=== PATIENT | female | born 1945 | race Caucasian/White ===

== ENCOUNTER 2017-11-25 12:50 | Observation (INO) | payer MEDICARE ==
--- NOTE | 2017-11-25 13:28 | ED ---
General Adult HPI - General Chief complaint: Shortness of Breath Stated complaint: copd Time Seen by Provider: 11/25/17 13:08 Source: patient, RN notes reviewed, old records reviewed Mode of arrival: wheelchair Limitations: no limitations - History of Present Illness Initial comments: 72-year-old female history of COPD, heart failure, and atrial fibrillation presenting with worsening dyspnea. Patient states she has had worsening exertional dyspnea over the past 3-4 weeks. Over the past several days this has significantly worsened. Patient is short of breath at rest. Denies cough. Denies fever. She has had some intermittent chest pain. She is currently on Lasix 40 mg has had no recent increases in this medication. She states she has had about a 10 pound weight gain. She is also on Rythmol and diltiazem for A. fib. She has no chest pain at the time my evaluation. Patient states she does have some issue with one of her valves and she recently had an echo with her cane cutter. She is uncertain of the results. - Related Data Home Medications Medication Instructions Recorded Confirmed Albuterol Inhaler [Ventolin Hfa 1 - 2 puff INHALATION RT-Q6H PRN 11/25/17 Inhaler] Atorvastatin [Lipitor] 10 mg PO HS 11/25/17 11/25/17 Calcium Carbonate/Vitamin D3 1 tab PO DAILY 11/25/17 11/25/17 [Calcium 600-Vit D3 400 Tablet] Diltiazem HCl [Cardizem Cd] 360 mg PO DAILY 11/25/17 11/25/17 Furosemide [Lasix] 40 mg PO DAILY 11/25/17 11/25/17 Ipratropium-Albuterol Nebulize 3 ml INHALATION RT-QID PRN 11/25/17 11/25/17 [Duoneb 0.5 mg-3 mg/3 ml Soln] Magnesium Chloride [Slow Mag] 64 mg PO DAILY 11/25/17 11/25/17 Montelukast [Singulair] 10 mg PO HS 11/25/17 11/25/17 Propafenone [Rythmol] 225 mg PO TID 11/25/17 11/25/17 Spironolactone [Aldactone] 25 mg PO DAILY 11/25/17 11/25/17 Warfarin [Coumadin] 5 mg PO DAILY 11/25/17 11/25/17 Allergies Allergy/AdvReac Type Severity Reaction Status Date / Time bee venom protein (honey bee) Allergy Anaphylaxis Verified 11/25/17 13:45 Review of Systems ROS Statement: Those systems with pertinent positive or pertinent negative responses have been documented in the HPI. ROS Other: All systems not noted in ROS Statement are negative. 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 Absent: meningismus Respiratory exam: Present: respiratory distress, wheezes, accessory muscle use, decreased breath sounds Cardiovascular Exam: Present: bradycardia, irregular rhythm, systolic murmur ( Pansystolic murmur) GI/Abdominal exam: Present: soft. Absent: distended, tenderness Extremities exam: Present: pedal edema (1), other (1+) Back exam: Present: normal inspection, full ROM. Absent: tenderness Neurological exam: Present: alert, oriented X3. Absent: motor sensory deficit Psychiatric exam: Present: normal affect, normal mood Skin exam: Present: warm, dry, intact. Absent: cyanosis, diaphoretic Course Vital Signs 11/25/17 11/25/17 11/25/17 12:55 13:46 13:57 Temperature 97.6 F Pulse Rate 73 40 L Respiratory 28 H 28 H Rate Blood Pressure 125/74 O2 Sat by Pulse 99 Oximetry 11/25/17 11/25/17 14:04 14:54 Temperature Pulse Rate 39 L 63 Respiratory 18 18 Rate Blood Pressure 133/65 131/90 O2 Sat by Pulse 96 96 Oximetry - Reevaluation(s) Reevaluation #1: 11/25/17 [address] Banegas, given the abnormal EKG, it is recommended that the patient receive IV calcium. Her Rythmol and diltiazem will be held. Patient will be admitted for telemetry and further monitoring. EKG Findings - EKG Comments: EKG Findings:: EKG: Obtained 1312 bradycardia, atrial fib with slow ventricular response, there is some atrial activity specifically seen in V3, this may be second-degree type I heart block, artifact and V5. Rate of 57, castration 116, QTC 465. Repeat EKG obtained at 1333 shows sinus bradycardia with AV dissociation and junctional bradycardia, there is a segment that appears to be second-degree type I heart block best visualized in lead 2 rhythm strip, it is left axis deviation, no ST segment elevation or depression, rate of 40, QRS duration 94, QTC 440. Repeat EKG at 1451 shows sinus rhythm with sinus arrhythmia and first-degree AV block, left axis deviation, rate of 62, WV interval 270, QRS duration 116, QTC 493 Medical Decision Making - Medical Decision Making 72-year-old female with progressive dyspnea over the past several weeks, worse over the past 3 days. Patient does have history of valvular disease, she received an outpatient echocardiogram [facility] within the last week. EKG is obtained, which shows bradycardia intermittent between A. fib with slow ventricular response and second-degree type I heart block. Case is discussed with cardiology, recommend holding Rythmol and diltiazem and supplementing with IV calcium. IV calcium and does improve patient's rhythm. She appears to be in a sinus rhythm with first-degree AV block after calcium supplementation and a rate in the 60s. Blood pressure remained stable. On exam patient has pansystolic murmur. Echo was obtained, these results will need to be reviewed. Pacer pads are placed on the patient although she does not require transcutaneous pacing. Electrolytes are within normal limits, creatinine 1.55, troponin and BNP are negative. TSH is pending. INR is therapeutic at 2.7. Hemoglobin stable. Diagnosis: Dyspnea secondary to bradycardia and valvular disease. - Lab Data Result diagrams: 11/25/17 13:30 11/25/17 13:30 Lab Results 11/25/17 11/25/17 11/25/17 Range/Units 13:30 13:30 13:30 WBC 8.7 (3.8-10.6) k/uL RBC 4.51 (3.80-5.40) m/uL Hgb 12.4 (11.4-16.0) gm/dL Hct 36.6 (34.0-46.0) % MCV 81.2 (80.0-100.0) fL MCH 27.4 (25.0-35.0) pg MCHC 33.7 (31.0-37.0) g/dL RDW 14.9 (11.5-15.5) % Plt Count 303 (150-450) k/uL Neutrophils % 75 % Lymphocytes % 16 % Monocytes % 6 % Eosinophils % 2 % Basophils % 1 % Neutrophils # 6.5 (1.3-7.7) k/uL Lymphocytes # 1.4 (1.0-4.8) k/uL Monocytes # 0.6 (0-1.0) k/uL Eosinophils # 0.1 (0-0.7) k/uL Basophils # 0.1 (0-0.2) k/uL PT (9.0-12.0) sec INR (<1.2) APTT (22.0-30.0) sec Sodium 141 (137-145) mmol/L Potassium 3.5 (3.5-5.1) mmol/L Chloride 99 (98-107) mmol/L Carbon Dioxide 28 (22-30) mmol/L Anion Gap 14 mmol/L BUN 22 H (7-17) mg/dL Creatinine 1.55 H (0.52-1.04) mg/dL Est GFR (CKD-EPI)AfAm 38 (>60 ml/min/1.73 sqM) Est GFR (CKD-EPI)NonAf 33 (>60 ml/min/1.73 sqM) Glucose 103 H (74-99) mg/dL Calcium 9.2 (8.4-10.2) mg/dL Magnesium 2.2 (1.6-2.3) mg/dL Total Bilirubin 0.3 (0.2-1.3) mg/dL AST 12 L (14-36) U/L ALT 28 (9-52) U/L Alkaline Phosphatase 97 (38-126) U/L Total Creatine Kinase 43 (30-135) U/L CK-MB (CK-2) 0.4 (0.0-2.4) ng/mL CK-MB (CK-2) Rel Index 0.9 Troponin I <0.012 (0.000-0.034) ng/mL NT-Pro-B Natriuret Pep pg/mL Total Protein 5.9 L (6.3-8.2) g/dL Albumin 3.9 (3.5-5.0) g/dL 11/25/17 11/25/17 Range/Units 13:30 13:30 WBC (3.8-10.6) k/uL RBC (3.80-5.40) m/uL Hgb (11.4-16.0) gm/dL Hct (34.0-46.0) % MCV (80.0-100.0) fL MCH (25.0-35.0) pg MCHC (31.0-37.0) g/dL RDW (11.5-15.5) % Plt Count (150-450) k/uL Neutrophils % % Lymphocytes % % Monocytes % % Eosinophils % % Basophils % % Neutrophils # (1.3-7.7) k/uL Lymphocytes # (1.0-4.8) k/uL Monocytes # (0-1.0) k/uL Eosinophils # (0-0.7) k/uL Basophils # (0-0.2) k/uL PT 24.6 H (9.0-12.0) sec INR 2.7 H (<1.2) APTT 30.3 H (22.0-30.0) sec Sodium (137-145) mmol/L Potassium (3.5-5.1) mmol/L Chloride (98-107) mmol/L Carbon Dioxide (22-30) mmol/L Anion Gap mmol/L BUN (7-17) mg/dL Creatinine (0.52-1.04) mg/dL Est GFR (CKD-EPI)AfAm (>60 ml/min/1.73 sqM) Est GFR (CKD-EPI)NonAf (>60 ml/min/1.73 sqM) Glucose (74-99) mg/dL Calcium (8.4-10.2) mg/dL Magnesium (1.6-2.3) mg/dL Total Bilirubin (0.2-1.3) mg/dL AST (14-36) U/L ALT (9-52) U/L Alkaline Phosphatase (38-126) U/L Total Creatine Kinase (30-135) U/L CK-MB (CK-2) (0.0-2.4) ng/mL CK-MB (CK-2) Rel Index Troponin I (0.000-0.034) ng/mL NT-Pro-B Natriuret Pep 357 pg/mL Total Protein (6.3-8.2) g/dL Albumin (3.5-5.0) g/dL Critical Care Time Critical Care Time: Yes Total Critical Care Time: 35 Disposition Clinical Impression: Symptomatic bradycardia, Valvular heart disease Disposition: ADMITTED IP TO THIS [facility] Condition: Stable Is patient prescribed a controlled substance at d/c from ED?: No Referrals: Cookie Guevara MD [Primary Care Provider] - 1-2 days Decision to Admit Reason: Admit from EC Decision Date: 11/25/17 Decision Time: 15:04
[2017-11-25 13:44] LABS: Basophils # (A) 0.1 k/uL (0-0.2); Basophils % (A) 1 %; Eosinophils # (A) 0.1 k/uL (0-0.7); Eosinophils % (A) 2 %; HCT 36.6 % (34.0-46.0); HGB 12.4 gm/dL (11.4-16.0); Lymphocytes # (A) 1.4 k/uL (1.0-4.8); Lymphocytes % (A) 16 %; MCH 27.4 pg (25.0-35.0); MCHC 33.7 g/dL (31.0-37.0); MCV 81.2 fL (80.0-100.0); Mean Platelet Volume 7.4; Monocytes # (A) 0.6 k/uL (0-1.0); Monocytes % (A) 6 %; Neutrophils # (A) 6.5 k/uL (1.3-7.7); Neutrophils % (A) 75 %; Platelet Count 303 k/uL (150-450); RBC 4.51 m/uL (3.80-5.40); RDW 14.9 % (11.5-15.5); WBC 8.7 k/uL (3.8-10.6)
[2017-11-25 13:53] LABS: Albumin 3.9 g/dL (3.5-5.0); Calcium 9.2 mg/dL (8.4-10.2); Magnesium 2.2 mg/dL (1.6-2.3); Potassium 3.5 mmol/L (3.5-5.1); Total Bilirubin 0.3 mg/dL (0.2-1.3); Total Protein 5.9 g/dL (6.3-8.2)
[2017-11-25 13:57] LABS: INR 2.7 (<1.2); Partial Thromboplastin Time 30.3 sec (22.0-30.0); Prothrombin Time 24.6 sec (9.0-12.0)
--- NOTE | 2017-11-25 13:57 | XR ---
EXAMINATION: XR chest 2V DATE AND TIME: 11/25/2017 1:51 PM ORDERING PROVIDER: Wesley Eastman MD CLINICAL INDICATION: difficulty breathing TECHNIQUE: PA and lateral COMPARISON: None. DESCRIPTION: The overlying soft tissues are prominent. The lungs are clear. The pleural spaces are negative. The cardiac silhouette is moderately enlarged. The mediastinal and pleural silhouettes are unremarkable. The skeletal structures are intact without focal findings. IMPRESSION: NO ACUTE PROCESS.
[2017-11-25 14:07] LABS: Creatine Kinase 43 U/L (30-135)
[2017-11-25 14:20] LABS: Creatine Kinase MB 0.4 ng/mL (0.0-2.4); Troponin I <0.012 ng/mL (0.000-0.034)
[2017-11-25] MEDS ORDERED: NALOXONE 0.4 MG/ML 1 ML VIAL IV PRN (14:53)
[2017-11-25] MEDS ORDERED: ALBUTEROL NEBULIZED 2.5 MG/3 ML INHALATION PRN (14:56)
[2017-11-25] MEDS ORDERED: CALCIUM CHLORIDE 500 MG in SODIUM CHLORIDE 0.9% 50 ML IVPB ONE (15:00)
[2017-11-25 16:54] VITALS: BMI 39.5
--- NOTE | 2017-11-25 17:17 | P.HPIM ---
History of Present Illness 68-year-old pleasant female came in with the comments of excessive tiredness weakness and worsening dyspnea denied any orthopnea PND. Patient had some aloe problem what appears to be aortic stenosis and which is being monitored by her hydraulic press tender Dr. Torres as an outpatient. Patient chest x-ray did not show any congestive heart failure patient is severely bradycardic, with heart rate going into 30s and first-degree AV block. Because of the severe symptomatically bradycardia patient was admitted to the hospital area patient is on Rythmol and Cardizem as an outpatient dose of which was not changed recently. TSH will be obtained as well patient's INR is therapeutic Coumadin will be continued at the same dose troponin is negative. Brain natriuretic peptide is only 300. Patient clinically does not appear to be in heart failure patient's creatinine is 1.55 baseline is not available patient appears to have chronic kidney disease with BUN and creatinine ratio. Because of poor renal function all hold off on all that on and the Lasix at this time and patient is not in heart failure and status started on gentle hydration at 75 mL of IV fluids patient does have systolic murmur and diuretic area but the the murmur is not that severe may not have severe aortic stenosis patient recently had an echocardiogram and carotid Doppler as an outpatient results of which will be obtained by on-call hydraulic press tender. Review of Systems REVIEW OF SYSTEMS: CONSTITUTIONAL: As mentioned in HPI HEENT: No recent visual problems or hearing problems. Denied any sore throat. CARDIOVASCULAR: No chest pain, orthopnea, PND, no palpitations, no syncope. B PULMONARY: No shortness of breath, no cough, no hemoptysis. GASTROINTESTINAL: No diarrhea, no nausea, no vomiting, no abdominal pain. Normoactive bowel sounds. NEUROLOGICAL: No headaches, no weakness, no numbness. HEMATOLOGICAL: Denies any bleeding or petechiae. GENITOURINARY: Denies any burning micturition, frequency, or urgency. MUSCULOSKELETAL/RHEUMATOLOGICAL: Denies any joint pain, swelling, or any muscle pain. ENDOCRINE: Denies any polyuria or polydipsia. The rest of the 14-point review of systems is negative. 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 History of Any Multi-Drug Resistant Organisms: None Reported Past Surgical History: Appendectomy, Heart Catheterization, Tonsillectomy, Tubal Ligation Past Anesthesia/Blood Transfusion Reactions: No Reported Reaction Past Psychological History: No Psychological Hx Reported Smoking Status: Former smoker Past Alcohol Use History: None Reported Past Drug Use History: None Reported - Past Family History Father History Unknown: Yes Family Medical History: Cancer Medications and Allergies Home Medications Medication Instructions Recorded Confirmed Type Albuterol Inhaler [Ventolin Hfa 1 - 2 puff INHALATION RT-Q6H PRN 11/25/17 History Inhaler] Atorvastatin [Lipitor] 10 mg PO HS 11/25/17 11/25/17 History Calcium Carbonate/Vitamin D3 1 tab PO DAILY 11/25/17 11/25/17 History [Calcium 600-Vit D3 400 Tablet] Diltiazem HCl [Cardizem Cd] 360 mg PO DAILY 11/25/17 11/25/17 History Furosemide [Lasix] 40 mg PO DAILY 11/25/17 11/25/17 History Ipratropium-Albuterol Nebulize 3 ml INHALATION RT-QID PRN 11/25/17 11/25/17 History [Duoneb 0.5 mg-3 mg/3 ml Soln] Magnesium Chloride [Slow Mag] 64 mg PO DAILY 11/25/17 11/25/17 History Montelukast [Singulair] 10 mg PO HS 11/25/17 11/25/17 History Propafenone [Rythmol] 225 mg PO TID 11/25/17 11/25/17 History Spironolactone [Aldactone] 25 mg PO DAILY 11/25/17 11/25/17 History Warfarin [Coumadin] 5 mg PO DAILY 11/25/17 11/25/17 History Allergies Allergy/AdvReac Type Severity Reaction Status Date / Time bee venom protein (honey bee) Allergy Anaphylaxis Verified 11/25/17 13:45 Physical Exam Vitals: Vital Signs Temp Pulse Resp BP Pulse Ox 11/25/17 15:42 97 F L 62 18 141/64 96 11/25/17 14:54 63 18 131/90 96 11/25/17 14:04 39 L 18 133/65 96 11/25/17 13:57 28 H 11/25/17 13:46 40 L 11/25/17 12:55 97.6 F 73 28 H 125/74 99 Intake and Output 11/25/17 11/25/17 11/25/17 06:59 14:59 22:59 Other: Weight 117.934 kg 117.93 kg PHYSICAL EXAMINATION: GENERAL: The patient is alert and oriented x3, not in any acute distress. Well developed, well nourished. HEENT: Pupils are round and equally reacting to light. EOMI. No scleral icterus. No conjunctival pallor. Normocephalic, atraumatic. No pharyngeal erythema. No thyromegaly. CARDIOVASCULAR: S1 and S2 present. No murmurs, rubs, or gallops. Bradycardic PULMONARY: Chest is clear to auscultation, no wheezing or crackles. ABDOMEN: Soft, nontender, nondistended, normoactive bowel sounds. No palpable organomegaly. MUSCULOSKELETAL: No joint swelling or deformity. EXTREMITIES: No cyanosis, clubbing, or pedal edema. NEUROLOGICAL: Gross neurological examination did not reveal any focal deficits. SKIN: No rashes. Results CBC & Chem 7: 11/25/17 13:30 11/25/17 13:30 Labs: Abnormal Lab Results - Last 24 Hours (Table) 11/25/17 11/25/17 Range/Units 13:30 13:30 PT 24.6 H (9.0-12.0) sec INR 2.7 H (<1.2) APTT 30.3 H (22.0-30.0) sec BUN 22 H (7-17) mg/dL Creatinine 1.55 H (0.52-1.04) mg/dL Glucose 103 H (74-99) mg/dL AST 12 L (14-36) U/L Total Protein 5.9 L (6.3-8.2) g/dL Assessment and Plan Plan: -Severe generalized fatigue: TSH is within normal limits probably secondary to severe bradycardia and first-degree AV block, rate control medications Cardizem and Rythmol are being held. Patient does not appear to be in heart failure -Atrial fibrillation presently bradycardic therapeutic on Coumadin patient will receive can you done same dose of Coumadin -Renal failure: Unsure whether patient has acute renal failure R chronic kidney disease, we'll start her on gentle hydration repeat basic metabolic profile tomorrow we'll hold off on diuretic therapy -COPD without any acute exacerbation -Possible aortic stenosis, awaiting results from cardiology clinic
[2017-11-25 18:15] LABS: Amorphous Sediment,Urine Rare /hpf; Appearance,Urine Cloudy (Clear); Bilirubin,Urine Negative (Negative); Blood,Urine Negative (Negative); Color,Urine Light Yellow; Glucose,Urine (UA) Negative (Negative); Ketones,Urine Negative (Negative); Leukocyte Esterase,Urine Negative (Negative); Mucus,Urine Rare /hpf; Nitrite,Urine Negative (Negative); PH, Urine 7.5 (5.0-8.0); Protein,Urine Negative (Negative); Specific Gravity,Urine 1.009 (1.001-1.035); Squamous Epithelial Cell,Urine <1 /hpf (0-4); Urobilinogen,Urine <2.0 mg/dL (<2.0)
[2017-11-25] MEDS: ATORVASTATIN 10 MG TAB PO SCH (20:02)
[2017-11-25] MEDS: SODIUM CHLORIDE 0.9% 1,000 ML IV SCH (20:02)
[2017-11-25 20:03] LABS: Creatine Kinase 45 U/L (30-135)
[2017-11-25 20:16] LABS: Creatine Kinase MB 0.4 ng/mL (0.0-2.4); Troponin I <0.012 ng/mL (0.000-0.034)
[2017-11-26 01:44] LABS: Creatine Kinase 37 U/L (30-135)
[2017-11-26 01:58] LABS: Creatine Kinase MB 0.4 ng/mL (0.0-2.4); Troponin I <0.012 ng/mL (0.000-0.034)
[2017-11-26 06:22] LABS: Calcium 9.1 mg/dL (8.4-10.2); Potassium 3.9 mmol/L (3.5-5.1)
[2017-11-26] MEDS: SODIUM CHLORIDE 0.9% 1,000 ML IV SCH ×2 (06:28→19:23)
[2017-11-26 06:30] LABS: INR 2.3 (<1.2); Prothrombin Time 20.5 sec (9.0-12.0)
[2017-11-26] MEDS: IPRATROPIUM-ALBUTEROL 3 ML NEB INHALATION PRN ×3 (08:43→21:12)
[2017-11-26] MEDS ORDERED: SPIRONOLACTONE 25 MG TAB PO SCH (09:00)
[2017-11-26] MEDS ORDERED: FUROSEMIDE 40 MG TAB PO SCH (09:00)
--- NOTE | 2017-11-26 12:24 | CONS ---
CONSULTATION 72-year-old female presenting with several days of tiredness, fatigue and weakness, but no loss of consciousness. She was short of breath and fatigued, but she denied any orthopnea, PND or chest pain. When she arrived her 12-lead ECG showed sinus bradycardia and junctional rhythm. Currently she is in sinus rhythm with a prolonged CA interval. She was on diltiazem 360 mg p.o. daily and propafenone 225 mg 3 times a day. LABS: Reviewed upon admission and her hemoglobin is normal. Electrolytes are normal. The potassium was 3.5 and NT proBNP was 357. Cardiac enzymes are normal. PAST HISTORY: Includes atrial fibrillation. She has undergone 2 electrical cardioversion. She has persistent atrial fibrillation. MEDICATION LIST: Was reviewed and is documented in the chart and includes warfarin, spironolactone in addition to Rythmol and Cardizem. ALLERGIES: To BEE VENOM. REVIEW OF SYSTEMS: No no fever or rigors. No strokes or seizures. Past history also includes coronary angiogram with normal coronary arteries in 2012. She underwent an echo in the office in February 2017, which showed normal LV function with aortic sclerosis and mild to moderate aortic insufficiency. The BMI is 39. Also in addition, she has a history of hypertension and dyslipidemia. EXAMINATION: Her vitals are stable. She is afebrile. Her pulse rate in the 60s and 70s. Blood pressure is 132/67 mmHg. Head and neck examination is normal. Heart sounds S1, S2 soft. There is a systolic murmur over the aortic area. I do not hear any diastolic murmur. Breath sounds are clear. No rhonchi, no crackles. Abdomen was soft. Extremities: Atrophic changes are noted. IMPRESSION: 72-year-old obese female with a history of mild aortic valve disease and persistent atrial fibrillation who has undergone electrical cardioversion several years back and is currently on Rythmol 225 mg 3 times a day and diltiazem 360 mg once daily, who presented with severe bradycardia and junctional rhythm. Rhythm has now improved. She is now in a sinus rhythm with a prolonged CA interval. I would suggest discontinuing Rythmol and diltiazem for now and reassess tomorrow. Reassess her blood pressure and her atrial fibrillation medications. She should obviously continue anticoagulation. Her options in terms of antiarrhythmic drug therapy are limited and include class 1 or class 3 drug like amiodarone would precipitate bradycardia. I will then reconsider on starting Rythmol at a much smaller dose and AV charly blocking drugs at a much smaller dose. If this problem recurs and she becomes bradycardic or if her atrial fibrillation reoccurs, alternative strategies including physiologic septal pacing should be considered in the future. TSH will be ordered. MMODL / IJN: [id number] /
--- NOTE | 2017-11-26 12:42 | P.PN ---
Subjective 68-year-old admitted secondary to sinus bradycardia with first-degree AV block. Cardiology valid the patient is recommending one more day of monitoring her creatinine did improve. Patient is feeling much better fatigue improved. Part of the fatigue is probably related to her renal dysfunction which may have led to accumulation of her rate control medications which were discontinued now. Echocardiogram results are still not available at this time. Constitutional: denied any fever. Cardio vascular: denied any chest pain, palpitations Gastrointestinal denied any nausea vomiting Pulmonary: Denied any shortness of breath cough Neurologic denied any new focal deficits Objective - Vital Signs Vital signs: Vital Signs Temp 97.0 F L 11/26/17 08:50 Pulse 62 11/26/17 08:54 Resp 18 11/26/17 08:50 BP 132/67 11/26/17 08:50 Pulse Ox 99 11/26/17 08:50 Intake & Output 11/25/17 11/26/17 11/26/17 18:59 06:59 18:59 Intake Total 350 660 240 Output Total 325 300 Balance 25 360 240 Weight 117.93 kg 115.8 kg Intake: Intake, IV Titration 300 Amount Sodium Chloride 0.9% 1, 300 000 ml @ 75 mls/hr IV . [id number] ADRIANNA Rx#:[id number] Oral 350 360 240 Output: Urine 325 300 Other: Voiding Method Toilet # Bowel Movements 1 - Exam PHYSICAL EXAMINATION: GENERAL: The patient is alert and oriented x3, not in any acute distress. Well developed, well nourished. HEENT: Pupils are round and equally reacting to light. EOMI. No scleral icterus. No conjunctival pallor. Normocephalic, atraumatic. No pharyngeal erythema. No thyromegaly. CARDIOVASCULAR: S1 and S2 present. No murmurs, rubs, or gallops. PULMONARY: Chest is clear to auscultation, no wheezing or crackles. ABDOMEN: Soft, nontender, nondistended, normoactive bowel sounds. No palpable organomegaly. MUSCULOSKELETAL: No joint swelling or deformity. EXTREMITIES: No cyanosis, clubbing, or pedal edema. NEUROLOGICAL: Gross neurological examination did not reveal any focal deficits. SKIN: No rashes. - Labs CBC & Chem 7: 11/25/17 13:30 11/26/17 05:25 Labs: Abnormal Lab Results - Last 24 Hours (Table) 11/25/17 11/25/17 11/25/17 Range/Units 13:30 13:30 18:00 PT 24.6 H (9.0-12.0) sec INR 2.7 H (<1.2) APTT 30.3 H (22.0-30.0) sec BUN 22 H (7-17) mg/dL Creatinine 1.55 H (0.52-1.04) mg/dL Glucose 103 H (74-99) mg/dL AST 12 L (14-36) U/L Total Protein 5.9 L (6.3-8.2) g/dL Urine Appearance Cloudy H (Clear) Amorphous Sediment Rare H (None) /hpf Urine Mucus Rare H (None) /hpf 11/26/17 11/26/17 Range/Units 05:25 05:25 PT 20.5 H (9.0-12.0) sec INR 2.3 H (<1.2) APTT (22.0-30.0) sec BUN 20 H (7-17) mg/dL Creatinine 1.20 H (0.52-1.04) mg/dL Glucose 104 H (74-99) mg/dL AST (14-36) U/L Total Protein (6.3-8.2) g/dL Urine Appearance (Clear) Amorphous Sediment (None) /hpf Urine Mucus (None) /hpf Assessment and Plan Plan: -Severe generalized fatigue: TSH is within normal limits probably secondary to severe bradycardia with contribution from acute renal failure and first-degree AV block, rate control medications Cardizem and Rythmol are being held. Patient does not appear to be in heart failure. Renal failure improved compared to yesterday continue with the gentle hydration today repeat basic metabolic profile tomorrow -Atrial fibrillation presently bradycardic therapeutic on Coumadin patient will receive can you done same dose of Coumadin. Repeat INR tomorrow -Renal failure: Patient mostly appears to have acute renal failure secondary to diuretic therapy which is being held and patient is being hydrated at this time. -COPD without any acute exacerbation -Possible aortic stenosis, awaiting results from cardiology clinic
[2017-11-26] MEDS: WARFARIN 5 MG TAB PO SCH (16:15)
[2017-11-26] MEDS: ACETAMINOPHEN TAB 325 MG TAB PO PRN (19:25)
[2017-11-26] MEDS: ATORVASTATIN 10 MG TAB PO SCH (19:26)
[2017-11-27 06:52] LABS: Prothrombin Time 17.8 sec (9.0-12.0)
[2017-11-27 07:02] LABS: Calcium 8.8 mg/dL (8.4-10.2); Potassium 4.8 mmol/L (3.5-5.1)
[2017-11-27] MEDS: IPRATROPIUM-ALBUTEROL 3 ML NEB INHALATION PRN (08:56)
[2017-11-27] MEDS ORDERED: PROPAFENONE 150 MG TAB PO SCH (09:00)
[2017-11-27] MEDS: DILTIAZEM CD 120 MG CAP.ER.24H PO SCH (09:35)
[2017-11-27] MEDS: PROPAFENONE 150 MG TAB PO SCH ×3 (09:35→22:35)
--- NOTE | 2017-11-27 10:22 | PN ---
PROGRESS NOTE This is a 72-year-old female who presented with weakness and tiredness with bradycardia on diltiazem 360 mg p.o. daily as well as Rythmol 225 mg 3 times a day in sinus rhythm and junctional rhythm. She has improved after discontinuing all these medications. She has a history of persistent atrial fibrillation and has had electrical cardioversion several years back on 2 occasions. However, she has maintained sinus rhythm thereafter. Today, she is doing well. She denies any chest discomfort, dizziness or lightheadedness. She is resting comfortably in bed. Her heart rates are normal, WI interval is mildly prolonged. On examination, she is afebrile, 97.6 degrees Fahrenheit, blood pressure is 127/59 mmHg, pulse rate is in the 60s and 70s. Head and neck examination is normal. Heart sounds reveal an ejection systolic murmur and no S3 gallop. IMPRESSION: 1. Persistent atrial fibrillation, currently remaining in sinus rhythm. 2. Sick sinus syndrome. 3. Abnormal AV node function with prolonged WI interval. 4. Improved after medications including Rythmol and Cardizem were discontinued. PLAN: I would restart Rythmol at a much lower dose of 75 mg 3 times a day as well as restart Cardizem at 120 mg p.o. daily. Observe on telemetry for the next 24 to 48 hours to see if she has any bradycardia issues. If she does not, then she may go home and follow up with Dr. Torres. She will continue anticoagulation. If she does have persistent atrial fibrillation, it is very likely that she will recur without any antiarrhythmic drug therapy. Rythmol has worked well for her and hopefully the low dose is also successful in maintaining sinus rhythm. Her TSH is normal. MMODL / IJN: [id number] /
--- NOTE | 2017-11-27 10:57 | P.PN ---
Subjective 68-year-old admitted secondary to sinus bradycardia with first-degree AV block. Cardiology valid the patient is recommending one more day of monitoring her creatinine did improve. Patient is feeling much better fatigue improved. Part of the fatigue is probably related to her renal dysfunction which may have led to accumulation of her rate control medications which were discontinued now. Echocardiogram results are still not available at this time. 11/27/2017 Patient is bit crackles on lung exam because of which I discontinued IV fluids and obtain a chest x-ray. Patient renal function improved and is normal now patient is being started back on Rythmol and Cardizem, cardiology is recommending monitoring one more night. Constitutional: denied any fever. Cardio vascular: denied any chest pain, palpitations Gastrointestinal denied any nausea vomiting Pulmonary: Denied any shortness of breath cough Neurologic denied any new focal deficits Objective - Vital Signs Vital signs: Vital Signs Temp 97.6 F 11/27/17 08:30 Pulse 80 11/27/17 09:06 Resp 20 11/27/17 08:30 BP 129/55 11/27/17 08:30 Pulse Ox 97 11/27/17 08:57 Intake & Output 11/26/17 11/27/17 11/27/17 18:59 06:59 18:59 Intake Total 480 240 360 Output Total 601 925 700 Balance -121 -685 -340 Weight 117.3 kg Intake: Oral 480 240 360 Output: Urine 600 925 100 Stool 1 Urine/Stool Mix 600 Other: Voiding Method Toilet # Voids 1 # Bowel Movements 1 - Exam PHYSICAL EXAMINATION: GENERAL: The patient is alert and oriented x3, not in any acute distress. Well developed, well nourished. HEENT: Pupils are round and equally reacting to light. EOMI. No scleral icterus. No conjunctival pallor. Normocephalic, atraumatic. No pharyngeal erythema. No thyromegaly. CARDIOVASCULAR: S1 and S2 present. No murmurs, rubs, or gallops. PULMONARY: Bibasilar crackles on exam no wheezing was appreciated ABDOMEN: Soft, nontender, nondistended, normoactive bowel sounds. No palpable organomegaly. MUSCULOSKELETAL: No joint swelling or deformity. EXTREMITIES: No cyanosis, clubbing, or pedal edema. NEUROLOGICAL: Gross neurological examination did not reveal any focal deficits. SKIN: No rashes. - Labs CBC & Chem 7: 11/25/17 13:30 11/27/17 06:16 Labs: Abnormal Lab Results - Last 24 Hours (Table) 11/27/17 Range/Units 06:16 PT 17.8 H (9.0-12.0) sec INR 2.0 H (<1.2) Assessment and Plan Plan: -Severe generalized fatigue: TSH is within normal limits probably secondary to severe bradycardia with contribution from acute renal failure and first-degree AV block, rate control medications Cardizem and Rythmol are being held. Patient does not appear to be in heart failure. Renal failure improved compared to yesterday continue with the gentle hydration today repeat basic metabolic profile tomorrow -Atrial fibrillation presently bradycardic therapeutic on Coumadin patient will receive can you done same dose of Coumadin. Repeat INR tomorrow -Renal failure: Acute renal failure secondary to diuretic therapy which improved now. Because of crackles in the lung exam I'll get a chest x-ray today. -COPD without any acute exacerbation -Possible aortic stenosis, awaiting results from cardiology clinic
--- NOTE | 2017-11-27 13:06 | XR ---
EXAMINATION TYPE: XR chest 1V DATE OF EXAM: 11/27/2017 COMPARISON: 11/25/2017 HISTORY: Shortness of breath TECHNIQUE: Single frontal view of the chest is obtained. FINDINGS: There is no focal air space opacity, pleural effusion, or pneumothorax seen. The cardiac silhouette size is within normal limits. The osseous structures are intact. Heart is enlarged. Unde rlying COPD suspected there is diffuse osteopenia. Atherosclerotic change of the aorta. Linear atelec tasis left upper lobe. IMPRESSION: Stable cardiomegaly and findings suggestive of COPD
[2017-11-27 15:42] VITALS: RESP 20
[2017-11-27] MEDS: WARFARIN 5 MG TAB PO SCH (17:19)
[2017-11-27] MEDS: SODIUM CHLORIDE 0.9% 1,000 ML IV SCH (19:32)
[2017-11-27] MEDS: ATORVASTATIN 10 MG TAB PO SCH (22:35)
[2017-11-28] MEDS: ACETAMINOPHEN TAB 325 MG TAB PO PRN (00:18)
[2017-11-28 05:26] VITALS: TEMP 97.9
[2017-11-28 06:23] LABS: HCT 34.2 % (34.0-46.0); HGB 10.8 gm/dL (11.4-16.0); Hypochromasia Slight; MCH 26.4 pg (25.0-35.0); MCHC 31.5 g/dL (31.0-37.0); MCV 83.7 fL (80.0-100.0); Platelet Count 289 k/uL (150-450); RBC 4.09 m/uL (3.80-5.40); RDW 14.9 % (11.5-15.5)
[2017-11-28 06:31] LABS: Calcium 8.9 mg/dL (8.4-10.2); Potassium 4.9 mmol/L (3.5-5.1)
[2017-11-28 06:33] LABS: INR 1.8 (<1.2); Prothrombin Time 16.5 sec (9.0-12.0)
[2017-11-28 08:02] VITALS: BP 134/89
[2017-11-28] MEDS: PROPAFENONE 150 MG TAB PO SCH (08:04)
[2017-11-28] MEDS: DILTIAZEM CD 120 MG CAP.ER.24H PO SCH (08:04)
[2017-11-28] MEDS: IPRATROPIUM-ALBUTEROL 3 ML NEB INHALATION PRN (08:07)
[2017-11-28 09:07] VITALS: PULSE 87
--- NOTE | 2017-11-28 11:52 | P.PN ---
Subjective Progress Note Date: 11/28/17 Principal diagnosis: Tiredness and fatigue This is a 72-year-old female who presented to the hospital with symptoms of tiredness, fatigue and weakness. Her initial EKG on presentation here showed sinus bradycardia and junctional rhythm. Medication adjustments have been made. She was seen and examined this morning, heart rate in the 70s to 80s, feeling overall significantly better. Let pressure this morning 134/80 with a heart rate in the 70s to 80s. White blood cell count 8.0, hemoglobin 10.8, platelet count 289. INR today 1.8. Sodium 137, potassium 4.9, BUN 14, creatinine 0.9. Objective - Vital Signs Vital signs: Vital Signs Temp 97.9 F 11/28/17 07:45 Pulse 87 11/28/17 09:00 Resp 20 11/28/17 08:00 BP 134/89 11/28/17 07:45 Pulse Ox 90 L 11/28/17 09:00 Intake & Output 11/27/17 11/28/17 11/28/17 18:59 06:59 18:59 Intake Total 1080 Output Total 1000 200 1 Balance 80 -200 -1 Weight 117.4 kg Intake: Oral 1080 Output: Urine 400 200 Stool 1 Urine/Stool Mix 600 Other: Voiding Method Toilet Toilet # Voids 1 - Exam PHYSICAL EXAMINATION: GENERAL: 72-year-old female in no apparent distress at the time of my examination. HEENT: Head is atraumatic, normocephalic. Pupils equal, round. Sclera anicteric. Conjunctiva are clear. Mucous membranes of the mouth are moist. Neck is supple. There is no elevated jugular venous pressure.] bruit is heard. HEART EXAMINATION: Heart S1 and S2 irregularly irregular CHEST EXAMINATION: Lungs are clear to auscultation and precussion. No chest wall tenderness is noted on palpation or with deep breathing. ABDOMEN: Soft, nontender. Bowel sounds are heard. No organomegaly noted. EXTREMITIES: 2+ peripheral pulses with no evidence of peripheral edema and no calf tenderness noted. NEUROLOGIC patient is awake, alert and oriented -3. . - Labs CBC & Chem 7: 11/28/17 05:26 11/28/17 05:26 Labs: Abnormal Lab Results - Last 24 Hours (Table) 06/19/18 06/19/18 Range/Units 05:26 05:26 Hgb 10.8 L (11.4-16.0) gm/dL PT 16.5 H (9.0-12.0) sec INR 1.8 H (<1.2) Assessment and Plan Plan: Assessment and plan #1 paroxysmal atrial fibrillation, remaining in normal sinus rhythm. #2 bradycardia on admission, improved #3 COPD without exacerbation Plan Cardiology's perspective, patient may be able to be discharged home on her current medication she is on here. She has a follow-up appointment with Dr. Oviedo next Monday and has been advised at that time to grain picker a Holter monitor as well. Note
--- NOTE | 2017-11-28 14:20 | P.DS ---
Providers Date of admission: 11/27/17 14:16 Attending physician: Laurel Sharma Consults: 11/25/17 14:54 Consult Physician Urgent Consulting Provider: Chris Banegas Consult Reason/Comments: Bradycardia, valvular disease Do you want consulting provider notified?: Already Contacted Primary care physician: Cookie [facility] Course: 68-year-old admitted secondary to sinus bradycardia with first-degree AV block. Cardiology valid the patient is recommending one more day of monitoring her creatinine did improve. Patient is feeling much better fatigue improved. Part of the fatigue is probably related to her renal dysfunction which may have led to accumulation of her rate control medications which were discontinued now. Echocardiogram results are still not available at this time. 11/27/2017 Patient is bit crackles on lung exam because of which I discontinued IV fluids and obtain a chest x-ray. Patient renal function improved and is normal now patient is being started back on Rythmol and Cardizem, cardiology is recommending monitoring one more night. 11/28/2017 Patient heart rate is well controlled patient is cleared by cardiology will be discharged on dictated dose of Cardizem and Rythmol. Patient is not in heart failure patient has diuretic-related renal dysfunction because of which diuretics were discontinued. Patient will closely follow with Dr. Torres as an outpatient. PHYSICAL EXAMINATION: GENERAL: The patient is alert and oriented x3, not in any acute distress. Well developed, well nourished. HEENT: Pupils are round and equally reacting to light. EOMI. No scleral icterus. No conjunctival pallor. Normocephalic, atraumatic. No pharyngeal erythema. No thyromegaly. CARDIOVASCULAR: S1 and S2 present. No murmurs, rubs, or gallops. PULMONARY: Bibasilar crackles on exam no wheezing was appreciated ABDOMEN: Soft, nontender, nondistended, normoactive bowel sounds. No palpable organomegaly. MUSCULOSKELETAL: No joint swelling or deformity. EXTREMITIES: No cyanosis, clubbing, or pedal edema. NEUROLOGICAL: Gross neurological examination did not reveal any focal deficits. SKIN: No rashes. Assessment and Plan Plan: -Severe generalized fatigue: Secondary to bradycardia which resolved at this point of time with contribution from acute renal failure which also improved. Creatinine is within normal limits. -Atrial fibrillation presently rate controlled -Renal failure: Acute renal failure secondary to diuretic therapy which improved now. -COPD without any acute exacerbation -Possible aortic stenosis. Patient Condition at Discharge: Stable Plan - Discharge Summary New Discharge Prescriptions: New Diltiazem Cd [Cardizem CD] 120 mg PO DAILY #30 cap.er.24h Propafenone [Rythmol] 75 mg PO TID #90 tab Continue Albuterol Inhaler [Ventolin Hfa Inhaler] 1 - 2 puff INHALATION RT-Q6H PRN PRN Reason: Shortness Of Breath Atorvastatin [Lipitor] 10 mg PO HS Calcium Carbonate/Vitamin D3 [Calcium 600-Vit D3 400 Tablet] 1 tab PO DAILY Ipratropium-Albuterol Nebulize [Duoneb 0.5 mg-3 mg/3 ml Soln] 3 ml INHALATION RT-QID PRN PRN Reason: Shortness Of Breath Magnesium Chloride [Slow-Mag] 64 mg PO DAILY Montelukast [Singulair] 10 mg PO HS Warfarin [Coumadin] 5 mg PO DAILY Discontinued Diltiazem HCl [Cardizem Cd] 360 mg PO DAILY Furosemide [Lasix] 40 mg PO DAILY Propafenone [Rythmol] 225 mg PO TID Spironolactone [Aldactone] 25 mg PO DAILY Discharge Medication List Albuterol Inhaler [Ventolin Hfa Inhaler] 1 - 2 puff INHALATION RT-Q6H PRN [History] Atorvastatin [Lipitor] 10 mg PO HS 11/25/17 [History] Calcium Carbonate/Vitamin D3 [Calcium 600-Vit D3 400 Tablet] 1 tab PO DAILY [History] Ipratropium-Albuterol Nebulize [Duoneb 0.5 mg-3 mg/3 ml Soln] 3 ml INHALATION RT -QID PRN 11/25/17 [History] Magnesium Chloride [Slow-Mag] 64 mg PO DAILY 11/25/17 [History] Montelukast [Singulair] 10 mg PO HS 11/25/17 [History] Warfarin [Coumadin] 5 mg PO DAILY 11/25/17 [History] Diltiazem Cd [Cardizem CD] 120 mg PO DAILY #30 cap.er.24h 11/28/17 [Rx] Propafenone [Rythmol] 75 mg PO TID #90 tab 11/28/17 [Rx] Follow up Appointment(s)/Referral(s): Cookie Guevara MD [Primary Care Provider] - 12/06/17 3:15 pm (Physician) Yasmani Torres MD [STAFF PHYSICIAN] - 12/05/17 4:30 pm (Appointment changed.) Patient Instructions/Handouts: Bradycardia (DC) Activity/Diet/Wound Care/Special Instructions: 24 hour holter monitor at office visit Discharge Disposition: HOME SELF-CARE
--- NOTE | 2017-12-07 10:10 | CDI ---
Last Revision, May 2017 Documentation Clarification Form Date: 12/07/17 From: Kylie Sandoval Phone: If you have a question regarding this query, please contact Gertrude Reynolds at [phone] between 8am and 5pm Admit Date: 11/27/2017 2:16:00 PM Patient Name: Stephanie Colindres Visit Number: [id number] Discharge Date: 11/28/17 ATTENTION: The Clinical Documentation Specialists (CDI) and [facility] Coding Staff appreciate your assistance in clarifying documentation. Please respond to the clarification below the line at the bottom and electronically sign. The CDI & [facility] Coding staff will review the response and follow-up if needed. Please note: Queries are made part of the Legal Health Record. If you have any questions, please contact the author of this message via ITS. Dr. Blayne Banegas Heart failure is documented in the past medical history of the H&P and ED note. History/Risk Factors: Patient has a history of atrial fibrillation. VS/Pulse OX: BNP: 357 Chest X Ray: 11/25 - No acute process; 11/27 - Stabel cardiomegaly and findings suggestive of COPD. Treatment: PO Lasix In your professional opinion, can you please clarify the acuity and type of CHF if known? Systolic Heart Failure: Diastolic Heart Failure: Systolic & Diastolic Heart Failure: Unable to Determine Other, please specify MTDD
== END 2017-11-28 10:46 | disposition home or self-care (01) ==
LOC: EC 12:50 → 6SEL 15:13 → INTOOBSV 11-27 14:16 → OBSVTOIN 11-27 14:16 → UNDODISIN 11-28 10:46
PROVIDERS: ADMIT Internal Medicine; ATTEND Internal Medicine
DX: R00.1 Bradycardia, unspecified (principal); N17.9 Acute kidney failure, unspecified; T50.2X5A Adverse effect of carbonic-anhydrase inhibitors, benzothiadiazides and other diuretics, initial encounter; I44.0 Atrioventricular block, first degree; E78.5 Hyperlipidemia, unspecified; I35.9 Nonrheumatic aortic valve disorder, unspecified; I48.0 Paroxysmal atrial fibrillation; J44.9 Chronic obstructive pulmonary disease, unspecified; M10.9 Gout, unspecified; I50.9 Heart failure, unspecified; Z68.39 Body mass index [BMI] 39.0-39.9, adult; E66.9 Obesity, unspecified; Z79.01 Long term (current) use of anticoagulants; Z79.899 Other long term (current) drug therapy; Z87.891 Personal history of nicotine dependence; Z91.030 Bee allergy status; Z90.49 Acquired absence of other specified parts of digestive tract; Z98.51 Tubal ligation status; Z80.9 Family history of malignant neoplasm, unspecified
CPT/HCPCS: 96365; 99291; 36415; 94640 ×4; 94760 ×3; 93005; 83880; 80053; 80048 ×3; 84443 ×2; 82550 ×2; 82553 ×2; 83735; 84484 ×2; 85025; 85027; 85610 ×4; 85730; 81001; 71045; 71046; G0378 ×5

== ENCOUNTER 2017-12-04 00:39 | Inpatient (IN) | payer MEDICARE ==
[2017-12-04] MEDS ORDERED: DILTIAZEM DRIP BOLUS FROM BAG 1 MG SOLN IV ONE (01:00)
[2017-12-04] MEDS ORDERED: SODIUM CHLORIDE 0.9% 1,000 ML IV STA (01:00)
--- NOTE | 2017-12-04 01:01 | ED ---
General Adult HPI - General Chief complaint: Arrhythmia/Palpitations Stated complaint: Rapid heart rate, KATHIE Time Seen by Provider: 12/04/17 00:47 Source: patient, family, RN notes reviewed, old records reviewed Mode of arrival: wheelchair Limitations: no limitations - History of Present Illness Initial comments: This is a 72-year-old female the ER for evaluation. Patient presents for evaluation regards to abnormal heart rate, palpitations. No history of A. fib. All medications as prescribed. Patient was recently decreased or cardiac medications secondary to bradycardia. N and A. fib with RVR tonight weakness lightheadedness and dizziness. No pain - Related Data Home Medications Medication Instructions Recorded Confirmed Albuterol Inhaler [Ventolin Hfa 1 - 2 puff INHALATION RT-Q6H PRN 11/25/17 Inhaler] Atorvastatin [Lipitor] 10 mg PO HS 11/25/17 12/04/17 Calcium Carbonate/Vitamin D3 1 tab PO DAILY 11/25/17 12/04/17 [Calcium 600-Vit D3 400 Tablet] Ipratropium-Albuterol Nebulize 3 ml INHALATION RT-QID PRN 11/25/17 12/04/17 [Duoneb 0.5 mg-3 mg/3 ml Soln] Magnesium Chloride [Slow-Mag] 64 mg PO DAILY 11/25/17 12/04/17 Montelukast [Singulair] 10 mg PO HS 11/25/17 12/04/17 Warfarin [Coumadin] 5 mg PO DAILY 11/25/17 12/04/17 Previous Rx's Medication Instructions Recorded Diltiazem Cd [Cardizem CD] 120 mg PO DAILY #30 cap.er.24h 11/28/17 Propafenone [Rythmol] 75 mg PO TID #90 tab 11/28/17 Allergies Allergy/AdvReac Type Severity Reaction Status Date / Time bee venom protein (honey bee) Allergy Anaphylaxis Verified 12/04/17 00:45 Review of Systems ROS Statement: Those systems with pertinent positive or pertinent negative responses have been documented in the HPI. ROS Other: All systems not noted in ROS Statement are negative. 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 History of Any Multi-Drug Resistant Organisms: None Reported Past Surgical History: Appendectomy, Heart Catheterization, Tonsillectomy, Tubal Ligation Past Anesthesia/Blood Transfusion Reactions: No Reported Reaction Past Psychological History: No Psychological Hx Reported Smoking Status: Former smoker Past Alcohol Use History: None Reported Past Drug Use History: None Reported - Past Family History Father History Unknown: Yes Family Medical History: Cancer General Exam Limitations: no limitations General appearance: alert, in no apparent distress, anxious Head exam: Present: atraumatic, normocephalic, normal inspection Eye exam: Present: normal appearance, PERRL, EOMI. Absent: scleral icterus, conjunctival injection, periorbital swelling ENT exam: Present: normal exam, mucous membranes moist Neck exam: Present: normal inspection. Absent: tenderness, meningismus, lymphadenopathy Respiratory exam: Present: normal lung sounds bilaterally. Absent: respiratory distress, wheezes, rales, rhonchi, stridor Cardiovascular Exam: Present: tachycardia, irregular rhythm, normal heart sounds. Absent: systolic murmur, diastolic murmur, rubs, gallop, clicks GI/Abdominal exam: Present: soft, normal bowel sounds. Absent: distended, tenderness, guarding, rebound, rigid Extremities exam: Present: normal inspection, full ROM, normal capillary refill. Absent: tenderness, pedal edema, joint swelling, calf tenderness Back exam: Present: normal inspection Neurological exam: Present: alert, oriented X3, CN II-XII intact Psychiatric exam: Present: normal affect, normal mood Skin exam: Present: warm, dry, intact, normal color. Absent: rash Course Vital Signs 12/04/17 12/04/17 12/04/17 00:41 01:54 02:31 Temperature 97.7 F Pulse Rate 132 H 103 H 97 Respiratory 26 H 18 18 Rate Blood Pressure 122/68 159/75 146/79 O2 Sat by Pulse 97 97 99 Oximetry 12/04/17 03:32 Temperature Pulse Rate 97 Respiratory 16 Rate Blood Pressure 145/83 O2 Sat by Pulse 97 Oximetry - Reevaluation(s) Reevaluation #1: 12/04/17 03:34 Patient is having good heart rate improvement with rate control here in the ER EKG Findings - EKG Comments: EKG Findings:: EKG shows A. fib with RVR rate 124, QRS 74, QTC 4 Medical Decision Making - Medical Decision Making 72 female the ER today admitted for A. fib with RVR reevaluation by cardiology regarding management at home - Lab Data Result diagrams: 12/04/17 00:55 12/04/17 00:55 Lab Results 12/04/17 12/04/17 12/04/17 Range/Units 00:55 00:55 00:55 WBC 12.0 H (3.8-10.6) k/uL RBC 4.67 (3.80-5.40) m/uL Hgb 12.3 (11.4-16.0) gm/dL Hct 38.6 (34.0-46.0) % MCV 82.6 (80.0-100.0) fL MCH 26.4 (25.0-35.0) pg MCHC 32.0 (31.0-37.0) g/dL RDW 15.0 (11.5-15.5) % Plt Count 253 (150-450) k/uL Neutrophils % 72 % Lymphocytes % 18 % Monocytes % 5 % Eosinophils % 3 % Basophils % 1 % Neutrophils # 8.6 H (1.3-7.7) k/uL Lymphocytes # 2.2 (1.0-4.8) k/uL Monocytes # 0.6 (0-1.0) k/uL Eosinophils # 0.4 (0-0.7) k/uL Basophils # 0.1 (0-0.2) k/uL PT (9.0-12.0) sec INR (<1.2) APTT (22.0-30.0) sec Sodium 138 (137-145) mmol/L Potassium 5.2 H (3.5-5.1) mmol/L Chloride 107 (98-107) mmol/L Carbon Dioxide 20 L (22-30) mmol/L Anion Gap 11 mmol/L BUN 16 (7-17) mg/dL Creatinine 0.90 (0.52-1.04) mg/dL Est GFR (CKD-EPI)AfAm 73 (>60 ml/min/1.73 sqM) Est GFR (CKD-EPI)NonAf 64 (>60 ml/min/1.73 sqM) Glucose 99 (74-99) mg/dL Calcium 9.7 (8.4-10.2) mg/dL Phosphorus 4.1 (2.5-4.5) mg/dL Magnesium 1.9 (1.6-2.3) mg/dL Total Bilirubin 0.7 (0.2-1.3) mg/dL AST 28 (14-36) U/L ALT 27 (9-52) U/L Alkaline Phosphatase 86 (38-126) U/L Total Creatine Kinase 64 (30-135) U/L CK-MB (CK-2) 0.6 (0.0-2.4) ng/mL CK-MB (CK-2) Rel Index 0.9 Troponin I <0.012 (0.000-0.034) ng/mL Total Protein 6.4 (6.3-8.2) g/dL Albumin 4.0 (3.5-5.0) g/dL TSH 3.000 (0.465-4.680) mIU/L Urine Color Urine Appearance (Clear) Urine pH (5.0-8.0) Ur Specific [place] (1.001-1.035) Urine Protein (Negative) Urine Glucose (UA) (Negative) Urine Ketones (Negative) Urine Blood (Negative) Urine Nitrite (Negative) Urine Bilirubin (Negative) Urine Urobilinogen (<2.0) mg/dL Ur Leukocyte Esterase (Negative) 12/04/17 12/04/17 Range/Units 00:55 01:23 WBC (3.8-10.6) k/uL RBC (3.80-5.40) m/uL Hgb (11.4-16.0) gm/dL Hct (34.0-46.0) % MCV (80.0-100.0) fL MCH (25.0-35.0) pg MCHC (31.0-37.0) g/dL RDW (11.5-15.5) % Plt Count (150-450) k/uL Neutrophils % % Lymphocytes % % Monocytes % % Eosinophils % % Basophils % % Neutrophils # (1.3-7.7) k/uL Lymphocytes # (1.0-4.8) k/uL Monocytes # (0-1.0) k/uL Eosinophils # (0-0.7) k/uL Basophils # (0-0.2) k/uL PT 13.2 H (9.0-12.0) sec INR 1.4 H (<1.2) APTT 26.0 (22.0-30.0) sec Sodium (137-145) mmol/L Potassium (3.5-5.1) mmol/L Chloride (98-107) mmol/L Carbon Dioxide (22-30) mmol/L Anion Gap mmol/L BUN (7-17) mg/dL Creatinine (0.52-1.04) mg/dL Est GFR (CKD-EPI)AfAm (>60 ml/min/1.73 sqM) Est GFR (CKD-EPI)NonAf (>60 ml/min/1.73 sqM) Glucose (74-99) mg/dL Calcium (8.4-10.2) mg/dL Phosphorus (2.5-4.5) mg/dL Magnesium (1.6-2.3) mg/dL Total Bilirubin (0.2-1.3) mg/dL AST (14-36) U/L ALT (9-52) U/L Alkaline Phosphatase (38-126) U/L Total Creatine Kinase (30-135) U/L CK-MB (CK-2) (0.0-2.4) ng/mL CK-MB (CK-2) Rel Index Troponin I (0.000-0.034) ng/mL Total Protein (6.3-8.2) g/dL Albumin (3.5-5.0) g/dL TSH (0.465-4.680) mIU/L Urine Color Colorless Urine Appearance Clear (Clear) Urine pH 7.0 (5.0-8.0) Ur Specific [place] 1.002 (1.001-1.035) Urine Protein Negative (Negative) Urine Glucose (UA) Negative (Negative) Urine Ketones Negative (Negative) Urine Blood Negative (Negative) Urine Nitrite Negative (Negative) Urine Bilirubin Negative (Negative) Urine Urobilinogen <2.0 (<2.0) mg/dL Ur Leukocyte Esterase Negative (Negative) Disposition Clinical Impression: Atrial fibrillation, Tachycardia Disposition: ADMITTED IP TO THIS HOSP Condition: Good Is patient prescribed a controlled substance at d/c from ED?: No
[2017-12-04 01:10] LABS: Basophils # (A) 0.1 k/uL (0-0.2); Basophils % (A) 1 %; Eosinophils # (A) 0.4 k/uL (0-0.7); Eosinophils % (A) 3 %; HCT 38.6 % (34.0-46.0); HGB 12.3 gm/dL (11.4-16.0); Lymphocytes # (A) 2.2 k/uL (1.0-4.8); Lymphocytes % (A) 18 %; MCH 26.4 pg (25.0-35.0); MCV 82.6 fL (80.0-100.0); Mean Platelet Volume 7.1; Monocytes # (A) 0.6 k/uL (0-1.0); Monocytes % (A) 5 %; Neutrophils # (A) 8.6 k/uL (1.3-7.7); Neutrophils % (A) 72 %; Platelet Count 253 k/uL (150-450); RBC 4.67 m/uL (3.80-5.40)
[2017-12-04] MEDS: DILTIAZEM 50 MG in SODIUM CHLORIDE 0.9% 40 ML IV SCH ×2 (01:25→09:46)
[2017-12-04 01:32] LABS: Calcium 9.7 mg/dL (8.4-10.2); Magnesium 1.9 mg/dL (1.6-2.3); Phosphorus 4.1 mg/dL (2.5-4.5); Total Bilirubin 0.7 mg/dL (0.2-1.3); Total Protein 6.4 g/dL (6.3-8.2)
[2017-12-04 01:34] LABS: Creatine Kinase 64 U/L (30-135)
[2017-12-04 01:36] LABS: Appearance,Urine Clear (Clear); Bilirubin,Urine Negative (Negative); Blood,Urine Negative (Negative); Color,Urine Colorless; Glucose,Urine (UA) Negative (Negative); Ketones,Urine Negative (Negative); Leukocyte Esterase,Urine Negative (Negative); Nitrite,Urine Negative (Negative); Protein,Urine Negative (Negative); Specific Gravity,Urine 1.002 (1.001-1.035); Urobilinogen,Urine <2.0 mg/dL (<2.0)
[2017-12-04 01:40] LABS: INR 1.4 (<1.2); Prothrombin Time 13.2 sec (9.0-12.0)
[2017-12-04 01:41] LABS: Potassium 5.2 mmol/L (3.5-5.1)
[2017-12-04 01:47] LABS: Creatine Kinase MB 0.6 ng/mL (0.0-2.4); Troponin I <0.012 ng/mL (0.000-0.034)
--- NOTE | 2017-12-04 02:10 | XR ---
EXAMINATION TYPE: XR chest 2V DATE OF EXAM: 12/04/2017 COMPARISON: 11/27/2017 HISTORY: Short of breath TECHNIQUE: Frontal and lateral views of the chest are obtained. FINDINGS: Heart appears enlarged. There is no heart failure. There is small linear density in the le ft lower lobe. There are chest leads. There is no pleural effusion. Bony thorax is intact. IMPRESSION: Mild subsegmental atelectasis in the left lower lobe. No heart failure. No change.
[2017-12-04] MEDS ORDERED: NITROGLYCERIN SL TABS 0.4 MG TAB SUBLINGUAL PRN (02:30)
[2017-12-04] MEDS ORDERED: ASPIRIN 81 MG PO STA (02:30)
[2017-12-04 08:00] LABS: Creatine Kinase 54 U/L (30-135)
[2017-12-04 08:11] LABS: Creatine Kinase MB 0.6 ng/mL (0.0-2.4); Troponin I <0.012 ng/mL (0.000-0.034)
[2017-12-04] MEDS ORDERED: HEPARIN SODIUM,PORCINE 5,000 UNIT/ML 1 ML VIAL IV ONE (08:57)
[2017-12-04] MEDS ORDERED: METOPROLOL TARTRATE 50 MG TAB PO SCH (09:00)
[2017-12-04] MEDS ORDERED: ASPIRIN 81 MG PO SCH (09:00)
[2017-12-04] MEDS ORDERED: IPRATROPIUM-ALBUTEROL 3 ML NEB INHALATION STA (09:39)
[2017-12-04] MEDS: HEPARIN SOD,PORK IN 0.45% NACL 25,000 UNIT in 0.45% NACL 1 500ML.BAG IV SCH (09:43)
--- NOTE | 2017-12-04 10:08 | CONS ---
CONSULTATION This is a 72-year-old lady who presented to hospital complaining of shortness of breath and palpitation. She was found to be in atrial fibrillation with rapid ventricular rate for which Cardiology has been consulted. Symptoms were sudden onset, mild to moderate and progressively got worse. When she came to the ER, she was in AFib with RVR with heart rates in the 130s. She was started on intravenous Cardizem following which heart rate has slowed down and she is feeling better. She was in the hospital just a week ago. At that time, she presented with sinus bradycardia and junctional rhythm. She was on propafenone and Cardizem 360 daily. Her Cardizem dose was decreased. She had an echocardiogram that showed normal LV function with mild-to- moderate aortic insufficiency, also had normal coronaries and a cardiac catheterization in 2012. At the time of my evaluation this morning, she appears comfortable at rest and is free of significant cardiac symptoms. Patient's clinical presentation is consistent with tachy-david syndrome and she may benefit from a permanent pacemaker to deal with her slow heart rate so that we can effectively deal with the fast heart rate. PAST MEDICAL HISTORY: Significant for chronic atrial fibrillation, hypertension, and dyslipidemia. MEDICATIONS: At home include Coumadin, Rythmol, Singulair, Flomax, DuoNeb, Cardizem CD, Lipitor. ALLERGIES: Allergic to HONEY BEE. FAMILY HISTORY: Negative for premature coronary artery disease. SOCIAL HISTORY: Negative for smoking, EtOH abuse, or drug abuse. REVIEW OF SYSTEMS: HEENT is unremarkable. CARDIAC: As described above. RESPIRATORY: As described above. GI: Negative. GENITOURINARY: Negative. ALLERGY/IMMUNOLOGY: Negative. SKIN: Negative. MUSCULOSKELETAL: Significant for arthritis. PSYCHOSOCIAL: Negative. ENDOCRINE: Negative. DERMATOLOGY: Negative. CONSTITUTIONAL: Negative. ONCOLOGICAL: Negative. Rest of the system review is not relevant. PHYSICAL EXAM: On exam, comfortable at rest. Afebrile. Heart rate is 86 to 104 beats per minute. Blood pressure is 135/66, respiratory rate is 18, O2 SAT is 96% on 2 L. There is no jugular venous distention. Chest exam reveals good air entry bilaterally. Heart exam reveals first and second heart sounds, irregular rhythm. Has an early diastolic murmur in the aortic area and a systolic murmur at the left lower sternal border. Abdomen is soft. Exam of the extremities reveal chronic stasis changes, pigmentation and mild edema. LABS: Show a hemoglobin of 12.3. INR is subtherapeutic at 1.4. Potassium is 5.2. Two sets of troponins are negative. EKG shows atrial fibrillation with rapid ventricular rate and nonspecific ST-T wave changes. ASSESSMENT: 1. Chronic atrial fibrillation with tachybrady syndrome. 2. Chronic obstructive pulmonary disease. 3. Dyslipidemia. 4. Hypertension. PLAN: Patient is on IV Cardizem along with metoprolol 50 b.i.d., is inadequately anticoagulated with Coumadin. Please start the patient on heparin and then optimize Coumadin to maintain an INR of 2 to 2.5. If she is covered for novel anticoagulant, please switch her to one. I believe patient will benefit from a permanent pacemaker. I will talk to Dr. Banegas had seen her at last visit. GERMANIA / WAYNE: [phone] /
[2017-12-04] MEDS: IPRATROPIUM-ALBUTEROL 3 ML NEB INHALATION SCH ×3 (12:25→20:11)
[2017-12-04 13:18] LABS: Creatine Kinase 49 U/L (30-135)
[2017-12-04 13:32] LABS: Creatine Kinase MB 0.6 ng/mL (0.0-2.4); Troponin I <0.012 ng/mL (0.000-0.034)
[2017-12-04] MEDS ORDERED: WARFARIN 5 MG TAB PO ONE (18:00)
--- NOTE | 2017-12-04 18:22 | P.PN ---
Progress Note - Text Patient evaluated this evening. She converted sinus rhythm and her heart rate is between 50-60 beats a minute normal CO. She feels better. She converted spontaneously to sinus rhythm and therefore we should try Rythmol at a higher dose without high-dose Cardizem to see if he can maintain sinus rhythm without precipitating bradycardia Plan Stop IV Cardizem Aspirin not indicated Stop metoprolol Continue anticoagulation for stroke prevention Start Rythmol 150 mgs 3 times a day, one dose now and then every 8 hours Reduce by mouth Cardizem to 30 mg twice daily Watch for the next 24 hours Likely discharge on Monday if there is no significant bradycardia Heart rates in the 50s and 60s are quite acceptable. Bone pacemaker not indicated at this point She did not have any postconversion pause She was admitted last week with severe bradycardia and junctional rhythm on Rythmol 225 mg 3 times a day and long-acting diltiazem 360 mg by mouth daily She should be able to tolerate low doses of the medications Follow Dr. Torres thereafter Rhythm control of atrial fibrillation for now
[2017-12-04] MEDS: HEPARIN SODIUM,PORCINE 5,000 UNIT/ML 1 ML VIAL IV PRN (18:58)
[2017-12-04] MEDS: PROPAFENONE 150 MG TAB PO SCH (19:14)
[2017-12-04] MEDS: ATORVASTATIN 10 MG TAB PO SCH (20:35)
--- NOTE | 2017-12-04 22:36 | P.HPIM ---
History of Present Illness H&P Date: 12/04/17 Chief Complaint: Palpitations Patient is a 72-year-old female with a known history of paroxysmal atrial fibrillation on anticoagulation with Coumadin, COPD, hyperlipidemia came to ER with complaints of palpitations and heart racing of fast. Patient does have history of paroxysmal atrial fibrillation. Patient was recently admitted to the hospital with bradycardia. Patient was initially taken Cardizem 360 mg daily and rhythamol 225 mg 3 times a day. Dose was decreased to 120 mg daily and 75 milligrams 3 times a day respectively during last admission. Currently patient was started on Cardizem drip and his rate is controlled. Patient is being continued on Coumadin for anticoagulation for stroke prophylaxis. Otherwise patient denied any complaints of chest pain or shortness of breath. Patient felt weakness lightheadedness dizziness. No fever no chills. No nausea vomiting or diarrhea. No dysuria or hematuria. EKG showed atrial fibrillation with a rapid ventricular rate Chest x-ray showed no acute cardiopulmonary process. Review of Systems Constitutional: Patient denies any fever or chills . No generalized weakness or weight loss. Abdomen: Patient denied nausea vomiting and diarrhea and abdominal pain. Cardiovascular: Denied any chest pain or shortness of breath. Patient does have palpitations. No worsening leg swelling Respiratory: patient denied any cough is from production. No shortness of breath Neurologic: Patient denied any numbness or tingling headache. Musculoskeletal: Patient denies any complaints of joint swelling or deformity. Skin: Negative Psychiatric: Negative Endocrine: No heat or cold intolerance. No recent weight gain. Genitourinary: No dysuria or hematuria. All other 14 point ROS negative except the above Past Medical History Past Medical History: Atrial Fibrillation, Heart Failure, COPD, Hyperlipidemia, Pneumonia Additional Past Medical History / Comment(s): Recently admitted to [facility] on with bradycardia, generalized fatigue, possible aortic stenosis. Other HX: Afib RVR, 2008 Valley fever, rheumatic fever as a child, gout L wrist once, bilateral tinnitis, anemia. History of Any Multi-Drug Resistant Organisms: None Reported Past Surgical History: Appendectomy, Heart Catheterization, Orthopedic Surgery, Tonsillectomy, Tubal Ligation Additional Past Surgical History / Comment(s): HILDA, cardioversion, 2012 cardiac cath-normal, bilateral knee arthroscopies, colonoscopy. Past Anesthesia/Blood Transfusion Reactions: No Reported Reaction Smoking Status: Former smoker - Past Family History Father History Unknown: Yes Family Medical History: Cancer Additional Family Medical History / Comment(s): Father had colon cancer. Mother Family Medical History: No Reported History Additional Family Medical History / Comment(s): Mother was healthy and lived to be 93-94 yrs old. Medications and Allergies Home Medications Medication Instructions Recorded Confirmed Type Albuterol Inhaler [Ventolin Hfa 1 - 2 puff INHALATION RT-Q6H PRN 11/25/17 History Inhaler] Atorvastatin [Lipitor] 10 mg PO HS 11/25/17 12/04/17 History Calcium Carbonate/Vitamin D3 1 tab PO DAILY 11/25/17 12/04/17 History [Calcium 600-Vit D3 400 Tablet] Ipratropium-Albuterol Nebulize 3 ml INHALATION RT-QID PRN 11/25/17 12/04/17 History [Duoneb 0.5 mg-3 mg/3 ml Soln] Magnesium Chloride [Slow-Mag] 64 mg PO DAILY 11/25/17 12/04/17 History Montelukast [Singulair] 10 mg PO HS 11/25/17 12/04/17 History Warfarin [Coumadin] 5 mg PO DAILY 11/25/17 12/04/17 History Diltiazem Cd [Cardizem CD] 120 mg PO DAILY #30 cap.er.24h 11/28/17 12/04/17 Rx Propafenone [Rythmol] 75 mg PO TID #90 tab 11/28/17 12/04/17 Rx Allergies Allergy/AdvReac Type Severity Reaction Status Date / Time bee venom protein (honey bee) Allergy Anaphylaxis Verified 12/04/17 08:16 Physical Exam Vitals: Vital Signs Temp Pulse Pulse Resp BP BP Pulse Ox 12/04/17 12:36 78 12/04/17 12:25 87 12/04/17 12:00 110 H 18 12/04/17 10:03 103 H 12/04/17 09:51 100 12/04/17 08:50 103 H 18 118/62 96 12/04/17 07:18 97.8 F 106 H 20 135/66 96 12/04/17 05:04 88 18 116/89 97 12/04/17 03:32 97 16 145/83 97 12/04/17 02:31 97 18 146/79 99 12/04/17 01:54 103 H 18 159/75 97 12/04/17 00:41 97.7 F 132 H 26 H 122/68 97 Intake and Output 12/04/17 12/04/17 12/04/17 06:59 14:59 22:59 Intake Total 281.75 Balance 281.75 Intake: Intake, IV Titration 41.75 Amount Diltiazem 50 mg In Sodium 41.75 Chloride 0.9% 40 ml @ 5 MG/HR 5 mls/hr IV .Q10H [facility] Rx#:[id number] Oral 240 Other: Weight 117.934 kg 117.934 kg PHYSICAL EXAMINATION: Patient is lying in the bed comfortably, no acute distress, awake alert and oriented.. HEENT: Normocephalic. Neck is supple. Pupils reactive. Nostrils clear. Oral cavity is moist. Ears reveal no drainage. Neck reveals no JVD, carotid bruits, or thyromegaly. CHEST EXAMINATION: Trachea is central. Symmetrical expansion. Lung flood clear to auscultation and percussion. CARDIAC: Normal S1, S2 with no gallops. No murmurs ABDOMEN: Soft. Bowel sounds normal. No organomegaly. No abdominal bruits. Extremities: reveal no edema. No clubbing or cyanosis Neurologically awake, alert, oriented x3 with well-coordinated movements. No focal deficits noted Skin: No rash or skin lesions. Psychiatric: Coperative. Nonsuicidal Musculoskeletal: No joint swelling or deformity. Normal range of motion. Results CBC & Chem 7: 12/04/17 00:55 12/04/17 00:55 Labs: Abnormal Lab Results - Last 24 Hours (Table) 12/04/17 12/04/17 12/04/17 Range/Units 00:55 00:55 00:55 WBC 12.0 H (3.8-10.6) k/uL Neutrophils # 8.6 H (1.3-7.7) k/uL PT 13.2 H (9.0-12.0) sec INR 1.4 H (<1.2) Potassium 5.2 H (3.5-5.1) mmol/L Carbon Dioxide 20 L (22-30) mmol/L Microbiology - Last 24 Hours (Table) 12/04/17 01:23 Urine Culture - Preliminary Urine,Voided Thrombosis Risk Factor Assmnt - Choose All That Apply Any of the Below Risk Factors Present?: Yes Each Factor Represents 1 point: Abnormal pulmonary function (COPD), Obesity ( BMI >25) Other Risk Factors: Yes Each Risk Factor Represents 2 Points: Age 61-74 years Other congenital or acquired thrombophilia - If yes, enter type in comment: No Thrombosis Risk Factor Assessment Total Risk Factor Score: 4 Thrombosis Risk Factor Assessment Level: Moderate Risk Assessment and Plan Assessment: Atrial fibrillation with a rapid ventricular rate Paroxysmal atrial fibrillation. On anticoagulation with Coumadin Recent admission with bradycardia and generalized weakness Hyperlipidemia COPD stable History of rheumatic fever as a child. Coumadin monitoring Previous history of smoking Plan: Patient will be continued on telemetry monitoring. Heart rate is controlled now. Cardizem drip has been discontinued. Otherwise patient was started back on Rythmol at 150 mg 3 times a day and Cardizem 30 mg twice a day. Cardiology is following. Further recommendations based on the clinical course. Discussed with her at bedside in detail. Time with Patient: Greater than 30
[2017-12-05] MEDS: PROPAFENONE 150 MG TAB PO SCH ×3 (02:46→15:34)
[2017-12-05] MEDS: IPRATROPIUM-ALBUTEROL 3 ML NEB INHALATION SCH ×4 (08:22→19:44)
[2017-12-05] MEDS: DILTIAZEM ORAL 30 MG TAB PO SCH ×2 (08:59→20:14)
[2017-12-05] MEDS: ACETAMINOPHEN TAB 325 MG TAB PO PRN (08:59)
[2017-12-05] MEDS: MAGNESIUM OXIDE 400 MG TAB PO SCH (08:59)
[2017-12-05] MEDS ORDERED: ASPIRIN 325 MG TAB PO SCH (09:00)
[2017-12-05 09:08] LABS: Basophils # (A) 0.1 k/uL (0-0.2); Basophils % (A) 1 %; Eosinophils # (A) 0.3 k/uL (0-0.7); Eosinophils % (A) 4 %; HCT 34.5 % (34.0-46.0); HGB 10.8 gm/dL (11.4-16.0); Hypochromasia Slight; Lymphocytes # (A) 1.8 k/uL (1.0-4.8); Lymphocytes % (A) 19 %; MCHC 31.4 g/dL (31.0-37.0); MCV 85.8 fL (80.0-100.0); Mean Platelet Volume 7.5; Monocytes # (A) 0.5 k/uL (0-1.0); Monocytes % (A) 6 %; Neutrophils # (A) 6.3 k/uL (1.3-7.7); Neutrophils % (A) 70 %; Platelet Count 240 k/uL (150-450); RBC 4.02 m/uL (3.80-5.40); RDW 14.9 % (11.5-15.5)
[2017-12-05 09:15] LABS: INR 1.5 (<1.2); Partial Thromboplastin Time 39.8 sec (22.0-30.0); Prothrombin Time 13.6 sec (9.0-12.0)
[2017-12-05 09:50] LABS: Cholesterol 152 mg/dL (<200); HDL Cholesterol 52 mg/dL (40-60); LDL Cholesterol,Calculated 63 mg/dL (0-99); Triglycerides 183 mg/dL (<150)
[2017-12-05] MEDS: CALCIUM CARB-VIT D 500MG-200UN 1 EACH TAB PO SCH (11:07)
[2017-12-05] MEDS: HEPARIN SODIUM,PORCINE 5,000 UNIT/ML 1 ML VIAL IV PRN (11:14)
--- NOTE | 2017-12-05 15:17 | P.PN ---
Subjective Progress Note Date: 12/05/17 This is a 72-year-old female who presented to the hospital with complaints of shortness of breath and palpitations, she was found to be in atrial fibrillation with rapid ventricular response for which a cardiology consultation was requested. On arrival here the heart rate was noted to be in the 130s, she was initiated on IV Cardizem. Patient was recently in the hospital approximately a week ago, she was seen in consultation at that time by Dr. Mims. She had been on Rythmol and Cardizem 360 mg daily. Her dose was decreased. She also had an echo performed at that time which revealed a normal left ventricular systolic function, heart cath performed in 2012 revealed normal coronary arteries. This morning patient is actually in a normal sinus rhythm with a heart rate in the 70s to 80s. Patient was seen in consultation last evening by Dr. Banegas as well, his recommendation is to continue rhythm control for atrial fibrillation at this time. Continue current dose of Rythmol and Cardizem. Blood pressure 134/60 with a heart rate in the 60s to 80s, 94% on room air. INR 1.5 today. Patient feels well, no complaints. We will continue to monitor for 24 hours, if heart rate remaining stable plan for possible discharge home in the morning. Objective - Vital Signs Vital signs: Vital Signs Temp 97.9 F 12/05/17 04:00 Pulse 80 12/05/17 12:12 Resp 16 12/05/17 11:34 BP 134/62 12/05/17 11:04 Pulse Ox 94 L 12/05/17 11:04 Intake & Output 12/04/17 12/05/17 12/05/17 18:59 06:59 18:59 Intake Total 521.75 325.333 404.667 Output Total 0 600 Balance 521.75 325.333 -195.333 Weight 117.934 kg 119.7 kg Intake: Intake, IV Titration 41.75 325.333 174.667 Amount Diltiazem 50 mg In Sodium 41.75 Chloride 0.9% 40 ml @ 5 MG/HR 5 mls/hr IV .Q10H [facility] Rx#:[id number] Heparin Sod,Pork in 0.45% 325.333 174.667 NaCl 25,000 unit In 0.45 % NaCl 1 500ml.bag @ 8.48 UNITS/KG/HR 20 mls/hr IV .Q24H [facility] Rx#:[id number] Oral 480 230 Output: Urine 0 600 Other: Voiding Method Toilet Toilet # Voids 2 2 - Exam PHYSICAL EXAMINATION: GENERAL: 72-year-old female in no apparent distress at the time of my examination. HEENT: Head is atraumatic, normocephalic. Pupils equal, round. Sclera anicteric. Conjunctiva are clear. Mucous membranes of the mouth are moist. Neck is supple. There is no elevated jugular venous pressure.] bruit is heard. HEART EXAMINATION: Heart S1, S2 normal. No murmur or gallop heard. CHEST EXAMINATION: Lungs are clear to auscultation and precussion. No chest wall tenderness is noted on palpation or with deep breathing. ABDOMEN: Soft, nontender. Bowel sounds are heard. No organomegaly noted. EXTREMITIES: 2+ peripheral pulses with no evidence of peripheral edema and no calf tenderness noted. NEUROLOGIC patient is awake, alert and oriented -3. . - Labs CBC & Chem 7: 12/05/17 08:52 12/04/17 00:55 Labs: Abnormal Lab Results - Last 24 Hours (Table) 12/04/17 12/05/17 12/05/17 Range/Units 16:18 01:02 08:52 Hgb (11.4-16.0) gm/dL PT (9.0-12.0) sec INR (<1.2) APTT 30.6 H 40.9 H (22.0-30.0) sec Triglycerides 183 H (<150) mg/dL 12/05/17 12/05/17 Range/Units 08:52 08:52 Hgb 10.8 L (11.4-16.0) gm/dL PT 13.6 H (9.0-12.0) sec INR 1.5 H (<1.2) APTT 39.8 H (22.0-30.0) sec Triglycerides (<150) mg/dL Microbiology - Last 24 Hours (Table) 12/04/17 01:23 Urine Culture - Preliminary Urine,Voided Assessment and Plan Plan: Assessment and plan #1 paroxysmal atrial fibrillation, patient currently in normal sinus rhythm #2 COPD #3 hypertension #4 hyperlipidemia Plan From cardiology's perspective, we'll continue the patient on Cardizem 30 mg one tablet by mouth twice a day, heparin and Coumadin will be discontinued and patient will be initiated on Eliquis, we did check on coverage, it will be approximately $30 a month for the patient. We will also continue Rythmol 150 by mouth every 8 hourly. Continue to monitor for 24 hours, if rhythm remains stable discharge home in the morning. Follow-up with Dr. Oviedo on discharge. DNP note has been reviewed, I agree with a documented findings and plan of care. Patient was seen and examined.
--- NOTE | 2017-12-05 17:13 | PN ---
PROGRESS NOTE DATE OF SERVICE: 12/05/2017 This 72-year-old woman was admitted with atrial fibrillation with fast ventricular rate. She is being closely monitored. No chest pain. No palpitations. No fever. Cardiology is following the patient closely. On exam, alert and oriented x3. Pulse is 80, irregular, blood pressure 145/63, respiratory rate 14, temperature 97 degrees, pulse ox 95% on 2 L. HEENT: Conjunctivae normal. NECK: No jugular venous distention. CARDIOVASCULAR SYSTEM: S1, S2 muffled. RESPIRATORY SYSTEM: Breath sounds diminished at the bases. No rhonchi. No crackles. ABDOMEN: Soft, non-tender. LEGS: No edema. No swelling. NERVOUS SYSTEM: No focal deficit. LABS: Hemoglobin 10.8, INR 1.5. TSH is normal. Lipid panel was also noted. ASSESSMENT: 1. Atrial fibrillation with fast ventricular rate. 2. Paroxysmal atrial fibrillation. 3. On anticoagulation with Coumadin. 4. Recent admission with bradycardia and generalized weakness. 5. Hyperlipidemia. 6. Stable chronic obstructive pulmonary disease. 7. History of rheumatic fever as a child. 8. Previous history of nicotine dependence. RECOMMENDATIONS AND DISCUSSION: In this 72-year-old woman who presented with multiple complex medical issues, we will monitor the patient closely, continue the current medication, continue with symptomatic treatment. We will increase ambulation. Closely follow with Cardiology. Currently the patient is on diltiazem 30 b.i.d. only. We will continue to monitor. The patient is on Rythmol as well. Previously patient was on diltiazem 120 mg p.o. daily. Prognosis is guarded because of multiple complex medical issues. Further recommendations to follow. MMODL / IJN: [id number] /
[2017-12-05] MEDS: HEPARIN SOD,PORK IN 0.45% NACL 25,000 UNIT in 0.45% NACL 1 500ML.BAG IV SCH (17:18)
[2017-12-05] MEDS ORDERED: WARFARIN 7.5 MG TAB PO ONE (18:00)
[2017-12-05] MEDS: ATORVASTATIN 10 MG TAB PO SCH (20:14)
[2017-12-05] MEDS: APIXABAN 5 MG TAB PO SCH (20:17)
[2017-12-06] MEDS: PROPAFENONE 150 MG TAB PO SCH ×4 (01:36→23:13)
[2017-12-06] MEDS: ACETAMINOPHEN TAB 325 MG TAB PO PRN (01:36)
[2017-12-06] MEDS: IPRATROPIUM-ALBUTEROL 3 ML NEB INHALATION SCH ×4 (07:55→19:47)
[2017-12-06 07:57] LABS: Basophils % (A) 0 %; Eosinophils # (A) 0.3 k/uL (0-0.7); Eosinophils % (A) 3 %; HCT 32.5 % (34.0-46.0); HGB 10.6 gm/dL (11.4-16.0); Lymphocytes # (A) 1.3 k/uL (1.0-4.8); Lymphocytes % (A) 18 %; MCH 27.4 pg (25.0-35.0); MCHC 32.5 g/dL (31.0-37.0); MCV 84.4 fL (80.0-100.0); Mean Platelet Volume 7.4; Monocytes # (A) 0.5 k/uL (0-1.0); Monocytes % (A) 6 %; Neutrophils # (A) 5.2 k/uL (1.3-7.7); Neutrophils % (A) 71 %; Platelet Count 211 k/uL (150-450); RBC 3.85 m/uL (3.80-5.40); RDW 15.1 % (11.5-15.5); WBC 7.4 k/uL (3.8-10.6)
[2017-12-06] MEDS: APIXABAN 5 MG TAB PO SCH ×2 (10:51→20:06)
[2017-12-06] MEDS: FUROSEMIDE 40 MG TAB PO SCH ×2 (10:52→17:14)
[2017-12-06] MEDS: MAGNESIUM OXIDE 400 MG TAB PO SCH (10:52)
[2017-12-06] MEDS: DILTIAZEM ORAL 30 MG TAB PO SCH ×2 (10:52→20:07)
[2017-12-06] MEDS: CALCIUM CARB-VIT D 500MG-200UN 1 EACH TAB PO SCH (11:33)
--- NOTE | 2017-12-06 12:14 | PN ---
PROGRESS NOTE A 72-year-old lady with history of paroxysmal atrial fibrillation and episodes of bradycardia in the past, presented to hospital with atrial fibrillation with rapid ventricular rate. The patient is currently on Rythmol, Cardizem and is in sinus rhythm. This morning patient denies chest pain, has exertion shortness of breath and has mild leg edema bilaterally. She is in sinus rhythm, stable and has not had any issues since admission. PHYSICAL EXAM: Comfortable at rest. Heart rate is 80 beats per minute. Blood pressure is 113/52, respiratory rate is 18, O2 sat is 98% on 2 L. There is no jugular venous distention. Chest exam reveals good air entry bilaterally. Heart exam reveals first and second heart sounds. No gallop. Abdomen is soft. Exam of the extremities did not reveal any edema. Peripheral pulses are palpable. LABS: From this morning, show a hemoglobin of 10.6. INR is not available at this time. ASSESSMENT: Paroxysmal atrial fibrillation, currently in sinus rhythm. The patient has not had any symptomatic bradycardia. Evaluated by EP, who felt that she does not need a pacemaker. Patient complains of leg edema and shortness of breath. Will resume the Lasix that she used to be on. Will dose the Coumadin based on her INR. MMODL / IJN: [id number] /
[2017-12-06 13:43] LABS: INR 1.6 (<1.2); Prothrombin Time 14.9 sec (9.0-12.0)
--- NOTE | 2017-12-06 15:06 | P.CNPUL ---
History of Present Illness Consult date: 12/06/17 Requesting physician: Dior Foley Reason for consult: dyspnea Chief complaint: Shortness of breath and palpitations History of present illness: This is a 72-year-old female with chronic atrial fibrillation, maintained normally on Coumadin. Patient presented on 12/04/2017 with mostly symptoms of shortness of breath and palpitations, felt her heart was racing. Patient was evaluated in the ER, and she was noted to be in atrial fibrillation with RVR. Recently, the patient was in the hospital with bradycardia and her rate was in the 30s. Her Cardizem dose was recently decreased, but this time she is coming back in with mostly A. fib and RVR, hence the patient was treated with IV Cardizem, and the dose has been readjusted again. Seen by cardiology, and they are considering pacemaker implantation possibly on this admission or maybe on outpatient basis. Patient has been a heavy smoker over the years, but she quit smoking back in 2010. Presently denies any cough no wheezing, but she does have chronic dyspnea on exertion. Never documented to have COPD, and was never seen by a physician credentialing specialist in the past. Patient states that her shortness of breath has been gradually getting worse over the last few years, felt to be either cardiac related, or related to deconditioning and obesity, and there is also a concern about underlying COPD. Never had a PFT on outpatient basis. However patient tells me that her shortness of breath became significantly improved when her rate was controlled. But nonetheless continues to have shortness of breath on exertion. Presently no headache no blurred vision no dizziness, no chest pain, denies any palpitations, no shortness of breath at rest, no cough no wheezing, no chest pain, no nausea no vomiting no abdominal pain, no melena, no hematemesis, no dysuria, no frequency no urgency. Patient was all along on Coumadin, but when she was seen by cardiology, she was switched to eliquis Review of Systems 14 point review of systems were obtained, please refer to pertinent positives and negatives as noted in HPI, otherwise remaining systems are negative. Past Medical History Past Medical History: Atrial Fibrillation, Heart Failure, COPD, Hyperlipidemia, Pneumonia Additional Past Medical History / Comment(s): Recently admitted to [facility] on with bradycardia, generalized fatigue, possible aortic stenosis. Other HX: Afib RVR, 2008 Valley fever, rheumatic fever as a child, gout L wrist once, bilateral tinnitis, anemia. History of Any Multi-Drug Resistant Organisms: None Reported Past Surgical History: Appendectomy, Heart Catheterization, Orthopedic Surgery, Tonsillectomy, Tubal Ligation Additional Past Surgical History / Comment(s): HILDA, cardioversion, 2013 cardiac cath-normal, bilateral knee arthroscopies, colonoscopy. Past Anesthesia/Blood Transfusion Reactions: No Reported Reaction Smoking Status: Former smoker - Past Family History Father History Unknown: Yes Family Medical History: Cancer Additional Family Medical History / Comment(s): Father had colon cancer. Mother Family Medical History: No Reported History Additional Family Medical History / Comment(s): Mother was healthy and lived to be 93-94 yrs old. Medications and Allergies Home Medications Medication Instructions Recorded Confirmed Type Albuterol Inhaler [Ventolin Hfa 1 - 2 puff INHALATION RT-Q6H PRN 11/25/17 History Inhaler] Atorvastatin [Lipitor] 10 mg PO HS 11/25/17 12/04/17 History Calcium Carbonate/Vitamin D3 1 tab PO DAILY 11/25/17 12/04/17 History [Calcium 600-Vit D3 400 Tablet] Ipratropium-Albuterol Nebulize 3 ml INHALATION RT-QID PRN 11/25/17 12/04/17 History [Duoneb 0.5 mg-3 mg/3 ml Soln] Magnesium Chloride [Slow-Mag] 64 mg PO DAILY 11/25/17 12/04/17 History Montelukast [Singulair] 10 mg PO HS 11/25/17 12/04/17 History Warfarin [Coumadin] 5 mg PO DAILY 11/25/17 12/04/17 History Diltiazem Cd [Cardizem CD] 120 mg PO DAILY #30 cap.er.24h 11/28/17 12/04/17 Rx Propafenone [Rythmol] 75 mg PO TID #90 tab 11/28/17 12/04/17 Rx Allergies Allergy/AdvReac Type Severity Reaction Status Date / Time bee venom protein (honey bee) Allergy Anaphylaxis Verified 12/04/17 08:16 Physical Exam Vitals: Vital Signs Temp Pulse Pulse Pulse Resp BP Pulse Ox 12/06/17 11:44 80 12/06/17 11:43 69 16 12/06/17 11:35 69 16 146/84 100 12/06/17 11:32 80 12/06/17 08:05 68 12/06/17 08:00 97.6 F 82 16 113/53 98 12/06/17 07:55 64 12/06/17 00:00 75 12 109/57 99 12/05/17 23:46 64 85 16 12/05/17 20:00 97.9 F 85 16 142/66 94 L 12/05/17 19:52 80 12/05/17 19:45 80 12/05/17 16:14 80 12/05/17 16:06 80 12/05/17 15:40 64 14 12/05/17 15:38 97.0 F L 69 14 145/63 95 Intake and Output 12/05/17 12/06/17 12/06/17 22:59 06:59 14:59 Intake Total 100 Output Total 600 Balance -600 100 Intake: Oral 100 Output: Urine 600 Other: Voiding Method Toilet Toilet # Voids 1 1 Physical Exam: Revealed a 72-year-old, obese, in no distress. Head: Atraumatic, normocephalic. HEENT:[Neck is supple.] [No neck masses.] [No thyromegaly.] [No JVD.]. PERRLA, EOMI, no icterus, moist mucous membranes. Chest: [Diminished breath sounds at the bases, no crackles or rhonchi or wheezes. No chest wall tenderness.] Cardiac Exam: [Irregular irregular rhythm Normal S1 and S2, no S3 gallop, no murmur.] Abdomen: [Obese, Soft, nontender, no megaly, no rebound, no guarding, normal bowel sounds.] Extremities: [No clubbing, no edema, no cyanosis.] Neurological Exam: [No focal neurologic deficit.] Lymphatics: No lymphadenopathy. Psychiatric: Normal mood affect and mental status examination. Results - Laboratory Findings CBC and BMP: 12/06/17 06:15 12/04/17 00:55 PT/INR, D-dimer PT 14.9 sec (9.0-12.0) H 12/06/17 13:17 INR 1.6 (<1.2) H 12/06/17 13:17 Abnormal lab findings: Abnormal Labs 06/12/04/17 12/04/17 00:55 00:55 00:55 WBC 12.0 H Hgb Hct Neutrophils # 8.6 H PT 13.2 H INR 1.4 H APTT Potassium 5.2 H Carbon Dioxide 20 L Triglycerides 12/04/17 12/05/17 12/05/17 16:18 01:02 08:52 WBC Hgb Hct Neutrophils # PT INR APTT 30.6 H 40.9 H Potassium Carbon Dioxide Triglycerides 183 H 12/05/17 12/05/17 12/05/17 08:52 08:52 16:16 WBC Hgb 10.8 L Hct Neutrophils # PT 13.6 H INR 1.5 H APTT 39.8 H 88.8 H Potassium Carbon Dioxide Triglycerides 12/06/17 12/06/17 06:15 13:17 WBC Hgb 10.6 L Hct 32.5 L Neutrophils # PT 14.9 H INR 1.6 H APTT Potassium Carbon Dioxide Triglycerides - Diagnostic Findings Chest x-ray: image reviewed (Chest x-ray showed minimal subsegmental atelectasis in the left lower lobe, otherwise unremarkable.) Assessment and Plan Assessment: Impression: 1 chronic dyspnea on exertion most likely multifactorial, but mostly related to atrial fibrillation with RVR. 2 suspect some component of COPD, severity of which is not clear at this point, patient is maintained on DuoNeb. Would not add any more bronchodilators at this point, however based on the PFT which will be done on outpatient basis, further recommendations regarding her COPD status will be addressed. 3 paroxysmal atrial fibrillation maintained on anticoagulations therapy 4 deconditioning and obesity is another contributing factor to her shortness of breath. 5 history of smoking, presently does not smoke. Recommendation: Fully agree with the present treatment plan, continue treatment plan as per cardiology, patient is advised to call and set up appointment with me in the office, I will reevaluate, and based on her PFT findings further recommendations will follow. Otherwise continue present meds as listed. Time with Patient: Greater than 30
--- NOTE | 2017-12-06 15:41 | PN ---
PROGRESS NOTE DATE OF SERVICE: 12/06/2017 This 72-year-old woman was admitted with atrial fibrillation, also complaining of shortness of breath. The patient also had a history of smoking. Also otherwise no chest pain. No palpitations. No fever. PHYSICAL EXAM: Alert, oriented x3. Pulse 69, blood pressure 140/62, respirations 16, temperature normal, pulse ox 100% on 2 L. HEENT: Conjunctivae normal. Oral mucosa moist. Neck is no jugular venous distention. CARDIOVASCULAR: S1, S2 RESPIRATORY: Breath sounds diminished in the bases. A few rhonchi. No crackles. ABDOMEN: Soft, nontender. No mass. LEGS: No edema. NERVOUS SYSTEM: No focal deficits. LABS: Hemoglobin 10.6, otherwise INR is 1.6. ASSESSMENT: 1. Atrial fibrillation with fast ventricular rate present on admission. 2. Shortness with possible chronic obstructive pulmonary disease acute exacerbation. 3. Paroxysmal atrial fibrillation. 4. On anticoagulation with Coumadin. 5. History of recent admission with bradycardia and generalized weakness. 6. Hyperlipidemia. 7. History of rheumatic fever as a child. 8. Previous nicotine dependence. RECOMMENDATIONS AND DISCUSSION: I recommend to continue current management and symptomatic treatment. Otherwise at this time I recommend closely monitor. Nephrology evaluation. Cardiology input appreciated. I would also recommend a NT proBNP also and repeat labs have been recommended. MMODL / IJN: [id number] /
[2017-12-06] MEDS ORDERED: WARFARIN 7.5 MG TAB PO ONE (18:00)
[2017-12-06] MEDS: SYMBICORT 160-4.5 MCG INHALER INHALATION SCH (19:47)
[2017-12-06] MEDS: ATORVASTATIN 10 MG TAB PO SCH (20:07)
[2017-12-07 06:22] LABS: Basophils % (A) 0 %; Eosinophils # (A) 0.2 k/uL (0-0.7); Eosinophils % (A) 3 %; HCT 32.9 % (34.0-46.0); HGB 10.5 gm/dL (11.4-16.0); Lymphocytes # (A) 1.5 k/uL (1.0-4.8); Lymphocytes % (A) 19 %; MCH 26.6 pg (25.0-35.0); MCV 83.1 fL (80.0-100.0); Monocytes # (A) 0.5 k/uL (0-1.0); Monocytes % (A) 7 %; Neutrophils # (A) 5.5 k/uL (1.3-7.7); Neutrophils % (A) 70 %; Platelet Count 204 k/uL (150-450); RBC 3.96 m/uL (3.80-5.40); RDW 14.9 % (11.5-15.5); WBC 7.9 k/uL (3.8-10.6)
[2017-12-07 06:30] LABS: INR 1.4 (<1.2); Prothrombin Time 12.9 sec (9.0-12.0)
[2017-12-07 06:45] LABS: Potassium 4.2 mmol/L (3.5-5.1)
--- NOTE | 2017-12-07 06:47 | ECHOF ---
Referral Reason:chf MEASUREMENTS -------- HEIGHT: 175.3 cm WEIGHT: 119.3 kg BP: 146/94 RVIDd: 2.8 cm (< 3.3) IVSd: 1.3 cm (0.6 - 1.1) LVIDd: 4.9 cm (3.9 - 5.3) LVPWd: 1.6 cm (0.6 - 1.1) IVSs: 1.6 cm LVIDs: 3.8 cm LVPWs: 1.9 cm LA Diam: 3.8 cm (2.7 - 3.8) LAESV Index (A-L): 36.26 ml/m Ao Diam: 3.3 cm (2.0 - 3.7) AV Cusp: 2.0 cm (1.5 - 2.6) LA Diam: 4.4 cm (2.7 - 3.8) MV EXCURSION: 14.230 mm (> 18.000) MV EF SLOPE: 72 mm/s (70 - 150) EPSS: 0.2 cm MV E Gaurang: 0.73 m/s MV DecT: 266 ms MV A Gaurang: 0.84 m/s MV E/A Ratio: 0.86 AR PHT: 434 ms RAP: 5.00 mmHg RVSP: 21.39 mmHg FINDINGS -------- Sinus rhythm. Morbid Obesity The left ventricular size is normal. There is mild concentric left ventricular hypertrophy. Overa ll left ventricular systolic function is normal with, an EF between 55 - 60 %. The right ventricle is normal in size. The left atrium is markedly dilated. LA is moderately dilated 34-39 ml/m2 The right atrial size is normal. There is [id number] aortic regurgitation. Mild mitral annular calcification present. Mild mitral regurgitation is present. Mild tricuspid regurgitation present. There is no evidence of pulmonary hypertension. The right v entricular systolic pressure, as measured by Doppler, is 21.39mmHg. Trace/mild (physiologic) pulmonic regurgitation. The aortic root size is normal. There is no pericardial effusion. CONCLUSIONS -------- 1. Morbid Obesity 2. The left ventricular size is normal. 3. There is mild concentric left ventricular hypertrophy. 4. The right ventricle is normal in size. 5. The left atrium is markedly dilated. 6. LA is moderately dilated 34-39 ml/m2 7. The right atrial size is normal. 8. There is [id number] aortic regurgitation. 9. Mild mitral annular calcification present. 10. Mild mitral regurgitation is present. 11. Mild tricuspid regurgitation present. 12. There is no evidence of pulmonary hypertension. 13. The right ventricular systolic pressure, as measured by Doppler, is 21.39mmHg. 14. Trace/mild (physiologic) pulmonic regurgitation. 15. The aortic root size is normal. 16. There is no pericardial effusion. FILTER PRESS SUPERVISOR: Gerda Fontenot RDCS
[2017-12-07] MEDS: IPRATROPIUM-ALBUTEROL 3 ML NEB INHALATION SCH ×2 (07:52→11:00)
[2017-12-07] MEDS: SYMBICORT 160-4.5 MCG INHALER INHALATION SCH (07:52)
[2017-12-07] MEDS: MAGNESIUM OXIDE 400 MG TAB PO SCH (09:56)
[2017-12-07] MEDS: FUROSEMIDE 40 MG TAB PO SCH (09:56)
[2017-12-07] MEDS: PROPAFENONE 150 MG TAB PO SCH (09:56)
[2017-12-07] MEDS: APIXABAN 5 MG TAB PO SCH (09:56)
[2017-12-07] MEDS: DILTIAZEM ORAL 30 MG TAB PO SCH (09:56)
[2017-12-07] MEDS: CALCIUM CARB-VIT D 500MG-200UN 1 EACH TAB PO SCH (09:57)
--- NOTE | 2017-12-07 11:28 | P.PN ---
Subjective Progress Note Date: 12/07/17 This is a 72-year-old female who presented to the hospital with complaints of shortness of breath and palpitations, she was found to be in atrial fibrillation with rapid ventricular response for which a cardiology consultation was requested. On arrival here the heart rate was noted to be in the 130s, she was initiated on IV Cardizem. Patient was recently in the hospital approximately a week ago, she was seen in consultation at that time by Dr. Mims. She had been on Rythmol and Cardizem 360 mg daily. Her dose was decreased. She also had an echo performed at that time which revealed a normal left ventricular systolic function, heart cath performed in 2012 revealed normal coronary arteries. This morning patient is actually in a normal sinus rhythm with a heart rate in the 70s to 80s. Patient was seen in consultation last evening by Dr. Banegas as well, his recommendation is to continue rhythm control for atrial fibrillation at this time. Continue current dose of Rythmol and Cardizem. Blood pressure 134/60 with a heart rate in the 60s to 80s, 94% on room air. INR 1.5 today. Patient feels well, no complaints. We will continue to monitor for 24 hours, if heart rate remaining stable plan for possible discharge home in the morning. 12/07/2017 Patient seen and examined this morning, feels well, in normal sinus rhythm with a heart rate in the 70s. Objective - Vital Signs Vital signs: Vital Signs Temp 96.4 F L 12/07/17 09:50 Pulse 72 12/07/17 11:09 Resp 18 12/07/17 09:50 BP 135/65 12/07/17 09:50 Pulse Ox 93 L 12/07/17 09:50 Intake & Output 12/06/17 12/07/17 12/07/17 18:59 06:59 18:59 Intake Total 520 120 Balance 520 120 Weight 115.9 kg Intake: Oral 520 120 Other: Voiding Method Toilet Toilet # Voids 1 2 - Exam PHYSICAL EXAMINATION: GENERAL: 72-year-old female in no apparent distress at the time of my examination. HEENT: Head is atraumatic, normocephalic. Pupils equal, round. Sclera anicteric. Conjunctiva are clear. Mucous membranes of the mouth are moist. Neck is supple. There is no elevated jugular venous pressure.] bruit is heard. HEART EXAMINATION: Heart S1, S2 normal. No murmur or gallop heard. CHEST EXAMINATION: Lungs are clear to auscultation and precussion. No chest wall tenderness is noted on palpation or with deep breathing. ABDOMEN: Soft, nontender. Bowel sounds are heard. No organomegaly noted. EXTREMITIES: 2+ peripheral pulses with no evidence of peripheral edema and no calf tenderness noted. NEUROLOGIC patient is awake, alert and oriented -3. . - Labs CBC & Chem 7: 12/07/17 05:43 12/07/17 05:43 Labs: Abnormal Lab Results - Last 24 Hours (Table) 12/06/17 12/07/17 12/07/17 Range/Units 13:17 05:43 05:43 Hgb 10.5 L (11.4-16.0) gm/dL Hct 32.9 L (34.0-46.0) % PT 14.9 H 12.9 H (9.0-12.0) sec INR 1.6 H 1.4 H (<1.2) Microbiology - Last 24 Hours (Table) 12/04/17 01:23 Urine Culture - Final Urine,Voided Escherichia coli Assessment and Plan Plan: Assessment and plan #1 paroxysmal atrial fibrillation, patient currently in normal sinus rhythm #2 COPD #3 hypertension #4 hyperlipidemia Plan From cardiology's perspective, we'll continue the patient on Cardizem 30 mg one tablet by mouth twice a day, Eliquis 5 mg one tablet by mouth twice a day, Rythmol 150 mg 3 times a day We will also continue Rythmol 150 by mouth every 8 hourly. She may be able to be discharged home from our perspective. Follow- up with Dr. Oviedo on discharge. DNP note has been reviewed, I agree with a documented findings and plan of care. Patient was seen and examined.
--- NOTE | 2017-12-07 12:21 | P.DS ---
Providers Date of admission: 12/04/17 02:32 Attending physician: Dior Foley Consults: 12/04/17 02:30 Consult Physician Urgent Consulting Provider: Madiha Rosario Consult Reason/Comments: known Do you want consulting provider notified?: Yes 12/06/17 13:18 Consult Physician Urgent Consulting Provider: Erik Penaloza Consult Reason/Comments: shortness of breath Do you want consulting provider notified?: Yes Primary care physician: [facility] Course: 68-year-old female admitted with the A. fib with RVR patient was on Coumadin which is being switched to Eliquis patient is presently rate controlled patient is being discharged today in stable medical condition to home. PHYSICAL EXAMINATION: GENERAL: The patient is alert and oriented x3, not in any acute distress. Well developed, well nourished. HEENT: Pupils are round and equally reacting to light. EOMI. No scleral icterus. No conjunctival pallor. Normocephalic, atraumatic. No pharyngeal erythema. No thyromegaly. CARDIOVASCULAR: S1 and S2 present. No murmurs, rubs, or gallops. PULMONARY: Chest is clear to auscultation, no wheezing or crackles. ABDOMEN: Soft, nontender, nondistended, normoactive bowel sounds. No palpable organomegaly. MUSCULOSKELETAL: No joint swelling or deformity. EXTREMITIES: No cyanosis, clubbing, or pedal edema. NEUROLOGICAL: Gross neurological examination did not reveal any focal deficits. SKIN: No rashes. Assessment and Plan Assessment: Atrial fibrillation with a rapid ventricular rate Paroxysmal atrial fibrillation. On anticoagulation with Eliquis Recent admission with bradycardia and generalized weakness Hyperlipidemia COPD stable History of rheumatic fever as a child. Coumadin monitoring Previous history of smoking Patient Condition at Discharge: Good Plan - Discharge Summary Discharge Rx Participant: No New Discharge Prescriptions: New Apixaban [Eliquis] 5 mg PO BID #30 tab Diltiazem Oral [Cardizem*] 30 mg PO BID #60 tab Propafenone [Rythmol] 150 mg PO Q8HR #90 tab Furosemide [Lasix] 40 mg PO DAILY #30 tablet Continue Albuterol Inhaler [Ventolin Hfa Inhaler] 1 - 2 puff INHALATION RT-Q6H PRN PRN Reason: Shortness Of Breath Atorvastatin [Lipitor] 10 mg PO HS Calcium Carbonate/Vitamin D3 [Calcium 600-Vit D3 400 Tablet] 1 tab PO DAILY Ipratropium-Albuterol Nebulize [Duoneb 0.5 mg-3 mg/3 ml Soln] 3 ml INHALATION RT-QID PRN PRN Reason: Shortness Of Breath Magnesium Chloride [Slow-Mag] 64 mg PO DAILY Montelukast [Singulair] 10 mg PO HS Discontinued Warfarin [Coumadin] 5 mg PO DAILY Diltiazem Cd [Cardizem CD] 120 mg PO DAILY #30 cap.er.24h Propafenone [Rythmol] 75 mg PO TID #90 tab Discharge Medication List Albuterol Inhaler [Ventolin Hfa Inhaler] 1 - 2 puff INHALATION RT-Q6H PRN [History] Atorvastatin [Lipitor] 10 mg PO HS 11/25/17 [History] Calcium Carbonate/Vitamin D3 [Calcium 600-Vit D3 400 Tablet] 1 tab PO DAILY [History] Ipratropium-Albuterol Nebulize [Duoneb 0.5 mg-3 mg/3 ml Soln] 3 ml INHALATION RT -QID PRN 11/25/17 [History] Magnesium Chloride [Slow-Mag] 64 mg PO DAILY 11/25/17 [History] Montelukast [Singulair] 10 mg PO HS 11/25/17 [History] Apixaban [Eliquis] 5 mg PO BID #30 tab 12/07/17 [Rx] Diltiazem Oral [Cardizem*] 30 mg PO BID #60 tab 12/07/17 [Rx] Furosemide [Lasix] 40 mg PO DAILY #30 tablet 12/07/17 [Rx] Propafenone [Rythmol] 150 mg PO Q8HR #90 tab 12/07/17 [Rx] Follow up Appointment(s)/Referral(s): Cookie Guevara MD [Primary Care Provider] - 12/14/17 1:45 pm () Yasmani Torres MD [STAFF PHYSICIAN] - 12/22/17 3:30 pm (Monday) Patient Instructions/Handouts: A-fib (Atrial Fibrillation) (DC), Safe Use of Anticoagulants (DC) Activity/Diet/Wound Care/Special Instructions: Pts copay for Eliquis is $41.70/month, 1st month filled free in [facility] pharmacy Discharge Disposition: HOME SELF-CARE
--- NOTE | 2017-12-07 12:25 | P.PN ---
Subjective Progress Note Date: 12/07/17 Principal diagnosis: Atrial fibrillation with RVR This is a 72-year-old female with chronic atrial fibrillation, maintained normally on Coumadin. Patient presented on 12/04/2017 with mostly symptoms of shortness of breath and palpitations, felt her heart was racing. Patient was evaluated in the ER, and she was noted to be in atrial fibrillation with RVR. Recently, the patient was in the hospital with bradycardia and her rate was in the 30s. Her Cardizem dose was recently decreased, but this time she is coming back in with mostly A. fib and RVR, hence the patient was treated with IV Cardizem, and the dose has been readjusted again. Seen by cardiology, and they are considering pacemaker implantation possibly on this admission or maybe on outpatient basis. Patient has been a heavy smoker over the years, but she quit smoking back in 2010. Presently denies any cough no wheezing, but she does have chronic dyspnea on exertion. Never documented to have COPD, and was never seen by a ict security specialist in the past. Patient states that her shortness of breath has been gradually getting worse over the last few years, felt to be either cardiac related, or related to deconditioning and obesity, and there is also a concern about underlying COPD. Never had a PFT on outpatient basis. However patient tells me that her shortness of breath became significantly improved when her rate was controlled. But nonetheless continues to have shortness of breath on exertion. Presently no headache no blurred vision no dizziness, no chest pain, denies any palpitations, no shortness of breath at rest, no cough no wheezing, no chest pain, no nausea no vomiting no abdominal pain, no melena, no hematemesis, no dysuria, no frequency no urgency. Patient was all along on Coumadin, but when she was seen by cardiology, she was switched to eliquis The patient is seen again today 12/07/2017 in follow-up on the selective care unit. She is awake and alert in no acute distress. She is feeling quite a bit better today as compared to yesterday. He is maintaining good O2 saturations in the 90s on room air. She's been afebrile. Hemodynamically stable. It is better controlled currently in the 70s. White count 7.9. Hemoglobin 10.5. INR 1.4. Creatinine 1.00 Objective - Vital Signs Vital signs: Vital Signs Temp 96.4 F L 12/07/17 09:50 Pulse 72 12/07/17 11:09 Resp 18 12/07/17 09:50 BP 135/65 12/07/17 09:50 Pulse Ox 93 L 12/07/17 09:50 Intake & Output 12/06/17 12/07/17 12/07/17 18:59 06:59 18:59 Intake Total 520 120 Balance 520 120 Weight 115.9 kg Intake: Oral 520 120 Other: Voiding Method Toilet Toilet # Voids 1 2 - Exam GENERAL EXAM: Alert, active, comfortable in no apparent distress. HEAD: Normocephalic. EYES: Normal reaction of pupils, equal size. NOSE: Clear with pink turbinates. THROAT: No erythema or exudates. NECK: No masses, no JVD. CHEST: No chest wall deformity. LUNGS: Equal air entry with no crackles, wheeze, rhonchi or dullness. CVS: S1 and S2 normal with no audible murmur, regular rhythm. ABDOMEN: No hepatosplenomegaly, normal bowel sounds, no guarding or rigidity. SPINE: No scoliosis or deformity SKIN: No rashes CENTRAL NERVOUS SYSTEM: No focal deficits, tone is normal in all 4 extremities. EXTREMITIES: There is no peripheral edema. No clubbing, no cyanosis. Peripheral pulses are intact. - Labs CBC & Chem 7: 12/07/17 05:43 12/07/17 05:43 Labs: Abnormal Lab Results - Last 24 Hours (Table) 12/06/17 12/07/17 12/07/17 Range/Units 13:17 05:43 05:43 Hgb 10.5 L (11.4-16.0) gm/dL Hct 32.9 L (34.0-46.0) % PT 14.9 H 12.9 H (9.0-12.0) sec INR 1.6 H 1.4 H (<1.2) Microbiology - Last 24 Hours (Table) 12/04/17 01:23 Urine Culture - Final Urine,Voided Escherichia coli Assessment and Plan Assessment: Impression: 1 acute on chronic dyspnea on exertion most likely multifactorial, but mostly related to atrial fibrillation with RVR. 2 suspect some component of COPD, severity of which is not clear at this point, patient is maintained on DuoNeb. Would not add any more bronchodilators at this point, however based on the PFT which will be done on outpatient basis, further recommendations regarding her COPD status will be addressed. 3 paroxysmal atrial fibrillation maintained on anticoagulations therapy 4 deconditioning and obesity is another contributing factor to her shortness of breath. 5 history of smoking, presently does not smoke. Recommendation: The patient was seen and evaluated by Dr. Penaloza. She is stable from the pulmonary standpoint and could be discharged home once cleared by cardiology. She should follow-up in the office in 1-[address] Penaloza. We'll perform full pulmonary function testing to evaluate the severity of her suspected chronic obstructive pulmonary disease and make recommendations for her maintenance medications. The patient is agreeable to the plan. I, the cosigning physician, performed a history & physical examination of the patient. Lungs sounds are clear. Maintaining good O2 saturations in the 90s on room air. I discussed the assessment and plan of care with my nurse practitioner, Ciera Cardona. I attest to the above note as dictated by her.
[2017-12-07 12:47] VITALS: BP 121/67; PULSE 89; RESP 16; TEMP 96.7
== END 2017-12-07 13:09 | disposition home or self-care (01) | DRG 310 ==
LOC: EC 00:39 → 6SEL 02:32
PROVIDERS: ADMIT Hospitalist; ATTEND Hospitalist
DX: I48.0 Paroxysmal atrial fibrillation (principal); I49.5 Sick sinus syndrome; I11.0 Hypertensive heart disease with heart failure; I50.9 Heart failure, unspecified; J44.9 Chronic obstructive pulmonary disease, unspecified; I35.1 Nonrheumatic aortic (valve) insufficiency; M10.9 Gout, unspecified; E78.5 Hyperlipidemia, unspecified; H93.13 Tinnitus, bilateral; E66.9 Obesity, unspecified; Z68.37 Body mass index [BMI] 37.0-37.9, adult; Z79.01 Long term (current) use of anticoagulants; Z79.899 Other long term (current) drug therapy; Z87.891 Personal history of nicotine dependence; Z86.19 Personal history of other infectious and parasitic diseases; Z98.51 Tubal ligation status; Z90.49 Acquired absence of other specified parts of digestive tract; Z91.030 Bee allergy status; Z80.0 Family history of malignant neoplasm of digestive organs
CPT/HCPCS: 36415; 71046; 80048; 80053; 80061; 81003; 82550; 82553; 83735; 83880; 84100; 84443; 84484; 85025; 85610; 85730; 87077; 87086; 87186; 93005; 93306; 94640; 94760; 96365; 96366; 96368; 96376; 99285

== ENCOUNTER → 2018-01-25 | Outpatient (CLI) | payer MEDICARE ==
[2018-01-25 13:31] LABS: HCT 37.3 % (34.0-46.0); HGB 12.1 gm/dL (11.4-16.0); MCH 26.8 pg (25.0-35.0); MCHC 32.3 g/dL (31.0-37.0); Mean Platelet Volume 7.1; Platelet Count 274 k/uL (150-450); RBC 4.49 m/uL (3.80-5.40); WBC 8.7 k/uL (3.8-10.6)
[2018-01-25 13:53] LABS: Potassium 4.1 mmol/L (3.5-5.1)
== END | disposition home or self-care (01) ==
LOC: LABPAT 12:47
PROVIDERS: ATTEND Internal Medicine Interventional Cardiology
DX: Z01.812 Encounter for preprocedural laboratory examination (principal); I48.0 Paroxysmal atrial fibrillation
CPT/HCPCS: 36415; 80051; 82565; 84520; 85027

== ENCOUNTER 2018-02-09 06:20 | Day surgery (SDC) | payer MEDICARE ==
[2018-02-06 12:09] VITALS: BMI 36.9
[~2018-02-09 06:20] MED LIST: ALPRAZolam 0.25 MG TAB PO PRN; ALPRAZolam 0.5 MG TAB PO PRN; ASPIRIN 325 MG TAB PO STA; ATORVASTATIN 80 MG TAB PO STA; NITROGLYCERIN SL TABS 0.4 MG TAB SUBLINGUAL PRN; SODIUM CHLORIDE 0.9% 1,000 ML in EMPTY BAG 1 BAG IV ONE
[2018-02-09 06:52] VITALS: TEMP 98.1
[2018-02-09] MEDS ORDERED: BENZOCAINE SPRAY 1 CAN MUCOUS MEM ONE ×2 (07:38)
[2018-02-09] MEDS ORDERED: fentaNYL (PF) 50 MCG/ML 2 ML AMP IV ONE ×2 (07:44)
[2018-02-09] MEDS ORDERED: MIDAZOLAM 2 MG/2 ML VIAL IV ONE ×2 (07:44→08:54)
[2018-02-09] MEDS ORDERED: IV FLUID CONTINUATION 1,000 ML IV ONE (08:10)
[2018-02-09] MEDS: fentaNYL (PF) 50 MCG/ML 2 ML AMP IV ONE ×2 (08:35→08:54)
[2018-02-09] MEDS ORDERED: LIDOCAINE 1% INJ 10MG/ML (20 ML MDV) SQ ONE (08:46)
[2018-02-09] MEDS ORDERED: IOPAMIDOL-370 125ML BTL INJ ONE (09:09)
[2018-02-09] MEDS ORDERED: RX INFO: IV CONTRAST WAS GIVEN 1 EACH MISC MISCELLANE PRN (09:47)
[2018-02-09] MEDS ORDERED: SODIUM CHLORIDE 0.9% 1,000 ML IV SCH (10:00)
--- NOTE | 2018-02-09 10:26 | ECHOT ---
TRANSESOPHAGEAL ECHOCARDIOGRAM DATE OF SERVICE: 02/09/2018 PERFORMING PHYSICIAN: Yasmani Torres MD. PROCEDURE PERFORMED: Transesophageal echocardiogram. INDICATION: This is a pleasant 72-year-old female patient with known aortic insufficiency, who was experiencing a worsening shortness of breath. The transesophageal echocardiogram for further clarification of the severity of the aortic valve insufficiency. COMPLICATION: None. LEVEL OF SEDATION: Moderate with a sedation length of 12 minutes. PROCEDURE DESCRIPTION: After obtaining an informed consent, explaining the procedure, benefits, risks, complications and alternatives, the patient was brought to the transesophageal echocardiogram suite. A pulse oximetry and heart rate monitors were attached to the patient prior to the procedure. The patient's throat was sprayed using lidocaine locally. Following that, the patient was turned into left lateral position. A bite guard was placed and the patient was then sedated with the above doses of Versed and fentanyl in divided doses. Following that, the transesophageal echocardiogram probe was advanced through the bite guard into the mid esophagus where 2-D echocardiogram images as well as color Doppler images of various cardiac structures were obtained. We evaluated the interatrial septum using 2-D echocardiogram, color Doppler, and contrast study. The procedure was completed. There were no complications. FINDINGS: The left ventricular dimension and systolic function appeared to be normal. The ejection fraction appeared to be in the range of 50%-55%. The right ventricle appeared to be of normal size and function. The left atrium appeared to be mildly dilated. The aortic valve often appeared to be trileaflet valve without stenosis with moderate insufficiency by color-flow Doppler as well as by vena contracta. The mitral valve seems to be mildly thickened with mild MR only. There was mild to moderate tricuspid regurgitation seen. The left atrial appendage appeared to be free from any thrombus. The interatrial septum appeared to be intact without any evidence of shunt. There was trace pericardial effusion identified by the right ventricle. CONCLUSION: 1. Normal left ventricular dimension and systolic function with an ejection fraction of 50%-55%. 2. Normal right ventricular dimension and systolic function. 3. Mild biatrial enlargement. 4. Normal left atrial appendage without any evidence of thrombus. 5. Intact interatrial septum without any evidence of shunt. 6. Trileaflet aortic valve without stenosis with moderate insufficiency by vena contracta as well as by color-flow Doppler. 7. Thickened mitral valve leaflets with mild mitral regurgitation. 8. Mild to moderate tricuspid regurgitation. 9. Trace pericardial effusion was identified as well. POSTPROCEDURE MANAGEMENT: 1. Medical treatment. 2. Follow up with the patient. GERMANIA / WAYNE: [id number] /
--- NOTE | 2018-02-09 10:41 | CC ---
CARDIAC CATHETERIZATION REPORT DATE OF SERVICE: 02/09/2018 PERFORMING PHYSICIAN: Yasmani Torres MD, Wireless Sales Associate. PROCEDURE PERFORMED: 1. Right heart catheterization. 2. Selective right and left coronary angiogram. 3. Left heart catheterization. 4. Selective right common femoral artery angiogram. INDICATION: This is a pleasant 72-year-old female patient with known history of paroxysmal atrial fibrillation as well as moderate aortic insufficiency, was experiencing worsening shortness of breath lately. The shortness of breath was to the level where the patient cannot carry a normal conversation. She was seen and evaluated by Dr. Penaloza, her spring assembler and the pulmonary function test as well as a CT scan of the of the chest did not explain the shortness of breath. Because of that, right and left heart catheterization was advised. Before that, the patient underwent a HILDA. Please refer to separate report for the evaluation of the aortic insufficiency. APPROACH: Right common femoral vein and right common femoral artery. COMPLICATION: None. LEVEL OF SEDATION: Moderate with sedation length of 25 minutes. PROCEDURE DESCRIPTION: After obtaining an informed consent, the patient was brought to the cardiac pipelines laborer. The right common femoral vein was cannulated using micropuncture technique. Then I placed an 8-Haitian sheath in the right common femoral vein. After that, I cannulated the right common femoral artery using also micropuncture technique, the micropuncture wire passed easily, then I placed a 6-Haitian sheath in the right common femoral artery. Subsequently, I did perform right heart catheterization using 6-Haitian swan catheter which was initially placed at the level of the wedge. Then I did pullback to the pulmonary artery, RV, and RA. After that, I did selective right and left coronary angiogram using JR4 and JL4.5 catheters. Left heart catheterization was performed using pigtail catheter. I did not perform an LV-gram on the patient because the patient did have limited contrast use and she has a low GFR in the 40s. After that, the procedure was completed without any complication. SELECTIVE CORONARY ANGIOGRAM: 1. The RCA is a moderate caliber vessel and it is a nondominant vessel. The RCA is angiographically normal. 2. The left main is angiographically normal. It bifurcates into left circumflex, which is a dominant circumflex, as well as left anterior descending artery. 3. The left circumflex is a large caliber vessel. It is a dominant vessel. The proximal circumflex is angiographically normal and gives rise into the first OM branch which is a small to medium caliber vessel with mild disease in its ostium. The mid left circumflex is normal and gives rise into a second and third obtuse marginal branches, both are angiographically normal. The circumflex distally appeared to be angiographically normal. 4. The LAD: The proximal LAD is angiographically normal. It gives rise into the first diagonal branch which appeared to be angiographically normal but is a small caliber diagonal. The mid LAD is normal and gives rise into the second and third diagonal branches, both are angiographically normal and the LAD distally is angiographically normal and gives rise into two diagonal branches. HEMODYNAMICS: The left ventricular end-diastolic pressure was 20 mmHg. No significant gradient was seen across the aortic valve. Pulmonary capillary wedge pressure was 25 mmHg. PA pressure were as follows: Systolic 34, diastolic of 20, and mean of 25 mmHg. Right ventricular end-diastolic pressure was 16 mmHg. RA pressure was 14 mmHg. The left ventricular end-diastolic pressure was 20 mmHg. CONCLUSION: 1. Normal coronary angiogram. 2. Mild pulmonary hypertension. The mean pulmonary artery pressure was 25 mmHg and the systolic was about 30 mmHg. 3. Elevated left ventricular end-diastolic pressure and elevated left pulmonary capillary wedge pressure. POSTPROCEDURE MANAGEMENT: 1. Maximize medical treatment at this point of time. 2. Adjust the diuretics and increase the dose of diuretics to the patient. 3. Probably sleep study as an outpatient as well. 4. Weight reduction. 5. Follow up with the patient. MMODL / IJN: [id number] /
[2018-02-09 11:08] VITALS: RESP 18
[2018-02-09 11:28] VITALS: BP 128/58; PULSE 62
== END 2018-02-09 14:40 | disposition home or self-care (01) ==
LOC: CATHCVL 06:20
PROVIDERS: ATTEND Internal Medicine Interventional Cardiology
DX: I08.3 Combined rheumatic disorders of mitral, aortic and tricuspid valves (principal); I11.9 Hypertensive heart disease without heart failure; I31.3 Pericardial effusion (noninflammatory); I27.20 Pulmonary hypertension, unspecified; I48.0 Paroxysmal atrial fibrillation; E78.00 Pure hypercholesterolemia, unspecified; Z79.01 Long term (current) use of anticoagulants; Z79.51 Long term (current) use of inhaled steroids; Z79.899 Other long term (current) drug therapy; F17.210 Nicotine dependence, cigarettes, uncomplicated; Z88.8 Allergy status to other drugs, medicaments and biological substances
CPT/HCPCS: 93312; 93320; 93325; 93460; C1760; C1894 ×2; C1769 ×2; J2250; J2001; J3010; Q9967

== ENCOUNTER 2018-04-09 09:52 | Emergency (ER) | payer MEDICARE ==
--- NOTE | 2018-04-09 11:31 | ED ---
General Adult HPI - General Chief complaint: Abdominal Pain Stated complaint: Back pain Time Seen by Provider: 04/09/18 11:12 Source: patient Mode of arrival: ambulatory Limitations: no limitations - History of Present Illness Initial comments: 72-year-old female with a past medical history of A. fib, heart failure, COPD, hyperlipidemia, possible aortic stenosis presents to the emergency department for a chief complaint of left low back pain. Patient states the pain worsens with movement and laying down. She denies any midline back pain. She states she has had back pain before but states this is different in consistency. Patient denies any injury or falls to the low back. Patient denies any abdominal pain. She denies any nausea or vomiting. Patient has no other complaints at this time including shortness of breath, chest pain, abdominal pain, nausea or vomiting, headache, or visual changes. - Related Data Home Medications Medication Instructions Recorded Confirmed Albuterol Inhaler [Ventolin Hfa 1 - 2 puff INHALATION RT-Q6H PRN 11/25/17 Inhaler] Atorvastatin [Lipitor] 10 mg PO HS 11/25/17 04/09/18 Calcium Carbonate/Vitamin D3 1 tab PO DAILY 11/25/17 04/09/18 [Calcium 600-Vit D3 400 Tablet] Ipratropium-Albuterol Nebulize 3 ml INHALATION RT-QID PRN 11/25/17 04/09/18 [Duoneb 0.5 mg-3 mg/3 ml Soln] Magnesium Chloride [Slow-Mag] 64 mg PO DAILY 11/25/17 04/09/18 Montelukast [Singulair] 10 mg PO HS 11/25/17 04/09/18 Furosemide [Lasix] 40 mg PO QAM 02/06/18 04/09/18 Apixaban [Eliquis] 5 mg PO BID 04/09/18 04/09/18 Propafenone [Rythmol] 150 mg PO TID 04/09/18 04/09/18 Previous Rx's Medication Instructions Recorded Diltiazem Oral [Cardizem*] 30 mg PO BID #60 tab 12/07/17 HYDROcodone/APAP 5-325MG [[place] 1 tab PO Q6HR PRN #10 tab 04/09/18 5-325] Allergies Allergy/AdvReac Type Severity Reaction Status Date / Time bee venom protein (honey bee) Allergy Anaphylaxis Verified 04/09/18 11:42 Review of Systems ROS Statement: Those systems with pertinent positive or pertinent negative responses have been documented in the HPI. ROS Other: All systems not noted in ROS Statement are negative. Past Medical History Past Medical History: Atrial Fibrillation, Heart Failure, COPD, Hyperlipidemia, Pneumonia Additional Past Medical History / Comment(s): Recently admitted to [facility] on with bradycardia, generalized fatigue, possible aortic stenosis. Other HX: Afib RVR, 2008 [place] fever, rheumatic fever as a child, gout L wrist once, bilateral tinnitis, anemia. History of Any Multi-Drug Resistant Organisms: None Reported Past Surgical History: Appendectomy, Heart Catheterization, Orthopedic Surgery, Tonsillectomy, Tubal Ligation Additional Past Surgical History / Comment(s): HILDA, cardioversion, 2012 cardiac cath-normal, bilateral knee arthroscopies, colonoscopy. Past Anesthesia/Blood Transfusion Reactions: No Reported Reaction Past Psychological History: No Psychological Hx Reported Smoking Status: Former smoker Past Alcohol Use History: None Reported Past Drug Use History: None Reported - Past Family History Father History Unknown: Yes Family Medical History: Cancer Additional Family Medical History / Comment(s): Father had colon cancer. Mother Family Medical History: No Reported History Additional Family Medical History / Comment(s): Mother was healthy and lived to be 93-94 yrs old. General Exam Limitations: no limitations General appearance: alert, in no apparent distress Head exam: Present: atraumatic, normocephalic, normal inspection Eye exam: Present: normal appearance, PERRL, EOMI. Absent: scleral icterus, conjunctival injection, periorbital swelling ENT exam: Present: normal exam, mucous membranes moist Neck exam: Present: normal inspection, full ROM. Absent: tenderness, meningismus, lymphadenopathy Respiratory exam: Present: normal lung sounds bilaterally. Absent: respiratory distress, wheezes, rales, rhonchi, stridor Cardiovascular Exam: Present: regular rate, normal rhythm, normal heart sounds. Absent: systolic murmur, diastolic murmur, rubs, gallop, clicks GI/Abdominal exam: Present: soft, normal bowel sounds. Absent: distended, tenderness, guarding, rebound, rigid Extremities exam: Present: tenderness (Mild tenderness noted to the left low back.), normal capillary refill (Capillary refill less than 2 seconds and dorsal pedis pulse 2+ in the left lower extremity), other (Sensation intact in the left lower extremity. Small area of ecchymosis noted to the left low back over SI joint area.). Absent: full ROM (Patient has limited flexion of left hip. Patient has pain with passive external rotation of the left hip.) Neurological exam: Present: alert, oriented X3, CN II-XII intact Psychiatric exam: Present: normal affect, normal mood Course Vital Signs 04/09/18 04/09/18 11:08 14:58 Temperature 97.7 F Pulse Rate 75 70 Respiratory 18 16 Rate Blood Pressure 131/82 146/84 O2 Sat by Pulse 95 95 Oximetry Medical Decision Making - Medical Decision Making 72-year-old female presents to the emergency department for a chief complaint of left low back pain times one week. Patient states pain has been worsening somewhat. On exam there is a mild area of ecchymosis noted over the left SI joint area. She does have pain with movement of the hip including external rotation and flexion. Patient is able to ambulate on the left lower extremity and did ambulate into the room. X-rays were initially ordered which demonstrated osteoarthritis of the left hip. The left hip has joint space loss , marginal spurring, subchondral sclerosis and lucency compatible with geodes formation. As patient does have mild ecchymosis noted to the left SI joint blood work and CT were ordered. CBC and CMP are unremarkable. Patient is afebrile and CBC is within normal limits. Abdomen and pelvis CT showed only incidental findings including a focus on the right kidney pseudocysts within the uncinate process and peripheral calcifications. patient does show possible disc herniation on the right at the lumbosacral junction. His findings were discussed with her and patient will follow up with primary care for this. At this time patient's left hip pain is likely due to osteoarthritis as pain is worse with movement and she denies injury. She will be treated with [place] at home. Patient states morphine did help somewhat. She will follow up with orthopedics and primary for this. She will return if she has any worsening symptoms which were discussed with her. - Lab Data Result diagrams: 04/09/18 12:00 04/09/18 12:00 Lab Results 04/09/18 04/09/18 Range/Units 12:00 12:00 WBC 8.7 (3.8-10.6) k/uL RBC 4.78 (3.80-5.40) m/uL Hgb 12.7 (11.4-16.0) gm/dL Hct 39.1 (34.0-46.0) % MCV 81.7 (80.0-100.0) fL MCH 26.5 (25.0-35.0) pg MCHC 32.4 (31.0-37.0) g/dL RDW 14.0 (11.5-15.5) % Plt Count 280 (150-450) k/uL Neutrophils % 68 % Lymphocytes % 21 % Monocytes % 5 % Eosinophils % 3 % Basophils % 1 % Neutrophils # 6.0 (1.3-7.7) k/uL Lymphocytes # 1.9 (1.0-4.8) k/uL Monocytes # 0.5 (0-1.0) k/uL Eosinophils # 0.2 (0-0.7) k/uL Basophils # 0.1 (0-0.2) k/uL Sodium 141 (137-145) mmol/L Potassium 4.2 (3.5-5.1) mmol/L Chloride 103 (98-107) mmol/L Carbon Dioxide 28 (22-30) mmol/L Anion Gap 10 mmol/L BUN 26 H (7-17) mg/dL Creatinine 0.97 (0.52-1.04) mg/dL Est GFR (CKD-EPI)AfAm 67 (>60 ml/min/1.73 sqM) Est GFR (CKD-EPI)NonAf 58 (>60 ml/min/1.73 sqM) Glucose 99 (74-99) mg/dL Calcium 9.7 (8.4-10.2) mg/dL Total Bilirubin 0.8 (0.2-1.3) mg/dL AST 22 (14-36) U/L ALT 22 (9-52) U/L Alkaline Phosphatase 88 (38-126) U/L Total Protein 6.9 (6.3-8.2) g/dL Albumin 4.1 (3.5-5.0) g/dL Disposition Clinical Impression: Hip pain, left Disposition: HOME SELF-CARE Condition: Good Instructions: Acute Low Back Pain (ED), Hip Pain (ED) Additional Instructions: Please take [place] as directed. Please follow-up with primary care in 1-2 days for findings discussed on CAT scan. Please return to the emergency department if you have any worsening symptoms. Prescriptions: HYDROcodone/APAP 5-325MG [[place] 5-325] 1 tab PO Q6HR PRN #10 tab PRN Reason: Pain Is patient prescribed a controlled substance at d/c from ED?: No Referrals: Cookie Guevara MD [Primary Care Provider] - 1-2 days Brett Rebolledo MD [STAFF PHYSICIAN] - 1-2 days Time of Disposition: 15:17
[2018-04-09] MEDS ORDERED: MORPHINE SULFATE 4 MG/ML SYRINGE IVP STA ×2 (11:47→14:11)
[2018-04-09 12:23] LABS: Basophils # (A) 0.1 k/uL (0-0.2); Basophils % (A) 1 %; Eosinophils # (A) 0.2 k/uL (0-0.7); Eosinophils % (A) 3 %; HCT 39.1 % (34.0-46.0); HGB 12.7 gm/dL (11.4-16.0); Lymphocytes # (A) 1.9 k/uL (1.0-4.8); Lymphocytes % (A) 21 %; MCH 26.5 pg (25.0-35.0); MCHC 32.4 g/dL (31.0-37.0); MCV 81.7 fL (80.0-100.0); Mean Platelet Volume 7.2; Monocytes # (A) 0.5 k/uL (0-1.0); Monocytes % (A) 5 %; Neutrophils % (A) 68 %; Platelet Count 280 k/uL (150-450); RBC 4.78 m/uL (3.80-5.40); WBC 8.7 k/uL (3.8-10.6)
--- NOTE | 2018-04-09 12:32 | XR ---
EXAMINATION TYPE: XR Hip LT and AP Pelvis DATE OF EXAM: 04/09/2018 COMPARISON: NONE HISTORY: Pain, no injury TECHNIQUE: A single AP view of the pelvis is obtained. Two views of the left hip are obtained. FINDINGS: There is no acute fracture/dislocation evident in the pelvis. The left hip shows joint spa ce loss, marginal spurring, subchondral sclerosis and lucency compatible with geode formation. Alignm ent is maintained. Degenerative disc changes are present in the visualized lumbar spine. IMPRESSION: Osteoarthritis left hip. Degenerative disc disease lumbar spine. There is no acute fract ure or dislocation in the pelvis or left hip.
[2018-04-09 12:34] LABS: Albumin 4.1 g/dL (3.5-5.0); Calcium 9.7 mg/dL (8.4-10.2); Total Bilirubin 0.8 mg/dL (0.2-1.3); Total Protein 6.9 g/dL (6.3-8.2)
[2018-04-09 12:36] LABS: Potassium 4.2 mmol/L (3.5-5.1)
[2018-04-09] MEDS ORDERED: SODIUM CHLORIDE 0.9% 500 ML 500 ML IV STA (14:12)
--- NOTE | 2018-04-09 14:46 | CT ---
EXAMINATION TYPE: CT abdomen pelvis w con DATE OF EXAM: 04/09/2018 COMPARISON: CT chest 12/13/2012 HISTORY: Hx appendectomy, tubal. Pt presenting with LT back/hip pain, denies injury. CT DLP: 1346.90 mGycm Automated exposure control for dose reduction was used. TECHNIQUE: Helical acquisition of images from the lung bases through the pelvis have been completed. CONTRAST: Performed without Oral Contrast and with IV Contrast, patient injected with 100 mL of Isovue 300. FINDINGS: LUNG BASES: Some basilar scarring is present, no pleural or pericardial effusion. AORTA: No significant abnormality is appreciated. LIVER/GB: Low-attenuation foci are present within the liver similar to prior exam, gallbladder is nor mal. PANCREAS: There is a low-attenuation focus within the uncinate process region of the pancreas with pe ripheral calcification measuring approximately 3.3 cm. SPLEEN: No significant abnormality is seen. ADRENALS: No significant abnormality is seen. KIDNEYS: Low-attenuation foci associated with the left kidney are likely cysts, there is a focus in t he lower pole right kidney measuring 18 mm in exophytic location which is higher attenuation and is i ndeterminate REPRODUCTIVE ORGANS: No significant abnormality is seen BOWEL: No significant abnormality is seen. FREE AIR: No Free Air visible. ASCITES: None visible. PELVIC ADENOPATHY: None visualized. RETROPERITONEAL ADENOPATHY: No Retroperitoneal Adenopathy visible. URINARY BLADDER: No significant abnormality is seen. OSSEOUS STRUCTURES: There is a spinal curvature. Degenerative disc changes, facet arthropathy noted especially in the lower lumbar spine, lucency in the spinal canal on the right at the lumbosacral niraj ction likely represents disc herniation. IMPRESSION: FOCUS WITHIN THE LOWER POLE THE RIGHT KIDNEY IS INDETERMINATE, FOLLOW-UP IS RECOMMENDED. POSSIBLE PSE UDOCYSTS WITHIN THE UNCINATE PROCESS REGION OF THE PANCREAS, PERIPHERAL CALCIFICATION MAY BE INDICATI VE OF A CHRONIC FINDING. STATISTICALLY LESIONS WITHIN THE LIVER ARE LIKELY BENIGN. DEGENERATIVE DISC DISEASE AND POSSIBLE DISC HERNIATION, FACET ARTHROPATHY, SPINAL CURVATURE.
[2018-04-09 15:00] VITALS: RESP 16
[2018-04-09 15:46] VITALS: BP 159/84; PULSE 74; TEMP 97.9
== END 2018-04-09 15:40 | disposition home or self-care (01) ==
LOC: EC 09:52
DX: S30.0XXA Contusion of lower back and pelvis, initial encounter (principal); M16.12 Unilateral primary osteoarthritis, left hip; R93.89 Abnormal findings on diagnostic imaging of other specified body structures; J44.9 Chronic obstructive pulmonary disease, unspecified; I48.91 Unspecified atrial fibrillation; E78.5 Hyperlipidemia, unspecified; I50.9 Heart failure, unspecified; Z87.891 Personal history of nicotine dependence; Z91.018 Allergy to other foods; Z79.01 Long term (current) use of anticoagulants; Z79.899 Other long term (current) drug therapy; Z87.01 Personal history of pneumonia (recurrent); Z95.9 Presence of cardiac and vascular implant and graft, unspecified; X58.XXXA Exposure to other specified factors, initial encounter
CPT/HCPCS: 36415; 80053; 85025; 87040; 73502; 74177; 99284; 96374; 96376; J2270; Q9967

== ENCOUNTER → 2018-04-20 | Outpatient (CLI) | payer MEDICARE ==
--- NOTE | 2018-04-20 09:27 | US ---
EXAMINATION TYPE: US abdomen complete DATE OF EXAM: 04/20/2018 COMPARISON: CT 04/09/2018 CLINICAL HISTORY: R93.[address] EXAM MEASUREMENTS: Liver Length: 17.6 cm Gallbladder Wall: 0.2 cm CBD: 0.3 cm Spleen: 11.2 cm Right Kidney: 10.3 x 6.7 x 4.5 cm Left Kidney: 10.6 x 6.7 x 5.0 cm Pancreas: enlarged pancreatic duct = 3.5mm. Discrete mass at the uncinate process is not identified. Liver: left lobe shadowing calcification noted inferior pole = 0.4 x0.8 x 0.5cm; right lobe shadowin g calcification at herminia hepatis; multiple hepatic cysts with largest noted inferior right lobe = 1.5 x 1.8 x 1.8cm Gallbladder: small wall polyp noted on multiple views Evidence for sonographic Rebolledo's sign: no CBD: wnl Spleen: wnl Right Kidney: couple of renal cysts seen inferior pole with largest = 1.4 x 1.1 x 2.0cm. These appea r simple. Left Kidney: multiple renal cysts with largest inferior pole = 3.9 x 3.6 x 2.7cm . These appear sim ple. Upper IVC: wnl Abd Aorta: calcification noted along rodriguez IMPRESSION: 1. No discrete mass identified within the pancreas. 2. Pancreatic duct is prominent. 3. Recommend MRI of the pancreas for additional evaluation 4. Possible hemangioma within the liver. 5. Bilateral renal cysts. 6. Gallbladder wall polyp.
== END | disposition home or self-care (01) ==
LOC: RADUSWWP 07:28
PROVIDERS: ATTEND Family Medicine
DX: N28.1 Cyst of kidney, acquired (principal); K82.4 Cholesterolosis of gallbladder
CPT/HCPCS: 76700

== ENCOUNTER 2018-09-04 23:12 | Inpatient (IN) | payer MEDICARE ==
[2018-09-05] MEDS ORDERED: IPRATROPIUM-ALBUTEROL 3 ML NEB INHALATION STA (00:08)
[2018-09-05 00:24] LABS: Basophils % (A) 0 %; Eosinophils # (A) 0.2 k/uL (0-0.7); Eosinophils % (A) 2 %; HCT 37.6 % (34.0-46.0); HGB 12.2 gm/dL (11.4-16.0); Lymphocytes # (A) 0.9 k/uL (1.0-4.8); Lymphocytes % (A) 9 %; MCHC 32.5 g/dL (31.0-37.0); MCV 83.1 fL (80.0-100.0); Mean Platelet Volume 7.6; Monocytes # (A) 0.5 k/uL (0-1.0); Monocytes % (A) 5 %; Neutrophils # (A) 7.9 k/uL (1.3-7.7); Neutrophils % (A) 82 %; Platelet Count 213 k/uL (150-450); RBC 4.52 m/uL (3.80-5.40); RDW 14.1 % (11.5-15.5); WBC 9.6 k/uL (3.8-10.6)
[2018-09-05] MEDS: SODIUM CHLORIDE 0.9% 500 ML 500 ML IV SCH ×3 (00:27→01:03)
[2018-09-05 00:35] LABS: Partial Thromboplastin Time 24.9 sec (22.0-30.0); Prothrombin Time 10.3 sec (9.0-12.0)
[2018-09-05 00:37] LABS: Albumin 3.7 g/dL (3.5-5.0); Calcium 9.4 mg/dL (8.4-10.2); Total Bilirubin 0.6 mg/dL (0.2-1.3); Total Protein 5.9 g/dL (6.3-8.2)
--- NOTE | 2018-09-05 00:40 | XR ---
EXAM: XR Chest, 2 Views CLINICAL HISTORY: ITS.REASON XR Reason: Fever TECHNIQUE: Frontal and lateral views of the chest. COMPARISON: No relevant prior studies available. FINDINGS: Lungs: Unremarkable. No consolidation. Pleural space: Unremarkable. No pneumothorax. Heart: Unremarkable. No cardiomegaly. Mediastinum: Unremarkable. Bones/joints: No acute fracture. IMPRESSION: No acute findings.
--- NOTE | 2018-09-05 00:57 | ED ---
SOB HPI - General Chief Complaint: Shortness of Breath Stated Complaint: KATHIE Time Seen by Provider: 09/04/18 23:26 Source: patient Mode of arrival: ambulatory Limitations: physical limitation - History of Present Illness Initial Comments: Patient is a 73-year-old female with past medical history of COPD who presents the emergency department today via EMS for evaluation of shortness of breath. Patient reports she's used her breathing treatments at home but has persistent shortness of breath. She also reports increased work of breathing. EMS reports that they gave her 125 of Solu-Medrol as well as 2 breathing treatments in route to the hospital with minimal improvement in her work of breathing. Upon arrival patient was noted to be febrile and tachypneic without any tachycardia. Patient denies any associated chest pain, palpitations recent nausea, vomiting or change in bowel or bladder habits. - Related Data Home Medications Medication Instructions Recorded Confirmed Albuterol Inhaler [Ventolin Hfa 1 - 2 puff INHALATION RT-Q6H PRN 11/25/17 04/09/18 Inhaler] Atorvastatin [Lipitor] 10 mg PO HS 11/25/17 04/09/18 Calcium Carbonate/Vitamin D3 1 tab PO DAILY 11/25/17 04/09/18 [Calcium 600-Vit D3 400 Tablet] Ipratropium-Albuterol Nebulize 3 ml INHALATION RT-QID PRN 11/25/17 04/09/18 [Duoneb 0.5 mg-3 mg/3 ml Soln] Magnesium Chloride [Slow-Mag] 64 mg PO DAILY 11/25/17 04/09/18 Montelukast [Singulair] 10 mg PO HS 11/25/17 04/09/18 Furosemide [Lasix] 40 mg PO QAM 02/06/18 04/09/18 Apixaban [Eliquis] 5 mg PO BID 04/09/18 04/09/18 Propafenone [Rythmol] 150 mg PO TID 04/09/18 04/09/18 Previous Rx's Medication Instructions Recorded Diltiazem Oral [Cardizem*] 30 mg PO BID #60 tab 12/07/17 HYDROcodone/APAP 5-325MG [[place] 1 tab PO Q6HR PRN #10 tab 04/09/18 5-325] Allergies Allergy/AdvReac Type Severity Reaction Status Date / Time bee venom protein (honey bee) Allergy Anaphylaxis Verified 09/04/18 23:22 Review of Systems ROS Statement: Those systems with pertinent positive or pertinent negative responses have been documented in the HPI. ROS Other: All systems not noted in ROS Statement are negative. Past Medical History Past Medical History: Atrial Fibrillation, Heart Failure, COPD, Hyperlipidemia, Pneumonia Additional Past Medical History / Comment(s): Recently admitted to [facility] on 11/27/17 with bradycardia, generalized fatigue, possible aortic stenosis. Other HX: Afib RVR, 2008 [place] fever, rheumatic fever as a child, gout L wrist once, bilateral tinnitis, anemia. History of Any Multi-Drug Resistant Organisms: None Reported Past Surgical History: Appendectomy, Heart Catheterization, Orthopedic Surgery, Tonsillectomy, Tubal Ligation Additional Past Surgical History / Comment(s): HILDA, cardioversion, 2012 cardiac cath-normal, bilateral knee arthroscopies, colonoscopy. Past Anesthesia/Blood Transfusion Reactions: No Reported Reaction Past Psychological History: No Psychological Hx Reported Smoking Status: Former smoker Past Alcohol Use History: None Reported Past Drug Use History: None Reported - Past Family History Father History Unknown: Yes Family Medical History: Cancer Additional Family Medical History / Comment(s): Father had colon cancer. Mother Family Medical History: No Reported History Additional Family Medical History / Comment(s): Mother was healthy and lived to be 93-94 yrs old. General Exam Limitations: physical limitation Course Vital Signs 09/04/18 09/04/18 09/04/18 23:16 23:36 23:40 Temperature 99.4 F 100.9 F H Pulse Rate 90 Respiratory 22 23 Rate Blood Pressure 133/74 O2 Sat by Pulse 94 L Oximetry 09/05/18 09/05/18 09/05/18 00:35 00:46 01:15 Temperature 100.5 F H Pulse Rate 86 80 83 Respiratory 19 Rate Blood Pressure 137/74 O2 Sat by Pulse 99 Oximetry Medical Decision Making - Medical Decision Making The patient was seen and evaluated, history was obtained from EMS and the patient Patient is a 73-year-old female history of COPD presenting with increased work of breathing, patient is noted be tachypneic and febrile upon arrival Sepsis workup was initiated as well as influenza swabs I have a very high suspicion for influenza in this patient Chest x-ray revealed no evidence of pneumonia Labs are unremarkable Influenza swab was negative however I do feel the patient is suffering from a viral illness which is causing a COPD exacerbation. Patient care was discussed with Dr. dickinson of the [facility] hospitalist group who accepts admission for COPD exacerbation. Admission orders were placed. - Lab Data Result diagrams: 09/05/18 00:00 09/05/18 00:00 Lab Results 09/05/18 09/05/18 09/05/18 Range/Units 00:00 00:00 00:00 WBC 9.6 (3.8-10.6) k/uL RBC 4.52 (3.80-5.40) m/uL Hgb 12.2 (11.4-16.0) gm/dL Hct 37.6 (34.0-46.0) % MCV 83.1 (80.0-100.0) fL MCH 27.0 (25.0-35.0) pg MCHC 32.5 (31.0-37.0) g/dL RDW 14.1 (11.5-15.5) % Plt Count 213 (150-450) k/uL Neutrophils % 82 % Lymphocytes % 9 % Monocytes % 5 % Eosinophils % 2 % Basophils % 0 % Neutrophils # 7.9 H (1.3-7.7) k/uL Lymphocytes # 0.9 L (1.0-4.8) k/uL Monocytes # 0.5 (0-1.0) k/uL Eosinophils # 0.2 (0-0.7) k/uL Basophils # 0.0 (0-0.2) k/uL PT (9.0-12.0) sec INR (<1.2) APTT (22.0-30.0) sec Sodium 137 (137-145) mmol/L Potassium 4.0 (3.5-5.1) mmol/L Chloride 102 (98-107) mmol/L Carbon Dioxide 28 (22-30) mmol/L Anion Gap 7 mmol/L BUN 21 H (7-17) mg/dL Creatinine 1.01 (0.52-1.04) mg/dL Est GFR (CKD-EPI)AfAm 63 (>60 ml/min/1.73 sqM) Est GFR (CKD-EPI)NonAf 55 (>60 ml/min/1.73 sqM) Glucose 98 (74-99) mg/dL Plasma Lactic Acid Deon (0.7-2.0) mmol/L Calcium 9.4 (8.4-10.2) mg/dL Total Bilirubin 0.6 (0.2-1.3) mg/dL AST 12 L (14-36) U/L ALT 22 (9-52) U/L Alkaline Phosphatase 94 (38-126) U/L Troponin I (0.000-0.034) ng/mL Total Protein 5.9 L (6.3-8.2) g/dL Albumin 3.7 (3.5-5.0) g/dL Influenza Type A RNA Not Detected (Not Detectd) Influenza Type B (PCR) Not Detected (Not Detectd) 09/05/18 09/05/18 09/05/18 Range/Units 00:00 00:00 00:00 WBC (3.8-10.6) k/uL RBC (3.80-5.40) m/uL Hgb (11.4-16.0) gm/dL Hct (34.0-46.0) % MCV (80.0-100.0) fL MCH (25.0-35.0) pg MCHC (31.0-37.0) g/dL RDW (11.5-15.5) % Plt Count (150-450) k/uL Neutrophils % % Lymphocytes % % Monocytes % % Eosinophils % % Basophils % % Neutrophils # (1.3-7.7) k/uL Lymphocytes # (1.0-4.8) k/uL Monocytes # (0-1.0) k/uL Eosinophils # (0-0.7) k/uL Basophils # (0-0.2) k/uL PT 10.3 (9.0-12.0) sec INR 1.0 (<1.2) APTT 24.9 (22.0-30.0) sec Sodium (137-145) mmol/L Potassium (3.5-5.1) mmol/L Chloride (98-107) mmol/L Carbon Dioxide (22-30) mmol/L Anion Gap mmol/L BUN (7-17) mg/dL Creatinine (0.52-1.04) mg/dL Est GFR (CKD-EPI)AfAm (>60 ml/min/1.73 sqM) Est GFR (CKD-EPI)NonAf (>60 ml/min/1.73 sqM) Glucose (74-99) mg/dL Plasma Lactic Acid Deon 1.1 (0.7-2.0) mmol/L Calcium (8.4-10.2) mg/dL Total Bilirubin (0.2-1.3) mg/dL AST (14-36) U/L ALT (9-52) U/L Alkaline Phosphatase (38-126) U/L Troponin I <0.012 (0.000-0.034) ng/mL Total Protein (6.3-8.2) g/dL Albumin (3.5-5.0) g/dL Influenza Type A RNA (Not Detectd) Influenza Type B (PCR) (Not Detectd) Disposition Clinical Impression: Acute exacerbation of chronic obstructive airways disease, Viral URI with cough Disposition: ADMITTED IP TO THIS HOSP Condition: Stable Referrals: Cookie Guevara MD [Primary Care Provider] - 1-2 days
[2018-09-05] MEDS ORDERED: IPRATROPIUM-ALBUTEROL 3 ML NEB INHALATION PRN (01:02)
[2018-09-05] MEDS ORDERED: IBUPROFEN 600 MG TAB PO PRN (01:53)
[2018-09-05 02:29] LABS: Appearance,Urine Clear (Clear); Bilirubin,Urine Negative (Negative); Blood,Urine Trace (Negative); Color,Urine Yellow; Glucose,Urine (UA) Negative (Negative); Ketones,Urine Negative (Negative); Leukocyte Esterase,Urine Negative (Negative); Nitrite,Urine Negative (Negative); Protein,Urine Negative (Negative); RBC,Urine 2 /hpf (0-5); Specific Gravity,Urine 1.018 (1.001-1.035); Squamous Epithelial Cell,Urine 2 /hpf (0-4); Urobilinogen,Urine <2.0 mg/dL (<2.0); WBC,Urine <1 /hpf (0-5)
[2018-09-05] MEDS: ACETAMINOPHEN TAB 325 MG TAB PO PRN ×3 (02:42→22:20)
[2018-09-05] MEDS: AZITHROMYCIN 500 MG TAB PO SCH (08:27)
[2018-09-05] MEDS ORDERED: predniSONE 20 MG TAB PO SCH (09:00)
[2018-09-05] MEDS ORDERED: PEG 3350-NA SULF,BICARB,CL/KCL 4,000 ML BOTTLE PO ONE (10:30)
[2018-09-05 11:53] LABS: Glucose,Whole Blood 117 mg/dL (75-99)
[2018-09-05] MEDS: methylPREDNISolone SOD SUCCI 40 MG/ML 1 ML VIAL IV SCH ×2 (12:09→23:34)
[2018-09-05] MEDS: FUROSEMIDE 40 MG TAB PO SCH ×2 (12:09→16:35)
[2018-09-05] MEDS: DILTIAZEM ORAL 30 MG TAB PO SCH ×2 (12:09→20:32)
[2018-09-05] MEDS: APIXABAN 5 MG TAB PO SCH ×2 (12:09→20:31)
[2018-09-05] MEDS: MAGNESIUM OXIDE 400 MG TAB PO SCH (12:09)
[2018-09-05] MEDS: PROPAFENONE 150 MG TAB PO SCH ×3 (12:09→22:20)
[2018-09-05] MEDS: INSULIN ASPART (NovoLOG) 100 UNIT/ML VIAL SQ SCH ×3 (12:10→20:31)
[2018-09-05] MEDS: BUDESONIDE 0.5 MG/2 ML NEBU INHALATION SCH ×2 (12:25→19:33)
[2018-09-05] MEDS: IPRATROPIUM-ALBUTEROL 3 ML NEB INHALATION SCH ×3 (12:29→19:33)
--- NOTE | 2018-09-05 13:10 | P.HPIM ---
History of Present Illness Chief Complaint: Shortness of breath This very pleasant 72-year-old female past medical history significant for COPD not on home oxygen comes to the ER for above-mentioned complaints. The patient says that she is having shortness of breath for the past few days but last night she was so short of breath that she was not able to breathe so she called EMS and she came to the ER for further evaluation and management. Patient says that she's having cough and is productive of yellowish phlegm. She does not complain of any fever or chills, does not complain of any sick contacts at home. She does not otherwise complain of any chest pain racing heart, no abdominal pain, nausea and vomiting, or diarrhea constipation, no tingling numbness of his extremities, no itch or rash. ER course-patient was given 125 mg of IV Solu-Medrol and 2 breathing treatments by the EMS on brought to the hospital. Labwork done this morning showed WBC 9.6 hemoglobin 12.2 platelets 213 sodium 137 potassium 4.0 bun 21 creatinine 1.01 urinalysis was negative and influenza A and B was negative. Chest x-ray shows no acute findings EKG shows normal sinus rhythm, troponin level was less than 0.012. Patient was thus admitted to the hospitalist service for further evaluation and management. Review of Systems All systems: negative Past Medical History Past Medical History: Atrial Fibrillation, Heart Failure, COPD, Hyperlipidemia, Pneumonia Additional Past Medical History / Comment(s): Recently admitted to [facility] on 11/27/17 with bradycardia, generalized fatigue, possible aortic stenosis. Other HX: Afib RVR, 2008 Valley fever, rheumatic fever as a child, gout L wrist once, bilateral tinnitis, anemia. History of Any Multi-Drug Resistant Organisms: None Reported Past Surgical History: Appendectomy, Heart Catheterization, Orthopedic Surgery, Tonsillectomy, Tubal Ligation Additional Past Surgical History / Comment(s): HILDA, cardioversion, 2013 cardiac cath-normal, right knee arthroscopies, colonoscopy, Past Anesthesia/Blood Transfusion Reactions: No Reported Reaction Past Psychological History: No Psychological Hx Reported Additional Psychological History / Comment(s): Pt resides with her spouse. She has a nebulizer at home. Lately, she has been using a walker when she goes out. She drives. Smoking Status: Former smoker Past Alcohol Use History: None Reported Additional Past Alcohol Use History / Comment(s): Pt started smoking in 1 and quit in 2010 Past Drug Use History: None Reported - Past Family History Father History Unknown: Yes Family Medical History: Cancer Additional Family Medical History / Comment(s): Father had colon cancer. Mother Family Medical History: No Reported History Additional Family Medical History / Comment(s): Mother was healthy and lived to be 93-94 yrs old. Medications and Allergies Home Medications Medication Instructions Recorded Confirmed Type Albuterol Inhaler [Ventolin Hfa 1 - 2 puff INHALATION RT-Q6H PRN 11/25/17 09/05/18 History Inhaler] Atorvastatin [Lipitor] 10 mg PO HS 11/25/17 09/05/18 History Ipratropium-Albuterol Nebulize 3 ml INHALATION RT-QID PRN 11/25/17 09/05/18 History [Duoneb 0.5 mg-3 mg/3 ml Soln] Magnesium Chloride [Slow-Mag] 64 mg PO DAILY 11/25/17 09/05/18 History Montelukast [Singulair] 10 mg PO HS 11/25/17 09/05/18 History Diltiazem Oral [Cardizem*] 30 mg PO BID #60 tab 12/07/17 09/05/18 Rx Apixaban [Eliquis] 5 mg PO BID 04/09/18 09/05/18 History Propafenone [Rythmol] 150 mg PO TID 04/09/18 09/05/18 History Clotrimazole/Betamethasone Dip 1 applic TOPICAL BID 09/05/18 09/05/18 History [Lotrisone Cream] Furosemide [Lasix] 40 mg PO BID 09/05/18 09/05/18 History Allergies Allergy/AdvReac Type Severity Reaction Status Date / Time bee venom protein (honey bee) Allergy Anaphylaxis Verified 09/05/18 08:27 Physical Exam Vitals: Vital Signs Temp Pulse Pulse Resp BP BP Pulse Ox 09/05/18 12:40 78 09/05/18 12:29 78 09/05/18 09:01 80 09/05/18 08:50 76 96 09/05/18 08:41 75 09/05/18 08:32 98.1 F 75 16 128/59 95 09/05/18 04:00 20 09/05/18 02:01 98.7 F 84 20 128/73 96 09/05/18 01:15 100.5 F H 83 19 137/74 99 09/05/18 00:46 80 09/05/18 00:35 86 09/04/18 23:40 23 09/04/18 23:36 100.9 F H 09/04/18 23:16 99.4 F 90 22 133/74 94 L Intake and Output 09/04/18 09/05/18 09/05/18 22:59 06:59 14:59 Intake Total 240 Output Total 100 Balance -100 240 Intake: Oral 240 Output: Urine 100 Other: # Voids 3 Weight 107.2 kg On exam, alert and oriented x3. HEENT: Conjunctivae normal. eyes normal. NECK: No JVD. No thyroid enlargement. No LNs CARDIOVASCULAR: S1, S2 positive, murmur appreciated RESPIRATION: Patient is having very mild wheezing ABDOMEN: Soft, nontender . No guarding. no masses palpable. No ascites, No hepatosplenomegaly.Bowel sounds heard. LEGS: No edema. no swelling NERVOUS SYSTEM: Cranial N 2-12 grossly normal. Moves all 4 limbs. No focal deficits. No sensory deficit. No signs of cerebellar dysfucntion. Skin: no ulcer no rash Results CBC & Chem 7: 09/05/18 00:00 09/05/18 00:00 Labs: Abnormal Lab Results - Last 24 Hours (Table) 09/05/18 09/05/18 09/05/18 Range/Units 00:00 00:00 02:10 Neutrophils # 7.9 H (1.3-7.7) k/uL Lymphocytes # 0.9 L (1.0-4.8) k/uL BUN 21 H (7-17) mg/dL POC Glucose (mg/dL) (75-99) mg/dL AST 12 L (14-36) U/L Total Protein 5.9 L (6.3-8.2) g/dL Urine Blood Trace H (Negative) 09/05/18 Range/Units 11:51 Neutrophils # (1.3-7.7) k/uL Lymphocytes # (1.0-4.8) k/uL BUN (7-17) mg/dL POC Glucose (mg/dL) 117 H (75-99) mg/dL AST (14-36) U/L Total Protein (6.3-8.2) g/dL Urine Blood (Negative) Microbiology - Last 24 Hours (Table) 09/05/18 02:10 Urine Culture - Preliminary Urine,Clean Catch Thrombosis Risk Factor Assmnt - Choose All That Apply Any of the Below Risk Factors Present?: Yes Each Factor Represents 1 point: Abnormal pulmonary function (COPD), Heart failure (<1month) Each Risk Factor Represents 3 Points: Age 75 years or older Thrombosis Risk Factor Assessment Total Risk Factor Score: 5 Thrombosis Risk Factor Assessment Level: High Risk Assessment and Plan Assessment: - Acute respiratory failure - COPD exacerbation causing above - History of A. fib on anti-correlation - History of hypertension - History of hyperlipidemia Plan - We'll admit the patient MedSurg with telemetry - We'll continue breathing treatments - We'll continue steroids - We'll continue Zithromax and order for sputum culture - DVT and GI prophylaxis - We'll order for lab work in the morning - Expected length of stay more than 2 midnights - Patient is full code
[2018-09-05 17:04] LABS: Glucose,Whole Blood 196 mg/dL (75-99)
[2018-09-05 20:14] LABS: Glucose,Whole Blood 179 mg/dL (75-99)
[2018-09-05] MEDS: CLOTRIMAZOLE/BETAMETH 1-0.05% CREAM 45 GM TUBE TOPICAL SCH (20:31)
[2018-09-05] MEDS: ATORVASTATIN 10 MG TAB PO SCH (20:31)
[2018-09-05] MEDS: MONTELUKAST 10 MG TAB PO SCH (20:32)
[2018-09-06 06:43] LABS: Glucose,Whole Blood 134 mg/dL (75-99)
[2018-09-06 08:24] LABS: Basophils % (A) 0 %; Eosinophils # (A) 0.1 k/uL (0-0.7); Eosinophils % (A) 1 %; HCT 37.9 % (34.0-46.0); HGB 11.7 gm/dL (11.4-16.0); Hypochromasia Slight; Lymphocytes # (A) 0.6 k/uL (1.0-4.8); Lymphocytes % (A) 5 %; MCH 26.4 pg (25.0-35.0); MCV 85.2 fL (80.0-100.0); Mean Platelet Volume 7.8; Monocytes # (A) 0.3 k/uL (0-1.0); Monocytes % (A) 3 %; Neutrophils # (A) 9.3 k/uL (1.3-7.7); Neutrophils % (A) 90 %; Platelet Count 226 k/uL (150-450); RBC 4.45 m/uL (3.80-5.40); RDW 13.8 % (11.5-15.5); WBC 10.3 k/uL (3.8-10.6)
[2018-09-06 08:40] LABS: Calcium 9.1 mg/dL (8.4-10.2); Potassium 4.3 mmol/L (3.5-5.1)
[2018-09-06] MEDS: IPRATROPIUM-ALBUTEROL 3 ML NEB INHALATION SCH ×4 (08:45→20:46)
[2018-09-06] MEDS: BUDESONIDE 0.5 MG/2 ML NEBU INHALATION SCH ×2 (08:45→20:46)
[2018-09-06] MEDS: INSULIN ASPART (NovoLOG) 100 UNIT/ML VIAL SQ SCH ×4 (08:56→22:54)
[2018-09-06] MEDS: methylPREDNISolone SOD SUCCI 40 MG/ML 1 ML VIAL IV SCH ×2 (09:27→16:06)
[2018-09-06] MEDS: AZITHROMYCIN 500 MG TAB PO SCH (09:28)
[2018-09-06] MEDS: PROPAFENONE 150 MG TAB PO SCH ×3 (09:28→21:04)
[2018-09-06] MEDS: APIXABAN 5 MG TAB PO SCH ×2 (09:28→21:03)
[2018-09-06] MEDS: CLOTRIMAZOLE/BETAMETH 1-0.05% CREAM 45 GM TUBE TOPICAL SCH ×2 (09:28→21:05)
[2018-09-06] MEDS: DILTIAZEM ORAL 30 MG TAB PO SCH (09:28)
[2018-09-06] MEDS: FUROSEMIDE 40 MG TAB PO SCH ×2 (09:28→16:06)
[2018-09-06] MEDS: MAGNESIUM OXIDE 400 MG TAB PO SCH (09:28)
[2018-09-06 12:04] LABS: Glucose,Whole Blood 128 mg/dL (75-99)
[2018-09-06 16:47] LABS: Glucose,Whole Blood 139 mg/dL (75-99)
[2018-09-06 18:57] LABS: Glucose,Whole Blood 196 mg/dL (75-99)
[2018-09-06] MEDS: ATORVASTATIN 10 MG TAB PO SCH (21:02)
[2018-09-06] MEDS: MONTELUKAST 10 MG TAB PO SCH (21:03)
[2018-09-07] MEDS: methylPREDNISolone SOD SUCCI 40 MG/ML 1 ML VIAL IV SCH ×3 (01:12→16:15)
[2018-09-07] MEDS: IPRATROPIUM-ALBUTEROL 3 ML NEB INHALATION PRN (03:21)
--- NOTE | 2018-09-07 05:33 | PN ---
PROGRESS NOTE DATE OF SERVICE: 09/06/2018 This 73-year-old woman who was admitted with COPD acute exacerbation also had history of atrial fibrillation. The patient is closely monitored at this time. The patient is started on bronchodilator. The chest x-ray which was personally reviewed by me showed no acute abnormality. PAST MEDICAL HISTORY: Reviewed. REVIEW OF SYSTEMS: CARDIOVASCULAR: No angina. RESPIRATORY: As mentioned earlier. GI: As mentioned earlier. : No dysuria. NERVOUS SYSTEM: No numbness or weakness. CURRENT MEDICATIONS: Current medications are reviewed and include: 1. Tylenol 650 q.6 p.r.n. 2. DuoNeb q.i.d. and p.r.n. 3. Eliquis 5 mg b.i.d. 4. Lipitor 10 mg. 5. Azithromycin. 6. Lotrisone. 7. Pulmicort. 8. Cardizem. 9. Lasix. 10.NovoLog. 11.Solu-Medrol 40 q.8. 12.Singulair. 13.Rythmol 150 mg p.o. t.i.d. PHYSICAL EXAMINATION: The patient is alert and oriented x3. Pulse is 80, blood pressure 131/70, respiration 18, temperature 98.9, pulse ox 95% on 2 L. HEENT: Conjunctivae normal. Oral mucosa moist. NECK: No jugular venous distention or carotid bruit. No lymph node enlargement. CARDIOVASCULAR: S1, S2 muffled. RESPIRATORY: Breath sounds diminished at the base. A few scattered rhonchi and crackles. Expiratory wheeze also present. ABDOMEN: Soft, obese, nontender. No mass palpable. LEGS: No edema. No swelling. NERVOUS SYSTEM: Higher functions as mentioned. Moves all 4 limbs. No focal motor deficits. LYMPHATICS: No lymphadenopathy of the neck, axillae or groin. SKIN: No ulcer, rash or bleeding. JOINTS: No active deforming arthropathy. LABS: CBC noted. Otherwise, glucose 148. CO2 is 19. Sodium is 141. LFTs are noted. UA noted. Flu is negative. Chest x-ray personally reviewed. ASSESSMENT: 1. Chronic obstructive pulmonary disease exacerbation with acute hypoxic respiratory failure. 2. History of atrial fibrillation. 3. Hypertension. 4. Hyperlipidemia. 5. Acute purulent tracheobronchitis. 6. History of congestive heart failure. 7. Chronic obstructive pulmonary disease. 8. History of pneumonia. 9. History of bradycardia. 10.History of possible aortic stenosis. 11.Appendectomy. 12.History of cardiac catheterization. 13.History of rheumatic fever as a child. RECOMMENDATIONS AND DISCUSSION: In this 73-year-old woman who presented with multiple complex medical issues, will monitor the patient closely. Continue the current medications and continue symptomatic treatment. Otherwise at this time I recommend to continue the current medications. Will obtain Pulmonary consultation. Will optimize bronchodilators and steroids. Empiric antibiotics. Guarded prognosis because of multiple complex medical issues. Continue with apixaban. Guarded prognosis. Further recommendations to follow. See orders for details. MMODL / IJN: [id number] /
[2018-09-07 07:12] LABS: Glucose,Whole Blood 163 mg/dL (75-99)
[2018-09-07] MEDS: INSULIN ASPART (NovoLOG) 100 UNIT/ML VIAL SQ SCH ×4 (07:25→21:55)
[2018-09-07] MEDS: BUDESONIDE 0.5 MG/2 ML NEBU INHALATION SCH ×2 (07:46→20:11)
[2018-09-07] MEDS: IPRATROPIUM-ALBUTEROL 3 ML NEB INHALATION SCH ×4 (07:47→20:11)
[2018-09-07] MEDS: AZITHROMYCIN 500 MG TAB PO SCH (08:15)
[2018-09-07] MEDS: PROPAFENONE 150 MG TAB PO SCH ×3 (08:15→21:55)
[2018-09-07] MEDS: CLOTRIMAZOLE/BETAMETH 1-0.05% CREAM 45 GM TUBE TOPICAL SCH ×2 (08:15→21:04)
[2018-09-07] MEDS: FUROSEMIDE 40 MG TAB PO SCH ×3 (08:15→16:18)
[2018-09-07] MEDS: DILTIAZEM ORAL 30 MG TAB PO SCH ×2 (08:15→21:03)
[2018-09-07] MEDS: MAGNESIUM OXIDE 400 MG TAB PO SCH (08:15)
[2018-09-07] MEDS: APIXABAN 5 MG TAB PO SCH ×2 (08:15→21:02)
[2018-09-07 08:20] LABS: Basophils % (A) 0 %; Eosinophils # (A) 0.1 k/uL (0-0.7); Eosinophils % (A) 1 %; HCT 37.3 % (34.0-46.0); HGB 11.9 gm/dL (11.4-16.0); Lymphocytes # (A) 0.7 k/uL (1.0-4.8); Lymphocytes % (A) 5 %; MCH 26.3 pg (25.0-35.0); MCHC 31.9 g/dL (31.0-37.0); MCV 82.6 fL (80.0-100.0); Mean Platelet Volume 7.3; Monocytes # (A) 0.4 k/uL (0-1.0); Monocytes % (A) 3 %; Neutrophils # (A) 12.6 k/uL (1.3-7.7); Neutrophils % (A) 91 %; Platelet Count 237 k/uL (150-450); RBC 4.52 m/uL (3.80-5.40); RDW 13.6 % (11.5-15.5); WBC 13.9 k/uL (3.8-10.6)
[2018-09-07 08:21] LABS: Calcium 9.1 mg/dL (8.4-10.2); Potassium 4.1 mmol/L (3.5-5.1)
[2018-09-07 11:57] LABS: Glucose,Whole Blood 113 mg/dL (75-99)
--- NOTE | 2018-09-07 12:01 | P.CNPUL ---
History of Present Illness Consult date: 09/07/18 Requesting physician: Adrián Omalley Reason for consult: dyspnea, COPD Chief complaint: Shortness of breath, cough, congestion History of present illness: This is a very pleasant 73-year-old female patient who follows with Dr. Guevara as her primary care physician. She has a history of atrial fibrillation, anticoagulant with Eliquis, 40+ year smoking history and quit in 2010. She is currently on a nebulizer with albuterol as needed and albuterol rescue inhaler. FEV1 value 61% of predicted. She's been seen in our office for sleep evaluation only by Dr. Francisco back in 2018. She presented here to the emergency room early yesterday with complaints of increasing shortness of breath. She did utilize her nebulizer at home but without much improvement. Chest x-ray shows no acute pulmonary process. Blood and urine cultures reveal no growth. White count 13.9. Hemoglobin 11.9. Creatinine 0.88. She's been initiated on DuoNeb inhalations, Pulmicort inhalations, IV Solu-Medrol. Empiric antibiotics in the form of azithromycin. She is seen today in consultation on the regular medical floor. She is currently sitting up in a chair at the bedside. She is awake and alert in no acute distress. She states she is breathing easier today as compared to yesterday. She has a faint end expiratory wheeze. She is maintaining O2 saturations in the mid 90s on room air. Afebrile. Hemodynamically stable. Review of Systems REVIEW OF SYSTEMS: CONSTITUTIONAL: Denies any recent significant weight loss or weight gain. EYES: Denies change in vision. EARS, NOSE, MOUTH, THROAT: Denies headaches, denies sore throat. CARDIOVASCULAR: Denies chest pain, palpitations or syncopal episodes. RESPIRATORY: Positive for shortness of breath, cough, congestion no hemoptysis. GASTROINTESTINAL: Denies change in appetite, denies abdominal pain GENITOURINARY: Denies hematuria, denies infections. MUSKULOSKELETAL: Denies pain, denies swelling. INTEGUMENTARY: Denies rash, denies eczema. NEUROLOGICAL: Denies recent memory loss, no recent seizure activity. PSYCHIATRIC: Denies anxiety, denies depression. HEMATOLOGIC/LYMPHATIC: Denies anemia, denies enlarged lymph nodes. Past Medical History Past Medical History: Atrial Fibrillation, Heart Failure, COPD, Hyperlipidemia, Pneumonia Additional Past Medical History / Comment(s): Recently admitted to [facility] on 11/27/17 with bradycardia, generalized fatigue, possible aortic stenosis. Other HX: Afib RVR, 2008 [place] fever, rheumatic fever as a child, gout L wrist once, bilateral tinnitis, anemia. History of Any Multi-Drug Resistant Organisms: None Reported Past Surgical History: Appendectomy, Heart Catheterization, Orthopedic Surgery, Tonsillectomy, Tubal Ligation Additional Past Surgical History / Comment(s): HILDA, cardioversion, 2013 cardiac cath-normal, right knee arthroscopies, colonoscopy, Past Anesthesia/Blood Transfusion Reactions: No Reported Reaction Past Psychological History: No Psychological Hx Reported Additional Psychological History / Comment(s): Pt resides with her spouse. She has a nebulizer at home. Lately, she has been using a walker when she goes out. She drives. Smoking Status: Former smoker Past Alcohol Use History: None Reported Additional Past Alcohol Use History / Comment(s): Pt started smoking in 1960 and quit in 2010 Past Drug Use History: None Reported - Past Family History Father History Unknown: Yes Family Medical History: Cancer Additional Family Medical History / Comment(s): Father had colon cancer. Mother Family Medical History: No Reported History Additional Family Medical History / Comment(s): Mother was healthy and lived to be 93-94 yrs old. Medications and Allergies Home Medications Medication Instructions Recorded Confirmed Type Albuterol Inhaler [Ventolin Hfa 1 - 2 puff INHALATION RT-Q6H PRN 11/25/17 09/05/18 History Inhaler] Atorvastatin [Lipitor] 10 mg PO HS 11/25/17 09/05/18 History Ipratropium-Albuterol Nebulize 3 ml INHALATION RT-QID PRN 11/25/17 09/05/18 History [Duoneb 0.5 mg-3 mg/3 ml Soln] Magnesium Chloride [Slow-Mag] 64 mg PO DAILY 11/25/17 09/05/18 History Montelukast [Singulair] 10 mg PO HS 11/25/17 09/05/18 History Diltiazem Oral [Cardizem*] 30 mg PO BID #60 tab 12/07/17 09/05/18 Rx Apixaban [Eliquis] 5 mg PO BID 04/09/18 09/05/18 History Propafenone [Rythmol] 150 mg PO TID 04/09/18 09/05/18 History Clotrimazole/Betamethasone Dip 1 applic TOPICAL BID 09/05/18 09/05/18 History [Lotrisone Cream] Furosemide [Lasix] 40 mg PO BID 09/05/18 09/05/18 History Allergies Allergy/AdvReac Type Severity Reaction Status Date / Time bee venom protein (honey bee) Allergy Anaphylaxis Verified 09/05/18 08:27 Physical Exam Vitals: Vital Signs Temp Pulse Pulse Resp BP Pulse Ox 09/07/18 08:05 92 09/07/18 07:47 92 09/07/18 07:00 98.2 F 77 17 134/56 95 09/07/18 03:33 84 09/07/18 03:21 84 09/07/18 01:24 98.5 F 64 17 124/67 96 09/06/18 20:57 82 09/06/18 20:47 89 20 09/06/18 19:38 98.9 F 80 18 131/70 95 09/06/18 17:40 98.7 F 79 18 152/79 95 09/06/18 16:48 80 18 09/06/18 16:41 80 16 09/06/18 16:37 18 09/06/18 15:00 98.3 F 79 16 116/56 95 09/06/18 13:31 84 09/06/18 13:20 84 Intake and Output 09/06/18 09/07/18 09/07/18 22:59 06:59 14:59 Other: Voiding Method Bedside Commode Bedside Commode # Voids 1 2 GENERAL EXAM: Alert, active, comfortable in no apparent distress. On room air. HEAD: Normocephalic. EYES: Normal reaction of pupils, equal size. NOSE: Clear with pink turbinates. THROAT: No erythema or exudates. NECK: No masses, no JVD. CHEST: No chest wall deformity. LUNGS: Equal air entry with with faint end expiratory wheeze, diminished. CVS: S1 and S2 normal with no audible murmur, regular rhythm. ABDOMEN: No hepatosplenomegaly, normal bowel sounds, no guarding or rigidity. SPINE: No scoliosis or deformity SKIN: No rashes CENTRAL NERVOUS SYSTEM: No focal deficits, tone is normal in all 4 extremities. EXTREMITIES: There is no peripheral edema. No clubbing, no cyanosis. Peripheral pulses are intact. Results - Laboratory Findings CBC and BMP: 09/07/18 07:56 09/07/18 07:56 PT/INR, D-dimer PT 10.3 sec (9.0-12.0) 09/05/18 00:00 INR 1.0 (<1.2) 09/05/18 00:00 Abnormal lab findings: Abnormal Labs 09/05/18 09/05/18 09/05/18 00:00 00:00 02:10 WBC Neutrophils # 7.9 H Lymphocytes # 0.9 L BUN 21 H Glucose POC Glucose (mg/dL) AST 12 L Total Protein 5.9 L Urine Blood Trace H 09/05/18 09/05/18 09/05/18 11:51 17:03 20:12 WBC Neutrophils # Lymphocytes # BUN Glucose POC Glucose (mg/dL) 117 H 196 H 179 H AST Total Protein Urine Blood 09/06/18 09/06/18 09/06/18 06:42 07:59 07:59 WBC Neutrophils # 9.3 H Lymphocytes # 0.6 L BUN 19 H Glucose 148 H POC Glucose (mg/dL) 134 H AST Total Protein Urine Blood 09/06/18 09/06/18 09/06/18 12:03 16:45 18:54 WBC Neutrophils # Lymphocytes # BUN Glucose POC Glucose (mg/dL) 128 H 139 H 196 H AST Total Protein Urine Blood 09/07/18 09/07/18 09/07/18 07:11 07:56 07:56 WBC 13.9 H Neutrophils # 12.6 H Lymphocytes # 0.7 L BUN 29 H Glucose 172 H POC Glucose (mg/dL) 163 H AST Total Protein Urine Blood - Diagnostic Findings Chest x-ray: image reviewed Assessment and Plan Assessment: Impression: #1 Acute exacerbation of chronic obstructive pulmonary disease. #2 History of significant 40+ year smoking however quit in 2010. #3 Atrial fibrillation, anticoagulated with Eliquis. Previous cardioversion. Normal cardiac catheterization. #4 Hyperlipidemia. #5 Obesity. Plan: The patient was seen and evaluated by Dr. Penaloza. Chest x-ray and labs were rev iewed. No acute pulmonary process. She could be discharged home from the pulmonary standpoint. Continue with DuoNeb inhalations, add Symbicort, complete empiric antibiotics in the form of Zithromax total of 7 days. Complete a prednisone taper starting at 40 mg by mouth daily for 4 days. Follow-up in our office in 1-2 weeks' time. We'll perform pulmonary function testing to evaluate the severity of her COPD and see if any further maintenance medications are recommended. She is encouraged to call sooner with any recurrence of symptoms or other questions or concerns. I, the cosigning physician, performed a history & physical examination of the patient. Lungs sounds with faint end expiratory wheeze. Maintaining good O2 saturations in the 90s on room air. I discussed the assessment and plan of care with my nurse practitioner, Ciera Cardona. I attest to the above note as dictated by her. Time with Patient: Greater than 30
[2018-09-07] MEDS: ACETAMINOPHEN TAB 325 MG TAB PO PRN (16:15)
[2018-09-07 17:17] LABS: Glucose,Whole Blood 119 mg/dL (75-99)
--- NOTE | 2018-09-07 18:08 | PN ---
PROGRESS NOTE DATE OF SERVICE: 09/07/2018 This 73-year-old woman who was admitted with COPD, acute exacerbation, is being closely monitored. No chest pain. No palpitations. No fever. PHYSICAL EXAMINATION: Alert and oriented x3. Pulse 77, blood pressure 134/53, respiration 17, temperature 98.2, pulse ox 94% on room air. HEENT: Conjunctivae normal. NECK: No jugular venous distention. CARDIOVASCULAR SYSTEM: S1, S2 muffled. RESPIRATORY SYSTEM: Breath sounds diminished at the bases. Bilateral scattered rhonchi and crackles. ABDOMEN: Soft, non-tender. LEGS: No edema. No swelling. NERVOUS SYSTEM: No focal deficit. LABS: WBC 13.9, hemoglobin 11.9, sodium 141, potassium 4.1. ASSESSMENT: 1. Chronic obstructive pulmonary disease, acute exacerbation, with acute hypoxic respiratory failure. 2. History of atrial fibrillation. 3. Hypertension. 4. Hyperlipidemia. 5. Acute purulent tracheobronchitis. 6. History of congestive heart failure. 7. Chronic obstructive pulmonary disease. 8. History of pneumonia. 9. History of bradycardia. 10.History of possible aortic stenosis. 11.Appendectomy. 12.History of cardiac catheterization. 13.History of rheumatic fever as a child. RECOMMENDATIONS AND DISCUSSION: I recommend to continue current medications, continue with the monitoring, symptomatic treatment. I recommend continuing with the bronchodilators and steroids and antibiotics. Closely follow with Pulmonary. Guarded prognosis because of multiple complex medical issues. Further recommendations to follow. MMODL / IJN: [id number] /
[2018-09-07 20:13] LABS: Glucose,Whole Blood 216 mg/dL (75-99)
[2018-09-07] MEDS: ATORVASTATIN 10 MG TAB PO SCH (21:03)
[2018-09-07] MEDS: MONTELUKAST 10 MG TAB PO SCH (21:03)
[2018-09-08] MEDS: methylPREDNISolone SOD SUCCI 40 MG/ML 1 ML VIAL IV SCH ×3 (01:13→16:49)
[2018-09-08] MEDS: ACETAMINOPHEN TAB 325 MG TAB PO PRN ×2 (03:21→23:52)
[2018-09-08 06:59] LABS: Glucose,Whole Blood 127 mg/dL (75-99)
[2018-09-08] MEDS: BUDESONIDE 0.5 MG/2 ML NEBU INHALATION SCH ×2 (07:49→19:37)
[2018-09-08] MEDS: IPRATROPIUM-ALBUTEROL 3 ML NEB INHALATION SCH ×4 (07:49→19:37)
[2018-09-08] MEDS: INSULIN ASPART (NovoLOG) 100 UNIT/ML VIAL SQ SCH ×4 (08:03→21:53)
[2018-09-08] MEDS: DILTIAZEM ORAL 30 MG TAB PO SCH ×2 (08:05→21:57)
[2018-09-08] MEDS: CLOTRIMAZOLE/BETAMETH 1-0.05% CREAM 45 GM TUBE TOPICAL SCH ×2 (08:05→21:56)
[2018-09-08] MEDS: FUROSEMIDE 40 MG TAB PO SCH ×2 (08:05→16:50)
[2018-09-08] MEDS: MAGNESIUM OXIDE 400 MG TAB PO SCH (08:05)
[2018-09-08] MEDS: APIXABAN 5 MG TAB PO SCH ×2 (08:05→21:56)
[2018-09-08] MEDS: AZITHROMYCIN 500 MG TAB PO SCH (08:05)
[2018-09-08] MEDS: PROPAFENONE 150 MG TAB PO SCH ×3 (08:05→21:57)
[2018-09-08 08:49] LABS: Basophils % (A) 0 %; Eosinophils # (A) 0.1 k/uL (0-0.7); Eosinophils % (A) 0 %; HCT 40.7 % (34.0-46.0); Hypochromasia Slight; Lymphocytes # (A) 0.7 k/uL (1.0-4.8); Lymphocytes % (A) 6 %; MCH 27.2 pg (25.0-35.0); MCV 84.9 fL (80.0-100.0); Mean Platelet Volume 7.9; Monocytes # (A) 0.4 k/uL (0-1.0); Monocytes % (A) 3 %; Neutrophils % (A) 91 %; Platelet Count 276 k/uL (150-450); RDW 13.9 % (11.5-15.5); WBC 13.2 k/uL (3.8-10.6)
[2018-09-08 09:01] LABS: Calcium 8.9 mg/dL (8.4-10.2); Potassium 4.3 mmol/L (3.5-5.1)
[2018-09-08 11:25] LABS: Glucose,Whole Blood 100 mg/dL (75-99)
[2018-09-08 16:27] LABS: Glucose,Whole Blood 163 mg/dL (75-99)
[2018-09-08 21:54] LABS: Glucose,Whole Blood 128 mg/dL (75-99)
[2018-09-08] MEDS: ATORVASTATIN 10 MG TAB PO SCH (21:56)
[2018-09-08] MEDS: predniSONE 20 MG TAB PO SCH (21:56)
[2018-09-08] MEDS: MONTELUKAST 10 MG TAB PO SCH (21:57)
--- NOTE | 2018-09-08 23:06 | PN ---
PROGRESS NOTE DATE OF SERVICE: 09/08/2018 This 73-year-old woman was admitted with COPD exacerbation, also had acute hypoxic respiratory failure. Patient also has acute purulent tracheobronchitis. Dr. Penaloza is following the patient closely. No chest pain. No palpitations. No fever. EXAM: Alert and oriented x3. Pulse is 78, blood pressure 150/84, respirations 16, temperature 98.2, pulse ox 98% on 2 L. HEENT: Conjunctivae normal. NECK: No JVD. CARDIOVASCULAR: S1, S2. LUNGS: Diminished breath sounds at the bases. Bilateral scattered rhonchi. ABDOMEN: Soft, nontender. LEGS: No edema, no swelling. LABS: WBC 13.2, glucose 158. ASSESSMENT: 1. Chronic obstructive pulmonary disease acute exacerbation with acute purulent tracheobronchitis with acute hypoxic respiratory failure. 2. History atrial fibrillation. 3. Hypertension. 4. Hyperlipidemia. 5. History of congestive heart failure. 6. Chronic obstructive pulmonary disease. 7. History of pneumonia. 8. History of bradycardia. 9. History of possible aortic stenosis. 10.Appendectomy. 11.Cardiac catheterization. 12.History of rheumatic fever as a child. RECOMMENDATIONS AND DISCUSSION: Continue current management, continue to monitor, continue symptomatic treatment, continue antibiotics, continue with bronchodilators. Steroids have been tapered. We will continue to monitor. Guarded prognosis. Further recommendations to follow. MMODL / IJN: [id number] /
[2018-09-09] MEDS: IPRATROPIUM-ALBUTEROL 3 ML NEB INHALATION PRN (02:41)
[2018-09-09 06:57] LABS: Glucose,Whole Blood 134 mg/dL (75-99)
[2018-09-09] MEDS: IPRATROPIUM-ALBUTEROL 3 ML NEB INHALATION SCH ×4 (07:21→20:22)
[2018-09-09] MEDS: BUDESONIDE 0.5 MG/2 ML NEBU INHALATION SCH ×2 (07:22→20:22)
[2018-09-09] MEDS: CLOTRIMAZOLE/BETAMETH 1-0.05% CREAM 45 GM TUBE TOPICAL SCH ×2 (09:56→20:42)
[2018-09-09] MEDS: AZITHROMYCIN 500 MG TAB PO SCH (09:57)
[2018-09-09] MEDS: PROPAFENONE 150 MG TAB PO SCH ×3 (09:57→23:40)
[2018-09-09] MEDS: DILTIAZEM ORAL 30 MG TAB PO SCH ×2 (09:57→20:42)
[2018-09-09] MEDS: MAGNESIUM OXIDE 400 MG TAB PO SCH (10:07)
[2018-09-09] MEDS: FUROSEMIDE 40 MG TAB PO SCH ×2 (10:07→17:55)
[2018-09-09] MEDS: APIXABAN 5 MG TAB PO SCH ×2 (10:07→20:42)
[2018-09-09] MEDS: predniSONE 20 MG TAB PO SCH (10:07)
[2018-09-09] MEDS: INSULIN ASPART (NovoLOG) 100 UNIT/ML VIAL SQ SCH ×4 (10:11→20:42)
[2018-09-09 11:16] LABS: Glucose,Whole Blood 119 mg/dL (75-99)
[2018-09-09 16:46] LABS: Glucose,Whole Blood 117 mg/dL (75-99)
[2018-09-09 19:59] LABS: Glucose,Whole Blood 155 mg/dL (75-99)
[2018-09-09] MEDS: ATORVASTATIN 10 MG TAB PO SCH (20:42)
[2018-09-09] MEDS: MONTELUKAST 10 MG TAB PO SCH (20:42)
[2018-09-09] MEDS: guaiFENesin 600 MG TABLET.ER PO SCH (20:42)
[2018-09-09] MEDS: FORMOTEROL FUMARATE 20 MCG/2 ML NEBU INHALATION SCH (20:59)
--- NOTE | 2018-09-09 23:07 | PN ---
PROGRESS NOTE DATE OF SERVICE: 09/09/2018 This 73-year-old woman who was admitted with COPD acute exacerbation with acute purulent tracheobronchitis is improving significantly. No chest pain. No palpitations. No fever. Pulmonary is following the patient closely. Cultures are negative at this time. EXAM: Alert and oriented x2. Pulse is 65, blood pressure 130/77, respiration 20, temperature 97.4, pulse ox 94% on 3 L. HEENT is conjunctivae normal. NECK: No jugular venous distention. CARDIOVASCULAR: S1, S2 muffled. RESPIRATORY: Breath sounds diminished in the bases. Bilateral scattered rhonchi and crackles. Abdomen is soft, nontender. Legs are no edema. No swelling. CENTRAL NERVOUS SYSTEM: No focal deficits. LABS: WBC 13.2, hemoglobin 13 and glucose 128. ASSESSMENT: 1. Chronic obstructive pulmonary disease acute exacerbation with acute purulent tracheobronchitis with acute hypoxic respiratory failure. 2. History of atrial fibrillation. 3. Hypertension. 4. Hyperlipidemia. 5. History of congestive heart failure. 6. Chronic obstructive pulmonary disease. 7. History of pneumonia. 8. History of bradycardia. 9. History of possible aortic stenosis. 10.Appendectomy. 11.Cardiac catheterization. 12.History of rheumatic fever as a child. RECOMMENDATIONS AND DISCUSSION: Recommend to continue current medications, management and symptomatic treatment. Otherwise, at this time, continue the bronchodilators. Taper the steroids and continue the antibiotics. Closely follow with Pulmonary. Otherwise, guarded prognosis. Further recommendations to follow. MMODL / IJN: [id number] /
[2018-09-10] MEDS: IPRATROPIUM-ALBUTEROL 3 ML NEB INHALATION PRN (03:52)
[2018-09-10 07:06] LABS: Glucose,Whole Blood 97 mg/dL (75-99)
[2018-09-10] MEDS ORDERED: SYMBICORT 160-4.5 MCG INHALER INHALATION SCH (08:00)
[2018-09-10 08:33] VITALS: BP 134/72; RESP 16; TEMP 97.8
[2018-09-10] MEDS: FORMOTEROL FUMARATE 20 MCG/2 ML NEBU INHALATION SCH (09:41)
[2018-09-10] MEDS: IPRATROPIUM-ALBUTEROL 3 ML NEB INHALATION SCH ×3 (09:41→16:55)
[2018-09-10] MEDS: BUDESONIDE 0.5 MG/2 ML NEBU INHALATION SCH (09:41)
[2018-09-10] MEDS: PROPAFENONE 150 MG TAB PO SCH (09:57)
[2018-09-10] MEDS: APIXABAN 5 MG TAB PO SCH (09:57)
[2018-09-10] MEDS: DILTIAZEM ORAL 30 MG TAB PO SCH (09:57)
[2018-09-10] MEDS: AZITHROMYCIN 500 MG TAB PO SCH (09:57)
[2018-09-10] MEDS: predniSONE 20 MG TAB PO SCH (10:01)
[2018-09-10] MEDS: FUROSEMIDE 40 MG TAB PO SCH (10:02)
[2018-09-10] MEDS: guaiFENesin 600 MG TABLET.ER PO SCH (10:02)
[2018-09-10] MEDS: MAGNESIUM OXIDE 400 MG TAB PO SCH (10:02)
[2018-09-10] MEDS: INSULIN ASPART (NovoLOG) 100 UNIT/ML VIAL SQ SCH ×2 (10:04→13:54)
[2018-09-10 11:51] LABS: Glucose,Whole Blood 99 mg/dL (75-99)
[2018-09-10 13:46] VITALS: PULSE 80
[2018-09-10] MEDS: CLOTRIMAZOLE/BETAMETH 1-0.05% CREAM 45 GM TUBE TOPICAL SCH (13:56)
--- NOTE | 2018-09-10 23:03 | DS ---
DISCHARGE SUMMARY DATE OF SERVICE: 09/10/2018 FINAL DIAGNOSES: 1. Chronic obstructive pulmonary disease, acute exacerbation, with acute purulent tracheobronchitis with acute hypoxic respiratory failure. 2. History of atrial fibrillation. 3. Hypertension. 4. Hyperlipidemia. 5. History of congestive heart failure. 6. Chronic obstructive pulmonary disease. 7. History of pneumonia. 8. History of bradycardia. 9. History of possible aortic stenosis. 10.Appendectomy. 11.Cardiac catheterization. 12.History of rheumatic fever as a child. DISCHARGE DISPOSITION: The patient will be discharged in stable condition with guarded prognosis. HISTORY OF PRESENT ILLNESS: This 73-year-old woman with a past medical history of multiple medical problems was admitted with COPD, acute exacerbation, acute purulent tracheobronchitis and acute respiratory failure. The patient was treated symptomatically. Dr. Penaloza saw the patient. The patient improved significantly. On exam, vital signs are stable. CARDIOVASCULAR SYSTEM: S1, S2 muffled. ABDOMEN: Soft. CHEST: A few scattered rhonchi and crackles. NERVOUS SYSTEM: No focal deficit. Labs are at this time noted. Patient will be discharged in stable condition with guarded prognosis. DISCHARGE ADVICE AND MEDICATIONS: 1. Diet is cardiac. 2. Activity limited until followup. 3. Follow up with Dr. Guevara in 2-3 days. 4. Follow up with Dr. Penaloza as recommended. 5. DuoNeb q.i.d. and p.r.n. 6. Eliquis 5 mg p.o. b.i.d. 7. Lasix 40 mg p.o. b.i.d. 8. Lipitor 40 mg at bedtime. 9. Lotrisone cream b.i.d. 10.Rythmol 150 mg t.i.d. 11.Singulair 10 mg at bedtime. 12.Slow-Mag 64 mg daily. 13.Ventolin HFA 1-2 q.6 p.r.n. 14.Cardizem 30 mg p.o. b.i.d. 15.Ceftin 500 mg p.o. b.i.d.. 16.Mucinex 600 mg p.o. b.i.d. 17.Prednisone taper: 40 mg daily for 3 days; 30 mg daily for 3 days; 20 mg daily for 3 days; 10 mg daily for 3 days. 18.Symbicort 160/4.5 one puff b.i.d. 19.Zithromax 500 mg p.o. daily for 5 days. Once again, the patient will be discharged in stable condition with guarded prognosis. TORRESL / PRASANNAN: [id number] / MTDD
--- NOTE | 2018-09-10 23:59 | DS ---
DISCHARGE SUMMARY DISCHARGE ADDENDUM: DATE OF SERVICE: 09/10/2018 This 73-year-old woman was admitted with COPD and multiple other medical problems. She also had chronic hypoxic respiratory failure. Pulse ox was 88 % on room air after ambulation. Recommend home oxygen at 2 L nasal cannula for chronic hypoxic respiratory failure. MMODL / IJN: [id number] / MTDD
--- NOTE | 2018-09-12 09:12 | CDI ---
Documentation Clarification Form Date: 09/12/18 From: Kylie Sandoval Phone: If you have a question regarding this query, please contact Gertrude Reynolds at [phone] between 8am and 5pm. Admit Date: 09/10/2018 6:41:00 AM Patient Name: Stephanie Colindres Visit Number: [id number] Discharge Date: 09/10/2018 5:15:00 PM ATTENTION: The Clinical Documentation Specialists (CDI) and [facility] Coding Staff appreciate your assistance in clarifying documentation. Please respond to the clarification below the line at the bottom and electronically sign. The CDI & [facility] Coding staff will review the response and follow-up if needed. Please note: Queries are made part of the Legal Health Record. If you have any questions, please contact the author of this message via ITS. Dr. Dior Foley History of heart failure is documented in all of the notes. History/Risk Factors: Patient was admitted for COPD exacerbation and has a history of hypertension and atrial fibrillation. Clinical Indicators: No documentation of CHF symmptoms. VS/Pulse OX: T. 99.4, P. 90, R. 22, BP 133/74, Pulse Ox. 94% BNP:Not tested. Chest X Ray: No acute findings. Treatment: On home lasix at 40 mg PO BID In your professional opinion, can you please clarify the acuity and type of CHF if known? Systolic Heart Failure: Diastolic Heart Failure: Systolic & Diastolic Heart Failure: Unable to Determine Other, please specify Unable to Determine MTDD
== END 2018-09-10 17:15 | disposition home health service (06) | DRG 190 ==
LOC: EC 23:12 → 4SSUR 09-05 01:02 → OBSVTOIN 09-10 06:41
PROVIDERS: ADMIT Internal Medicine; ATTEND Internal Medicine
DX: J44.1 Chronic obstructive pulmonary disease with (acute) exacerbation (principal); J96.21 Acute and chronic respiratory failure with hypoxia; I11.0 Hypertensive heart disease with heart failure; I48.91 Unspecified atrial fibrillation; I50.9 Heart failure, unspecified; I35.0 Nonrheumatic aortic (valve) stenosis; E66.9 Obesity, unspecified; E78.5 Hyperlipidemia, unspecified; J20.9 Acute bronchitis, unspecified; Z79.01 Long term (current) use of anticoagulants; Z79.899 Other long term (current) drug therapy; Z87.01 Personal history of pneumonia (recurrent); Z91.030 Bee allergy status; Z87.891 Personal history of nicotine dependence; Z68.34 Body mass index [BMI] 34.0-34.9, adult; Z98.51 Tubal ligation status; Z90.49 Acquired absence of other specified parts of digestive tract; Z80.0 Family history of malignant neoplasm of digestive organs
CPT/HCPCS: 36415; 71046; 80048; 80053; 81001; 83605; 84484; 85025; 85610; 85730; 87040; 87086; 87502; 93005; 94640; 94760; 96360; 99285

== ENCOUNTER → 2018-09-17 | Outpatient (CLI) | payer MEDICARE ==
--- NOTE | 2018-09-17 16:12 | CT ---
EXAMINATION TYPE: CT angio chest DATE OF EXAM: 09/17/2018 COMPARISON: None HISTORY: chest pain, SOB. hx of a-fib, COPD CT DLP: 547 mGycm CONTRAST: CT chest with contrast and 3D reconstruction with MIP imaging is performed with IV Contrast, patient injected with 80cc mL of Isovue 370. Contrast-enhanced CT of the chest was performed through the course of the pulmonary arteries with dequan g and mediastinal window settings submitted. 3D reconstruction with MIP imaging was also performed. PULMONARY ARTERIES: The pulmonary arteries and their major tributaries are patent. I do not see julissa dence for sizable filling defect to suggest pulmonary embolic process. LUNGS: The lungs are clear and free of infiltrate. Basilar linear atelectasis is noted. No pulmonary nodule or mass is detected. No pleural effusion. MEDIASTINUM: Thoracic aorta is of normal caliber,however, evaluation is limited given timing of the contrast bolus. If there is concern for thoracic aortic pathology consider HILDA. Correlate clinicall y . The heart is not enlarged. No evidence for mediastinal mass. No mediastinal lymph nodes greater than 1cm. HILAR STRUCTURES: No evidence for mass. No hilar lymph nodes greater than 1 cm. UPPER ABDOMEN: No significant abnormality is seen. IMPRESSION: 1. No evidence for Pulmonary embolism at this time.
== END | disposition home or self-care (01) ==
LOC: RADCTMAIN 14:48
PROVIDERS: ATTEND Internal Medicine
DX: R06.02 Shortness of breath (principal)
CPT/HCPCS: 82565; 84520; 71275; 36415; Q9967

== ENCOUNTER 2020-06-11 08:49 | Observation (INO) | payer MEDICARE ==
[2020-06-11] MEDS ORDERED: SODIUM CHLORIDE 0.9% 500 ML 500 ML IV STA (09:21)
--- NOTE | 2020-06-11 09:27 | ED ---
General Adult HPI - General Chief complaint: Arrhythmia/Palpitations Stated complaint: High Heart Rate Time Seen by Provider: 06/11/20 09:00 Source: patient, RN notes reviewed Mode of arrival: wheelchair Limitations: no limitations - History of Present Illness Initial comments: 75-year-old female with a past medical history of atrial fibrillation, heart failure, COPD, hyperlipidemia presents to the emergency room for a chief complaint of abnormal heart rate. Patient reports that last night she was seen at [facility] for left forearm pain. She reports she was diagnosed with cervical radiculopathy given that pain worsens with movement at times and shoots down her arm. While she was in the hospital she started to feel her heart beat quickly. It she was found to be in atrial fibrillation. States she has been in atrial fibrillation before although it is rare. She does take Rythmol and Cardizem. She is anticoagulated on Eliquis. Patient denies any chest pain or pressure. Denies shortness of breath except when feels her heart beating fast. Patient denies feeling the sensation at this time. She is currently in the 90s on the monitor in a flutter.Patient has no other complaints at this time including shortness of breath, chest pain, abdominal pain, nausea or vomiting, headache, or visual changes. - Related Data Home Medications Medication Instructions Recorded Confirmed Atorvastatin [Lipitor] 10 mg PO HS 11/25/17 06/11/20 Ipratropium-Albuterol Nebulize 3 ml INHALATION RT-QID PRN 11/25/17 06/11/20 [Duoneb 0.5 mg-3 mg/3 ml Soln] Magnesium Chloride [Slow-Mag] 64 mg PO DAILY 11/25/17 06/11/20 Montelukast [Singulair] 10 mg PO HS 11/25/17 06/11/20 Apixaban [Eliquis] 5 mg PO BID 04/09/18 06/11/20 Propafenone [Rythmol] 150 mg PO TID 04/09/18 06/11/20 Clotrimazole/Betamethasone Dip 1 applic TOPICAL BID 09/05/18 06/11/20 [Lotrisone Cream] Furosemide [Lasix] 80 mg PO DAILY 09/05/18 06/11/20 Albuterol Sulfate [Ventolin HFA] 2 puff INHALATION RT-Q4H PRN 06/11/20 06/11/20 Calcium Carbonate/Vitamin D3 1 tab PO DAILY 06/11/20 06/11/20 [Calcium 600-Vit D3 200 Tablet] Ibuprofen 800 mg PO TID PRN 06/11/20 06/11/20 Previous Rx's Medication Instructions Recorded Diltiazem Oral [Cardizem*] 30 mg PO BID #60 tab 12/07/17 Allergies Allergy/AdvReac Type Severity Reaction Status Date / Time bee venom protein (honey bee) Allergy Anaphylaxis Verified 06/11/20 09:51 Review of Systems ROS Statement: Those systems with pertinent positive or pertinent negative responses have been documented in the HPI. ROS Other: All systems not noted in ROS Statement are negative. Past Medical History Past Medical History: Atrial Fibrillation, Heart Failure, COPD, Hyperlipidemia, Pneumonia Additional Past Medical History / Comment(s): Recently admitted to [facility] on with bradycardia, generalized fatigue, possible aortic stenosis. Other HX: Afib RVR, 2008 Valley fever, rheumatic fever as a child, gout L wrist once, bilateral tinnitis, anemia. History of Any Multi-Drug Resistant Organisms: None Reported Past Surgical History: Appendectomy, Heart Catheterization, Joint Replacement, Orthopedic Surgery, Tonsillectomy, Tubal Ligation Additional Past Surgical History / Comment(s): HILDA, cardioversion, 2012 cardiac cath-normal, right knee arthroscopies, colonoscopy, L hip Past Anesthesia/Blood Transfusion Reactions: No Reported Reaction Past Psychological History: No Psychological Hx Reported Smoking Status: Former smoker Past Alcohol Use History: None Reported Past Drug Use History: None Reported - Past Family History Father History Unknown: Yes Family Medical History: Cancer Additional Family Medical History / Comment(s): Father had colon cancer. Mother Family Medical History: No Reported History Additional Family Medical History / Comment(s): Mother was healthy and lived to be 93-94 yrs old. General Exam Limitations: no limitations General appearance: alert, in no apparent distress Head exam: Present: atraumatic, normocephalic, normal inspection Eye exam: Present: normal appearance, PERRL, EOMI. Absent: scleral icterus, conjunctival injection, periorbital swelling ENT exam: Present: normal exam, mucous membranes moist Neck exam: Present: normal inspection, full ROM. Absent: tenderness, meningismus, lymphadenopathy Respiratory exam: Present: normal lung sounds bilaterally. Absent: respiratory distress, wheezes, rales, rhonchi, stridor Cardiovascular Exam: Present: tachycardia, irregular rhythm GI/Abdominal exam: Present: soft, normal bowel sounds. Absent: distended, tenderness, guarding, rebound, rigid Extremities exam: Present: full ROM (Full range of motion of left arm.), normal capillary refill (Capillary refill less than 2 seconds, radial pulses 2+ and upper shoulders bilaterally.). Absent: tenderness (No tenderness of the left arm.) Course Vital Signs 06/11/20 06/11/20 08:52 10:39 Temperature 97.9 F Pulse Rate 115 H 96 Respiratory 18 18 Rate Blood Pressure 117/80 109/60 O2 Sat by Pulse 97 97 Oximetry EKG Findings - EKG Comments: EKG Findings:: A flutter, ventricular rate 104, QRS duration 100, QTC 447 Medical Decision Making - Medical Decision Making Patient has sustained heart rate in the fine 90s low 100s. She is continuing to have left arm pain. States that overall she is not feeling well. EKG shows an A. fib flutter. As discussed patient is arty anticoagulated and is taking Rythmol and Cardizem. States she is usually not in atrial fibrillation and can tell when she is. CBC CMP unremarkable. Troponin is negative. Chest x-ray does show an enlarged heart however no acute cardiopulmonary process. At this time patient will be admitted for observation with cardiology consultation. - Lab Data Result diagrams: 06/11/20 09:26 06/11/20 09:26 Lab Results 06/11/20 06/11/20 06/11/20 Range/Units 09:26 09:26 09:26 WBC 7.9 (3.8-10.6) k/uL RBC 4.59 (3.80-5.40) m/uL Hgb 13.3 (11.4-16.0) gm/dL Hct 39.6 (34.0-46.0) % MCV 86.3 (80.0-100.0) fL MCH 29.0 (25.0-35.0) pg MCHC 33.6 (31.0-37.0) g/dL RDW 13.2 (11.5-15.5) % Plt Count 229 (150-450) k/uL MPV 7.7 Neutrophils % 72 % Lymphocytes % 18 % Monocytes % 6 % Eosinophils % 3 % Basophils % 1 % Neutrophils # 5.7 (1.3-7.7) k/uL Lymphocytes # 1.4 (1.0-4.8) k/uL Monocytes # 0.5 (0-1.0) k/uL Eosinophils # 0.2 (0-0.7) k/uL Basophils # 0.1 (0-0.2) k/uL PT 10.6 (9.0-12.0) sec INR 1.0 (<1.2) APTT 24.9 (22.0-30.0) sec Sodium 138 (137-145) mmol/L Potassium 4.8 (3.5-5.1) mmol/L Chloride 101 (98-107) mmol/L Carbon Dioxide 29 (22-30) mmol/L Anion Gap 8 mmol/L BUN 30 H (7-17) mg/dL Creatinine 1.33 H (0.52-1.04) mg/dL Est GFR (CKD-EPI)AfAm 44 (>60 ml/min/1.73 sqM) Est GFR (CKD-EPI)NonAf 39 (>60 ml/min/1.73 sqM) Glucose 99 (74-99) mg/dL Calcium 9.1 (8.4-10.2) mg/dL Magnesium 1.9 (1.6-2.3) mg/dL Total Bilirubin 1.1 (0.2-1.3) mg/dL AST 32 (14-36) U/L ALT 14 (4-34) U/L Alkaline Phosphatase 66 (38-126) U/L Troponin I (0.000-0.034) ng/mL Total Protein 6.5 (6.3-8.2) g/dL Albumin 3.9 (3.5-5.0) g/dL 06/11/20 Range/Units 09:26 WBC (3.8-10.6) k/uL RBC (3.80-5.40) m/uL Hgb (11.4-16.0) gm/dL Hct (34.0-46.0) % MCV (80.0-100.0) fL MCH (25.0-35.0) pg MCHC (31.0-37.0) g/dL RDW (11.5-15.5) % Plt Count (150-450) k/uL MPV Neutrophils % % Lymphocytes % % Monocytes % % Eosinophils % % Basophils % % Neutrophils # (1.3-7.7) k/uL Lymphocytes # (1.0-4.8) k/uL Monocytes # (0-1.0) k/uL Eosinophils # (0-0.7) k/uL Basophils # (0-0.2) k/uL PT (9.0-12.0) sec INR (<1.2) APTT (22.0-30.0) sec Sodium (137-145) mmol/L Potassium (3.5-5.1) mmol/L Chloride (98-107) mmol/L Carbon Dioxide (22-30) mmol/L Anion Gap mmol/L BUN (7-17) mg/dL Creatinine (0.52-1.04) mg/dL Est GFR (CKD-EPI)AfAm (>60 ml/min/1.73 sqM) Est GFR (CKD-EPI)NonAf (>60 ml/min/1.73 sqM) Glucose (74-99) mg/dL Calcium (8.4-10.2) mg/dL Magnesium (1.6-2.3) mg/dL Total Bilirubin (0.2-1.3) mg/dL AST (14-36) U/L ALT (4-34) U/L Alkaline Phosphatase (38-126) U/L Troponin I <0.012 (0.000-0.034) ng/mL Total Protein (6.3-8.2) g/dL Albumin (3.5-5.0) g/dL Disposition Clinical Impression: Atrial fibrillation, Tachycardia, Arm pain Disposition: ADMITTED IP TO THIS HOSP Is patient prescribed a controlled substance at d/c from ED?: No Referrals: Cookie Guevara MD [Primary Care Provider] - 1-2 days Time of Disposition: 10:57
[2020-06-11 09:42] LABS: Basophils # (A) 0.1 k/uL (0-0.2); Basophils % (A) 1 %; Eosinophils # (A) 0.2 k/uL (0-0.7); Eosinophils % (A) 3 %; HCT 39.6 % (34.0-46.0); HGB 13.3 gm/dL (11.4-16.0); Lymphocytes # (A) 1.4 k/uL (1.0-4.8); Lymphocytes % (A) 18 %; MCHC 33.6 g/dL (31.0-37.0); MCV 86.3 fL (80.0-100.0); Mean Platelet Volume 7.7; Monocytes # (A) 0.5 k/uL (0-1.0); Monocytes % (A) 6 %; Neutrophils # (A) 5.7 k/uL (1.3-7.7); Neutrophils % (A) 72 %; Platelet Count 229 k/uL (150-450); RBC 4.59 m/uL (3.80-5.40); RDW 13.2 % (11.5-15.5); WBC 7.9 k/uL (3.8-10.6)
--- NOTE | 2020-06-11 09:49 | XR ---
EXAMINATION TYPE: XR chest 2V DATE OF EXAM: 06/11/2020 COMPARISON: Chest x-ray 09/05/2018, CT 09/17/2018 HISTORY: Dysrhythmia TECHNIQUE: Frontal and lateral views of the chest are obtained. FINDINGS: There is no focal air space opacity, pleural effusion, or pneumothorax seen. The cardiac silhouette size is upper limit of normal to slightly enlarged. The osseous structures are intact. P rominence of pulmonary artery suggests pulmonary artery hypertension IMPRESSION: No acute cardiopulmonary process stable borderline cardiac size, heart size may be accen tuated by rotation, technique. There is underlying emphysema. Correlate for pulmonary artery hyperten nuvia.
[2020-06-11 09:50] LABS: Partial Thromboplastin Time 24.9 sec (22.0-30.0); Prothrombin Time 10.6 sec (9.0-12.0)
[2020-06-11 10:02] LABS: Albumin 3.9 g/dL (3.5-5.0); Calcium 9.1 mg/dL (8.4-10.2); Total Bilirubin 1.1 mg/dL (0.2-1.3); Total Protein 6.5 g/dL (6.3-8.2)
[2020-06-11 10:06] LABS: Magnesium 1.9 mg/dL (1.6-2.3); Potassium 4.8 mmol/L (3.5-5.1)
[2020-06-11] MEDS ORDERED: NALOXONE 0.4 MG/ML 1 ML VIAL IV PRN (10:58)
[2020-06-11] MEDS ORDERED: SODIUM CHLORIDE 0.9% 1,000 ML IV SCH (11:00)
[2020-06-11] MEDS ORDERED: ALBUTEROL HFA INHALER INHALATION PRN (11:00)
[2020-06-11] MEDS: IPRATROPIUM-ALBUTEROL 3 ML NEB INHALATION PRN ×2 (12:45→16:57)
[2020-06-11] MEDS ORDERED: DILTIAZEM ORAL 30 MG TAB PO STA (13:04)
--- NOTE | 2020-06-11 13:13 | P.CRDCN ---
History of Present Illness Consult date: 06/11/20 History of present illness: CHIEF COMPLAINT: A. fib HISTORY OF PRESENT ILLNESS: This is a 75-year-old female with a past medical history significant for atrial fibrillation, COPD, hyperlipidemia, and aortic insufficiency. Patient follows in the office with Dr. Torres. We have been asked to see the patient in consultation for Blayne segura. Patient examined at the bedside in the emergency room. Patient states yesterday she was evaluated at [facility] secondary to shooting pains in her left arm along with numbness. She was diagnosed with cervical radiculopathy. Patient states her EKG performed at [facility] showed she was back in A. fib. She states her heart rate was elevated yesterday. She states no changes were made to her medication regimen. She was discharged home yesterday. She states this morning she took her pulse ox and her heart rate was noted to be in the 120s. She denies feeling any palpitations. She does report an episode of shooting pains down her left arm. She denies any chest pain or pressure. She denies any shortness of breath. Patient underwent a cardiac catheterization in [address] Torres revealing normal coronary arteries. She also underwent a HILDA revealing moderate aortic insufficiency. Echocardiogram completed at that time revealed ejection fraction 55-60%. DIAGNOSTICS: EKG reveals atrial flutter. Heart rate 104 Chest xray negative for acute process Laboratory data: WBC 7.9. Hemoglobin 13.3. Platelet count 229. Sodium 138. Potassium 4.8. Current home cardiac medications include Rythmol 150 mg 3 times a day, Lasix 80 mg daily, Cardizem 30 mg twice a day, Lipitor 10 g daily, and Eliquis 5 mg twice a day REVIEW OF SYSTEMS: At the time of my exam: CONSTITUTIONAL: Denies fever or chills. HEENT: Denies blurred vision, vision changes, or eye pain. Denies hemoptysis CARDIOVASCULAR: Denies chest pain, orthopnea, PND or palpitations RESPIRATORY: No shortness of breath. GASTROINTESTINAL: Denies abdominal pain. Denies nausea or vomiting. HEMATOLOGIC: Denies bleeding disorders. GENITOURINARY: Denies any blood in urine. SKIN: Denies pruitis. Denies rash. PHYSICAL EXAM: VITAL SIGNS: Reviewed. GENERAL: Well-developed in no acute distress. HEENT: Head is normocephalic. Pupils are equal, round. Sclerae anicteric. Mucous membranes of the mouth are moist. Neck supple. No JVD or thyromegaly LUNGS: Respirations even and unlabored. Lungs diminished. HEART: Irregular rate and rhythm. S1 and S2 heard. Systolic murmur noted. ABDOMEN: Soft. Nondistended. Nontender. EXTREMITIES: Normal range of motion. No clubbing or cyanosis. Peripheral pulses intact. No lower extremity edema NEUROLOGIC: Awake and alert. Oriented x 3. ASSESSMENT: Paroxysmal atrial fibrillation/flutter with mildly uncontrolled ventricular rate, on anticoagulation with Eliquis Left arm pain, diagnosed with cervical radiculopathy yesterday at [facility] Moderate aortic insufficiency Hyperlipidemia COPD PLAN: Resume home cardiac medications Increase Cardizem to 60 mg twice a day Continue telemetry monitoring Obtain 2-D echo to assess cardiac structure and function Obtain records from [facility] Further recommendations pending patient's course Nurse practitioner note has been reviewed by physician. Signing provider agrees with the documented findings, assessment, and plan of care. Past Medical History Past Medical History: Atrial Fibrillation, Heart Failure, COPD, Hyperlipidemia, Pneumonia Additional Past Medical History / Comment(s): Recently admitted to [facility] on 11/27/17 with bradycardia, generalized fatigue, possible aortic stenosis. Other HX: Afib RVR, 2008 Valley fever, rheumatic fever as a child, gout L wrist once, bilateral tinnitis, anemia. History of Any Multi-Drug Resistant Organisms: None Reported Past Surgical History: Appendectomy, Heart Catheterization, Joint Replacement, Orthopedic Surgery, Tonsillectomy, Tubal Ligation Additional Past Surgical History / Comment(s): HILDA, cardioversion, 2012 cardiac cath-normal, right knee arthroscopies, colonoscopy, L hip Past Anesthesia/Blood Transfusion Reactions: No Reported Reaction Past Psychological History: No Psychological Hx Reported Smoking Status: Former smoker Past Alcohol Use History: None Reported Past Drug Use History: None Reported - Past Family History Father History Unknown: Yes Family Medical History: Cancer Additional Family Medical History / Comment(s): Father had colon cancer. Mother Family Medical History: No Reported History Additional Family Medical History / Comment(s): Mother was healthy and lived to be 93-94 yrs old. Medications and Allergies Home Medications Medication Instructions Recorded Confirmed Type Atorvastatin [Lipitor] 10 mg PO HS 11/25/17 06/11/20 History Ipratropium-Albuterol Nebulize 3 ml INHALATION RT-QID PRN 11/25/17 06/11/20 History [Duoneb 0.5 mg-3 mg/3 ml Soln] Magnesium Chloride [Slow-Mag] 64 mg PO DAILY 11/25/17 06/11/20 History Montelukast [Singulair] 10 mg PO HS 11/25/17 06/11/20 History Diltiazem Oral [Cardizem*] 30 mg PO BID #60 tab 12/07/17 06/11/20 Rx Apixaban [Eliquis] 5 mg PO BID 04/09/18 06/11/20 History Propafenone [Rythmol] 150 mg PO TID 04/09/18 06/11/20 History Clotrimazole/Betamethasone Dip 1 applic TOPICAL BID 09/05/18 06/11/20 History [Lotrisone Cream] Furosemide [Lasix] 80 mg PO DAILY 09/05/18 06/11/20 History Albuterol Sulfate [Ventolin HFA] 2 puff INHALATION RT-Q4H PRN 06/11/20 06/11/20 History Calcium Carbonate/Vitamin D3 1 tab PO DAILY 06/11/20 06/11/20 History [Calcium 600-Vit D3 200 Tablet] Ibuprofen 800 mg PO TID PRN 06/11/20 06/11/20 History Allergies Allergy/AdvReac Type Severity Reaction Status Date / Time bee venom protein (honey bee) Allergy Anaphylaxis Verified 06/11/20 09:51 Physical Exam Vitals: Vital Signs Temp Pulse Resp BP Pulse Ox 06/11/20 12:56 90 06/11/20 12:46 93 06/11/20 10:39 96 18 109/60 97 06/11/20 08:52 97.9 F 115 H 18 117/80 97 Intake and Output 06/10/20 06/11/20 06/11/20 22:59 06:59 14:59 Other: Weight 102.058 kg Results 06/11/20 09:26 06/11/20 09:26 Cardiac Enzymes 06/11/20 06/11/20 Range/Units 09:26 09:26 AST 32 (14-36) U/L Troponin I <0.012 (0.000-0.034) ng/mL Coagulation 06/11/20 Range/Units 09:26 PT 10.6 (9.0-12.0) sec APTT 24.9 (22.0-30.0) sec CBC 06/11/20 Range/Units 09:26 WBC 7.9 (3.8-10.6) k/uL RBC 4.59 (3.80-5.40) m/uL Hgb 13.3 (11.4-16.0) gm/dL Hct 39.6 (34.0-46.0) % Plt Count 229 (150-450) k/uL Comprehensive Metabolic Panel 06/11/20 Range/Units 09:26 Sodium 138 (137-145) mmol/L Potassium 4.8 (3.5-5.1) mmol/L Chloride 101 (98-107) mmol/L Carbon Dioxide 29 (22-30) mmol/L BUN 30 H (7-17) mg/dL Creatinine 1.33 H (0.52-1.04) mg/dL Glucose 99 (74-99) mg/dL Calcium 9.1 (8.4-10.2) mg/dL AST 32 (14-36) U/L ALT 14 (4-34) U/L Alkaline Phosphatase 66 (38-126) U/L Total Protein 6.5 (6.3-8.2) g/dL Albumin 3.9 (3.5-5.0) g/dL Current Medications Generic Name Dose Route Start Last Admin Trade Name Freq PRN Reason Stop Dose Admin Albuterol Sulfate 2 puff 06/11/20 11:00 Albuterol Hfa Inhaler INHALATION RT-Q4H PRN Shortness Of Breath Albuterol/Ipratropium 3 ml 06/11/20 11:00 06/11/20 12:45 Ipratropium-Albuterol 3 Ml Neb INHALATION 3 ml RT-QID PRN Administration Shortness Of Breath Apixaban 5 mg 06/11/20 21:00 Apixaban 5 Mg Tab PO BID [facility] Atorvastatin Calcium 10 mg 06/11/20 21:00 Atorvastatin 10 Mg Tab PO HS [facility] Calcium Carbonate 1 each 06/12/20 09:00 Calcium Carb-Vit D 500mg-200un 1 Each Tab PO DAILY [facility] Diltiazem HCl 60 mg 06/11/20 21:00 Diltiazem Oral 30 Mg Tab PO BID [facility] Furosemide 80 mg 06/12/20 09:00 Furosemide 80 Mg Tab PO DAILY [facility] Magnesium Oxide 400 mg 06/12/20 09:00 Magnesium Oxide 400 Mg Tab PO DAILY [facility] Montelukast Sodium 10 mg 06/11/20 21:00 Montelukast 10 Mg Tab PO HS [facility] Naloxone HCl 0.2 mg 06/11/20 10:58 Naloxone 0.4 Mg/Ml 1 Ml Vial IV Q2M PRN Opioid Reversal Propafenone HCl 150 mg 06/11/20 16:00 Propafenone 150 Mg Tab PO TID [facility] Intake and Output 06/10/20 06/11/20 06/11/20 22:59 06:59 14:59 Other: Weight 102.058 kg Patient Weight 06/12/20 06:59 Weight 102.058 kg 06/11/20 09:26 06/11/20 09:26
[2020-06-11] MEDS ORDERED: PROPAFENONE 150 MG TAB PO SCH (16:00)
[2020-06-11] MEDS ORDERED: methocarbamoL 500 MG TAB PO PRN (17:58)
[2020-06-11] MEDS ORDERED: ALPRAZolam 0.25 MG TAB PO PRN (17:59)
[2020-06-11] MEDS ORDERED: TEMAZEPAM 15 MG CAP PO PRN (17:59)
[2020-06-11] MEDS ORDERED: ACETAMINOPHEN TAB 500 MG TAB PO PRN (17:59)
[2020-06-11] MEDS: IBUPROFEN 800 MG TAB PO PRN (18:21)
--- NOTE | 2020-06-11 18:50 | HP ---
HISTORY AND PHYSICAL DATE OF SERVICE: 06/11/2020 CHIEF COMPLAINTS: Palpitations and left arm pain. HISTORY OF PRESENT ILLNESS: This 75-year-old woman with a past medical history of multiple medical problems, including atrial fibrillation, history of CHF, COPD, hyperlipidemia, history of pneumonia, history of aortic regurgitation, tachycardia, history of cardiac catheterization, history of HILDA, cardioversion, being followed by Dr. Guevara in the outpatient setting, apparently had left arm pain yesterday. The patient went to [facility]. The patient also complains of numbness of the left hand which is radiating proximally. Cervical radiculopathy was diagnosed at [facility]. While in the hospital the patient was noted to have paroxysmal atrial fibrillation. The patient went home but had recurrent episodes of numbness and tingling of the left arm, and the patient came to [facility]. She was found to have atrial fibrillation with a fluctuating heart rate around 110. The patient was admitted for further evaluation and treatment. Cardiology evaluation is in progress. There is no history of any fever, rigor or chills. No history of headache, loss of consciousness, seizures. PAST MEDICAL HISTORY: History of atrial fibrillation, history of CHF, COPD, hypertension, hyperlipidemia, history of pneumonia. MEDICATIONS: Medications prior to admission include Robaxin, ibuprofen, calcium carbonate, Rythmol, Singulair, Ventolin, Slow-Mag, DuoNeb, Lasix, Cardizem, Lotrisone, Lipitor, Eliquis. ALLERGIES: BEE VENOM. FAMILY HISTORY: History of colon cancer in the family. SOCIAL HISTORY: Previous history of smoking. No current smoking or alcohol intake. REVIEW OF SYSTEMS: ENT: No diminished hearing. No diminished vision. CARDIOVASCULAR SYSTEM: As mentioned earlier. RESPIRATORY SYSTEM: As mentioned earlier. GI: No nausea, vomiting. : No dysuria or retention. NERVOUS SYSTEM: No numbness, weakness. ALLERGY/IMMUNOLOGY: No asthma, hayfever. MUSCULOSKELETAL: As mentioned earlier. HEMATOLOGY/ONCOLOGY: No history of anemia. ENDOCRINE: No history of diabetes, hypothyroidism. CONSTITUTIONAL: As mentioned earlier. DERMATOLOGY: Negative. RHEUMATOLOGY: Negative. PSYCHIATRY: As mentioned earlier. PHYSICAL EXAMINATION: Patient is alert and oriented x3. Pulse is 96, blood pressure 123/75, respiration 20, temperature 98.4, pulse ox 96% on room air. HEENT: Conjunctivae normal. NECK: No jugular venous distention. CARDIOVASCULAR SYSTEM: S1, S2 irregular. Ejection systolic murmur present. RESPIRATORY SYSTEM: Breath sounds diminished at the bases. A few scattered rhonchi. ABDOMEN: Soft, non-tender. No mass palpable. LEGS: No edema. No swelling. NERVOUS SYSTEM: Higher functions as mentioned earlier. Moves all 4 limbs. No focal motor or sensory deficit. LYMPHATICS: No lymph node palpable in neck, axillae or groin. SKIN: No ulcer, rash, bleeding. JOINTS: No active deforming arthropathy. LABS: CBC within normal limits. Creatinine is 1.33. Troponins are negative. EKG reviewed. ASSESSMENT: 1. Atrial fibrillation with fast ventricular rate. 2. Left arm pain; possible degenerative joint disease. 3. Cervical radiculopathy; rule out coronary artery disease, anginal equivalent. 4. History of moderate aortic regurgitation. 5. History of chronic obstructive pulmonary disease. 6. History of congestive heart failure. 7. History of hyperlipidemia. 8. History of pneumonia. 9. History of valley fever. 10.History of rheumatic fever as a child. 11.History of gout. 12.History of cardiac catheterization. 13.History of transesophageal echocardiogram, cardioversion. 14.Remote history of nicotine dependence. 15.FULL CODE. RECOMMENDATIONS AND DISCUSSION: In this 75-year-old woman who presented with multiple medical issues, we will monitor the patient closely, continue the current medications, continue symptomatic treatment. Will initiate p.o. Cardizem along with Cardiology. Rule out myocardial infarction. Resume the home medications. Prognosis guarded because of multiple complex medical issues. Further recommendations to follow. A copy of this dictation is being forwarded to Dr. Guevara, who is the primary physician. MMODL / IJN: [id number] /
--- NOTE | 2020-06-11 19:00 | ECHOF ---
Referral Reason: MEASUREMENTS -------- HEIGHT: 175.3 cm WEIGHT: 102.1 kg BP: 109/60 IVSd: 1.1 cm (0.6 - 1.1) LVIDd: 4.1 cm (3.9 - 5.3) LVPWd: 1.7 cm (0.6 - 1.1) IVSs: 1.8 cm LVIDs: 2.5 cm LVPWs: 2.4 cm RVIDd: 3.5 cm (< 3.3) LAESV Index (A-L): 45.65 ml/m Ao Diam: 2.9 cm (2.0 - 3.7) AV Cusp: 1.8 cm (1.5 - 2.6) EPSS: 0.6 cm AR PHT: 350 ms RAP: 20.00 mmHg RVSP: 63.83 mmHg MV EF SLOPE: 35.35 mm/s (70 - 150) MV EXCURSION: 17.30 mm (> 18.000) FINDINGS -------- Atrial fibrillation. This was a technically difficult study with suboptimal apical views. The left ventricular size is normal. There is mild concentric left ventricular hypertrophy. Overa ll left ventricular systolic function is low-normal with, an EF between 50 - 55 %. The right ventricle is moderately enlarged. LA is severely dilated >40 ml/m2 The right atrium is mildly enlarged. 5.0mg of Lumason was utilized for enhancement of images Interatrial and interventricular septum intact. The aortic valve is trileaflet and appears structurally normal. There is mild aortic valve sclerosi s. There is mild aortic regurgitation. There is no evidence of aortic stenosis. Txqgivib-ve-ydxrsl mitral regurgitation is present. Moderate tricuspid regurgitation present. There is severe pulmonary hypertension. The right ventr icular systolic pressure, as measured by Doppler, is 63.83mmHg. Trace/mild (physiologic) pulmonic regurgitation. The aortic root size is normal. The inferior vena cava is dilated with poor inspiratory collapse which is consistent with estimated r ight atrial pressure of 20 mmHg. There is no pericardial effusion. CONCLUSIONS -------- 1. The left ventricular size is normal. 2. There is mild concentric left ventricular hypertrophy. 3. Overall left ventricular systolic function is low-normal with, an EF between 50 - 55 %. 4. The right ventricle is moderately enlarged. 5. LA is severely dilated >40 ml/m2 6. The right atrium is mildly enlarged. 7. There is mild aortic valve sclerosis. 8. There is mild aortic regurgitation. 9. Cvyhpwds-hj-jojssn mitral regurgitation is present. 10. Moderate tricuspid regurgitation present. 11. There is severe pulmonary hypertension. 12. The right ventricular systolic pressure, as measured by Doppler, is 63.83mmHg. 13. Trace/mild (physiologic) pulmonic regurgitation. 14. The inferior vena cava is dilated with poor inspiratory collapse which is consistent with estimat ed right atrial pressure of 20 mmHg. DIRECTOR OF OPERATIONS: Kenia Glaser RDCS
[2020-06-11] MEDS ORDERED: FLECAINIDE 50 MG TAB PO STA (19:07)
[2020-06-11 19:55] LABS: T4, Free (Free Thyroxine) 1.42 ng/dL (0.78-2.19)
[2020-06-11] MEDS ORDERED: DILTIAZEM ORAL 30 MG TAB PO SCH (21:00)
[2020-06-11] MEDS ORDERED: MONTELUKAST 10 MG TAB PO SCH (21:00)
[2020-06-11] MEDS ORDERED: ATORVASTATIN 10 MG TAB PO SCH (21:00)
[2020-06-11] MEDS: APIXABAN 5 MG TAB PO SCH (22:42)
[2020-06-11] MEDS: CLOTRIMAZOLE/BETAMETH 1-0.05% CREAM 45 GM TUBE TOPICAL SCH (22:42)
[2020-06-11] MEDS: DILTIAZEM ORAL 60 MG TAB PO SCH (22:43)
[2020-06-12] MEDS: IPRATROPIUM-ALBUTEROL 3 ML NEB INHALATION PRN ×3 (01:41→11:22)
[2020-06-12] MEDS: IBUPROFEN 800 MG TAB PO PRN ×2 (03:32→13:29)
[2020-06-12 05:58] LABS: Basophils # (A) 0.1 k/uL (0-0.2); Basophils % (A) 1 %; Eosinophils # (A) 0.2 k/uL (0-0.7); Eosinophils % (A) 3 %; HCT 37.6 % (34.0-46.0); HGB 12.4 gm/dL (11.4-16.0); Lymphocytes # (A) 1.9 k/uL (1.0-4.8); Lymphocytes % (A) 27 %; MCH 29.1 pg (25.0-35.0); MCHC 33.1 g/dL (31.0-37.0); MCV 87.8 fL (80.0-100.0); Monocytes # (A) 0.4 k/uL (0-1.0); Monocytes % (A) 5 %; Neutrophils # (A) 4.4 k/uL (1.3-7.7); Neutrophils % (A) 63 %; Platelet Count 202 k/uL (150-450); RBC 4.28 m/uL (3.80-5.40); RDW 13.3 % (11.5-15.5)
[2020-06-12 06:03] VITALS: TEMP 97.5
[2020-06-12 06:07] LABS: Calcium 8.9 mg/dL (8.4-10.2); Potassium 3.7 mmol/L (3.5-5.1)
[2020-06-12] MEDS ORDERED: PANTOPRAZOLE 40 MG TABLET PO SCH (07:30)
[2020-06-12 08:26] VITALS: BP 116/73; RESP 16
[2020-06-12] MEDS ORDERED: MAGNESIUM OXIDE 400 MG TAB PO SCH (09:00)
[2020-06-12] MEDS ORDERED: FUROSEMIDE 80 MG TAB PO SCH (09:00)
[2020-06-12] MEDS ORDERED: CALCIUM CARB-VIT D 500MG-200UN 1 EACH TAB PO SCH (09:00)
[2020-06-12] MEDS ORDERED: FLECAINIDE 50 MG TAB PO SCH (09:00)
[2020-06-12] MEDS: APIXABAN 5 MG TAB PO SCH (09:17)
[2020-06-12] MEDS: DILTIAZEM ORAL 60 MG TAB PO SCH (09:19)
[2020-06-12] MEDS ORDERED: DILTIAZEM CD 180 MG CAP.ER.24H PO SCH (09:30)
[2020-06-12] MEDS: CLOTRIMAZOLE/BETAMETH 1-0.05% CREAM 45 GM TUBE TOPICAL SCH (09:32)
--- NOTE | 2020-06-12 11:27 | P.PN ---
Subjective Progress Note Date: 06/12/20 The patient was interviewed and examined resting comfortably at the side of her bed. She states she tolerated her initial dose of flecainide well, however unfortunately she did not convert to sinus mechanism overnight. Her rates are better controlled. She states she did have some shortness of breath this morning, however it improved with nebulizer treatment. No chest pain or chest pressure. No dizzi ness, lightheadedness. Echocardiogram revealed LV function at 50-55% with mild LVH and biatrial enl argement. Her RV is moderately enlarged. She also has mild aortic insufficiency, moderate to severe mitral regurgitation, moderate tricuspid regurgitation, and severe pulmonary hypertension with RVSP at 63 mmHg GENERAL: Well-appearing, well-nourished and in no acute distress. NECK: Supple without JVD or thyromegaly. LUNGS: Breath sounds clear to auscultation bilaterally, diminished in the bases. Respiration equal and unlabored. No wheezes, rales or rhonchi. HEART: Irregular rate and rhythm. Systolic murmur. No rubs or gallops. S1 and S2 heard. EXTREMITIES: Normal range of motion. No clubbing or cyanosis. Peripheral pulses intact and strong. Mild edema. VITALS: Blood pressure 116/73, heart rate 91, respiratory rate 16, temperature 97.5F, SpO2 95% on room air TELEMETRY: Atrial fibrillation with heart rates ranging in the 90s to low 100s LABS: WBC 7.0, hemoglobin 12.4, platelet 202, sodium 138, potassium 3.7, BUN 34, creatinine 1.66, IMPRESSION: #1 paroxysmal atrial fibrillation with RVR, started on flecainide #2 valvular heart disease #3 pulmonary hypertension #4 COPD #5 dyslipidemia PLAN: Continue flecainide 100 mg twice daily Increase verapamil to 180mg daily Patient will follow-up in office in 1-2 weeks and at that time a cardioversion will be considered Patient is cleared to be discharged from the cardiac standpoint. The patient has been seen and evaluated. Plan of care has been reviewed and agreed upon by Dr Banegas. Objective - Vital Signs Vital signs: Vital Signs Temp 97.5 F L 06/12/20 08:25 Pulse 91 06/12/20 08:25 Resp 16 06/12/20 08:25 BP 116/73 06/12/20 08:25 Pulse Ox 94 L 06/12/20 03:00 Intake & Output 06/11/20 06/12/20 06/12/20 18:59 06:59 18:59 Intake Total 600 200 Balance 600 200 Weight 102.058 kg Intake: Oral 600 200 Other: # Voids 3 1 - Labs CBC & Chem 7: 06/12/20 05:44 06/12/20 05:44 Labs: Abnormal Lab Results - Last 24 Hours (Table) 06/12/20 Range/Units 05:44 Carbon Dioxide 32 H (22-30) mmol/L BUN 34 H (7-17) mg/dL Creatinine 1.66 H (0.52-1.04) mg/dL Glucose 106 H (74-99) mg/dL
[2020-06-12 11:31] VITALS: PULSE 92
--- NOTE | 2020-06-12 19:12 | DS ---
DISCHARGE SUMMARY DATE OF SERVICE: 06/12/2020. FINAL DIAGNOSES: 1. Atrial fibrillation with fast ventricular rate improved. 2. Left arm pain possible degenerative joint disease, rule out coronary artery disease. 3. Cervical radiculopathy, possibly. 4. History of moderate to severe mitral regurgitation. 5. History of chronic obstructive pulmonary disease. 6. Congestive heart failure. 7. Hyperlipidemia. 8. History of pneumonia. 9. History of valley fever. 10.History of rheumatic fever as a child. 11.History of gout. 12.History of cardiac catheterization. 13.History of HILDA and cardioversion. 14.Remote history of nicotine dependence. 15.FULL CODE. DISCHARGE DISPOSITION: The patient will be discharged in stable condition with guarded prognosis. HISTORY OF PRESENT ILLNESS: This 75-year-old woman with a past medical history of multiple medical problems, being followed Dr. Guevara in the outpatient setting, admitted with atrial fibrillation with fast ventricular rate as well as numbness of the left arm. Patient was initially evaluated at [facility]. The patient came to [facility] because of recurrence of symptoms. Cardiology saw the patient and recommended outpatient treatment. The patient was started on flecainide and verapamil. Doses were adjusted and Cardiology cleared the patient for discharge. The 2D echo with Doppler showed ejection fraction 50-55 percent and moderate to severe mitral regurgitation and severe pulmonary hypertension in the 2D echo. On exam, vitals are stable. Cardiovascular ejection systolic murmur. Respirations: A few rhonchi. Abdomen soft. Nervous system. No focal deficits. DISCHARGE ADVICE AND MEDICATIONS: 1. Diet is cardiac. 2. Activity limited until followup. 3. Follow up with Dr. Guevara in 1-2 days. 4. Follow with Cardiology for possible stress test and further evaluation. DISCHARGE MEDICATIONS: 1. Calcium carbonate 1 p.o. daily. 2. DuoNeb t.i.d. p.r.n. as before. 3. Eliquis 5 mg p.o. b.i.d. 4. Ibuprofen p.r.n. 5. Lasix 80 mg p.o. daily. 6. Lipitor 10 mg q.h.s. 7. Clotrimazole topically. 8. Robaxin 1 tablet p.o. t.i.d. p.r.n. 9. Singulair 10 mg q.h.s. 10.Slow-Mag 65 mg daily. 11.Ventolin 2 puffs q.i.d. p.r.n. 12.Cardizem CD 180 mg p.o. daily. 13.Tambocor 100 mg p.o. b.i.d. 14.Tylenol q.6h p.r.n. Once again the patient discharged in stable condition. Guarded prognosis. MMODL / IJN: [id number] /
== END 2020-06-12 14:45 | disposition home or self-care (01) ==
LOC: EC 08:49 → 1SOBS 10:58
PROVIDERS: ADMIT Hospitalist; ATTEND Hospitalist
DX: I48.0 Paroxysmal atrial fibrillation (principal); I48.92 Unspecified atrial flutter; I50.9 Heart failure, unspecified; J44.9 Chronic obstructive pulmonary disease, unspecified; E78.5 Hyperlipidemia, unspecified; M54.12 Radiculopathy, cervical region; Z79.01 Long term (current) use of anticoagulants; Z79.899 Other long term (current) drug therapy; Z91.030 Bee allergy status; Z87.01 Personal history of pneumonia (recurrent); M10.9 Gout, unspecified; H93.13 Tinnitus, bilateral; D64.9 Anemia, unspecified; Z90.89 Acquired absence of other organs; Z98.51 Tubal ligation status; Z98.890 Other specified postprocedural states; Z87.891 Personal history of nicotine dependence; Z80.0 Family history of malignant neoplasm of digestive organs; I35.1 Nonrheumatic aortic (valve) insufficiency; R00.0 Tachycardia, unspecified; Z86.19 Personal history of other infectious and parasitic diseases
CPT/HCPCS: 93005 ×2; 99285; 36415; 94640 ×3; 84439; 80053; 80048; 84443; 83735; 84484; 85025 ×2; 85610; 85730; 71046; G0378 ×2; C8929; Q9950; 93306

== ENCOUNTER 2020-06-29 09:21 | Day surgery (SDC) | payer MEDICARE ==
[2020-06-23 11:22] VITALS: BMI 32.5
[~2020-06-29 09:21] MED LIST changes: -ALPRAZolam 0.25 MG TAB PO PRN; -ALPRAZolam 0.5 MG TAB PO PRN; -ASPIRIN 325 MG TAB PO STA; -ATORVASTATIN 80 MG TAB PO STA; +LACTATED RINGERS 1,000 ML IV SCH; -NITROGLYCERIN SL TABS 0.4 MG TAB SUBLINGUAL PRN; +SODIUM CHLORIDE 0.9% 1,000 ML IV SCH; -SODIUM CHLORIDE 0.9% 1,000 ML in EMPTY BAG 1 BAG IV ONE
[2020-06-29] MEDS ORDERED: SODIUM CHLORIDE 0.9% 500 ML 500 ML IV ONE (10:07)
[2020-06-29 10:09] VITALS: TEMP 98.3
[2020-06-29] MEDS ORDERED: PROPOFOL 10 MG/ML 20 ML VIAL IV ONE (10:31)
[2020-06-29] MEDS ORDERED: LIDOCAINE 1% INJ 10MG/ML (20 ML MDV) ONE (10:31)
[2020-06-29 11:19] VITALS: RESP 16
--- NOTE | 2020-06-29 12:29 | CE ---
CARDIAC ELECTROPHYSIOLOGY REPORT CARDIOVERSION: DATE OF SERVICE: June 29, 2020. PERFORMING PHYSICIAN: Yasmani Torres MD. PROCEDURE PERFORMED: Cardioversion. INDICATION: Symptomatic atrial fibrillation. COMPLICATION: None. LEVEL OF SEDATION: Deep sedation was performed using propofol with REPAIRER SASH AND DOOR in the room. PROCEDURE DESCRIPTION: After obtaining an informed consent, the patient was brought to the recovery room. Sedation was induced using propofol with REPAIRER SASH AND DOOR in the room. Subsequently, the patient cardioverted from atrial fibrillation to normal sinus mechanism using 200 joules on first attempt. CONCLUSION: Successful cardioversion of atrial fibrillation to normal sinus mechanism using 200 joules on first attempt. MMODL / IJN: [id number] /
[2020-06-29 13:03] VITALS: BP 134/72; PULSE 75
== END 2020-06-29 13:05 | disposition home or self-care (01) ==
LOC: CATHCVL 09:21
PROVIDERS: ATTEND Internal Medicine Interventional Cardiology
DX: I48.0 Paroxysmal atrial fibrillation (principal); I10 Essential (primary) hypertension; E78.5 Hyperlipidemia, unspecified; Z72.0 Tobacco use; I35.1 Nonrheumatic aortic (valve) insufficiency; Z79.01 Long term (current) use of anticoagulants; Z79.899 Other long term (current) drug therapy; Z88.8 Allergy status to other drugs, medicaments and biological substances
CPT/HCPCS: 93005; 92960; J2001; J2704

== ENCOUNTER 2020-07-15 20:27 | Inpatient (IN) | payer MEDICARE ==
[2020-07-15] MEDS: DILTIAZEM 125 MG in SODIUM CHLORIDE 0.9% 100 ML IV SCH (21:17)
--- NOTE | 2020-07-15 21:21 | ED ---
General Adult HPI - General Chief complaint: Arrhythmia/Palpitations Stated complaint: Tachycardia Time Seen by Provider: 07/15/20 20:45 Source: patient, family, RN notes reviewed Mode of arrival: wheelchair Limitations: no limitations - History of Present Illness Initial comments: Patient is a pleasant 75-year-old female presenting to the emergency Department with palpitations. Onset of symptoms was around an hour ago. Patient becomes very short of breath with minimal exertion. Patient does have history of similar symptoms previously associated with atrophic relation. Patient did have recent cardioversion. No chest pain. No leg pain or leg swelling. Patient is on anticoagulation with Eliquis. - Related Data Home Medications Medication Instructions Recorded Confirmed Atorvastatin [Lipitor] 10 mg PO HS 11/25/17 06/29/20 Ipratropium-Albuterol Nebulize 3 ml INHALATION RT-QID PRN 11/25/17 06/29/20 [Duoneb 0.5 mg-3 mg/3 ml Soln] Magnesium Chloride [Slow-Mag] 64 mg PO HS 11/25/17 06/29/20 Montelukast [Singulair] 10 mg PO HS 11/25/17 06/29/20 Apixaban [Eliquis] 5 mg PO BID 04/09/18 06/29/20 Clotrimazole/Betamethasone Dip 1 applic TOPICAL BID 09/05/18 06/29/20 [Lotrisone Cream] Furosemide [Lasix] 80 mg PO DAILY 09/05/18 06/29/20 Albuterol Sulfate [Ventolin HFA] 2 puff INHALATION RT-Q4H PRN 06/11/20 06/23/20 Calcium Carbonate/Vitamin D3 1 tab PO DAILY 06/11/20 06/29/20 [Calcium 600-Vit D3 5 Mcg (200 Iu)] Ibuprofen 800 mg PO TID PRN 06/11/20 06/29/20 methocarbamoL [Robaxin] 1 tab PO TID PRN 06/11/20 06/29/20 Diltiazem Cd [Cardizem CD] 180 mg PO BID 06/23/20 06/29/20 Previous Rx's Medication Instructions Recorded Acetaminophen Tab [Tylenol] 500 mg PO Q6HR PRN tab 06/12/20 Flecainide [Tambocor] 100 mg PO Q12HR 30 Days #60 tab 06/12/20 Allergies Allergy/AdvReac Type Severity Reaction Status Date / Time bee venom protein (honey bee) Allergy Anaphylaxis Verified 07/15/20 20:33 Review of Systems ROS Statement: Those systems with pertinent positive or pertinent negative responses have been documented in the HPI. ROS Other: All systems not noted in ROS Statement are negative. Constitutional: Denies: fever Eyes: Denies: eye pain ENT: Denies: ear pain Respiratory: Reports: as per HPI. Denies: cough Cardiovascular: Reports: as per HPI, palpitations Endocrine: Denies: fatigue Gastrointestinal: Denies: abdominal pain Genitourinary: Denies: dysuria Musculoskeletal: Denies: back pain Skin: Denies: rash Neurological: Denies: weakness Past Medical History Past Medical History: Atrial Fibrillation, Heart Failure, COPD, Hyperlipidemia, Pneumonia Additional Past Medical History / Comment(s): Recently admitted to [facility] on 11/27/17 with bradycardia, generalized fatigue, possible aortic stenosis. Other HX: Afib RVR, 2008 Valley fever, rheumatic fever as a child, gout L wrist once, bilateral tinnitis, anemia. History of Any Multi-Drug Resistant Organisms: None Reported Past Surgical History: Appendectomy, Heart Catheterization, Joint Replacement, Orthopedic Surgery, Tonsillectomy, Tubal Ligation Additional Past Surgical History / Comment(s): HILDA, cardioversion, 2012 cardiac cath-normal, right knee arthroscopies, colonoscopy, L hip Past Anesthesia/Blood Transfusion Reactions: No Reported Reaction Past Psychological History: No Psychological Hx Reported Smoking Status: Former smoker Past Alcohol Use History: None Reported Past Drug Use History: None Reported - Past Family History Father History Unknown: Yes Family Medical History: Cancer Additional Family Medical History / Comment(s): Father had colon cancer. Mother Family Medical History: No Reported History Additional Family Medical History / Comment(s): Mother was healthy and lived to be 93-94 yrs old. General Exam Limitations: no limitations General appearance: alert, in no apparent distress Head exam: Present: normocephalic Eye exam: Present: normal appearance Neck exam: Present: normal inspection Respiratory exam: Present: normal lung sounds bilaterally Cardiovascular Exam: Present: irregular rhythm Expanded Peripheral pulses: 2+: Radial (R), Radial (L), Dorsalis Pedis (R), Dorsalis Pedis (L) GI/Abdominal exam: Present: soft. Absent: tenderness Extremities exam: Present: normal inspection. Absent: pedal edema, calf tenderness Neurological exam: Present: alert Psychiatric exam: Present: normal affect, normal mood Skin exam: Present: normal color Course Vital Signs 07/15/20 07/15/20 20:30 21:21 Temperature 97.6 F Pulse Rate 84 98 Respiratory 18 16 Rate Blood Pressure 135/81 125/87 O2 Sat by Pulse 99 95 Oximetry - Reevaluation(s) Reevaluation #1: 07/15/20 21:00 Patient with a flutter with RVR on the monitor, 125. Patient is placed on monitor for monitoring for arrhythmias with history of atrial fibrillation. EKG Findings - EKG Comments: EKG Findings:: EKG shows atrial flutter with a rate of 103. QRS 100. QT 328. QTC 429. Left axis. Septal Q waves. No acute ST change. Medical Decision Making - Medical Decision Making Patient reevaluated and resting comfortably in bed. Heart rate upper 90s to 105. Patient still is very short of breath with exertion and does not want to be discharged. Patient will stay for cardiac evaluation. Case discussed with Dr. dickinson, covering for Dr. Salinas, who will admit. - Lab Data Result diagrams: 07/15/20 20:56 07/15/20 20:56 Lab Results 07/15/20 07/15/20 07/15/20 Range/Units 20:56 20:56 20:56 WBC 10.8 H (3.8-10.6) k/uL RBC 4.95 (3.80-5.40) m/uL Hgb 14.1 (11.4-16.0) gm/dL Hct 42.4 (34.0-46.0) % MCV 85.7 (80.0-100.0) fL MCH 28.6 (25.0-35.0) pg MCHC 33.3 (31.0-37.0) g/dL RDW 13.2 (11.5-15.5) % Plt Count 247 (150-450) k/uL MPV 7.7 Neutrophils % 69 % Lymphocytes % 21 % Monocytes % 6 % Eosinophils % 2 % Basophils % 1 % Neutrophils # 7.5 (1.3-7.7) k/uL Lymphocytes # 2.2 (1.0-4.8) k/uL Monocytes # 0.7 (0-1.0) k/uL Eosinophils # 0.3 (0-0.7) k/uL Basophils # 0.1 (0-0.2) k/uL Sodium 138 (137-145) mmol/L Potassium 3.8 (3.5-5.1) mmol/L Chloride 97 L (98-107) mmol/L Carbon Dioxide 29 (22-30) mmol/L Anion Gap 12 mmol/L BUN 35 H (7-17) mg/dL Creatinine 1.14 H (0.52-1.04) mg/dL Est GFR (CKD-EPI)AfAm 54 (>60 ml/min/1.73 sqM) Est GFR (CKD-EPI)NonAf 47 (>60 ml/min/1.73 sqM) Glucose 119 H (74-99) mg/dL Calcium 10.1 (8.4-10.2) mg/dL Magnesium 1.9 (1.6-2.3) mg/dL Total Bilirubin 0.5 (0.2-1.3) mg/dL AST 20 (14-36) U/L ALT 14 (4-34) U/L Alkaline Phosphatase 97 (38-126) U/L Troponin I <0.012 (0.000-0.034) ng/mL NT-Pro-B Natriuret Pep pg/mL Total Protein 6.7 (6.3-8.2) g/dL Albumin 4.3 (3.5-5.0) g/dL TSH 3.440 (0.465-4.680) mIU/L Free T4 1.16 (0.78-2.19) ng/dL Free T3 pg/mL 3.1 (2.8-5.3) pg/ml 07/15/20 Range/Units 20:56 WBC (3.8-10.6) k/uL RBC (3.80-5.40) m/uL Hgb (11.4-16.0) gm/dL Hct (34.0-46.0) % MCV (80.0-100.0) fL MCH (25.0-35.0) pg MCHC (31.0-37.0) g/dL RDW (11.5-15.5) % Plt Count (150-450) k/uL MPV Neutrophils % % Lymphocytes % % Monocytes % % Eosinophils % % Basophils % % Neutrophils # (1.3-7.7) k/uL Lymphocytes # (1.0-4.8) k/uL Monocytes # (0-1.0) k/uL Eosinophils # (0-0.7) k/uL Basophils # (0-0.2) k/uL Sodium (137-145) mmol/L Potassium (3.5-5.1) mmol/L Chloride (98-107) mmol/L Carbon Dioxide (22-30) mmol/L Anion Gap mmol/L BUN (7-17) mg/dL Creatinine (0.52-1.04) mg/dL Est GFR (CKD-EPI)AfAm (>60 ml/min/1.73 sqM) Est GFR (CKD-EPI)NonAf (>60 ml/min/1.73 sqM) Glucose (74-99) mg/dL Calcium (8.4-10.2) mg/dL Magnesium (1.6-2.3) mg/dL Total Bilirubin (0.2-1.3) mg/dL AST (14-36) U/L ALT (4-34) U/L Alkaline Phosphatase (38-126) U/L Troponin I (0.000-0.034) ng/mL NT-Pro-B Natriuret Pep 1170 pg/mL Total Protein (6.3-8.2) g/dL Albumin (3.5-5.0) g/dL TSH (0.465-4.680) mIU/L Free T4 (0.78-2.19) ng/dL Free T3 pg/mL (2.8-5.3) pg/ml - Radiology Data Radiology results: image reviewed (Chest x-ray shows atelectasis.) Critical Care Time Critical Care Time: Yes Total Critical Care Time: 31 Disposition Clinical Impression: Atrial flutter with rapid ventricular response Disposition: ADMITTED IP TO THIS HOSP Is patient prescribed a controlled substance at d/c from ED?: No Referrals: Cookie Guevara MD [Primary Care Provider] - 1-2 days Decision Time: 22:14
[2020-07-15 21:22] LABS: Basophils # (A) 0.1 k/uL (0-0.2); Basophils % (A) 1 %; Eosinophils # (A) 0.3 k/uL (0-0.7); Eosinophils % (A) 2 %; HCT 42.4 % (34.0-46.0); HGB 14.1 gm/dL (11.4-16.0); Lymphocytes # (A) 2.2 k/uL (1.0-4.8); Lymphocytes % (A) 21 %; MCH 28.6 pg (25.0-35.0); MCHC 33.3 g/dL (31.0-37.0); MCV 85.7 fL (80.0-100.0); Mean Platelet Volume 7.7; Monocytes # (A) 0.7 k/uL (0-1.0); Monocytes % (A) 6 %; Neutrophils # (A) 7.5 k/uL (1.3-7.7); Neutrophils % (A) 69 %; Platelet Count 247 k/uL (150-450); RBC 4.95 m/uL (3.80-5.40); RDW 13.2 % (11.5-15.5); WBC 10.8 k/uL (3.8-10.6)
--- NOTE | 2020-07-15 21:22 | XR ---
EXAMINATION TYPE: XR chest 2V DATE OF EXAM: 07/15/2020 COMPARISON: 06/11/2020 HISTORY: Tachycardia TECHNIQUE: FINDINGS: There is some mild linear density left lower lobe. There is no heart failure. There are no hilar masses. Mediastinum is normal. There are chest leads. Bony thorax is intact. Heart is borderlin e enlarged. IMPRESSION: There is some mild atelectasis left lower lobe that appears new compared to old exam. Bor derline cardiomegaly.
[2020-07-15 21:34] LABS: Albumin 4.3 g/dL (3.5-5.0); Calcium 10.1 mg/dL (8.4-10.2); Magnesium 1.9 mg/dL (1.6-2.3); Potassium 3.8 mmol/L (3.5-5.1); Total Bilirubin 0.5 mg/dL (0.2-1.3); Total Protein 6.7 g/dL (6.3-8.2)
[2020-07-15 21:45] LABS: INR 0.9 (<1.2); Partial Thromboplastin Time 21.9 sec (22.0-30.0); Prothrombin Time 10.2 sec (9.0-12.0)
[2020-07-15 21:50] LABS: T4, Free (Free Thyroxine) 1.16 ng/dL (0.78-2.19)
[2020-07-15] MEDS ORDERED: NALOXONE 0.4 MG/ML 1 ML VIAL IV PRN (22:14)
[2020-07-15] MEDS ORDERED: SODIUM CHLORIDE 0.9% 1,000 ML IV SCH (22:15)
[2020-07-15 23:45] LABS: Glucose,Whole Blood 126 mg/dL (75-99)
[2020-07-16] MEDS: IPRATROPIUM-ALBUTEROL 3 ML NEB INHALATION PRN ×4 (00:37→20:32)
[2020-07-16 04:21] LABS: Basophils # (A) 0.1 k/uL (0-0.2); Basophils % (A) 1 %; Eosinophils # (A) 0.2 k/uL (0-0.7); Eosinophils % (A) 2 %; HCT 39.5 % (34.0-46.0); HGB 13.2 gm/dL (11.4-16.0); Lymphocytes # (A) 2.3 k/uL (1.0-4.8); Lymphocytes % (A) 21 %; MCH 28.7 pg (25.0-35.0); MCHC 33.3 g/dL (31.0-37.0); MCV 86.2 fL (80.0-100.0); Mean Platelet Volume 7.9; Monocytes # (A) 0.6 k/uL (0-1.0); Monocytes % (A) 6 %; Neutrophils # (A) 7.4 k/uL (1.3-7.7); Neutrophils % (A) 69 %; Platelet Count 220 k/uL (150-450); RBC 4.59 m/uL (3.80-5.40); RDW 13.2 % (11.5-15.5); WBC 10.6 k/uL (3.8-10.6)
[2020-07-16 04:44] LABS: Calcium 9.3 mg/dL (8.4-10.2); Potassium 3.5 mmol/L (3.5-5.1)
[2020-07-16] MEDS ORDERED: IPRATROPIUM-ALBUTEROL 3 ML NEB INHALATION PRN (08:21)
[2020-07-16] MEDS: APIXABAN 5 MG TAB PO SCH ×2 (09:30→22:06)
[2020-07-16] MEDS: FUROSEMIDE 40 MG TAB PO SCH (09:31)
[2020-07-16] MEDS: FLECAINIDE 50 MG TAB PO SCH ×2 (09:34→22:05)
--- NOTE | 2020-07-16 09:46 | P.HPIM ---
History of Present Illness 75-year-old female came in the emergency department with compensative palpitations. Patient does have history of atrial fibrillation patient is found to be in A. fib with rapid ventricular rate was subsequently admitted with the [facility]. Patient had a normal ejection fraction the past. Patient had severe pulmonary hypertension. Patient was short of breath upon ablation denied any orthopnea paroxysmal nocturnal dyspnea chest x-ray did not show any pneumonia but did show some atelectasis. Patient denied any fever chills patient denied any cough. Patient is on Eliquis which is being resumed at this time. Patient heart rate the has come down on IV Cardizem patient does use oral Cardizem and flecanide home. Review of Systems REVIEW OF SYSTEMS: CONSTITUTIONAL: No fever, no malaise, no fatigue. HEENT: No recent visual problems or hearing problems. Denied any sore throat. CARDIOVASCULAR: No chest pain, orthopnea, PND, no syncope. PULMONARY: No shortness of breath, no cough, no hemoptysis. GASTROINTESTINAL: No diarrhea, no nausea, no vomiting, no abdominal pain. NEUROLOGICAL: No headaches, no weakness, no numbness. HEMATOLOGICAL: Denies any bleeding or petechiae. GENITOURINARY: Denies any burning micturition, frequency, or urgency. MUSCULOSKELETAL/RHEUMATOLOGICAL: Denies any joint pain, swelling, or any muscle pain. ENDOCRINE: Denies any polyuria or polydipsia. The rest of the 14-point review of systems is negative. 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 Recently cardioverted 06/30 Dr. Torres as outpt. History of Any Multi-Drug Resistant Organisms: None Reported Past Surgical History: Appendectomy, Heart Catheterization, Joint Replacement, Orthopedic Surgery, Tonsillectomy, Tubal Ligation Additional Past Surgical History / Comment(s): HILDA, cardioversion, 2012 cardiac cath-normal, right knee arthroscopies, colonoscopy, L hip Past Anesthesia/Blood Transfusion Reactions: No Reported Reaction Past Psychological History: No Psychological Hx Reported Additional Psychological History / Comment(s): Pt resides with her spouse. She has a nebulizer at home. Lately, she has been using a walker as needed for fatigue Smoking Status: Former smoker Past Alcohol Use History: None Reported Additional Past Alcohol Use History / Comment(s): Pt started smoking in 1961 and quit in 2010 Past Drug Use History: None Reported - Past Family History Father History Unknown: Yes Family Medical History: Cancer Additional Family Medical History / Comment(s): Father had colon cancer. Mother Family Medical History: No Reported History Additional Family Medical History / Comment(s): Mother was healthy and lived to be 93-94 yrs old. Medications and Allergies Home Medications Medication Instructions Recorded Confirmed Type Atorvastatin [Lipitor] 10 mg PO HS 11/25/17 07/15/20 History Ipratropium-Albuterol Nebulize 3 ml INHALATION RT-QID PRN 11/25/17 07/15/20 History [Duoneb 0.5 mg-3 mg/3 ml Soln] Magnesium Chloride [Slow-Mag] 64 mg PO HS 11/25/17 07/15/20 History Montelukast [Singulair] 10 mg PO HS 11/25/17 07/15/20 History Apixaban [Eliquis] 5 mg PO BID 04/09/18 07/15/20 History Furosemide [Lasix] 40 mg PO DAILY 09/05/18 07/15/20 History Albuterol Sulfate [Ventolin HFA] 2 puff INHALATION RT-Q4H PRN 06/11/20 07/15/20 History Calcium Carbonate/Vitamin D3 1 tab PO DAILY 06/11/20 07/15/20 History [Calcium 600-Vit D3 5 Mcg (200 Iu)] Flecainide [Tambocor] 100 mg PO Q12HR 30 Days #60 tab 06/12/20 07/15/20 Rx Diltiazem Cd [Cardizem CD] 180 mg PO BID 06/23/20 07/15/20 History Allergies Allergy/AdvReac Type Severity Reaction Status Date / Time bee venom protein (honey bee) Allergy Anaphylaxis Verified 07/15/20 22:36 Physical Exam Vitals: Vital Signs Temp Pulse Resp BP Pulse Ox 07/16/20 09:30 97.8 F 81 13 114/67 95 07/16/20 08:30 105 H 27 H 112/100 96 07/16/20 07:46 81 07/16/20 07:33 78 07/16/20 04:00 97.7 F 79 19 113/70 96 07/16/20 00:25 76 07/16/20 00:19 93 07/16/20 00:11 93 L 07/16/20 00:00 97.6 F 91 20 126/76 94 L 07/15/20 22:50 101 H 16 97/66 96 07/15/20 21:21 98 16 125/87 95 07/15/20 20:30 97.6 F 84 18 135/81 99 Intake and Output 07/15/20 07/16/20 07/16/20 22:59 06:59 14:59 Intake Total 120 40 Balance 120 40 Intake: IV 120 40 Sodium Chloride 0.9% 1, 120 40 000 ml @ 20 mls/hr IV . Q24H [facility] Rx#:[id number] Other: Voiding Method Toilet # Voids 2 Weight 104.326 kg 105 kg PHYSICAL EXAMINATION: GENERAL: The patient is alert and oriented x3, not in any acute distress. Well developed, well nourished. HEENT: Pupils are round and equally reacting to light. EOMI. No scleral icterus. No conjunctival pallor. Normocephalic, atraumatic. No pharyngeal erythema. No thyromegaly. CARDIOVASCULAR: S1 and S2 present. No murmurs, rubs, or gallops. PULMONARY: Chest is clear to auscultation, no wheezing or crackles. ABDOMEN: Soft, nontender, nondistended, normoactive bowel sounds. No palpable organomegaly. MUSCULOSKELETAL: No joint swelling or deformity. EXTREMITIES: No cyanosis, clubbing, or pedal edema. NEUROLOGICAL: Gross neurological examination did not reveal any focal deficits. SKIN: No rashes. Results CBC & Chem 7: 07/16/20 03:06 07/16/20 03:06 Labs: Abnormal Lab Results - Last 24 Hours (Table) 07/15/20 07/15/20 07/15/20 Range/Units 20:56 20:56 20:56 WBC 10.8 H (3.8-10.6) k/uL APTT 21.9 L (22.0-30.0) sec Sodium (137-145) mmol/L Chloride 97 L (98-107) mmol/L BUN 35 H (7-17) mg/dL Creatinine 1.14 H (0.52-1.04) mg/dL Glucose 119 H (74-99) mg/dL POC Glucose (mg/dL) (75-99) mg/dL 07/15/20 07/16/20 Range/Units 23:44 03:06 WBC (3.8-10.6) k/uL APTT (22.0-30.0) sec Sodium 135 L (137-145) mmol/L Chloride (98-107) mmol/L BUN 34 H (7-17) mg/dL Creatinine 1.08 H (0.52-1.04) mg/dL Glucose 100 H (74-99) mg/dL POC Glucose (mg/dL) 126 H (75-99) mg/dL Thrombosis Risk Factor Assmnt - Choose All That Apply Any of the Below Risk Factors Present?: No Other Risk Factors: Yes Each Risk Factor Represents 3 Points: Age 75 years or older Other congenital or acquired thrombophilia - If yes, enter type in comment: No Thrombosis Risk Factor Assessment Total Risk Factor Score: 3 Thrombosis Risk Factor Assessment Level: Moderate Risk Assessment and Plan Plan: -Atrial fibrillation with rapid ventricular rate continue with the anticoagulation patient is on Cardizem which probably will be weaned off today and patient resumed on oral Cardizem. Cardiology will evaluate the patient. Continue with rest of the rate control medications patient remains in A. fib patient probably persistent A. fib. -Can start failure chronic diastolic dysfunction without any acute exacerbation patient was resumed on home dose of Lasix -COPD without any acute exacerbation patient quit smoking years ago -Severe pulmonary hypertension -Hyperlipidemia
--- NOTE | 2020-07-16 10:22 | XR ---
EXAMINATION TYPE: XR chest 1V DATE OF EXAM: 07/16/2020 COMPARISON: Chest x-ray 07/15/2020 HISTORY: Shortness of breath TECHNIQUE: Single frontal view of the chest is obtained. FINDINGS: Cardiac mediastinal silhouette is stable and enlarged. There is no evident airspace diseas e, pneumothorax, or pleural effusion. Subsegmental atelectatic changes again noted in the left lung b ase Aorta is dense and enlarged, prominent pulmonary arteries noted. There are overlying leads. Overl vilma artifacts noted. Arthropathy noted shoulders. IMPRESSION: Cardiomegaly, basilar atelectasis. Aortic aneurysm, correlate for pulmonary artery hyper tension
[2020-07-16] MEDS: DILTIAZEM 125 MG in SODIUM CHLORIDE 0.9% 100 ML IV SCH (11:51)
--- NOTE | 2020-07-16 12:12 | P.CRDCN ---
History of Present Illness History of present illness: 75-year-old female presenting with sudden onset of palpitations associated with shortness of breath She has a history of atrial fibrillation, was started on flecainide and recently underwent electrical cardioversion by Dr. Oviedo She is visibly short of breath at rest she is in atrial flutter she is on IV Cardizem She was in 180 mg of by mouth Cardizem along with flecainide Past history of atrial fibrillation RV enlargement COPD his lipidemia pneumonitis Initially on examination in the ER her blood pressure was 135/81 mmHg pulse rate was 125 beats a minute Currently her heart rate 7 the low 100s Breath sounds are reduced bilaterally She is visibly short of breath She is tachycardic No lower extremity edema Twelve-lead EKG confirms a rhythm that is consistent with typical atrial flutter with RVR at 103 beats a minute Labs are reviewed hemoglobin 13.2, white count 10.6 Sodium 135, potassium 3.5 BUN 34 creatinine 1.08 TSH 3.4 Troponin normal Impression typical atrial flutter with RVR, on flecainide and anticoagulation, proarrhythmia secondary to flecainide Patient has been on ELIQUIS Atrial fibrillation with RVR requiring HILDA and electrical cardioversion recently Plan Continue anticoagulation Continue rate control medications Proceed with atrial flutter ablation at the earliest Past Medical History Past Medical History: Atrial Fibrillation, Heart Failure, COPD, Hyperlipidemia, Pneumonia Additional Past Medical History / Comment(s): 2007 Valley fever, rheumatic fever as a child, gout L wrist. Recently cardioverted 06/30 Dr. Torres as outpt. History of Any Multi-Drug Resistant Organisms: None Reported Past Surgical History: Appendectomy, Heart Catheterization, Joint Replacement, Orthopedic Surgery, Tonsillectomy, Tubal Ligation Additional Past Surgical History / Comment(s): HILDA, cardioversion, 2012 cardiac cath-normal, right knee arthroscopies, colonoscopy, L hip Past Anesthesia/Blood Transfusion Reactions: No Reported Reaction Past Psychological History: No Psychological Hx Reported Additional Psychological History / Comment(s): Pt resides with her spouse. She has a nebulizer at home. Lately, she has been using a walker as needed for fat igue Smoking Status: Former smoker Past Alcohol Use History: None Reported Additional Past Alcohol Use History / Comment(s): Pt started smoking in 1960 and quit in 2010 Past Drug Use History: None Reported - Past Family History Father History Unknown: Yes Family Medical History: Cancer Additional Family Medical History / Comment(s): Father had colon cancer. Mother Family Medical History: No Reported History Additional Family Medical History / Comment(s): Mother was healthy and lived to be 93-94 yrs old. Medications and Allergies Home Medications Medication Instructions Recorded Confirmed Type Atorvastatin [Lipitor] 10 mg PO HS 11/25/17 07/15/20 History Ipratropium-Albuterol Nebulize 3 ml INHALATION RT-QID PRN 11/25/17 07/15/20 History [Duoneb 0.5 mg-3 mg/3 ml Soln] Magnesium Chloride [Slow-Mag] 64 mg PO HS 11/25/17 07/15/20 History Montelukast [Singulair] 10 mg PO HS 11/25/17 07/15/20 History Apixaban [Eliquis] 5 mg PO BID 04/09/18 07/15/20 History Furosemide [Lasix] 40 mg PO DAILY 09/05/18 07/15/20 History Albuterol Sulfate [Ventolin HFA] 2 puff INHALATION RT-Q4H PRN 06/11/20 07/15/20 History Calcium Carbonate/Vitamin D3 1 tab PO DAILY 06/11/20 07/15/20 History [Calcium 600-Vit D3 5 Mcg (200 Iu)] Flecainide [Tambocor] 100 mg PO Q12HR 30 Days #60 tab 06/12/20 07/15/20 Rx Diltiazem Cd [Cardizem CD] 180 mg PO BID 06/23/20 07/15/20 History Allergies Allergy/AdvReac Type Severity Reaction Status Date / Time bee venom protein (honey bee) Allergy Anaphylaxis Verified 07/15/20 22:36 Physical Exam Vitals: Vital Signs Temp Pulse Resp BP Pulse Ox 07/16/20 11:52 90 07/16/20 09:30 97.8 F 81 13 114/67 95 07/16/20 08:30 105 H 27 H 112/100 96 07/16/20 08:00 1 L 07/16/20 07:46 81 07/16/20 07:33 78 07/16/20 04:00 97.7 F 79 19 113/70 96 07/16/20 00:25 76 07/16/20 00:19 93 07/16/20 00:11 93 L 07/16/20 00:00 97.6 F 91 20 126/76 94 L 07/15/20 22:50 101 H 16 97/66 96 07/15/20 21:21 98 16 125/87 95 07/15/20 20:30 97.6 F 84 18 135/81 99 Intake and Output 07/15/20 07/16/20 07/16/20 22:59 06:59 14:59 Intake Total 120 112.833 Balance 120 112.833 Intake: IV 120 40 Sodium Chloride 0.9% 1, 120 40 000 ml @ 20 mls/hr IV . Q24H [facility] Rx#:[id number] Intake, IV Titration 72.833 Amount Diltiazem 125 mg In 72.833 Sodium Chloride 0.9% 100 ml @ 5 MG/HR 5 mls/hr IV .Q24H [facility] Rx#:[id number] Other: Voiding Method Toilet # Voids 2 Weight 104.326 kg 105 kg Results 07/16/20 03:06 07/16/20 03:06 Cardiac Enzymes 07/15/20 07/15/20 Range/Units 20:56 20:56 AST 20 (14-36) U/L Troponin I <0.012 (0.000-0.034) ng/mL Coagulation 07/15/20 Range/Units 20:56 PT 10.2 (9.0-12.0) sec APTT 21.9 L (22.0-30.0) sec CBC 07/15/20 07/16/20 Range/Units 20:56 03:06 WBC 10.8 H 10.6 (3.8-10.6) k/uL RBC 4.95 4.59 (3.80-5.40) m/uL Hgb 14.1 13.2 (11.4-16.0) gm/dL Hct 42.4 39.5 (34.0-46.0) % Plt Count 247 220 (150-450) k/uL Comprehensive Metabolic Panel 07/15/20 07/16/20 Range/Units 20:56 03:06 Sodium 138 135 L (137-145) mmol/L Potassium 3.8 3.5 (3.5-5.1) mmol/L Chloride 97 L 99 (98-107) mmol/L Carbon Dioxide 29 28 (22-30) mmol/L BUN 35 H 34 H (7-17) mg/dL Creatinine 1.14 H 1.08 H (0.52-1.04) mg/dL Glucose 119 H 100 H (74-99) mg/dL Calcium 10.1 9.3 (8.4-10.2) mg/dL AST 20 (14-36) U/L ALT 14 (4-34) U/L Alkaline Phosphatase 97 (38-126) U/L Total Protein 6.7 (6.3-8.2) g/dL Albumin 4.3 (3.5-5.0) g/dL Current Medications Generic Name Dose Route Start Last Admin Trade Name Freq PRN Reason Stop Dose Admin Albuterol/Ipratropium 3 ml 07/16/20 00:13 07/16/20 11:50 Ipratropium-Albuterol 3 Ml Neb INHALATION 3 ml RT-QID PRN Administration Shortness Of Breath Or Wheezing Apixaban 5 mg 07/16/20 09:00 07/16/20 09:30 Apixaban 5 Mg Tab PO 5 mg BID [facility] Administration Atorvastatin Calcium 10 mg 07/16/20 21:00 Atorvastatin 10 Mg Tab PO HS [facility] Flecainide Acetate 100 mg 07/16/20 09:00 07/16/20 09:34 Flecainide 50 Mg Tab PO 100 mg Q12HR [facility] Administration Furosemide 40 mg 07/16/20 09:00 07/16/20 09:31 Furosemide 40 Mg Tab PO 40 mg DAILY [facility] Administration Diltiazem HCl 125 mg/ Sodium 125 mls @ 5 mls/hr 07/15/20 21:00 07/16/20 11:51 Chloride IV 5 mg/hr .Q24H [facility] 5 mls/hr Administration 5 MG/HR Sodium Chloride 1,000 mls @ 20 mls/hr 07/15/20 22:15 07/16/20 00:13 Saline 0.9% IV 20 mls/hr .Q24H [facility] Administration Magnesium Oxide 400 mg 07/16/20 21:00 Magnesium Oxide 400 Mg Tab PO HS [facility] Montelukast Sodium 10 mg 07/16/20 21:00 Montelukast 10 Mg Tab PO HS [facility] Naloxone HCl 0.2 mg 07/15/20 22:14 Naloxone 0.4 Mg/Ml 1 Ml Vial IV Q2M PRN Opioid Reversal Intake and Output 07/15/20 07/16/20 07/16/20 22:59 06:59 14:59 Intake Total 120 112.833 Balance 120 112.833 Intake: IV 120 40 Sodium Chloride 0.9% 1, 120 40 000 ml @ 20 mls/hr IV . Q24H [facility] Rx#:[id number] Intake, IV Titration 72.833 Amount Diltiazem 125 mg In 72.833 Sodium Chloride 0.9% 100 ml @ 5 MG/HR 5 mls/hr IV .Q24H [facility] Rx#:[id number] Other: Voiding Method Toilet # Voids 2 Weight 104.326 kg 105 kg 07/16/20 03:06 07/16/20 03:06
[2020-07-16] MEDS ORDERED: PROPOFOL 10 MG/ML 20 ML VIAL IV ONE (15:47)
[2020-07-16] MEDS ORDERED: NEOSTIGMINE 1 MG/ML 10 ML VIAL ONE (15:47)
[2020-07-16] MEDS ORDERED: fentaNYL (PF) 50 MCG/ML 2 ML AMP ONE (15:47)
[2020-07-16] MEDS ORDERED: ROCURONIUM 10 MG/ML (10 ML VIAL) IV ONE (15:47)
[2020-07-16] MEDS ORDERED: GLYCOPYRROLATE 0.2 MG/ML 2 ML VIAL ONE (15:47)
[2020-07-16] MEDS ORDERED: FUROSEMIDE 10 MG/ML 2 ML VIAL ONE (15:47)
[2020-07-16] MEDS ORDERED: SUCCINYLCHOLINE CHLORIDE 100 MG/5 ML SYR IV ONE (15:47)
[2020-07-16] MEDS ORDERED: IV FLUID CONTINUATION 700 ML IV ONE ×2 (16:14)
[2020-07-16] MEDS ORDERED: LIDOCAINE 1% INJ 10MG/ML (20 ML MDV) ONE (16:18)
[2020-07-16] MEDS ORDERED: LIDOCAINE 1% INJ 10MG/ML (20 ML MDV) SQ ONE (16:28)
[2020-07-16] MEDS ORDERED: HEPARIN SODIUM (1,000 UNIT/ML) 1,000 UNIT in SODIUM CHLORIDE 0.9% 1,000 ML IRRIGATION ONE (16:34)
[2020-07-16] MEDS ORDERED: LACTATED RINGERS 1,000 ML IV ONE (17:52)
[2020-07-16] MEDS ORDERED: ACETAMINOPHEN IV (For NPO) 1,000 MG in EMPTY BAG 1 BAG IVPB ONE (18:30)
--- NOTE | 2020-07-16 18:52 | CE ---
CARDIAC ELECTROPHYSIOLOGY REPORT Stephanie Colindres is a 75-year-old female patient of Dr. Torres and Dr. Cookie Guevara who came into the hospital with typical atrial flutter with RVR. She was very symptomatic and was very short of breath. She was being treated with flecainide for suppression of atrial fibrillation and had recently undergone electrical cardioversion for atrial fibrillation. She was appropriately anticoagulated from before with Eliquis and therefore she was brought into the EP lab and the procedure was performed under general anesthesia. The patient was brought to the EP lab in a fasting state. Written informed consent was obtained prior to the procedure. The procedure was performed under general anesthesia. She was in atrial flutter at the start of the study with a tachycardia cycle length of 311 milliseconds. Venous sheaths were placed in the right and left femoral veins. An intracardiac echo catheter was placed. Coronary sinus catheter was placed and a mapping and ablation catheter was placed. This was later moved to the high right atrium, His bundle area, right ventricle. First, intracardiac echo was performed. She has a small pericardial effusion with thickened pericardium. Right atrial and left atrial appendages were small, but without any intracardiac mass or thrombus. The right atrial cavotricuspid isthmus was mapped. Three-dimensional electroanatomic mapping was performed. The tricuspid anulus was tagged. The eustachian ridge was tagged. An RF line of block was made along this isthmus and this resulted in termination of atrial flutter. Following that, a complete anatomic line of block was made. With differential pacing, bidirectional block was proven. The isthmus conduction time was greater than 185 milliseconds. Please note that the patient does have a dilated RV and was on flecainide at that time. Following that, baseline measurements were measured. Sinus cycle length was 1064 milliseconds, AR interval was 245 milliseconds, QRS 108 milliseconds, QT 500 milliseconds. AH 104 milliseconds and HV interval 37 milliseconds. Sinus node recovery times at 600, 500 and 400 milliseconds were 1466, 1486 and 1627 milliseconds. The corrected sinus node recovery times were prolonged. AV node Wenckebach block 540 milliseconds. VA Wenckebach block 500 milliseconds. All catheters were then removed at the end of the procedure. Pericardium was unchanged from before. IMPRESSION: 1. Typical atrial flutter with RVR and symptomatic. 2. Successful atrial flutter ablation with termination and demonstration of bidirectional block with differential pacing. PLAN: Reduce the dose of oral Cardizem and consider treating with flecainide 50 to 100 mg p.o. b.i.d. depending upon her heart rate and AR interval. MMMACIE / WAYNE: [id number] /
--- NOTE | 2020-07-16 18:52 | CE ---
CARDIAC ELECTROPHYSIOLOGY REPORT July 16, 2020 To: Dr. Cookie Guevara Re: Stephanie Colindres (41) Dear Cookie, I had the pleasure seeing Stephanie Colindres in electrophysiology consultation today. She came in with atrial flutter with RVR. She had undergone cardioversion for atrial fibrillation by Dr. Torres. She had been placed on flecainide and she came in with atrial flutter as a result of the proarrhythmia. She underwent successful atrial flutter ablation with demonstration of bidirectional block. She will continue flecainide for suppression of atrial fibrillation and continue Eliquis. I will reduce the dose of oral Cardizem, too. Thank you for entrusting me with the care of your patient. Warm regards. Sincerely, Chris Banegas M.D. GERMANIA / WAYNE: [id number] /
[2020-07-16] MEDS ORDERED: ATORVASTATIN 10 MG TAB PO SCH (21:00)
[2020-07-16] MEDS ORDERED: MAGNESIUM OXIDE 400 MG TAB PO SCH (21:00)
[2020-07-16] MEDS ORDERED: MONTELUKAST 10 MG TAB PO SCH (21:00)
[2020-07-16] MEDS: ACETAMINOPHEN TAB 325 MG TAB PO PRN (22:17)
[2020-07-17] MEDS: ACETAMINOPHEN TAB 325 MG TAB PO PRN (04:02)
[2020-07-17 04:50] LABS: HCT 38.9 % (34.0-46.0); HGB 12.9 gm/dL (11.4-16.0); MCH 28.9 pg (25.0-35.0); MCHC 33.1 g/dL (31.0-37.0); MCV 87.1 fL (80.0-100.0); Mean Platelet Volume 7.8; Platelet Count 196 k/uL (150-450); RBC 4.47 m/uL (3.80-5.40); RDW 13.1 % (11.5-15.5); WBC 8.6 k/uL (3.8-10.6)
[2020-07-17 05:01] LABS: Potassium 3.5 mmol/L (3.5-5.1)
[2020-07-17] MEDS: IPRATROPIUM-ALBUTEROL 3 ML NEB INHALATION PRN ×2 (07:55→10:56)
[2020-07-17 08:58] VITALS: RESP 14; TEMP 97.6
[2020-07-17] MEDS: APIXABAN 5 MG TAB PO SCH (09:00)
[2020-07-17] MEDS: FUROSEMIDE 40 MG TAB PO SCH (09:00)
[2020-07-17] MEDS: FLECAINIDE 50 MG TAB PO SCH (09:00)
[2020-07-17 12:45] VITALS: BP 121/72; PULSE 87
--- NOTE | 2020-07-17 14:50 | P.PN ---
Subjective Patient is seen and examined sitting up in bed eating lunch in no acute distress. She states overall she feels so much better. She has no symptoms of chest pain, shortness of breath, dizziness or palpitations. Blood pressure 121/72 heart rate 87 afebrile maintaining oxygen saturation on room air. Laboratory data reviewed, CBC unremarkable, sodium 136, potassium 3.5, creatinine 1.09. GENERAL: Well-appearing, well-nourished and in no acute distress. NECK: Supple without JVD or thyromegaly. LUNGS: Breath sounds clear to auscultation bilaterally. Respiration equal and unlabored. No wheezes, rales or rhonchi. HEART: Regular rate and rhythm with systolic ejection murmur at the left sternal border, no rubs or gallops. S1 and S2 heard. EXTREMITIES: Normal range of motion, no edema. No clubbing or cyanosis. Peripheral pulses intact. Bilateral femoral access sites soft, nontender with no hematoma or ecchymosis. ASSESSMENT Typical atrial flutter with rapid ventricular rate status post ablation PLAN Stable for discharge on current medical regimen. The importance of uninterrupted anticoagulation discussed in detail with the patient. Recommend decreasing diltiazem to 180 mg daily at home. Follow-up in the office next week with Dr. Torres. Nurse Practitioner note has been reviewed, I agree with a documented findings and plan of care. Patient was seen and examined. Objective - Vital Signs Vital signs: Vital Signs Temp 97.6 F 07/17/20 12:00 Pulse 87 07/17/20 12:00 Resp 14 07/17/20 12:00 BP 121/72 07/17/20 12:00 Pulse Ox 93 L 07/17/20 12:00 Intake & Output 07/16/20 07/17/20 07/17/20 18:59 06:59 18:59 Intake Total 1342.833 Output Total 30 2200 Balance 1312.833 -2200 Intake: IV 1270 Sodium Chloride 0.9% 1, 40 000 ml @ 20 mls/hr IV . Q24H [facility] Rx#:[id number] Intake, IV Titration 72.833 Amount Diltiazem 125 mg In 72.833 Sodium Chloride 0.9% 100 ml @ 5 MG/HR 5 mls/hr IV .Q24H [facility] Rx#:[id number] Output: Urine 30 2200 Other: Voiding Method Toilet Toilet # Voids 1 - Labs CBC & Chem 7: 07/17/20 04:10 07/17/20 04:10 Labs: Abnormal Lab Results - Last 24 Hours (Table) 07/17/20 Range/Units 04:10 Sodium 136 L (137-145) mmol/L Carbon Dioxide 33 H (22-30) mmol/L BUN 26 H (7-17) mg/dL Creatinine 1.09 H (0.52-1.04) mg/dL Glucose 107 H (74-99) mg/dL
--- NOTE | 2020-07-17 15:26 | P.DS ---
Providers Date of admission: 07/15/20 22:14 Expected date of discharge: 07/17/20 Attending physician: Adrián Omalley MD Consults: 07/15/20 22:15 Consult Physician Urgent Consulting Provider: Albert Irwin Consult Reason/Comments: a flutter w rvr Do you want consulting provider notified?: Yes Primary care physician: [facility] Course: 75-year-old female came in the emergency department with compensative palpitations. Patient does have history of atrial fibrillation patient is found to be in A. fib with rapid ventricular rate was subsequently admitted with the Cardibanner. Patient had a normal ejection fraction the past. Patient had severe pulmonary hypertension. Patient was short of breath upon ablation denied any orthopnea paroxysmal nocturnal dyspnea chest x-ray did not show any pneumonia but did show some atelectasis. Patient denied any fever chills patient denied any cough. Patient is on Eliquis which is being resumed at this time. Patient heart rate the has come down on IV Cardizem patient does use oral Cardizem and flecanide home. patient had EKG done in ED which confirmed; typical atrial flutter lab review reveals a hemoglobin of 13.2, hemoglobin 10.6, sodium 135, potassium 3.5 and BUN/creatinine of 34/1.08; troponin was negative and TSH of 3.4 Patient was evaluated by cardiology and recommended to continue with; anticoagulation; patient has had HILDA and electrical cardioversion done recently; cardiology or recommended proceeding with atrial flutter ablation; patient tolerated procedure well and remained stable; recommended uninterrupted anticoagulation and decreasing diltiazem; patient will follow with primary inspector of weights and measures Plan - Discharge Summary Discharge Rx Participant: No New Discharge Prescriptions: Continue Atorvastatin [Lipitor] 10 mg PO HS Ipratropium-Albuterol Nebulize [Duoneb 0.5 mg-3 mg/3 ml Soln] 3 ml INHALATION RT-QID PRN PRN Reason: Shortness Of Breath Magnesium Chloride [Slow-Mag] 64 mg PO HS Montelukast [Singulair] 10 mg PO HS Apixaban [Eliquis] 5 mg PO BID Furosemide [Lasix] 40 mg PO DAILY Albuterol Sulfate [Ventolin HFA] 2 puff INHALATION RT-Q4H PRN PRN Reason: Shortness Of Breath Calcium Carbonate/Vitamin D3 [Calcium 600-Vit D3 5 Mcg (200 Iu)] 1 tab PO DAILY Flecainide [Tambocor] 100 mg PO Q12HR 30 Days #60 tab Changed Diltiazem Cd [Cardizem CD] 180 mg PO DAILY #0 Discharge Medication List Atorvastatin [Lipitor] 10 mg PO HS 11/25/17 [History] Ipratropium-Albuterol Nebulize [Duoneb 0.5 mg-3 mg/3 ml Soln] 3 ml INHALATION RT-QID PRN 11/25/17 [History] Magnesium Chloride [Slow-Mag] 64 mg PO HS 11/25/17 [History] Montelukast [Singulair] 10 mg PO HS 11/25/17 [History] Apixaban [Eliquis] 5 mg PO BID 04/09/18 [History] Furosemide [Lasix] 40 mg PO DAILY 09/05/18 [History] Albuterol Sulfate [Ventolin HFA] 2 puff INHALATION RT-Q4H PRN 06/11/20 [History] Calcium Carbonate/Vitamin D3 [Calcium 600-Vit D3 5 Mcg (200 Iu)] 1 tab PO DAILY 06/11/20 [History] Flecainide [Tambocor] 100 mg PO Q12HR 30 Days #60 tab 06/12/20 [Rx] Diltiazem Cd [Cardizem CD] 180 mg PO DAILY #0 07/17/20 [Rx] Follow up Appointment(s)/Referral(s): Cookie Guevara MD [Primary Care Provider] - 1-2 days Yasmani Torres MD [STAFF PHYSICIAN] - 07/24/20 1:45 pm Discharge Disposition: HOME SELF-CARE
== END 2020-07-17 15:37 | disposition home or self-care (01) | DRG 274 ==
LOC: EC 20:27 → 2SICU 22:14
PROVIDERS: ADMIT Internal Medicine; ATTEND Internal Medicine
PROC: 4A0234Z Measurement of Cardiac Electrical Activity, Percutaneous Approach (ICD-10-PCS; 2020-07-16)
PROC: 02583ZZ Destruction of Conduction Mechanism, Percutaneous Approach (ICD-10-PCS; principal; 2020-07-16 12:40)
PROC: 02K83ZZ Map Conduction Mechanism, Percutaneous Approach (ICD-10-PCS; 2020-07-16 12:40)
PROC: 4A023FZ Measurement of Cardiac Rhythm, Percutaneous Approach (ICD-10-PCS; 2020-07-16 12:40)
DX: I48.3 Typical atrial flutter (principal); I31.3 Pericardial effusion (noninflammatory); I50.32 Chronic diastolic (congestive) heart failure; J98.11 Atelectasis; I27.22 Pulmonary hypertension due to left heart disease; I48.19 Other persistent atrial fibrillation; J44.9 Chronic obstructive pulmonary disease, unspecified; Z20.822 Contact with and (suspected) exposure to COVID-19; E78.5 Hyperlipidemia, unspecified; M10.9 Gout, unspecified; Z79.01 Long term (current) use of anticoagulants; Z79.899 Other long term (current) drug therapy; Z87.01 Personal history of pneumonia (recurrent); Z87.891 Personal history of nicotine dependence; Z86.19 Personal history of other infectious and parasitic diseases; Z90.49 Acquired absence of other specified parts of digestive tract; Z98.51 Tubal ligation status; Z98.890 Other specified postprocedural states; Z96.60 Presence of unspecified orthopedic joint implant; Z91.030 Bee allergy status; Z80.0 Family history of malignant neoplasm of digestive organs
CPT/HCPCS: 36415; 71045; 71046; 80048; 80053; 83735; 83880; 84439; 84443; 84481; 84484; 85025; 85027; 85610; 85730; 87635; 93005; 93613; 93653; 93662; 94640; 96365; 96366; 99291

== ENCOUNTER 2020-11-30 05:59 | Day surgery (SDC) | payer MEDICARE ==
[2020-11-26 15:53] VITALS: BMI 34.7
[~2020-11-30 05:59] MED LIST changes: +ALPRAZolam 0.25 MG TAB PO PRN; +ALPRAZolam 0.5 MG TAB PO PRN; +ASPIRIN 325 MG TAB PO STA; +ATORVASTATIN 80 MG TAB PO STA; -LACTATED RINGERS 1,000 ML IV SCH; +NITROGLYCERIN SL TABS 0.4 MG TAB SUBLINGUAL PRN; -SODIUM CHLORIDE 0.9% 1,000 ML IV SCH; +SODIUM CHLORIDE 0.9% 1,000 ML in EMPTY BAG 1 BAG IV ONE
[2020-11-30] MEDS ORDERED: SODIUM CHLORIDE 0.9% 1,000 ML IV SCH ×2 (06:00→09:30)
[2020-11-30 06:44] VITALS: TEMP 97.7
[2020-11-30 06:46] LABS: Calcium 9.2 mg/dL (8.4-10.2); Potassium 4.3 mmol/L (3.5-5.1)
[2020-11-30] MEDS ORDERED: IV FLUID CONTINUATION 650 ML IV ONE (07:14)
[2020-11-30] MEDS ORDERED: fentaNYL (PF) 50 MCG/ML 2 ML AMP ONE (07:14)
[2020-11-30] MEDS ORDERED: VERAPAMIL 2.5 MG/ML 2 ML AMP ONE (07:21)
[2020-11-30] MEDS ORDERED: LIDOCAINE 1% INJ 10MG/ML (20 ML MDV) ONE (07:22)
[2020-11-30] MEDS ORDERED: BENZOCAINE SPRAY 1 CAN TOPICAL ONE (07:56)
[2020-11-30] MEDS ORDERED: MIDAZOLAM 2 MG/2 ML VIAL IV ONE (07:56)
[2020-11-30] MEDS: fentaNYL (PF) 50 MCG/ML 2 ML AMP IV ONE ×2 (08:00→08:53)
[2020-11-30] MEDS: MIDAZOLAM 2 MG/2 ML VIAL IV ONE ×2 (08:04→08:49)
[2020-11-30 08:13] VITALS: RESP 14
[2020-11-30] MEDS ORDERED: HEPARIN SODIUM 1,000 UN/ML (10ML VL) ONE (08:51)
[2020-11-30] MEDS ORDERED: LIDOCAINE 1% INJ 10MG/ML (20 ML MDV) SQ ONE (08:51)
[2020-11-30] MEDS ORDERED: VERAPAMIL SYRINGE (5 MG/10 ML) INTRAARTER ONE (08:52)
[2020-11-30] MEDS ORDERED: IOPAMIDOL-370 125ML BTL INJ ONE (09:06)
[2020-11-30] MEDS ORDERED: RX INFO: IV CONTRAST WAS GIVEN 1 EACH MISC MISCELLANE PRN (09:19)
--- NOTE | 2020-11-30 11:34 | ECHOT ---
TRANSESOPHAGEAL ECHOCARDIOGRAM DATE OF PROCEDURE: NOVEMBER 30, 2020 PERFORMING PHYSICIAN: Yasmani Torres MD. PROCEDURE PERFORMED: Transesophageal echocardiogram. INDICATION: This is a 75-year-old female patient who was diagnosed recently with increasing shortness of breath. She is known to have mitral regurgitation and aortic regurgitation. Transthoracic echocardiogram recently revealed moderate to severe MR and because of that, the patient was brought today for further evaluation. COMPLICATION: None. LEVEL OF SEDATION: Moderate with sedation length of 11 minutes. PROCEDURE DESCRIPTION: After obtaining an informed consent, explaining the procedure, benefits, risks, complications and alternatives, the patient was brought to the transesophageal echocardiogram suite. A pulse oximetry and heart rate monitors were attached to the patient prior to the procedure. The patient's throat was sprayed using lidocaine locally. Following that, the patient was turned into left lateral position. A bite guard was placed and the patient was then sedated with the above doses of Versed and fentanyl in divided doses. Following that, the transesophageal echocardiogram probe was advanced through the bite guard into the mid esophagus where 2-D echocardiogram images as well as color Doppler images of various cardiac structures were obtained. We evaluated the interatrial septum using 2-D echocardiogram, color Doppler, and contrast study. The procedure was completed. There were no complications. The HILDA was performed using a 2D echocardiogram as well as color Doppler and pulse Doppler, and continuous day wave Doppler. FINDINGS: The left ventricular dimension and systolic function appeared to be within normal limits. The ejection fraction appeared to be in the range of 50% to 55%. The right ventricle appeared to be of normal size and function. The left atrium appeared to be dilated. Left atrial appendage appeared to be free from any thrombus. The interatrial septum appeared to be intact. The aortic valve is trileaflet valve without stenosis with mild insufficiency. The mitral valve seems to be thickened, especially the posterior mitral leaflet with evidence of moderate mitral regurgitation. There was moderate tricuspid regurgitation seen. CONCLUSION: 1. Normal left ventricular dimension and systolic function. 2. Normal right ventricular dimension and systolic function. 3. Aortic sclerosis without stenosis with mild insufficiency. 4. Thickened mitral valve leaflets with moderate MR. 5. Mild to moderate tricuspid regurgitation. 6. No evidence of pericardial effusion. MMODL / IJN: [id number] /
[2020-11-30 13:48] VITALS: BP 126/64; PULSE 46
--- NOTE | 2020-11-30 14:16 | CC ---
CARDIAC CATHETERIZATION REPORT DATE OF SERVICE: November 30, 2020. PERFORMING PHYSICIAN: Yasmani Torres MD. PROCEDURE PERFORMED: 1. Selective right and left coronary angiogram. 2. Left heart catheterization. INDICATION: This is a 75-year-old female patient who was experiencing increasing shortness of breath with exertion. Recent transthoracic echocardiogram revealed evidence of moderate to severe MR. She underwent a HILDA and she was brought today to undergo a heart catheterization. APPROACH: Right radial artery. COMPLICATION: None. LEVEL OF SEDATION: Moderate with sedation length of 14 minutes. PROCEDURE DESCRIPTION: After obtaining an informed consent, after that right radial artery was cannulated using micropuncture technique, the micropuncture wire passed easily then I placed a 6- Swiss sheath at the right radial artery. Subsequently, I gave the patient 2 mg of verapamil IA and 6000 units of heparin IV. Selective right and left coronary angiogram were performed using JR4 and JL3.5 catheters. Left heart catheterization was performed using 5-Swiss pigtail catheter. The procedure was completed without any complication. SELECTIVE CORONARY ANGIOGRAM: 1. The RCA is a large caliber vessel. It is a nondominant vessel and appeared to be angiographically normal. 2. The left main is angiographically normal. It bifurcates into LCX and LAD. 3. The LCX is a large caliber vessel and is a dominant vessel. The LCX is angiographically normal. It gives rise into large 1st, 2nd and 3rd obtuse marginal branches and all of them appeared to be angiographically normal. 4. The LAD is a large caliber vessel. The LAD is angiographically normal. It gives rise into multiple diagonal branches. They appeared to be angiographically normal. HEMODYNAMICS: The LVEDP was 20 mmHg without significant gradient across aortic valve. CONCLUSION: 1. Normal coronary angiogram. 2. Elevated left ventricular end-diastolic pressure. POSTPROCEDURE MANAGEMENT: 1. Medical treatment. 2. Follow up with the patient. MMODL / IJN: [id number] /
== END 2020-11-30 14:05 | disposition home or self-care (01) ==
LOC: CATHCVL 05:59
PROVIDERS: ATTEND Internal Medicine Interventional Cardiology
DX: R06.02 Shortness of breath (principal); I48.0 Paroxysmal atrial fibrillation; Z20.822 Contact with and (suspected) exposure to COVID-19; I10 Essential (primary) hypertension; E78.5 Hyperlipidemia, unspecified; E66.9 Obesity, unspecified; Z79.899 Other long term (current) drug therapy; I08.3 Combined rheumatic disorders of mitral, aortic and tricuspid valves; I65.23 Occlusion and stenosis of bilateral carotid arteries; Z88.8 Allergy status to other drugs, medicaments and biological substances
CPT/HCPCS: 93312; 93320; 93325; 93458; 80048; 87635; C1894; C1769; J2250; J2001; J3010; J1644; Q9967

== ENCOUNTER 2022-02-09 13:40 | Inpatient (IN) | payer MEDICARE ==
[2022-02-09 14:21] LABS: Basophils % (A) 0 %; Eosinophils # (A) 0.1 k/uL (0-0.7); Eosinophils % (A) 1 %; HCT 41.1 % (34.0-46.0); HGB 13.4 gm/dL (11.4-16.0); Lymphocytes # (A) 1.1 k/uL (1.0-4.8); Lymphocytes % (A) 11 %; MCH 27.9 pg (25.0-35.0); MCHC 32.7 g/dL (31.0-37.0); MCV 85.2 fL (80.0-100.0); Mean Platelet Volume 7.8; Monocytes # (A) 0.5 k/uL (0-1.0); Monocytes % (A) 5 %; Neutrophils # (A) 8.7 k/uL (1.3-7.7); Neutrophils % (A) 82 %; Platelet Count 257 k/uL (150-450); RBC 4.82 m/uL (3.80-5.40); RDW 14.3 % (11.5-15.5); WBC 10.7 k/uL (3.8-10.6)
--- NOTE | 2022-02-09 14:28 | XR ---
EXAMINATION TYPE: XR chest 2V DATE OF EXAM: 02/09/2022 COMPARISON: 07/16/2020 TECHNIQUE: PA and lateral views submitted. HISTORY: Pain FINDINGS: The lungs are clear and there is no pneumothorax, pleural effusion, or focal pneumonia. Heart is en larged hypertrophic degenerative change of the spine. Arthropathy of the shoulder. Hyperinflation sug gests COPD. IMPRESSION: 1. Cardiomegaly, correlate for COPD.
[2022-02-09 14:33] LABS: Albumin 4.3 g/dL (3.5-5.0); Calcium 9.1 mg/dL (8.4-10.2); Potassium 3.9 mmol/L (3.5-5.1); Total Bilirubin 0.7 mg/dL (0.2-1.3); Total Protein 6.7 g/dL (6.3-8.2)
[2022-02-09 14:40] LABS: Partial Thromboplastin Time 26.4 sec (22.0-30.0)
[2022-02-09] MEDS ORDERED: ASPIRIN 81 MG PO STA (15:15)
[2022-02-09] MEDS ORDERED: NITROGLYCERIN SL TABS 0.4 MG TAB SUBLINGUAL PRN (15:19)
--- NOTE | 2022-02-09 15:19 | ED ---
General Adult HPI - General Chief complaint: Chest Pain Stated complaint: chest pain Time Seen by Provider: 02/09/22 15:01 Source: patient, EMS Mode of arrival: EMS Limitations: no limitations - History of Present Illness Initial comments: Dictation was produced using [employer] dictation software. please excuse any grammatical, word or spelling errors. Chief Complaint: 76-year-old female multiple cardiac comorbidities presents to the emergency department for episode of chest pressure History of Present Illness: Patient is 68-year-old female presents to the emergency department for episode of chest pressure. She states she explains earlier today. She reports it as a burning pressure-like sensation to the anterior chest. Nonradiating. No associated diaphoresis or nausea. Passive for several minutes. Patient has multiple cardiac comorbidities. She however does not have a history of coronary artery disease. Patient states that at the bedside she feels a symptomatic at this point. She has no other complaints. She is coming by her . She has established care with Dr. Torres. Denies any shortness of breath The ROS documented in this emergency department record has been reviewed and confirmed by me. Those systems with pertinent positive or negative responses have been documented in the HPI. All other systems are other negative and/or noncontributory. PHYSICAL EXAM: General Impression: Alert and oriented x3, not in acute distress HEENT: Normocephalic atraumatic, extra-ocular movements intact, pupils equal and reactive to light bilaterally, mucous membranes moist. Cardiovascular: Heart regular rate and rhythm Chest: Able to complete full sentences, no retractions, no tachypnea Abdomen: abdomen soft, non-tender, non-distended, no organomegaly Musculoskeletal: Pulses present and equal in all extremities, no peripheral edema Motor: no focal deficits noted Neurological: CN II-XII grossly intact, no focal motor or sensory deficits noted Skin: Intact with no visualized rashes Psych: Normal affect and mood ED course: 76-year-old well-appearing female multiple cardiac comorbidities presents to the emergency department for a total chest pain typical features. Signs upon arrival are within acceptable limits. EKG was obtained showing no signs of ischemia or infarction. Patient medical record was reviewed. She did have a cardiac catheterization performed in November of last year that did not show any evidence of coronary artery disease. Labs were ordered by triage nurse per [facility] protocol. CBC, coag panel, metabolic panel within acceptable limits. Troponin is negative. Chest x-ray shows cardiomegaly. Disposition options were discussed with patient she is agreeable for observation admission for cardiac monitoring, cardiology consultation. Patient be admitted to [facility]. Patient given aspirin EKG interpretation: Ventricular rate 62, sinus rhythm,. Interval to 10, QRS 126, QTC 476. No AR prolongation, no QTC prolongation, no ST or T-wave changes noted. EKG compared to 07/15/2020 showing no changes. Overall, this EKG is unremarkable - Related Data Home Medications Medication Instructions Recorded Confirmed Atorvastatin [Lipitor] 10 mg PO HS 11/25/17 11/30/20 Ipratropium-Albuterol Nebulize 3 ml INHALATION RT-QID 11/25/17 11/30/20 [Duoneb 0.5 mg-3 mg/3 ml Soln] Magnesium Chloride [Slow-Mag] 64 mg PO HS 11/25/17 11/30/20 Montelukast [Singulair] 10 mg PO HS 11/25/17 11/30/20 Apixaban [Eliquis] 5 mg PO BID 04/09/18 11/30/20 Furosemide [Lasix] 40 mg PO DAILY 09/05/18 11/30/20 Albuterol Sulfate [Ventolin HFA] 2 puff INHALATION RT-Q4H PRN 06/11/20 11/30/20 Calcium Carbonate/Vitamin D3 1 tab PO DAILY 06/11/20 11/30/20 [Calcium 600-Vit D3 5 Mcg (200 Iu)] Diltiazem Cd [Cardizem CD] 180 mg PO BID 11/26/20 11/30/20 Previous Rx's Medication Instructions Recorded Flecainide [Tambocor] 100 mg PO Q12HR 30 Days #60 tab 06/12/20 Allergies Allergy/AdvReac Type Severity Reaction Status Date / Time bee venom protein (honey bee) Allergy Anaphylaxis Verified 02/09/22 13:54 Review of Systems ROS Statement: Those systems with pertinent positive or pertinent negative responses have been documented in the HPI. ROS Other: All systems not noted in ROS Statement are negative. 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 History of Any Multi-Drug Resistant Organisms: None Reported Past Surgical History: Appendectomy, Heart Catheterization, Joint Replacement, Orthopedic Surgery, Tonsillectomy, Tubal Ligation Additional Past Surgical History / Comment(s): HILDA, cardioversion, 2012 cardiac cath-normal, right knee arthroscopies, colonoscopy, L hip replaced cardiac ablation 08/02 Past Anesthesia/Blood Transfusion Reactions: No Reported Reaction Past Psychological History: No Psychological Hx Reported Smoking Status: Former smoker Past Alcohol Use History: None Reported Past Drug Use History: None Reported - Past Family History Father History Unknown: Yes Family Medical History: Cancer Additional Family Medical History / Comment(s): Father had colon cancer. Mother Family Medical History: No Reported History Additional Family Medical History / Comment(s): Mother was healthy and lived to be 93-94 yrs old. General Exam Limitations: no limitations Course Vital Signs 02/09/22 13:52 Temperature 98.3 F Pulse Rate 66 Respiratory 20 Rate Blood Pressure 150/66 O2 Sat by Pulse 94 L Oximetry Medical Decision Making - Lab Data Result diagrams: 02/09/22 14:01 02/09/22 14:01 Lab Results 02/09/22 02/09/22 02/09/22 Range/Units 14:01 14:01 14:01 WBC 10.7 H (3.8-10.6) k/uL RBC 4.82 (3.80-5.40) m/uL Hgb 13.4 (11.4-16.0) gm/dL Hct 41.1 (34.0-46.0) % MCV 85.2 (80.0-100.0) fL MCH 27.9 (25.0-35.0) pg MCHC 32.7 (31.0-37.0) g/dL RDW 14.3 (11.5-15.5) % Plt Count 257 (150-450) k/uL MPV 7.8 Neutrophils % 82 % Lymphocytes % 11 % Monocytes % 5 % Eosinophils % 1 % Basophils % 0 % Neutrophils # 8.7 H (1.3-7.7) k/uL Lymphocytes # 1.1 (1.0-4.8) k/uL Monocytes # 0.5 (0-1.0) k/uL Eosinophils # 0.1 (0-0.7) k/uL Basophils # 0.0 (0-0.2) k/uL PT 11.0 (9.0-12.0) sec INR 1.0 (<1.2) APTT 26.4 (22.0-30.0) sec Sodium 136 L (137-145) mmol/L Potassium 3.9 (3.5-5.1) mmol/L Chloride 95 L (98-107) mmol/L Carbon Dioxide 27 (22-30) mmol/L Anion Gap 14 mmol/L BUN 33 H (7-17) mg/dL Creatinine 1.62 H (0.52-1.04) mg/dL Est GFR (CKD-EPI)AfAm 35 (>60 ml/min/1.73 sqM) Est GFR (CKD-EPI)NonAf 30 (>60 ml/min/1.73 sqM) Glucose 111 H (74-99) mg/dL Calcium 9.1 (8.4-10.2) mg/dL Total Bilirubin 0.7 (0.2-1.3) mg/dL AST 17 (14-36) U/L ALT 13 (4-34) U/L Alkaline Phosphatase 126 (38-126) U/L Troponin I (0.000-0.034) ng/mL NT-Pro-B Natriuret Pep pg/mL Total Protein 6.7 (6.3-8.2) g/dL Albumin 4.3 (3.5-5.0) g/dL 02/09/22 02/09/22 Range/Units 14:01 14:01 WBC (3.8-10.6) k/uL RBC (3.80-5.40) m/uL Hgb (11.4-16.0) gm/dL Hct (34.0-46.0) % MCV (80.0-100.0) fL MCH (25.0-35.0) pg MCHC (31.0-37.0) g/dL RDW (11.5-15.5) % Plt Count (150-450) k/uL MPV Neutrophils % % Lymphocytes % % Monocytes % % Eosinophils % % Basophils % % Neutrophils # (1.3-7.7) k/uL Lymphocytes # (1.0-4.8) k/uL Monocytes # (0-1.0) k/uL Eosinophils # (0-0.7) k/uL Basophils # (0-0.2) k/uL PT (9.0-12.0) sec INR (<1.2) APTT (22.0-30.0) sec Sodium (137-145) mmol/L Potassium (3.5-5.1) mmol/L Chloride (98-107) mmol/L Carbon Dioxide (22-30) mmol/L Anion Gap mmol/L BUN (7-17) mg/dL Creatinine (0.52-1.04) mg/dL Est GFR (CKD-EPI)AfAm (>60 ml/min/1.73 sqM) Est GFR (CKD-EPI)NonAf (>60 ml/min/1.73 sqM) Glucose (74-99) mg/dL Calcium (8.4-10.2) mg/dL Total Bilirubin (0.2-1.3) mg/dL AST (14-36) U/L ALT (4-34) U/L Alkaline Phosphatase (38-126) U/L Troponin I <0.012 (0.000-0.034) ng/mL NT-Pro-B Natriuret Pep 1050 pg/mL Total Protein (6.3-8.2) g/dL Albumin (3.5-5.0) g/dL Disposition Clinical Impression: Chest pain Disposition: ADMITTED IP TO THIS HOSP Condition: Fair Referrals: Cookie Guevara MD [Primary Care Provider] - 1-2 days Decision Time: 15:19
--- NOTE | 2022-02-09 16:43 | P.HPIM ---
History of Present Illness H&P Date: 02/09/22 History of Presenting Illness: Patient is a very pleasant 76-year-old female with a past medical history CAD, chronic diastolic heart failure with previously known EF of 50-55%, atrial fibrillation on anticoagulation with Eliquis, hyperlipidemia, severe pulmonary hypertension, and COPD. She presented to the emergency department with the chief complaint of chest pain/pressure. Patient reported sudden onset pain to the midsternal region of chest in which she described described as a burning "firery" sensation accompanied by nausea. Patient denied experiencing any radiation of pain and denied having any other complaints including dizziness, lightheadedness, diaphoresis, fevers, palpitations, shortness of breath, cough or congestion, abdominal pain, vomiting, or experiencing any numbness/tingling/weakness in her extremities. Patient underwent full evaluation in the emergency department. EKG completed revealing sinus rhythm at 62 bpm with a slight first-degree AV block with IN interval of 210 ms and an occasional PAC. Chest x-ray negative for acute cardiopulmonary process however revealing cardiomegaly and hyperinflation of lung suggestive of COPD. Labs completed. CBC showing no significant abnormalities with the exception of mild leukocytosis with W BC count of 10.7. CMP revealing an acute kidney injury with BUN of 33, creatinine 1.62, and GFR of 30 with baseline creatinine of 1. Troponin negative at less than 0.012 and pro-BMP 1050. Patient admitted under our services with consultation to cardiology. At time of admission, patient reports all chest pain had subsided. Review of systems: Pertinent positives and negatives as discussed in HPI, a complete review of systems was performed and all other systems are negative. Physical exam: Vital signs reviewed and stable. General: Nontoxic, no distress and appears stated age. Derm: Skin warm and dry, normal coloration for ethnicity. Head: Atraumatic, normocephalic and symmetric. Eyes: EOMs intact, no lid lag, and anicteric sclera Mouth: no lip lesions, mucus membranes moist Cardiovascular: regular rate and rhythm with normal S1S2, grade IV systolic murmur, positive posterior tibial pulses bilaterally, and cap refill < 2 seconds. Lungs: Respirations even, regular, and unlabored on room air. Lungs CTA bilaterally, no rhonchi, no rales, no wheezing, and no accessory muscle usage. Abdominal: soft, nontender to palpation, no guarding, no appreciable organomegaly Ext: ROM intact. No gross muscle atrophy, 3+ pitting BLE edema, no contractures Neuro: Speech clear, face symmetrical and CN II-XII grossly intact with no noted focal neuro deficits Psych: Alert and oriented to person, place, time, and situation. Appropriate and pleasant affect. Assessment and Plan of Care: Chest pain, rule out acute coronary event History of CAD Chronic diastolic heart failure with previously known EF of 50-55% Atrial fibrillation Hyperlipidemia Severe pulmonary hypertension -Cardiology consulted, appreciate further recommendations -Telemetry monitoring -Trend troponins -Cardiac diet, NPO at midnight -Continue cardiac medication regimen with amlodipine, Eliquis, Atorvastatin, Cardizem, Flecainide, and Torsemide -Lipid profile with a.m. labs. -Echocardiogram COPD, not in acute exacerbation -DuoNeb's as needed for shortness of breath and/or wheezing -Continue nightly Singulair -Monitor pulse ox and provide oxygen supplementation if needed to maintain SpO2 equal to or greater than 90%. The patient is admitted with an anticipated less than 2 midnight stay for evaluation of chest pain CODE STATUS: Full code DVT prophylaxis: Santos Discussed with: Patient and RN Anticipated discharge date: 1-[address]: Home A total of 46 minutes was spent on the care of this complex patient more than 50% of the time was spent in counseling and care coordination. I reviewed the documentation as provided by the SAVANNAH above, who is the original author of this note. 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 History of Any Multi-Drug Resistant Organisms: None Reported Past Surgical History: Appendectomy, Heart Catheterization, Joint Replacement, Orthopedic Surgery, Tonsillectomy, Tubal Ligation Additional Past Surgical History / Comment(s): HILDA, cardioversion, 2012 cardiac cath-normal, right knee arthroscopies, colonoscopy, L hip replaced cardiac abla tion 08/02 Past Anesthesia/Blood Transfusion Reactions: No Reported Reaction Past Psychological History: No Psychological Hx Reported Smoking Status: Former smoker Past Alcohol Use History: None Reported Past Drug Use History: None Reported - Past Family History Father History Unknown: Yes Family Medical History: Cancer Additional Family Medical History / Comment(s): Father had colon cancer. Mother Family Medical History: No Reported History Additional Family Medical History / Comment(s): Mother was healthy and lived to be 93-94 yrs old. Medications and Allergies Home Medications Medication Instructions Recorded Confirmed Type Atorvastatin [Lipitor] 10 mg PO HS 11/25/17 02/09/22 History Ipratropium-Albuterol Nebulize 3 ml INHALATION RT-QID 11/25/17 02/09/22 History [Duoneb 0.5 mg-3 mg/3 ml Soln] Montelukast [Singulair] 10 mg PO HS 11/25/17 02/09/22 History Apixaban [Eliquis] 5 mg PO BID 04/09/18 02/09/22 History Albuterol Sulfate [Ventolin HFA] 2 puff INHALATION RT-Q4H PRN 06/11/20 02/09/22 History Calcium Carbonate/Vitamin D3 1 tab PO DAILY 06/11/20 02/09/22 History [Calcium 600-Vit D3 5 Mcg (200 Iu)] Diltiazem Cd [Cardizem CD] 180 mg PO BID 11/26/20 02/09/22 History Ferrous Sulfate [Iron (65 MG 325 mg PO DAILY 02/09/22 02/09/22 History Elemental)] Flecainide Acetate [Tambocor] 100 mg PO BID 02/09/22 02/09/22 History Magnesium Oxide [Magnesium] 500 mg PO DAILY 02/09/22 02/09/22 History Torsemide [Demadex] 20 mg PO BID 02/09/22 02/09/22 History Spironolactone [Aldactone] 50 mg PO DAILY #30 tab 02/11/22 Rx Allergies Allergy/AdvReac Type Severity Reaction Status Date / Time bee venom protein (honey bee) Allergy Anaphylaxis Verified 02/09/22 15:55 Physical Exam Vitals: Vital Signs Temp Pulse Resp BP Pulse Ox 02/09/22 15:57 65 18 136/72 95 02/09/22 13:52 98.3 F 66 20 150/66 94 L Intake and Output 02/09/22 02/09/22 02/09/22 06:59 14:59 22:59 Other: Weight 99.79 kg Results CBC & Chem 7: 02/09/22 14:01 02/10/22 13:05 Labs: Abnormal Lab Results - Last 24 Hours (Table) 02/09/22 02/09/22 Range/Units 14:01 14:01 WBC 10.7 H (3.8-10.6) k/uL Neutrophils # 8.7 H (1.3-7.7) k/uL Sodium 136 L (137-145) mmol/L Chloride 95 L (98-107) mmol/L BUN 33 H (7-17) mg/dL Creatinine 1.62 H (0.52-1.04) mg/dL Glucose 111 H (74-99) mg/dL
[2022-02-09] MEDS: IPRATROPIUM-ALBUTEROL 3 ML NEB INHALATION SCH (19:38)
[2022-02-09] MEDS: APIXABAN 5 MG TAB PO SCH (20:27)
[2022-02-09] MEDS: DILTIAZEM CD 180 MG CAP.ER.24H PO SCH (20:27)
[2022-02-09] MEDS: FLECAINIDE 50 MG TAB PO SCH (20:27)
[2022-02-09] MEDS: MONTELUKAST 10 MG TAB PO SCH (20:27)
[2022-02-09] MEDS: amLODIPine 5 MG TAB PO SCH (20:27)
[2022-02-09] MEDS: ATORVASTATIN 10 MG TAB PO SCH (20:27)
[2022-02-09] MEDS: TORSEMIDE 20 MG TAB PO SCH (20:29)
[2022-02-10] MEDS: IPRATROPIUM-ALBUTEROL 3 ML NEB INHALATION SCH ×4 (07:20→21:13)
[2022-02-10] MEDS: TORSEMIDE 20 MG TAB PO SCH ×2 (08:51→20:34)
[2022-02-10] MEDS: MAGNESIUM OXIDE 400 MG TAB PO SCH (08:52)
[2022-02-10] MEDS: APIXABAN 5 MG TAB PO SCH ×2 (08:52→20:34)
[2022-02-10] MEDS: CALCIUM CARB-VIT D 500 MG-5 MCG TAB PO SCH (08:52)
[2022-02-10] MEDS: FERROUS SULFATE 325 MG TAB PO SCH (08:52)
[2022-02-10] MEDS: FLECAINIDE 50 MG TAB PO SCH ×2 (08:52→20:34)
[2022-02-10] MEDS: DILTIAZEM CD 180 MG CAP.ER.24H PO SCH ×2 (08:52→20:34)
[2022-02-10] MEDS ORDERED: ASPIRIN 325 MG TAB PO SCH (09:00)
[2022-02-10] MEDS: amLODIPine 5 MG TAB PO SCH (09:02)
[2022-02-10] MEDS: SPIRONOLACTONE 25 MG TAB PO SCH (09:54)
--- NOTE | 2022-02-10 09:56 | P.CRDCN ---
History of Present Illness History of present illness: HISTORY OF PRESENTING ILLNESS This is a pleasant 76-year-old female with history of chronic diastolic heart failure, paroxysmal atrial fibrillation, hyperlipidemia, COPD, moderate mitral regurgitation. Patient follows with Dr. Torres. She was evaluated last year with concern of moderate to severe mitral regurgitation and therefore eventually underwent HILDA which showed only moderate mitral regurgitation as well as left heart catheterization which showed normal coronary arteries. She has recently had some kidney injury and was evaluated by a shaft headman who recently put patient on Norvasc however had previously been on the diltiazem as well. She has been noticing increased lower extremity edema which has been fairly chronic however has been worse in the last 3 months. Her shaft headman did recently increase the torsemide up to 20 mg daily. No dramatic change in terms of her l ower extremity edema. She has chronic shortness breath which she attributes to her COPD. Patient presents with an episode of sudden onset burning sensation in her chest which does not feel similar to her prior heartburn. Episode lasted for approximately 3 hours and was associated with some nausea. Denies any dizziness or lightheadedness. No significant change in her shortness breath. Blood work shows sodium 136, creatinine 1.6 with baseline approximately 1.0, potassium 3.9 troponin negative 3, proBNP 1050, white blood cell 10.7, hemoglobin 13.4. EKG shows normal sinus rhythm, left axis deviation, poor R- wave progression, nonspecific T-wave flattening. She does have a harsh systolic murmur which does not appear consistent with mitral regurgitation across the precordium. Previous echo/HILDA did not show any significant aortic stenosis. REVIEW OF SYSTEMS At the time of my exam: CONSTITUTIONAL: Denies fever or chills. CARDIOVASCULAR: +chest pain, +chronic shortness of breath, no orthopnea, PND or palpitations. +chronic LE edema RESPIRATORY: Denies cough. GASTROINTESTINAL: Denies abdominal pain, diarrhea, constipation, nausea or vomiting. MUSCULOSKELETAL: Denies myalgias. NEUROLOGIC: Denies numbness, tingling or weakness. ENDOCRINE: Denies fatigue, weight change, polydipsia or polyurina. GENITOURINARY: Denies burning, hematuria or urgency with micturation. HEMATOLOGIC: Denies history of anemia or bleeding. PHYSICAL EXAMINATION Vital signs reviewed. CONSTITUTIONAL: No apparent distress. HEENT: Head is normocephalic. Pupils are equal, round. Sclerae anicteric. Mucous membranes of the mouth are moist. No JVD. No carotid bruit. CHEST EXAMINATION: Lungs are clear to auscultation. No chest wall tenderness is noted on palpation or with deep breathing. HEART EXAMINATION: Regular rate and rhythm. S1, S2 heard. +3/6 systolic harsh crescendo decrescendo murmur, no gallops or rub. ABDOMEN: Soft, nontender. Positive bowel sounds. EXTREMITIES: 2+ peripheral pulses, 2+ lower extremity edema with chronic venous stasis changes, and no calf tenderness. NEUROLOGIC EXAMINATION: Patient is awake, alert and oriented x3. ASSESSMENT 1. Atypical chest pain, troponins negative 3. Recent normal heart catheterization from 2020 2. Chronic diastolic heart failure 3. Acute on chronic kidney disease, recently evaluated by shaft headman with possible progression in the past year 4. Lower extremity edema likely component of venous insufficiency. May be worsened by calcium channel blockers (patient on both diltiazem as well as amlodipine at home) 5. Chronic dyspnea 6. COPD 7. Harsh systolic murmur. Prior CTA showing no coarctation. Likely subaortic membrane noted on prior HILDA/TTE. 8. Moderate mitral regurgitation by prior HILDA 9. Paroxysmal atrial fibrillation, currently sinus rhythm PLAN Patient's chest pain appears atypical and possibly GI source. Recent workup with heart catheterization showing normal coronary arteries and HILDA showing only moderate mitral regurgitation. She does have worsened kidney function however had recently seen shaft headman and suspect some degree of progression. Patient already on diltiazem for paroxysmal atrial fibrillation and we will stop the amlodipine secondary to patient being on 2 calcium channel blockers. Add Aldactone for better blood pressure control and stop the potassium tablets going home. Check 2-D echo and if no significant change patient may be discharged home from cardiology standpoint. Systolic murmur possibly related to what appears to be subaortic membrane noted on prior HILDA/transthoracic echo. No significant gradient by prior heart catheterization however and therefore would continue to monitor by echo. 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 History of Any Multi-Drug Resistant Organisms: None Reported Past Surgical History: Appendectomy, Heart Catheterization, Joint Replacement, Orthopedic Surgery, Tonsillectomy, Tubal Ligation Additional Past Surgical History / Comment(s): HILDA, cardioversion, 2012 cardiac cath-normal, right knee arthroscopies, colonoscopy, L hip replaced cardiac ablation 08/02 Past Anesthesia/Blood Transfusion Reactions: No Reported Reaction Past Psychological History: No Psychological Hx Reported Smoking Status: Former smoker Past Alcohol Use History: None Reported Past Drug Use History: None Reported - Past Family History Father History Unknown: Yes Family Medical History: Cancer Additional Family Medical History / Comment(s): Father had colon cancer. Mother Family Medical History: No Reported History Additional Family Medical History / Comment(s): Mother was healthy and lived to be 93-94 yrs old. Medications and Allergies Home Medications Medication Instructions Recorded Confirmed Type Atorvastatin [Lipitor] 10 mg PO HS 11/25/17 02/09/22 History Ipratropium-Albuterol Nebulize 3 ml INHALATION RT-QID 11/25/17 02/09/22 History [Duoneb 0.5 mg-3 mg/3 ml Soln] Montelukast [Singulair] 10 mg PO HS 11/25/17 02/09/22 History Apixaban [Eliquis] 5 mg PO BID 04/09/18 02/09/22 History Albuterol Sulfate [Ventolin HFA] 2 puff INHALATION RT-Q4H PRN 06/11/20 02/09/22 History Calcium Carbonate/Vitamin D3 1 tab PO DAILY 06/11/20 02/09/22 History [Calcium 600-Vit D3 5 Mcg (200 Iu)] Diltiazem Cd [Cardizem CD] 180 mg PO BID 11/26/20 02/09/22 History Ferrous Sulfate [Feosol] 325 mg PO DAILY 02/09/22 02/09/22 History Flecainide Acetate [Tambocor] 100 mg PO BID 02/09/22 02/09/22 History Magnesium Oxide [Magnesium] 500 mg PO DAILY 02/09/22 02/09/22 History Potassium Chloride ER [K-Dur 10] 10 meq PO DAILY 02/09/22 02/09/22 History Torsemide [Demadex] 20 mg PO BID 02/09/22 02/09/22 History amLODIPine [Norvasc] 5 mg PO BID 02/09/22 02/09/22 History Allergies Allergy/AdvReac Type Severity Reaction Status Date / Time bee venom protein (honey bee) Allergy Anaphylaxis Verified 02/09/22 15:55 Physical Exam Vitals: Vital Signs Temp Pulse Pulse Resp BP BP Pulse Ox 02/10/22 08:00 58 L 18 02/10/22 07:30 67 02/10/22 07:20 68 95 02/10/22 07:00 97.4 F L 58 L 18 160/68 94 L 02/10/22 03:25 97.9 F 61 18 145/69 92 L 02/10/22 02:08 70 18 02/09/22 20:27 70 18 02/09/22 19:48 66 18 02/09/22 19:39 65 18 02/09/22 19:13 97.4 F L 70 19 142/73 94 L 02/09/22 17:18 97.5 F L 66 18 144/66 96 02/09/22 15:57 65 18 136/72 95 02/09/22 13:52 98.3 F 66 20 150/66 94 L FiO2 02/10/22 08:00 02/10/22 07:30 02/10/22 07:20 21 02/10/22 07:00 02/10/22 03:25 02/10/22 02:08 02/09/22 20:27 02/09/22 19:48 02/09/22 19:39 02/09/22 19:13 02/09/22 17:18 02/09/22 15:57 02/09/22 13:52 Intake and Output 02/09/22 02/10/22 02/10/22 22:59 06:59 14:59 Intake Total 118 Output Total 300 Balance 118 -300 Intake: Oral 118 Output: Urine 300 Other: Voiding Method Toilet Toilet Toilet # Voids 1 Weight 99.79 kg Results 02/09/22 14:01 02/09/22 14:01 Cardiac Enzymes 02/09/22 02/09/22 02/09/22 Range/Units 14:01 14:01 16:18 AST 17 (14-36) U/L Troponin I <0.012 <0.012 (0.000-0.034) ng/mL 02/09/22 Range/Units 19:00 AST (14-36) U/L Troponin I <0.012 (0.000-0.034) ng/mL Coagulation 02/09/22 Range/Units 14:01 PT 11.0 (9.0-12.0) sec APTT 26.4 (22.0-30.0) sec CBC 02/09/22 Range/Units 14:01 WBC 10.7 H (3.8-10.6) k/uL RBC 4.82 (3.80-5.40) m/uL Hgb 13.4 (11.4-16.0) gm/dL Hct 41.1 (34.0-46.0) % Plt Count 257 (150-450) k/uL Comprehensive Metabolic Panel 02/09/22 Range/Units 14:01 Sodium 136 L (137-145) mmol/L Potassium 3.9 (3.5-5.1) mmol/L Chloride 95 L (98-107) mmol/L Carbon Dioxide 27 (22-30) mmol/L BUN 33 H (7-17) mg/dL Creatinine 1.62 H (0.52-1.04) mg/dL Glucose 111 H (74-99) mg/dL Calcium 9.1 (8.4-10.2) mg/dL AST 17 (14-36) U/L ALT 13 (4-34) U/L Alkaline Phosphatase 126 (38-126) U/L Total Protein 6.7 (6.3-8.2) g/dL Albumin 4.3 (3.5-5.0) g/dL Current Medications Generic Name Dose Route Start Last Admin Trade Name Freq PRN Reason Stop Dose Admin Albuterol/Ipratropium 3 ml 02/09/22 20:00 02/10/22 07:20 Ipratropium-Albuterol 3 Ml Neb INHALATION 3 ml RT-QID ADRIANNA Administration Apixaban 5 mg 02/09/22 21:00 02/10/22 08:52 Apixaban 5 Mg Tab PO 5 mg BID ADRIANNA Administration Protocol Aspirin 325 mg 02/10/22 09:00 02/10/22 08:52 Aspirin 325 Mg Tab PO 325 mg DAILY ADRIANNA Administration Atorvastatin Calcium 10 mg 02/09/22 21:00 02/09/22 20:27 Atorvastatin 10 Mg Tab PO 10 mg HS ADRIANNA Administration Calcium Carbonate 1 each 02/10/22 09:00 02/10/22 08:52 Calcium Carb-Vit D 500 Mg-5 Mcg Tab PO 1 each DAILY ADRIANNA Administration Diltiazem HCl 180 mg 02/09/22 21:00 02/10/22 08:52 Diltiazem Cd 180 Mg Cap.Er.24h PO 180 mg BID ADRIANNA Administration Ferrous Sulfate 325 mg 02/10/22 09:00 02/10/22 08:52 Ferrous Sulfate 325 Mg Tab PO 325 mg DAILY ADRIANNA Administration Flecainide Acetate 100 mg 02/09/22 21:00 02/10/22 08:52 Flecainide 50 Mg Tab PO 100 mg BID ADRIANNA Administration Magnesium Oxide 400 mg 02/10/22 09:00 02/10/22 08:52 Magnesium Oxide 400 Mg Tab PO 400 mg DAILY ADRIANNA Administration Montelukast Sodium 10 mg 02/09/22 21:00 02/09/22 20:27 Montelukast 10 Mg Tab PO 10 mg HS ADRIANNA Administration Nitroglycerin 0.4 mg 02/09/22 15:19 Nitroglycerin Sl Tabs 0.4 Mg Tab SUBLINGUAL Q5M PRN Chest Pain Spironolactone 50 mg 02/10/22 09:15 Spironolactone 25 Mg Tab PO DAILY ADRIANNA Torsemide 20 mg 02/09/22 21:00 02/10/22 08:51 Torsemide 20 Mg Tab PO 20 mg BID ADRIANNA Administration Intake and Output 02/09/22 02/10/22 02/10/22 22:59 06:59 14:59 Intake Total 118 Output Total 300 Balance 118 -300 Intake: Oral 118 Output: Urine 300 Other: Voiding Method Toilet Toilet Toilet # Voids 1 Weight 99.79 kg 02/09/22 14:01 02/09/22 14:01
[2022-02-10 10:32] LABS: Chol/HDL Ratio 2.51 Ratio; LDL Cholesterol,Calculated 79.7 mg/dL (0.0-131.0); VLDL Calculation 19.48 mg/dL (5.00-40.00)
--- NOTE | 2022-02-10 10:47 | CA ---
Transthoracic Echo Report Name: Stephanie Colindres Age: 76 Gender: F : 1945 Exam Date: 02/10/2022 08:50 Exam Location: [facility] Ht (in): 64 Wt (lb): 220 Ordering Physician: Maykel Pena Attending/Referring Phys: Improvement Lead Elizabeth Black RDCS Procedure CPT: Indications: eval structure function, hx of severe pulm HTN Cardiac Hx: Hx of Afib Technical Quality: Good Contrast 1: Total Dose (mL): Contrast 2: Total Dose (mL): MEASUREMENTS (Male / Female) Normal Values 2D ECHO LV Diastolic Diameter PLAX 4.8 cm 4.2 - 5.9 / 3.9 - 5.3 cm LV Systolic Diameter PLAX 2.3 cm IVS Diastolic Thickness 1.3 cm 0.6 - 1.0 / 0.6 - 0.9 cm LVPW Diastolic Thickness 1.2 cm 0.6 - 1.0 / 0.6 - 0.9 cm LV Relative Wall Thickness 0.5 LVOT Diameter 1.9 cm LV Diastolic Volume MOD BP 92.0 cm??? 67 - 155 / 56 - 104 cm??? LV Systolic Volume MOD BP 30.1 cm??? 22 - 58 / 19 - 49 cm??? LV Ejection Fraction MOD BP 67.3 % >= 55 % LV Diastolic Volume MOD 4C 92.5 cm??? LV Systolic Volume MOD 4C 31.8 cm??? LV Ejection Fraction MOD 4C 65.7 % LV Diastolic Length 4C 7.5 cm LV Systolic Length 4C 5.7 cm LV Diastolic Volume MOD 2C 81.8 cm??? LV Systolic Volume MOD 2C 27.3 cm??? LV Ejection Fraction MOD 2C 66.7 % LV Diastolic Length 2C 6.6 cm LV Systolic Length 2C 5.3 cm LA Volume 84.2 cm??? 18 - 58 / 22 - 52 cm??? M-MODE Aortic Root Diameter MM 3.3 cm LA Systolic Diameter MM 2.8 cm LA Ao Ratio MM 0.9 MV E Point Septal Separation 1.5 cm AV Cusp Separation MM 1.7 cm DOPPLER AV Peak Velocity 296.5 cm/s AV Peak Gradient 35.2 mmHg AV Mean Velocity 207.4 cm/s AV Mean Gradient 20.2 mmHg AV Velocity Time Integral 70.7 cm AI Peak Velocity 366.4 cm/s AI Peak Gradient 53.7 mmHg AI Pressure Half Time 482.9 ms LVOT Peak Velocity 253.8 cm/s LVOT Peak Gradient 25.8 mmHg AV Area Cont Eq pk 2.5 cm??? MV Area PHT 4.2 cm??? MR Peak Velocity 275.9 cm/s MR Peak Gradient 30.4 mmHg Mitral E Point Velocity 153.1 cm/s Mitral A Point Velocity 116.3 cm/s Mitral E to A Ratio 1.3 MV Deceleration Time 182.3 ms MV E' Velocity 6.4 cm/s Mitral E to MV E' Ratio 24.1 TR Peak Velocity 294.8 cm/s TR Peak Gradient 34.8 mmHg Right Ventricular Systolic Press 37.1 mmHg PV Peak Velocity 218.5 cm/s PV Peak Gradient 19.1 mmHg PV Mean Velocity 158.7 cm/s PV Mean Gradient 11.3 mmHg PV Velocity Time Integral 57.4 cm FINDINGS Left Ventricle Mildly increased septal wall thickness. Mildly increased posterior wall thickness. Left ventricular ejection fraction is estimated at 55-60 %. Grade 1 diastolic dysfunction. Right Ventricle The right ventricle is normal in size and function. Mild pulmonary hypertension. Right Atrium The right atrium is normal in size. Left Atrium Severely increased left atrial volume. Mildly increased left atrial area. Mitral Valve Structurally normal mitral valve without significant stenosis or prolapse. There is mild mitral regurgitation. Mitral valve thickened. Aortic Valve There appears to be a subvalvular membrane seen possibly causing moderate subaortic stenosis with a peak gradient of 35 mmHg and a mean of 20 mmHg . LOY is 2.5 cm2. There is mild to moderate aortic regurgitation. Tricuspid Valve Structurally normal tricuspid valve without significant stenosis. Mild tricuspid regurgitation. Pulmonic Valve Structurally normal pulmonic valve without significant stenosis. There is no pulmonic regurgitation. There appears to be a slightly higher gradient across the pulmonic valve measuring 19 mmHg and a mean of 11 mmHg. Pericardium Normal pericardium without effusion. Aorta Normal size aortic root and proximal ascending aorta. No evidence of aortic coarctation. CONCLUSIONS Normal left ventricular ejection fraction 55-60% Mild mitral regurgitation Subaortic membrane causing moderate stenosis with mean gradient 20 mmHg. Mild aortic sclerosis Mild to moderate aortic regurgitation Mild increased gradients across the pulmonic valve with mild pulmonic stenosis. RVSP 37 Previewed by: Dr. Hugh Estrada DO (Electronically Signed) Final Date: 10 February 2022 10:46
--- NOTE | 2022-02-10 13:09 | P.PN ---
Subjective Progress Note Date: 02/10/22 Principal diagnosis: Chest Pain Hospital Course: 76-year-old female with past medical history of hypertension, A. fib on anticoagulation, hyperlipidemia, moderate MR, chronic diastolic heart failure with EF 55%, and COPD presented initially for chief complaint of chest pain. She has been having intermittent chest pain for the last couple months, severely worsened yesterday. On admission, patient was chest pain-free. Patient evaluated by cardiology, chest pain is likely atypical from GI source. Subjective: Patient seen and examined at bedside. No acute events overnight. She denies any current chest pain/pressure. She has occasional "dry heaving". However, she continues to have orthopnea and lower extremity edema. She denies any abdominal pain, vomiting, constipation, diarrhea, or urinary complaints. Pertinent positives and negatives as discussed above, complete review of system was performed and all other systems are negative. General: nontoxic, no distress, appears at stated age Derm: warm, dry Head: atraumatic, normocephalic, symmetric Eyes: EOMI, no lid lag, anicteric sclera Mouth: no lip lesion, mucus membranes moist Cardiovascular: S1S2 reg, harsh 3/6 systolic murmur in parasternal region, 2+ pitting edema to midshin bilaterally, Lungs: Minimal rales bilaterally at the bases , no accessory muscle use Abdominal: soft, nontender to palpation, no guarding, no appreciable organomegaly Ext: no gross muscle atrophy, no edema, no contractures Neuro: CN II-XI grossly intact, no focal neuro deficits Psych: Alert, oriented, appropriate affect Assessment and plan: Atypical Chest pain, resolved -Likely noncardiac -Troponin negative 3 -ProBNP elevated, similar to prior -Chest x-ray, no opacities -Echo- EF 55-60%, grade 1 diastolic dysfunction, mild MR, moderate aortic stenosis, RVSP 37 -Normal angiogram on 12/02/20 -Discontinued aspirin -Cardiology consult - atypical chest pain likely GI source, discontinued a mlodipine, added Aldactone. Non-oliguric ISMAEL on CKD 3 -Unsure about baseline -Patient was recently seen by a antique clocks repairer, started on new antihypertensives -Last documented creatinine on 11/30/20 was 1.05 -Urinalysis with microscopy pending -BMP to trend creatinine LE edema -Likely secondary to amlodipine, and venous insufficiency -Discontinued amlodipine HTN - Discontinued amlodipine - On Aldactone, torsemide, and Cardizem HLD -Atorvastatin Chronic HFpEF, not in acute exacerbation -On torsemide and Aldactone COPD, not in exacerbation Possibly asthma -On DuoNebs, and albuterol when necessary -Montelukast Afib on eliquis - Cardizem and flecainide F: By mouth E: Replete as needed N: Heart healthy A: With assistance DVT ppx: on eliquis Dispo: If renal function stable or improving, likely discharge home Objective - Vital Signs Vital signs: Vital Signs Temp 97.4 F L 02/10/22 07:00 Pulse 65 02/10/22 11:27 Resp 18 02/10/22 08:00 BP 160/68 02/10/22 07:00 Pulse Ox 95 02/10/22 07:20 FiO2 21 02/10/22 07:20 Intake & Output 02/09/22 02/10/22 02/10/22 18:59 06:59 18:59 Intake Total 118 Output Total 300 Balance 118 -300 Weight 99.79 kg Intake: Oral 118 Output: Urine 300 Other: Voiding Method Toilet Toilet # Voids 1 - Labs CBC & Chem 7: 02/09/22 14:01 02/10/22 13:05 Labs: Abnormal Lab Results - Last 24 Hours (Table) 02/09/22 02/09/22 02/10/22 Range/Units 14:01 14:01 03:18 WBC 10.7 H (3.8-10.6) k/uL Neutrophils # 8.7 H (1.3-7.7) k/uL Sodium 136 L (137-145) mmol/L Chloride 95 L (98-107) mmol/L BUN 33 H (7-17) mg/dL Creatinine 1.62 H (0.52-1.04) mg/dL Glucose 111 H (74-99) mg/dL HDL Cholesterol 65.80 H (40.00-60.00) mg/dL
[2022-02-10 13:45] LABS: African American GFR (CKD) 39 (>60 ml/min/1.73 sqM); Anion Gap 13 mmol/L; Blood Urea Nitrogen 31 mg/dL (7-17); Calcium 9.4 mg/dL (8.4-10.2); Carbon Dioxide 30 mmol/L (22-30); Chloride 96 mmol/L (98-107); Glucose 105 mg/dL (74-99); Non-African American GFR(CKD) 34 (>60 ml/min/1.73 sqM); Potassium 3.4 mmol/L (3.5-5.1); Sodium 139 mmol/L (137-145)
[2022-02-10 17:54] LABS: Appearance,Urine Clear (Clear); Bilirubin,Urine Negative (Negative); Blood,Urine Negative (Negative); Color,Urine Yellow; Glucose,Urine (UA) Negative (Negative); Ketones,Urine Negative (Negative); Leukocyte Esterase,Urine Negative (Negative); Nitrite,Urine Negative (Negative); Protein,Urine Negative (Negative); Specific Gravity,Urine 1.011 (1.001-1.035); Urobilinogen,Urine <2.0 mg/dL (<2.0)
[2022-02-10] MEDS: MONTELUKAST 10 MG TAB PO SCH (20:34)
[2022-02-10] MEDS: ATORVASTATIN 10 MG TAB PO SCH (20:34)
[2022-02-11] MEDS: BENZOCAINE/MENTHOL LOZENG 1 EACH LOZENGE MUCOUS MEM PRN ×3 (01:22→23:59)
[2022-02-11] MEDS: ALBUTEROL NEBULIZED 2.5 MG/3 ML INHALATION PRN ×2 (03:16→17:35)
[2022-02-11] MEDS: IPRATROPIUM-ALBUTEROL 3 ML NEB INHALATION SCH ×4 (07:21→20:57)
[2022-02-11] MEDS: CALCIUM CARB-VIT D 500 MG-5 MCG TAB PO SCH (07:47)
[2022-02-11] MEDS: APIXABAN 5 MG TAB PO SCH ×2 (07:48→23:10)
[2022-02-11] MEDS: SPIRONOLACTONE 25 MG TAB PO SCH (07:48)
[2022-02-11] MEDS: TORSEMIDE 20 MG TAB PO SCH ×2 (07:52→08:40)
[2022-02-11] MEDS: FLECAINIDE 50 MG TAB PO SCH ×2 (07:53→23:09)
[2022-02-11] MEDS: DILTIAZEM CD 180 MG CAP.ER.24H PO SCH ×2 (07:54→23:10)
[2022-02-11] MEDS: FERROUS SULFATE 325 MG TAB PO SCH (07:55)
[2022-02-11] MEDS ORDERED: ASPIRIN 81 MG PO SCH (09:00)
[2022-02-11] MEDS ORDERED: FUROSEMIDE 10 MG/ML 4 ML VIAL IV STA (10:16)
--- NOTE | 2022-02-11 10:37 | P.PN ---
Subjective HISTORY OF PRESENTING ILLNESS This is a pleasant 76-year-old female with history of chronic diastolic heart failure, paroxysmal atrial fibrillation, hyperlipidemia, COPD, moderate mitral regurgitation. Patient follows with Dr. Torres. She was evaluated last year with concern of moderate to severe mitral regurgitation and therefore eventually unde rwent HILDA which showed only moderate mitral regurgitation as well as left heart catheterization which showed normal coronary arteries. She has recently had some kidney injury and was evaluated by a construction specialist who recently put patient on Norvasc however had previously been on the diltiazem as well. She has been noticing increased lower extremity edema which has been fairly chronic however has been worse in the last 3 months. Her construction specialist did recently increase the torsemide up to 20 mg daily. No dramatic change in terms of her lower extremity edema. She has chronic shortness breath which she attributes to her COPD. Patient presents with an episode of sudden onset burning sensation in her chest which does not feel similar to her prior heartburn. Episode lasted for approximately 3 hours and was associated with some nausea. Denies any dizziness or lightheadedness. No significant change in her shortness breath. Blood work shows sodium 136, creatinine 1.6 with baseline approximately 1.0, potassium 3.9 troponin negative 3, proBNP 1050, white blood cell 10.7, hemoglobin 13.4. EKG shows normal sinus rhythm, left axis deviation, poor R- wave progression, nonspecific T-wave flattening. She does have a harsh systolic murmur which does not appear consistent with mitral regurgitation across the precordium. Previous echo/HILDA did not show any significant aortic stenosis. 02/11 Patient seen and examined. Patient stating she has more lower extremity edema and is feeling somewhat more short of breath. Shortness breath is mainly with any sort of exertion even just walking from the bathroom. Echocardiogram did show subaortic membrane with what appeared to be moderate stenosis. May be a component of dynamic LVOT gradient. Therefore we will add metoprolol which can help with LVOT gradients. Creatinine had mildly improved 1.6-1.49 with holding diuretics. PHYSICAL EXAMINATION Vital signs reviewed. CONSTITUTIONAL: No apparent distress. HEENT: Head is normocephalic. Pupils are equal, round. Sclerae anicteric. Mucous membranes of the mouth are moist. No JVD. No carotid bruit. CHEST EXAMINATION: Lungs are clear to auscultation. No chest wall tenderness is noted on palpation or with deep breathing. HEART EXAMINATION: Regular rate and rhythm. S1, S2 heard. +3/6 systolic harsh crescendo decrescendo murmur, no gallops or rub. ABDOMEN: Soft, nontender. Positive bowel sounds. EXTREMITIES: 2+ peripheral pulses, 2+ lower extremity edema with chronic venous stasis changes, and no calf tenderness. NEUROLOGIC EXAMINATION: Patient is awake, alert and oriented x3. ASSESSMENT 1. Atypical chest pain, troponins negative 3. Recent normal heart catheterization from 2020 2. Acute on chronic diastolic heart failure 3. Acute on chronic kidney disease, recently evaluated by construction specialist with possible progression in the past year 4. Lower extremity edema likely component of venous insufficiency. May be worsened by calcium channel blockers (patient on both diltiazem as well as amlodipine at home) 5. Chronic dyspnea 6. COPD 7. Harsh systolic murmur. Prior CTA showing no coarctation. Likely subaortic membrane noted on prior HILDA/TTE. 8. Moderate mitral regurgitation by prior HILDA 9. Paroxysmal atrial fibrillation, currently sinus rhythm 10. Severe dyspnea with exertion 11. Subaortic membrane with moderate stenosis PLAN Chest pain is atypical and has resolved. She does have severe dyspnea with minimal exertion. May be a component of heart failure with difficult to assess volume status with lower extremity edema likely component of venous insufficiency complicated by calcium channel blockers (previously on diltiazem as well as amlodipine.) We had discontinued amlodipine yesterday and continue with diltiazem for atrial fibrillation. Some of her dyspnea may be dynamic with possible dynamic LVOT gradient. Therefore add metoprolol which can help with LVOT gradients. Monitor response of diuresis however if worsening kidney function would go back to maintenance diuretics. Objective - Vital Signs Vital signs: Vital Signs Temp 98 F 02/11/22 07:00 Pulse 66 02/11/22 07:32 Resp 20 02/11/22 07:00 BP 158/72 02/11/22 07:00 Pulse Ox 93 L 02/11/22 07:00 FiO2 21 02/10/22 07:20 Intake & Output 02/10/22 02/11/22 02/11/22 18:59 06:59 18:59 Intake Total 360 240 Output Total 2 Balance 358 240 Intake: Oral 360 240 Output: Urine 2 Other: Voiding Method Toilet Toilet # Voids 2 - Labs CBC & Chem 7: 02/09/22 14:01 02/10/22 13:05 Labs: Abnormal Lab Results - Last 24 Hours (Table) 02/10/22 02/10/22 Range/Units 03:18 13:05 Potassium 3.4 L (3.5-5.1) mmol/L Chloride 96 L (98-107) mmol/L BUN 31 H (7-17) mg/dL Creatinine 1.49 H (0.52-1.04) mg/dL Glucose 105 H (74-99) mg/dL HDL Cholesterol 65.80 H (40.00-60.00) mg/dL
[2022-02-11] MEDS: polyethylene glycoL 3350 17 GM POWD.PACK PO SCH (11:32)
[2022-02-11] MEDS: BUMETANIDE 0.25 MG/ML 10 ML VIAL IV SCH ×2 (11:33→23:46)
[2022-02-11] MEDS: MAGNESIUM OXIDE 400 MG TAB PO SCH (11:34)
--- NOTE | 2022-02-11 12:50 | P.PN ---
Subjective Progress Note Date: 02/11/22 Principal diagnosis: Chest pain Hospital Course: 76-year-old female with past medical history of hypertension, A. fib on anticoagulation, hyperlipidemia, moderate MR, chronic diastolic heart failure with EF 55%, and COPD presented initially for chief complaint of chest pain. She has been having intermittent chest pain for the last couple months, severely worsened yesterday. On admission, patient was chest pain-free. Patient evaluated by cardiology, chest pain is likely atypical from GI source. Patient has worsening dyspnea, orthopnea. Trial of IV diuretics to see if improves her symptoms. Subjective: Patient seen and examined at bedside. No acute events overnight. She denies any current chest pain/pressure. She has worsening orthopnea and lower extremity edema. She denies any abdominal pain, vomiting, diarrhea, or urinary complaints. Also complaining of infrequent bowel movements. Pertinent positives and negatives as discussed above, complete review of system was performed and all other systems are negative. General: nontoxic, no distress, appears at stated age Derm: warm, dry Head: atraumatic, normocephalic, symmetric Eyes: EOMI, no lid lag, anicteric sclera Mouth: no lip lesion, mucus membranes moist Cardiovascular: S1S2 reg, harsh 3/6 systolic murmur in parasternal region, 2+ pitting edema to midshin bilaterally, Lungs: Minimal rales bilaterally at the bases , no accessory muscle use Abdominal: soft, nontender to palpation, no guarding, no appreciable organomegaly Ext: no gross muscle atrophy, no contractures Neuro: CN II-XI grossly intact, no focal neuro deficits Psych: Alert, oriented, appropriate affect Assessment and plan: Acute on chronic dyspnea Acute on chronic diastolic heart failure -40 IV Lasix once -on bumex 2 IV BID -Added Aldactone this admission -Cardiology following, dyspnea might also be secondary to dynamic LVOT gradient, added metoprolol -Monitor I's and O's -Currently on room air Non-oliguric ISMAEL on CKD 3 -Unsure about baseline -Patient was recently seen by a tightening machine operator, started on new antihypertensives -Last documented creatinine on 11/30/20 was 1.05 -Urinalysis negative -Creatinine down trending -Continue to monitor while on IV diuretics LE edema -Likely secondary to amlodipine, venous insufficiency, and chronic diastolic failure -Discontinued amlodipine Constipation - miralax Atypical Chest pain, resolved -Likely noncardiac -Troponin negative 3 -ProBNP elevated, similar to prior -Chest x-ray, no opacities -Echo- EF 55-60%, grade 1 diastolic dysfunction, mild MR, moderate aortic stenosis, RVSP 37 -Normal angiogram on 12/02/20 -Discontinued aspirin HTN - Discontinued amlodipine - On Aldactone, diuretics and Cardizem HLD -Atorvastatin COPD, not in exacerbation Possibly asthma -On DuoNebs, and albuterol when necessary -Montelukast Afib on eliquis - Cardizem and flecainide F: By mouth E: Replete as needed N: Heart healthy A: With assistance DVT ppx: on eliquis Dispo: Patient failed observation, will require inpatient stay. Likely d ischarge in a day if dyspnea improves with IV diuretics. Objective - Vital Signs Vital signs: Vital Signs Temp 98 F 02/11/22 07:00 Pulse 72 02/11/22 11:22 Resp 20 02/11/22 07:00 BP 158/72 02/11/22 07:00 Pulse Ox 93 L 02/11/22 07:00 FiO2 21 02/10/22 07:20 Intake & Output 02/10/22 02/11/22 02/11/22 18:59 06:59 18:59 Intake Total 360 240 Output Total 2 Balance 358 240 Intake: Oral 360 240 Output: Urine 2 Other: Voiding Method Toilet Toilet # Voids 2 - Labs CBC & Chem 7: 02/09/22 14:01 02/10/22 13:05 Labs: Abnormal Lab Results - Last 24 Hours (Table) 02/10/22 Range/Units 13:05 Potassium 3.4 L (3.5-5.1) mmol/L Chloride 96 L (98-107) mmol/L BUN 31 H (7-17) mg/dL Creatinine 1.49 H (0.52-1.04) mg/dL Glucose 105 H (74-99) mg/dL
[2022-02-11] MEDS: MONTELUKAST 10 MG TAB PO SCH (23:09)
[2022-02-11] MEDS: METOPROLOL TARTRATE 25 MG TAB PO SCH (23:09)
[2022-02-11] MEDS: ATORVASTATIN 10 MG TAB PO SCH (23:10)
[2022-02-12] MEDS: ALBUTEROL NEBULIZED 2.5 MG/3 ML INHALATION PRN (00:23)
[2022-02-12 04:22] VITALS: RESP 17; TEMP 98.4
[2022-02-12 08:36] VITALS: BP 143/66
[2022-02-12] MEDS: IPRATROPIUM-ALBUTEROL 3 ML NEB INHALATION SCH ×3 (08:41→12:30)
[2022-02-12] MEDS: FERROUS SULFATE 325 MG TAB PO SCH (08:50)
[2022-02-12] MEDS: SPIRONOLACTONE 25 MG TAB PO SCH (08:50)
[2022-02-12] MEDS: CALCIUM CARB-VIT D 500 MG-5 MCG TAB PO SCH (08:50)
[2022-02-12] MEDS: METOPROLOL TARTRATE 25 MG TAB PO SCH (08:50)
[2022-02-12] MEDS: MAGNESIUM OXIDE 400 MG TAB PO SCH (08:50)
[2022-02-12] MEDS: polyethylene glycoL 3350 17 GM POWD.PACK PO SCH (08:50)
[2022-02-12] MEDS: FLECAINIDE 50 MG TAB PO SCH (08:51)
[2022-02-12] MEDS: APIXABAN 5 MG TAB PO SCH (08:51)
[2022-02-12] MEDS: DILTIAZEM CD 180 MG CAP.ER.24H PO SCH (08:51)
[2022-02-12] MEDS: BUMETANIDE 0.25 MG/ML 10 ML VIAL IV SCH (11:03)
[2022-02-12 11:57] LABS: African American GFR (CKD) 42 (>60 ml/min/1.73 sqM); Anion Gap 9 mmol/L; Blood Urea Nitrogen 30 mg/dL (7-17); Carbon Dioxide 32 mmol/L (22-30); Chloride 96 mmol/L (98-107); Glucose 100 mg/dL (74-99); Non-African American GFR(CKD) 36 (>60 ml/min/1.73 sqM); Potassium 3.5 mmol/L (3.5-5.1); Sodium 137 mmol/L (137-145)
[2022-02-12 12:41] VITALS: PULSE 60
--- NOTE | 2022-02-12 15:58 | P.DS ---
Providers Date of admission: 02/11/22 11:27 Expected date of discharge: 02/12/22 Attending physician: Radhika Sosa MD Consults: 02/09/22 15:19 Consult Physician Urgent Consulting Provider: Yasmani Torres Consult Reason/Comments: chest pain Do you want consulting provider notified?: Yes Primary care physician: Cookie Guevara Hospital Course: Discharge Diagnosis: Acute on chronic diastolic heart failure Nonoliguric ISMAEL on CKD 3 Atypical chest pain Lower extremity edema constipation Hypertension Hospital Course: 76-year-old female with history of A. fib, diastolic CHF, COPD, moderate, initially presented with chest pain. Chest pain resolved while in the hospital. Cardiology was consulted, chest pain was atypical, likely from a GI source. She had a recent normal angiogram on 12/02/20. While in the hospital patient was complaining of worsening dyspnea on exertion, orthopnea. She was given IV diuretics, which improved her symptoms. She will be discharged with Bumex 2 mg twice a day, which was equivalent dose to what was given in the hospital. Her echo showed EF of 55-60%, grade 1 diastolic dysfunction, mild MR, subaortic membrane causing moderate stenosis with a mean gradient of 20 mmHg, mild to moderate aortic regurgitation. For her lower extremity edema, amlodipine was discontinued and she was started on spironolactone. She was also started on metoprolol tartrate to improve any dyspnea which may be related to dynamic LVOT gradient given moderate aortic stenosis. Patient seen and examined at bedside. Vital signs reviewed and stable. General: [nontoxic], [no distress], [appears at stated age] Derm: [warm], [dry] Head: [atraumatic], [normocephalic], [symmetric] Eyes: [EOMI], [no lid lag], [anicteric sclera] Mouth: [no lip lesion], [mucus membranes moist] Cardiovascular: [S1S2 reg], harsh 3/6 systolic murmur and parasternal region, 2+ pitting edema up to mid chin bilaterally Lungs: Minimal rales bilaterally at the bases , [no accessory muscle use] Abdominal: [soft], [ nontender to palpation], [no guarding], [no appreciable organomegaly] Ext: [no gross muscle atrophy], [no edema], [no contractures] Neuro: [ CN II-XI grossly intact], [no focal neuro deficits] Psych: [Alert], [oriented], [appropriate affect] A total of 45 minutes of time were spent preparing this complex discharge summary. Patient was discharged on 02/12/22 at 12:27. Patient Condition at Discharge: Fair Plan - Discharge Summary Discharge Rx Participant: No New Discharge Prescriptions: New Spironolactone [Aldactone] 50 mg PO DAILY #30 tab Metoprolol Tartrate [Lopressor] 25 mg PO BID #30 tab Bumetanide [BUMEX] 2 mg PO AC-BID 30 Days #60 tablet polyethylene glycoL 3350 [Miralax] 17 gm PO DAILY #30 packet Continue Atorvastatin [Lipitor] 10 mg PO HS Ipratropium-Albuterol Nebulize [Duoneb 0.5 mg-3 mg/3 ml Soln] 3 ml INHALATION RT-QID Montelukast [Singulair] 10 mg PO HS Apixaban [Eliquis] 5 mg PO BID Albuterol Sulfate [Ventolin HFA] 2 puff INHALATION RT-Q4H PRN PRN Reason: Shortness Of Breath Calcium Carbonate/Vitamin D3 [Calcium 600-Vit D3 5 Mcg (200 Iu)] 1 tab PO DAILY Flecainide Acetate [Tambocor] 100 mg PO BID Diltiazem Cd [Cardizem CD] 180 mg PO BID Magnesium Oxide [Magnesium] 500 mg PO DAILY Ferrous Sulfate [Iron (65 MG Elemental)] 325 mg PO DAILY Discontinued amLODIPine [Norvasc] 5 mg PO BID Torsemide [Demadex] 20 mg PO BID Potassium Chloride ER [K-Dur 10] 10 meq PO DAILY Discharge Medication List Atorvastatin [Lipitor] 10 mg PO HS 11/25/17 [History] Ipratropium-Albuterol Nebulize [Duoneb 0.5 mg-3 mg/3 ml Soln] 3 ml INHALATION RT-QID 11/25/17 [History] Montelukast [Singulair] 10 mg PO HS 11/25/17 [History] Apixaban [Eliquis] 5 mg PO BID 04/09/18 [History] Albuterol Sulfate [Ventolin HFA] 2 puff INHALATION RT-Q4H PRN 06/11/20 [History] Calcium Carbonate/Vitamin D3 [Calcium 600-Vit D3 5 Mcg (200 Iu)] 1 tab PO DAILY 06/11/20 [History] Diltiazem Cd [Cardizem CD] 180 mg PO BID 11/26/20 [History] Ferrous Sulfate [Iron (65 MG Elemental)] 325 mg PO DAILY 02/09/22 [History] Flecainide Acetate [Tambocor] 100 mg PO BID 02/09/22 [History] Magnesium Oxide [Magnesium] 500 mg PO DAILY 02/09/22 [History] Spironolactone [Aldactone] 50 mg PO DAILY #30 tab 02/11/22 [Rx] Bumetanide [BUMEX] 2 mg PO AC-BID 30 Days #60 tablet 02/12/22 [Rx] Metoprolol Tartrate [Lopressor] 25 mg PO BID #30 tab 02/12/22 [Rx] polyethylene glycoL 3350 [Miralax] 17 gm PO DAILY #30 packet 02/12/22 [Rx] Follow up Appointment(s)/Referral(s): Cookie Guevara MD [Primary Care Provider] - 1-2 days Yasmani Torres MD [STAFF PHYSICIAN] - 1 Week Patient Instructions/Handouts: Heart Failure (GEN), Venous Insufficiency (GEN) Activity/Diet/Wound Care/Special Instructions: Please avoid high salt diet. Make sure to meet with your PCP within the week to repeat bloodwork in order to check electrolytes. Discharge Disposition: HOME SELF-CARE
== END 2022-02-12 13:25 | disposition home or self-care (01) | DRG 291 ==
LOC: EC 13:40 → 6NMEDSUR 15:19 → OBSVTOIN 02-11 11:27
PROVIDERS: ADMIT Internal Medicine; ATTEND Internal Medicine
DX: I13.0 Hypertensive heart and chronic kidney disease with heart failure and stage 1 through stage 4 chronic kidney disease, or unspecified chronic kidney disease (principal); I50.33 Acute on chronic diastolic (congestive) heart failure; N17.9 Acute kidney failure, unspecified; I25.10 Atherosclerotic heart disease of native coronary artery without angina pectoris; I27.20 Pulmonary hypertension, unspecified; I48.0 Paroxysmal atrial fibrillation; I87.2 Venous insufficiency (chronic) (peripheral); J44.9 Chronic obstructive pulmonary disease, unspecified; K59.00 Constipation, unspecified; N18.30 Chronic kidney disease, stage 3 unspecified; D72.829 Elevated white blood cell count, unspecified; I49.1 Atrial premature depolarization; E78.5 Hyperlipidemia, unspecified; I08.0 Rheumatic disorders of both mitral and aortic valves; Z79.01 Long term (current) use of anticoagulants; Z79.899 Other long term (current) drug therapy; Z80.0 Family history of malignant neoplasm of digestive organs; Z86.19 Personal history of other infectious and parasitic diseases; Z87.891 Personal history of nicotine dependence; Z91.030 Bee allergy status
CPT/HCPCS: 36415; 71046; 80048; 80053; 80061; 81003; 83880; 84484; 85025; 85610; 85730; 93005; 93306; 94640; 94760; 99285

== ENCOUNTER 2022-02-14 03:42 | Observation (INO) | payer MEDICARE ==
[2022-02-14] MEDS ORDERED: ASPIRIN 81 MG PO STA (04:04)
[2022-02-14 04:23] LABS: Basophils # (A) 0.1 k/uL (0-0.2); Basophils % (A) 1 %; Eosinophils # (A) 0.3 k/uL (0-0.7); Eosinophils % (A) 3 %; HCT 36.3 % (34.0-46.0); Lymphocytes % (A) 17 %; MCH 28.3 pg (25.0-35.0); MCHC 33.1 g/dL (31.0-37.0); MCV 85.5 fL (80.0-100.0); Mean Platelet Volume 8.6; Monocytes # (A) 0.7 k/uL (0-1.0); Monocytes % (A) 6 %; Neutrophils # (A) 8.9 k/uL (1.3-7.7); Neutrophils % (A) 73 %; Platelet Count 267 k/uL (150-450); RBC 4.24 m/uL (3.80-5.40); RDW 14.5 % (11.5-15.5); WBC 12.2 k/uL (3.8-10.6)
[2022-02-14] MEDS ORDERED: ATROPINE SULFATE 0.1 MG/ML 10ML SYRINGE IV STA (04:34)
[2022-02-14 04:39] LABS: INR 0.9 (<1.2); Partial Thromboplastin Time 24.4 sec (22.0-30.0); Prothrombin Time 10.3 sec (9.0-12.0)
[2022-02-14 05:00] LABS: Albumin 3.9 g/dL (3.5-5.0); Calcium 9.1 mg/dL (8.4-10.2); Magnesium 2.4 mg/dL (1.6-2.3); Potassium 3.5 mmol/L (3.5-5.1); Total Bilirubin 0.4 mg/dL (0.2-1.3)
--- NOTE | 2022-02-14 05:10 | XR ---
EXAMINATION TYPE: XR chest 2V DATE OF EXAM: 02/14/2022 COMPARISON: 02/09/2022 HISTORY: Chest pain TECHNIQUE: 2 views FINDINGS: Heart is enlarged. No heart failure. There are no hilar masses. Costophrenic angles are salena ar. There are chest leads. There is minor spurring in the thoracic spine. There is moderate arthritic change in the right shoulder joint. IMPRESSION: Cardiomegaly. No active cardiopulmonary disease. No change.
--- NOTE | 2022-02-14 05:12 | ED ---
General Adult HPI - General Chief complaint: Shortness of Breath Stated complaint: Low Heart Rate, Difficulty Breathing Time Seen by Provider: 02/14/22 03:53 Source: patient, RN notes reviewed, old records reviewed Mode of arrival: wheelchair Limitations: no limitations - History of Present Illness Initial comments: Patient is a 76-year-old female with past medical history remarkable for atrial fibrillation, COPD, heart failure who was discharged from the hospital on February 12 presents emergency Department complaining of recurrence of shortness of breath. Patient also had recurrence of bradycardia. Patient also had an episode of chest pain. States that the chest pain was a burning sensation located over her chest when she initially awoke earlier today. Also felt like she was having a bradycardic episode. Denies any diarrhea or diaphoresis at that time. [place] weak. They checked her heart rate was low in the 40s. States this is what happened previously. She became concerned over her heart rate and presents for further evaluation. She does have a history of heart failure. She has chronic lower extremity edema. She is discharged home on Bumex the other day after cardiology clearance. Presents for further evaluation at this time. - Related Data Home Medications Medication Instructions Recorded Confirmed Atorvastatin [Lipitor] 10 mg PO HS 11/25/17 02/09/22 Ipratropium-Albuterol Nebulize 3 ml INHALATION RT-QID 11/25/17 02/09/22 [Duoneb 0.5 mg-3 mg/3 ml Soln] Montelukast [Singulair] 10 mg PO HS 11/25/17 02/09/22 Apixaban [Eliquis] 5 mg PO BID 04/09/18 02/09/22 Albuterol Sulfate [Ventolin HFA] 2 puff INHALATION RT-Q4H PRN 06/11/20 02/09/22 Calcium Carbonate/Vitamin D3 1 tab PO DAILY 06/11/20 02/09/22 [Calcium 600-Vit D3 5 Mcg (200 Iu)] Diltiazem Cd [Cardizem CD] 180 mg PO BID 11/26/20 02/09/22 Ferrous Sulfate [Iron (65 MG 325 mg PO DAILY 02/09/22 02/09/22 Elemental)] Flecainide Acetate [Tambocor] 100 mg PO BID 02/09/22 02/09/22 Magnesium Oxide [Magnesium] 500 mg PO DAILY 02/09/22 02/09/22 Previous Rx's Medication Instructions Recorded Spironolactone [Aldactone] 50 mg PO DAILY #30 tab 02/11/22 Bumetanide [BUMEX] 2 mg PO AC-BID 30 Days #60 tablet 02/12/22 Metoprolol Tartrate [Lopressor] 25 mg PO BID #30 tab 02/12/22 polyethylene glycoL 3350 [Miralax] 17 gm PO DAILY #30 packet 02/12/22 Allergies Allergy/AdvReac Type Severity Reaction Status Date / Time bee venom protein (honey bee) Allergy Anaphylaxis Verified 02/14/22 03:45 Review of Systems ROS Statement: Those systems with pertinent positive or pertinent negative responses have been documented in the HPI. Review of Systems: CONST: Denies fever EYES: Denies blurry vision ENT: Denies nasal congestion C/V: She feels she has a slow heart rate. RESP: Denies shortness of breath GI: Denies abdominal pain : Denies dysuria SKIN: Denies rash. MSK: Denies joint pain. NEURO: Denies headache ROS Other: All systems not noted in ROS Statement are negative. 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 History of Any Multi-Drug Resistant Organisms: None Reported Past Surgical History: Appendectomy, Heart Catheterization, Joint Replacement, Orthopedic Surgery, Tonsillectomy, Tubal Ligation Additional Past Surgical History / Comment(s): HILDA, cardioversion, 2012 cardiac cath-normal, right knee arthroscopies, colonoscopy, L hip replaced cardiac ablation 08/02 Past Anesthesia/Blood Transfusion Reactions: No Reported Reaction Past Psychological History: No Psychological Hx Reported Smoking Status: Former smoker Past Alcohol Use History: None Reported Past Drug Use History: None Reported - Past Family History Father History Unknown: Yes Family Medical History: Cancer Additional Family Medical History / Comment(s): Father had colon cancer. Mother Family Medical History: No Reported History Additional Family Medical History / Comment(s): Mother was healthy and lived to be 93-94 yrs old. General Exam - General Exam Comments Initial Comments: General: Appears in no acute distress. HEAD: Normal with no signs of head trauma. EYES: PERRLA, EOMI, conjunctiva normal, no discharge. ENT: Hearing grossly intact, normal oropharynx. RESPIRATORY: Clear breath sounds bilaterally. No wheezes, rales, or rhonchi. No hypoxia. No increased work of breathing. C/V: Patient is bradycardic. S1 and S2 auscultated. Significant bilateral lower extremity peripheral edema. Symmetrical. Peripheral pulses 2+ and intact throughout. ABD: Abd is soft, nontender, nondistended EXT: Normal range of motion, no obvious deformity SKIN: No rashes or lesions observed on exposed skin. NEURO: Alert and oriented 4. Limitations: no limitations Course Vital Signs 02/14/22 02/14/22 02/14/22 03:45 04:35 04:41 Temperature 97.5 F L Pulse Rate 44 L 36 L 46 L Respiratory 18 Rate Blood Pressure 109/59 O2 Sat by Pulse 98 Oximetry 02/14/22 02/14/22 04:47 05:29 Temperature Pulse Rate 43 L Respiratory Rate Blood Pressure 107/63 117/60 O2 Sat by Pulse 94 L Oximetry Medical Decision Making - Medical Decision Making Based on patient's presentation and physical exam, I'm concerned for possible cardiopulmonary etiology for her current symptoms. She was just discharge. She was reaching with similar symptoms. We will obtain cardio pulmonary workup. She is a bradycardiac at this time. I'm wondering if it is iatrogenic, secondary to her rate control agents. We'll continue to monitor at this time. She is currently in the low 40s. Patient states she has been compliant with all of her medications. Patient received an aspirin. EKG showed a supraventricular bradycardia. No signs of acute ischemia. At this time, was notified by nursing staff patient's heart rate remained in the mid 30s. She stated she felt like she could not catch her breath at that time. I did provide her with a 1 time dose of atropine 0.5 mg. Heart rate recovered and patient remained in the 40s. Was no longer symptomatic. Blood pressure remained within normal limits. Laboratory studies are remarkable for a mild leukocytosis of 12.2 which is likely reactive. Activation has an elevated BUN/creatinine setting of CK D. Magnesium is slightly elevated to 2.4. Potassium is 3.5, and she will receive supplementation with goal of 4. Troponin is undetectable. BNP is within normal limits for her age. Chest x-ray shows no signs of acute cardiopulmonary process. On reevaluation, vital signs remained stable. Patient remains bradycardic in the 40s. She is asymptomatic at this time. I would like to admitted to the hospital for further evaluation by cardiology for her sustaining bradycardia. She was in agreement this plan. Cardiology was consulted. Troponins will be trended. I spoke with Dr. Banda, the patient's admitting physician who was in agreement with the plan. Patient was therefore admitted in stable condition to a telemetry bed. - Lab Data Result diagrams: 02/14/22 04:11 02/14/22 04:11 Lab Results 02/14/22 02/14/22 02/14/22 Range/Units 04:11 04:11 04:11 WBC 12.2 H (3.8-10.6) k/uL RBC 4.24 (3.80-5.40) m/uL Hgb 12.0 (11.4-16.0) gm/dL Hct 36.3 (34.0-46.0) % MCV 85.5 (80.0-100.0) fL MCH 28.3 (25.0-35.0) pg MCHC 33.1 (31.0-37.0) g/dL RDW 14.5 (11.5-15.5) % Plt Count 267 (150-450) k/uL MPV 8.6 Neutrophils % 73 % Lymphocytes % 17 % Monocytes % 6 % Eosinophils % 3 % Basophils % 1 % Neutrophils # 8.9 H (1.3-7.7) k/uL Lymphocytes # 2.0 (1.0-4.8) k/uL Monocytes # 0.7 (0-1.0) k/uL Eosinophils # 0.3 (0-0.7) k/uL Basophils # 0.1 (0-0.2) k/uL PT 10.3 (9.0-12.0) sec INR 0.9 (<1.2) APTT 24.4 (22.0-30.0) sec Sodium 135 L (137-145) mmol/L Potassium 3.5 (3.5-5.1) mmol/L Chloride 95 L (98-107) mmol/L Carbon Dioxide 28 (22-30) mmol/L Anion Gap 12 mmol/L BUN 36 H (7-17) mg/dL Creatinine 1.81 H (0.52-1.04) mg/dL Est GFR (CKD-EPI)AfAm 31 (>60 ml/min/1.73 sqM) Est GFR (CKD-EPI)NonAf 26 (>60 ml/min/1.73 sqM) Glucose 111 H (74-99) mg/dL Calcium 9.1 (8.4-10.2) mg/dL Magnesium 2.4 H (1.6-2.3) mg/dL Total Bilirubin 0.4 (0.2-1.3) mg/dL AST 23 (14-36) U/L ALT 16 (4-34) U/L Alkaline Phosphatase 106 (38-126) U/L Troponin I (0.000-0.034) ng/mL NT-Pro-B Natriuret Pep pg/mL Total Protein 6.0 L (6.3-8.2) g/dL Albumin 3.9 (3.5-5.0) g/dL 02/14/22 02/14/22 Range/Units 04:11 04:11 WBC (3.8-10.6) k/uL RBC (3.80-5.40) m/uL Hgb (11.4-16.0) gm/dL Hct (34.0-46.0) % MCV (80.0-100.0) fL MCH (25.0-35.0) pg MCHC (31.0-37.0) g/dL RDW (11.5-15.5) % Plt Count (150-450) k/uL MPV Neutrophils % % Lymphocytes % % Monocytes % % Eosinophils % % Basophils % % Neutrophils # (1.3-7.7) k/uL Lymphocytes # (1.0-4.8) k/uL Monocytes # (0-1.0) k/uL Eosinophils # (0-0.7) k/uL Basophils # (0-0.2) k/uL PT (9.0-12.0) sec INR (<1.2) APTT (22.0-30.0) sec Sodium (137-145) mmol/L Potassium (3.5-5.1) mmol/L Chloride (98-107) mmol/L Carbon Dioxide (22-30) mmol/L Anion Gap mmol/L BUN (7-17) mg/dL Creatinine (0.52-1.04) mg/dL Est GFR (CKD-EPI)AfAm (>60 ml/min/1.73 sqM) Est GFR (CKD-EPI)NonAf (>60 ml/min/1.73 sqM) Glucose (74-99) mg/dL Calcium (8.4-10.2) mg/dL Magnesium (1.6-2.3) mg/dL Total Bilirubin (0.2-1.3) mg/dL AST (14-36) U/L ALT (4-34) U/L Alkaline Phosphatase (38-126) U/L Troponin I <0.012 (0.000-0.034) ng/mL NT-Pro-B Natriuret Pep 539 pg/mL Total Protein (6.3-8.2) g/dL Albumin (3.5-5.0) g/dL - EKG Data -: EKG Interpreted by Me EKG Comments: 12-lead Electrocardiogram Interpretation Note EKG was reviewed and interpreted by myself. 12-lead ECG performed at 0354 is i nterpreted by me as revealing supraventricular bradycardia at a rate of 42 beats per minute. Left axis deviation. QRS duration is 117 ms. QTC is 523 ms. There were no acute ST or T wave abnormalities to suggest myocardial ischemia or injury. R wave progression across the precordium was satisfactory. By my interpretation this EKG is non-diagnostic for acute ischemia. Similar to EKG from 02/09/2022, except for the bradycardia, as well as difficult to interpret if there are any P waves.. Disposition Clinical Impression: Bradycardia, History of atrial fibrillation Disposition: ADMITTED IP TO THIS HOSP Condition: Stable Time of Disposition: 05:30
[2022-02-14] MEDS ORDERED: NALOXONE 0.4 MG/ML 1 ML VIAL IV PRN (05:43)
[2022-02-14] MEDS ORDERED: ALBUTEROL NEBULIZED 2.5 MG/3 ML INHALATION PRN (05:44)
[2022-02-14] MEDS ORDERED: ACETAMINOPHEN TAB 500 MG TAB PO STA (05:51)
[2022-02-14] MEDS ORDERED: POTASSIUM CHLORIDE ER 20 MEQ TAB.ER PO STA (05:54)
[2022-02-14] MEDS ORDERED: BUMETANIDE 1 MG TAB PO SCH (07:30)
[2022-02-14] MEDS: IPRATROPIUM-ALBUTEROL 3 ML NEB INHALATION SCH ×4 (07:49→20:52)
[2022-02-14] MEDS: APIXABAN 5 MG TAB PO SCH ×2 (07:59→20:23)
[2022-02-14] MEDS: SPIRONOLACTONE 25 MG TAB PO SCH (07:59)
--- NOTE | 2022-02-14 11:13 | P.CRDCN ---
History of Present Illness Consult date: 02/14/22 Reason for Consult (text): bradycardia History of present illness: The patient is a 76-year-old female with multiple comorbid conditions, who pr esented to the emergency room with low heart rate. The patient states she awoke around 2 AM to ambulate to the restroom. She states she felt very weak and fatigued and overall unwell. She states she checked her oxygen saturation with a pulse ox which was normal, however her pulse was noted to be in the 30s. She was recently evaluated for chest pain within the last week and discharged on Monday. Overall workup was unremarkable, other than the patient being prescribed to calcium channel blockers. She was discharged on flecainide, diltiazem, and metoprolol. DIAGNOSTICS: EKG shows sinus bradycardia in the 40s Chest x-ray shows cardiomegaly with no cardio/pulmonary disease Recent echocardiogram showed EF at 55-60% with moderate valvular disease Lab data: WBC 12.2, hemoglobin 12.0, hematocrit 36.3, platelet 267, sodium 135, potassium 3.5, BUN 36, creatinine 1.81, AST 23, ALT 16, troponins negative 3, BNP 539 PAST MEDICAL HISTORY: Chronic kidney disease, valvular heart disease, lymphedema, diastolic heart failure, paroxysmal atrial fibrillation REVIEW OF SYSTEMS: No fever or chills. No cough or expectoration. No diaphoresis. Patient denies headache, dizziness, blurred vision, double vision. Patient denies any stomach discomfort. No nausea, vomiting. No hematochezia. No hematemesis. Denies any black stools or blood in his stools. Denies dysuria or hematuria. Positive for weakness and fatigue. No chest pain. No dyspnea. PHYSICAL EXAMINATION: This is a 76-year-old female in no apparent distress at the time of my examination. HEENT: Head is atraumatic, normocephalic. Pupils are equal, round. Sclerae anicteric. Conjunctivae are clear. Mucous membranes of the mouth are moist. Neck is supple. There is no jugular venous distention. No carotid bruit is heard. CHEST EXAMINATION: Lungs are clear to auscultation. No chest wall tenderness is noted on palpation or with deep breathing. HEART EXAMINATION: Heart regular rate and rhythm. S1, S2 heard. Systolic ejection murmur. No gallops or rub. ABDOMEN: Soft, nontender. Bowel sounds are heard. No organomegaly noted. EXTREMITIES: Weak peripheral pulses. +3 peripheral edema, worse on the right. Chronic discoloration with cobblestoning. NEUROLOGIC EXAMINATION: Patient is awake, alert and oriented x3. FINAL ASSESSMENT AND PLAN: Bradycardia, on calcium channel shukri, beta shukri, and antiarrhythmic Paroxysmal atrial fibrillation, currently in sinus rhythm on flecainide Valvular heart disease, moderate MR, moderate aortic insufficiency, and aortic stenosis Lymphedema, secondary to venous insufficiency History of chronic kidney disease History of COPD PLAN: Discontinue non-DHP calcium channel blockers completely Hold flecainide and metoprolol until heart rate improves Further recommendations to be based on clinical worse I am dictating on behalf of Dr Chris Banegas's history/physical and assessme nt/plan. Past Medical History Past Medical History: Atrial Fibrillation, Heart Failure, COPD, Hyperlipidemia, Pneumonia Additional Past Medical History / Comment(s): 2007 Valley fever, rheumatic fever as a child, gout L wrist. History of Any Multi-Drug Resistant Organisms: None Reported Past Surgical History: Appendectomy, Heart Catheterization, Joint Replacement, Orthopedic Surgery, Tonsillectomy, Tubal Ligation Additional Past Surgical History / Comment(s): HILDA, cardioversion, 2013 cardiac cath-normal, right knee arthroscopies, colonoscopy, L hip replaced cardiac ablation 08/02 Past Anesthesia/Blood Transfusion Reactions: No Reported Reaction Past Psychological History: No Psychological Hx Reported Smoking Status: Former smoker Past Alcohol Use History: None Reported Past Drug Use History: None Reported - Past Family History Father History Unknown: Yes Family Medical History: Cancer Additional Family Medical History / Comment(s): Father had colon cancer. Mother Family Medical History: No Reported History Additional Family Medical History / Comment(s): Mother was healthy and lived to be 93-94 yrs old. Medications and Allergies Home Medications Medication Instructions Recorded Confirmed Type Atorvastatin [Lipitor] 10 mg PO HS 11/25/17 02/14/22 History Ipratropium-Albuterol Nebulize 3 ml INHALATION RT-QID 11/25/17 02/14/22 History [Duoneb 0.5 mg-3 mg/3 ml Soln] Montelukast [Singulair] 10 mg PO HS 11/25/17 02/14/22 History Apixaban [Eliquis] 5 mg PO BID 04/09/18 02/14/22 History Albuterol Sulfate [Ventolin HFA] 2 puff INHALATION RT-Q4H PRN 06/11/20 02/14/22 History Calcium Carbonate/Vitamin D3 1 tab PO DAILY 06/11/20 02/14/22 History [Calcium 600-Vit D3 5 Mcg (200 Iu)] Diltiazem Cd [Cardizem CD] 180 mg PO BID 11/26/20 02/14/22 History Ferrous Sulfate [Iron (65 MG 325 mg PO DAILY 02/09/22 02/14/22 History Elemental)] Flecainide Acetate [Tambocor] 100 mg PO BID 02/09/22 02/14/22 History Magnesium Oxide [Magnesium] 500 mg PO DAILY 02/09/22 02/14/22 History Spironolactone [Aldactone] 50 mg PO DAILY #30 tab 02/11/22 02/14/22 Rx Bumetanide [BUMEX] 2 mg PO AC-BID 30 Days #60 tablet 02/12/22 02/14/22 Rx Metoprolol Tartrate [Lopressor] 25 mg PO BID #30 tab 02/12/22 02/14/22 Rx polyethylene glycoL 3350 [Miralax] 17 gm PO DAILY #30 packet 02/12/22 02/14/22 Rx Allergies Allergy/AdvReac Type Severity Reaction Status Date / Time bee venom protein (honey bee) Allergy Anaphylaxis Verified 02/14/22 08:35 Physical Exam Vitals: Vital Signs Temp Pulse Resp BP Pulse Ox 02/14/22 10:03 50 L 18 96 02/14/22 09:03 55 L 18 96 02/14/22 08:05 53 L 02/14/22 07:57 44 L 18 115/62 99 02/14/22 07:50 45 L 02/14/22 05:29 43 L 117/60 02/14/22 04:47 107/63 94 L 02/14/22 04:41 46 L 02/14/22 04:35 36 L 02/14/22 03:45 97.5 F L 44 L 18 109/59 98 Intake and Output 02/13/22 02/14/22 02/14/22 22:59 06:59 14:59 Other: Weight 108.862 kg Results 02/14/22 04:11 02/14/22 04:11 Cardiac Enzymes 02/14/22 02/14/22 02/14/22 Range/Units 04:11 04:11 06:45 AST 23 (14-36) U/L Troponin I <0.012 <0.012 (0.000-0.034) ng/mL 02/14/22 Range/Units 09:21 AST (14-36) U/L Troponin I <0.012 (0.000-0.034) ng/mL Coagulation 02/14/22 Range/Units 04:11 PT 10.3 (9.0-12.0) sec APTT 24.4 (22.0-30.0) sec CBC 02/14/22 Range/Units 04:11 WBC 12.2 H (3.8-10.6) k/uL RBC 4.24 (3.80-5.40) m/uL Hgb 12.0 (11.4-16.0) gm/dL Hct 36.3 (34.0-46.0) % Plt Count 267 (150-450) k/uL Comprehensive Metabolic Panel 02/14/22 Range/Units 04:11 Sodium 135 L (137-145) mmol/L Potassium 3.5 (3.5-5.1) mmol/L Chloride 95 L (98-107) mmol/L Carbon Dioxide 28 (22-30) mmol/L BUN 36 H (7-17) mg/dL Creatinine 1.81 H (0.52-1.04) mg/dL Glucose 111 H (74-99) mg/dL Calcium 9.1 (8.4-10.2) mg/dL AST 23 (14-36) U/L ALT 16 (4-34) U/L Alkaline Phosphatase 106 (38-126) U/L Total Protein 6.0 L (6.3-8.2) g/dL Albumin 3.9 (3.5-5.0) g/dL Current Medications Generic Name Dose Route Start Last Admin Trade Name Freq PRN Reason Stop Dose Admin Albuterol Sulfate 2.5 mg 02/14/22 05:44 Albuterol Nebulized 2.5 Mg/3 Ml INHALATION RT-Q4H PRN Shortness Of Breath Albuterol/Ipratropium 3 ml 02/14/22 08:00 02/14/22 07:49 Ipratropium-Albuterol 3 Ml Neb INHALATION 3 ml RT-QID ADRIANNA Administration Apixaban 5 mg 02/14/22 09:00 02/14/22 07:59 Apixaban 5 Mg Tab PO 5 mg BID ADRIANNA Administration Protocol Atorvastatin Calcium 10 mg 02/14/22 21:00 Atorvastatin 10 Mg Tab PO HS ADRIANNA Bumetanide 2 mg 02/14/22 07:30 02/14/22 07:59 Bumetanide 1 Mg Tab PO 2 mg AC-BID ADRIANNA Administration Naloxone HCl 0.2 mg 02/14/22 05:43 Naloxone 0.4 Mg/Ml 1 Ml Vial IV Q2M PRN Opioid Reversal Spironolactone 50 mg 02/14/22 09:00 02/14/22 07:59 Spironolactone 25 Mg Tab PO 50 mg DAILY ADRIANNA Administration Intake and Output 02/13/22 02/14/22 02/14/22 22:59 06:59 14:59 Other: Weight 108.862 kg 02/14/22 04:11 02/14/22 04:11
--- NOTE | 2022-02-14 13:58 | P.HPIM ---
History of Present Illness Patient is a pleasant 76-year-old female came in with complaints of low heart rate. Patient was recently hospitalized for atrial fibrillation patient was discharged from Flecainide metoprolol and Cardizem patient started feeling weak. Found to have low heart rate with heart rate going into 30s. Patient also has acute renal failure with creatinine going up to 1.8 baseline is around 1.3 patient had lymphedema for which patient is on Bumex. All his medications are being held at this time and patient is feeling much better today heart rate is in 40s REVIEW OF SYSTEMS: CONSTITUTIONAL: No fever, no malaise, no fatigue. HEENT: No recent visual problems or hearing problems. Denied any sore throat. CARDIOVASCULAR: No chest pain, orthopnea, PND, no palpitations, no syncope. PULMONARY: No shortness of breath, no cough, no hemoptysis. GASTROINTESTINAL: No diarrhea, no nausea, no vomiting, no abdominal pain. NEUROLOGICAL: No headaches, no weakness, no numbness. HEMATOLOGICAL: Denies any bleeding or petechiae. GENITOURINARY: Denies any burning micturition, frequency, or urgency. MUSCULOSKELETAL/RHEUMATOLOGICAL: Denies any joint pain, swelling, or any muscle pain. ENDOCRINE: Denies any polyuria or polydipsia. The rest of the 14-point review of systems is negative. PHYSICAL EXAMINATION: GENERAL: The patient is alert and oriented x3, not in any acute distress. Well developed, well nourished. HEENT: Pupils are round and equally reacting to light. EOMI. No scleral icterus. No conjunctival pallor. Normocephalic, atraumatic. No pharyngeal erythema. No thyromegaly. CARDIOVASCULAR: S1 and S2 present. Norubs, or gallops. Loud systolic as well as a diastolic murmur in the aortic area PULMONARY: Chest is clear to auscultation, no wheezing or crackles. ABDOMEN: Soft, nontender, nondistended, normoactive bowel sounds. No palpable organomegaly. MUSCULOSKELETAL: No joint swelling or deformity. EXTREMITIES: No cyanosis, clubbing, or pedal edema. NEUROLOGICAL: Gross neurological examination did not reveal any focal deficits. SKIN: No rashes. Assessment and plan -Bradycardia secondary to Total Fernie, Beta Fernie and Antiarrhythmic Medication All of Which Is Being Held up Now and Patient Probably Will Be Started Back on Beta Fernie Once Her Heart Rate Gets Better. -Acute Renal Failure: Secondary to Excessive Diuresis Will Hold off on Bumex Probably Will Need to Start on a Low-Dose of Bumex upon Discharge -Proximal Atrial Fibrillation Presently Sinus Rhythm -Moderate aortic insufficiency and aortic stenosis -Chronic venous insufficiency and lymphedema bilateral lower extremities which is chronic presently doesn't have much of edema -Chronic kidney disease stage III, probably hypertensive nephrosclerosis DVT prophylaxis: On anticoagulation with Eliquis Past Medical History Past Medical History: Atrial Fibrillation, Heart Failure, COPD, Hyperlipidemia, Pneumonia Additional Past Medical History / Comment(s): 2007 Valley fever, rheumatic fever as a child, gout L wrist. History of Any Multi-Drug Resistant Organisms: None Reported Past Surgical History: Appendectomy, Heart Catheterization, Joint Replacement, Orthopedic Surgery, Tonsillectomy, Tubal Ligation Additional Past Surgical History / Comment(s): HILDA, cardioversion, 2012 cardiac cath-normal, right knee arthroscopies, colonoscopy, L hip replaced cardiac ablation 08/02 Past Anesthesia/Blood Transfusion Reactions: No Reported Reaction Past Psychological History: No Psychological Hx Reported Smoking Status: Former smoker Past Alcohol Use History: None Reported Past Drug Use History: None Reported - Past Family History Father History Unknown: Yes Family Medical History: Cancer Additional Family Medical History / Comment(s): Father had colon cancer. Mother Family Medical History: No Reported History Additional Family Medical History / Comment(s): Mother was healthy and lived to be 93-94 yrs old. Medications and Allergies Home Medications Medication Instructions Recorded Confirmed Type Atorvastatin [Lipitor] 10 mg PO HS 11/25/17 02/14/22 History Ipratropium-Albuterol Nebulize 3 ml INHALATION RT-QID 11/25/17 02/14/22 History [Duoneb 0.5 mg-3 mg/3 ml Soln] Montelukast [Singulair] 10 mg PO HS 11/25/17 02/14/22 History Apixaban [Eliquis] 5 mg PO BID 04/09/18 02/14/22 History Albuterol Sulfate [Ventolin HFA] 2 puff INHALATION RT-Q4H PRN 06/11/20 02/14/22 History Calcium Carbonate/Vitamin D3 1 tab PO DAILY 06/11/20 02/14/22 History [Calcium 600-Vit D3 5 Mcg (200 Iu)] Diltiazem Cd [Cardizem CD] 180 mg PO BID 11/26/20 02/14/22 History Ferrous Sulfate [Iron (65 MG 325 mg PO DAILY 02/09/22 02/14/22 History Elemental)] Flecainide Acetate [Tambocor] 100 mg PO BID 02/09/22 02/14/22 History Magnesium Oxide [Magnesium] 500 mg PO DAILY 02/09/22 02/14/22 History Spironolactone [Aldactone] 50 mg PO DAILY #30 tab 02/11/22 02/14/22 Rx Bumetanide [BUMEX] 2 mg PO AC-BID 30 Days #60 tablet 02/12/22 02/14/22 Rx Metoprolol Tartrate [Lopressor] 25 mg PO BID #30 tab 02/12/22 02/14/22 Rx polyethylene glycoL 3350 [Miralax] 17 gm PO DAILY #30 packet 02/12/22 02/14/22 Rx Allergies Allergy/AdvReac Type Severity Reaction Status Date / Time bee venom protein (honey bee) Allergy Anaphylaxis Verified 02/14/22 08:35 Physical Exam Vitals: Vital Signs Temp Pulse Pulse Resp BP BP Pulse Ox 02/14/22 12:00 98 F 51 L 15 135/75 95 02/14/22 11:40 48 L 02/14/22 11:33 99 02/14/22 11:30 48 L 02/14/22 11:07 98.0 F 48 L 18 105/61 97 02/14/22 10:03 50 L 18 96 02/14/22 09:03 55 L 18 96 02/14/22 08:05 53 L 02/14/22 07:57 44 L 18 115/62 99 02/14/22 07:50 45 L 02/14/22 05:29 43 L 117/60 02/14/22 04:47 107/63 94 L 02/14/22 04:41 46 L 02/14/22 04:35 36 L 02/14/22 03:45 97.5 F L 44 L 18 109/59 98 Intake and Output 02/13/22 02/14/22 02/14/22 22:59 06:59 14:59 Other: Weight 108.862 kg Results CBC & Chem 7: 02/14/22 04:11 02/14/22 04:11 Labs: Abnormal Lab Results - Last 24 Hours (Table) 02/14/22 02/14/22 Range/Units 04:11 04:11 WBC 12.2 H (3.8-10.6) k/uL Neutrophils # 8.9 H (1.3-7.7) k/uL Sodium 135 L (137-145) mmol/L Chloride 95 L (98-107) mmol/L BUN 36 H (7-17) mg/dL Creatinine 1.81 H (0.52-1.04) mg/dL Glucose 111 H (74-99) mg/dL Magnesium 2.4 H (1.6-2.3) mg/dL Total Protein 6.0 L (6.3-8.2) g/dL
[2022-02-14] MEDS: ATORVASTATIN 10 MG TAB PO SCH (20:23)
[2022-02-15] MEDS: IPRATROPIUM-ALBUTEROL 3 ML NEB INHALATION SCH ×4 (07:55→20:25)
[2022-02-15] MEDS ORDERED: METOPROLOL TARTRATE 25 MG TAB PO SCH (09:15)
[2022-02-15 09:32] LABS: Basophils % (A) 0 %; Eosinophils # (A) 0.3 k/uL (0-0.7); Eosinophils % (A) 3 %; HCT 39.8 % (34.0-46.0); HGB 12.2 gm/dL (11.4-16.0); Hypochromasia Slight; Lymphocytes # (A) 1.3 k/uL (1.0-4.8); Lymphocytes % (A) 14 %; MCH 26.6 pg (25.0-35.0); MCHC 30.5 g/dL (31.0-37.0); Mean Platelet Volume 7.6; Monocytes # (A) 0.5 k/uL (0-1.0); Monocytes % (A) 6 %; Neutrophils # (A) 6.9 k/uL (1.3-7.7); Neutrophils % (A) 76 %; Platelet Count 255 k/uL (150-450); RBC 4.58 m/uL (3.80-5.40); RDW 14.2 % (11.5-15.5); WBC 9.1 k/uL (3.8-10.6)
[2022-02-15 09:41] LABS: Calcium 9.3 mg/dL (8.4-10.2)
[2022-02-15] MEDS: MAGNESIUM OXIDE 400 MG TAB PO SCH (09:54)
[2022-02-15] MEDS: polyethylene glycoL 3350 17 GM POWD.PACK PO SCH (09:54)
[2022-02-15] MEDS: SPIRONOLACTONE 25 MG TAB PO SCH (09:55)
[2022-02-15] MEDS: APIXABAN 5 MG TAB PO SCH ×2 (09:56→20:17)
[2022-02-15] MEDS: CALCIUM CARB-VIT D 500 MG-5 MCG TAB PO SCH (09:56)
--- NOTE | 2022-02-15 12:26 | P.PN ---
Subjective Progress Note Date: 02/15/22 HISTORY OF PRESENT ILLNESS: The patient is a 76-year-old female with multiple comorbid conditions, who presented to the emergency room with low heart rate. The patient states she a woke around 2 AM to ambulate to the restroom. She states she felt very weak and fatigued and overall unwell. She states she checked her oxygen saturation with a pulse ox which was normal, however her pulse was noted to be in the 30s. She was recently evaluated for chest pain within the last week and discharged on Monday. Overall workup was unremarkable, other than the patient being prescribed to calcium channel blockers. She was discharged on flecainide, diltiazem, and metoprolol. DIAGNOSTICS: EKG shows sinus bradycardia in the 40s Chest x-ray shows cardiomegaly with no cardio/pulmonary disease Recent echocardiogram showed EF at 55-60% with moderate valvular disease Lab data: WBC 12.2, hemoglobin 12.0, hematocrit 36.3, platelet 267, sodium 135, potassium 3.5, BUN 36, creatinine 1.81, AST 23, ALT 16, troponins negative 3, BNP 539 02/15/2022 Patient examined this morning at the bedside. Patient denies chest pain or pressure. She denies shortness of breath. Patient's bradycardia has since resolved. Telemetry reveals sinus mechanism with a heart rate in the 70s. Her flecainide, Cardizem, and metoprolol remain on hold. PHYSICAL EXAM: VITAL SIGNS: Reviewed. GENERAL: Well-developed in no acute distress. NECK: Supple. No JVD or thyromegaly LUNGS: Respirations even and unlabored. Lungs essentially clear to auscultation bilaterally. HEART: Regular rate and rhythm. S1 and S2 heard. Systolic murmur noted. EXTREMITIES: Normal range of motion. No clubbing or cyanosis. Peripheral pulses intact. 2+ bilateral lower extremity edema ASSESSMENT: Bradycardia, resolved Paroxysmal atrial fibrillation Valvular heart disease Lymphedema Chronic kidney disease COPD PLAN: Bradycardia likely medication related. Patient was recently started on metoprolol during recent hospitalization. Continue to hold at this time. Continue to hold Cardizem May resume flecainide Continue telemetry monitoring Check TSH Further recommendations pending patient course Nurse practitioner note has been reviewed by physician. Signing provider agrees with the documented findings, assessment, and plan of care. Objective - Vital Signs Vital signs: Vital Signs Temp 97.7 F 02/15/22 11:44 Pulse 77 02/15/22 11:44 Resp 19 02/15/22 11:44 BP 143/78 02/15/22 11:44 Pulse Ox 92 L 02/15/22 11:44 FiO2 Intake & Output 02/14/22 02/15/22 02/15/22 18:59 06:59 18:59 Intake Total 118 180 Output Total 800 Balance 118 -800 180 Weight 108.862 kg Intake: Oral 118 180 Output: Urine 800 Other: Voiding Method Toilet Toilet Toilet - Labs CBC & Chem 7: 02/15/22 08:36 02/15/22 08:36 Labs: Abnormal Lab Results - Last 24 Hours (Table) 02/15/22 02/15/22 Range/Units 08:36 08:36 MCHC 30.5 L (31.0-37.0) g/dL BUN 29 H (7-17) mg/dL Creatinine 1.43 H (0.52-1.04) mg/dL
[2022-02-15] MEDS ORDERED: ALPRAZolam 0.25 MG TAB ONE (15:00)
[2022-02-15] MEDS ORDERED: IPRATROPIUM-ALBUTEROL 3 ML NEB ONE (15:00)
[2022-02-15] MEDS: FLECAINIDE 50 MG TAB PO SCH ×2 (19:37→20:17)
[2022-02-15] MEDS ORDERED: ACETAMINOPHEN TAB 325 MG TAB PO PRN (19:57)
[2022-02-15] MEDS ORDERED: ALPRAZolam 0.25 MG TAB PO PRN (19:57)
[2022-02-15] MEDS: ATORVASTATIN 10 MG TAB PO SCH (20:17)
[2022-02-15] MEDS ORDERED: MONTELUKAST 10 MG TAB PO SCH (21:00)
[2022-02-16] MEDS: IPRATROPIUM-ALBUTEROL 3 ML NEB INHALATION SCH ×4 (07:42→16:06)
[2022-02-16] MEDS: SPIRONOLACTONE 25 MG TAB PO SCH (08:45)
[2022-02-16] MEDS: FLECAINIDE 50 MG TAB PO SCH (08:45)
[2022-02-16] MEDS: MAGNESIUM OXIDE 400 MG TAB PO SCH (08:46)
[2022-02-16] MEDS: CALCIUM CARB-VIT D 500 MG-5 MCG TAB PO SCH (08:47)
[2022-02-16] MEDS: APIXABAN 5 MG TAB PO SCH (08:47)
[2022-02-16] MEDS: polyethylene glycoL 3350 17 GM POWD.PACK PO SCH (08:50)
[2022-02-16] MEDS ORDERED: DILTIAZEM CD 180 MG CAP.ER.24H PO SCH (09:00)
[2022-02-16 09:48] LABS: Calcium 9.2 mg/dL (8.4-10.2); Potassium 4.1 mmol/L (3.5-5.1)
--- NOTE | 2022-02-16 09:48 | P.PN ---
Subjective Progress Note Date: 02/16/22 HISTORY OF PRESENT ILLNESS: The patient is a 76-year-old female with multiple comorbid conditions, who presented to the emergency room with low heart rate. The patient states she a woke around 2 AM to ambulate to the restroom. She states she felt very weak and fatigued and overall unwell. She states she checked her oxygen saturation with a pulse ox which was normal, however her pulse was noted to be in the 30s. She was recently evaluated for chest pain within the last week and discharged on Monday. Overall workup was unremarkable, other than the patient being prescribed to calcium channel blockers. She was discharged on flecainide, diltiazem, and metoprolol. DIAGNOSTICS: EKG shows sinus bradycardia in the 40s Chest x-ray shows cardiomegaly with no cardio/pulmonary disease Recent echocardiogram showed EF at 55-60% with moderate valvular disease Lab data: WBC 12.2, hemoglobin 12.0, hematocrit 36.3, platelet 267, sodium 135, potassium 3.5, BUN 36, creatinine 1.81, AST 23, ALT 16, troponins negative 3, BNP 539 02/15/2022 Patient examined this morning at the bedside. Patient denies chest pain or pressure. She denies shortness of breath. Patient's bradycardia has since resolved. Telemetry reveals sinus mechanism with a heart rate in the 70s. Her flecainide, Cardizem, and metoprolol remain on hold. 02/16/2022 Patient examined this morning at the bedside. Patient is sitting on the side of the bed. She denies chest pain or pressure. Denies SOB. Denies dizziness or lightheadedness. Telemetry reveals sinus mechanism with a heart rate in the 70s. PHYSICAL EXAM: VITAL SIGNS: Reviewed. GENERAL: Well-developed in no acute distress. NECK: Supple. No JVD or thyromegaly LUNGS: Respirations even and unlabored. Lungs essentially clear to auscultation bilaterally. HEART: Regular rate and rhythm. S1 and S2 heard. Systolic murmur noted. EXTREMITIES: Normal range of motion. No clubbing or cyanosis. Peripheral pu lses intact. 2+ bilateral lower extremity edema ASSESSMENT: Bradycardia, resolved Paroxysmal atrial fibrillation Valvular heart disease Lymphedema Chronic kidney disease COPD PLAN: Bradycardia likely medication related. Patient was recently started on m etoprolol during recent hospitalization. Continue to hold at this time. Continue flecainide Continue to hold Cardizem at discharge Add Norvasc 10mg daily and Losartan 25mg daily per Dr. Bourne Continue telemetry monitoring Further recommendations pending patient course Nurse practitioner note has been reviewed by physician. Signing provider agrees with the documented findings, assessment, and plan of care. Objective - Vital Signs Vital signs: Vital Signs Temp 97.9 F 02/16/22 08:10 Pulse 72 02/16/22 09:32 Resp 17 02/16/22 08:10 BP 161/73 02/16/22 08:10 Pulse Ox 95 02/16/22 08:10 FiO2 Intake & Output 02/15/22 02/16/22 02/16/22 18:59 06:59 18:59 Intake Total 180 180 Output Total 800 Balance 180 -800 180 Intake: Oral 180 180 Output: Urine 800 Other: Voiding Method Toilet Toilet - Labs CBC & Chem 7: 02/15/22 08:36 02/16/22 08:22
[2022-02-16] MEDS ORDERED: LOSARTAN 25 MG TAB PO SCH (10:30)
[2022-02-16] MEDS ORDERED: amLODIPine 10 MG TAB PO SCH (10:30)
[2022-02-16 11:17] VITALS: RESP 18
[2022-02-16 16:45] VITALS: BP 146/69; PULSE 75; TEMP 98.3
--- NOTE | 2022-02-23 12:45 | P.PN ---
Subjective Progress Note Date: 02/15/22 Patient is a pleasant 76-year-old female came in with complaints of low heart rate. Patient was recently hospitalized for atrial fibrillation patient was discharged from [facility] metoprolol and Cardizem patient started feeling weak. Found to have low heart rate with heart rate going into 30s. Patient also has acute renal failure with creatinine going up to 1.8 baseline is around 1.3 patient had lymphedema for which patient is on Bumex. All his medications are being held at this time and patient is feeling much better today heart rate is in 40s 02/15/2022 Patient is currently resting in the bed. Awake alert and oriented x3. Bradycardia has resolved. Currently heart rate is in 70s. Cardizem and metoprolol is on hold. Losartan and Norvasc was added. Cardiology is on board. Laboratory data showed WBC 9.1 hemoglobin 12.1 platelets 255 Sodium 139 potassium 4.0 chloride 98 bicarb is 30 BUN 29 and creatinine 1.43. Renal function is improving. TSH level is within normal limits at 2.9. Current medications reviewed. REVIEW OF SYSTEMS: CONSTITUTIONAL: No fever, no malaise, no fatigue. HEENT: No recent visual problems or hearing problems. Denied any sore throat. CARDIOVASCULAR: No chest pain, orthopnea, PND, no palpitations, no syncope. PULMONARY: No shortness of breath, no cough, no hemoptysis. GASTROINTESTINAL: No diarrhea, no nausea, no vomiting, no abdominal pain. NEUROLOGICAL: No headaches, no weakness, no numbness. HEMATOLOGICAL: Denies any bleeding or petechiae. GENITOURINARY: Denies any burning micturition, frequency, or urgency. MUSCULOSKELETAL/RHEUMATOLOGICAL: Denies any joint pain, swelling, or any muscle pain. ENDOCRINE: Denies any polyuria or polydipsia. The rest of the 14-point review of systems is negative. Objective - Vital Signs Vital signs: Vital Signs Temp 98 F 02/15/22 20:00 Pulse 76 02/15/22 23:43 Resp 18 02/15/22 23:43 BP 141/74 02/15/22 23:43 Pulse Ox 95 02/15/22 23:43 FiO2 Intake & Output 02/15/22 02/15/22 02/16/22 06:59 18:59 06:59 Intake Total 180 Output Total 800 300 Balance -800 180 -300 Intake: Oral 180 Output: Urine 800 300 Other: Voiding Method Toilet Toilet Toilet - Exam PHYSICAL EXAMINATION: GENERAL: The patient is alert and oriented x3, not in any acute distress. Well developed, well nourished. HEENT: Pupils are round and equally reacting to light. EOMI. No scleral icterus. No conjunctival pallor. Normocephalic, atraumatic. No pharyngeal erythema. No thyromegaly. CARDIOVASCULAR: S1 and S2 present. Norubs, or gallops. Loud systolic as well as a diastolic murmur in the aortic area PULMONARY: Chest is clear to auscultation, no wheezing or crackles. ABDOMEN: Soft, nontender, nondistended, normoactive bowel sounds. No palpable organomegaly. MUSCULOSKELETAL: No joint swelling or deformity. EXTREMITIES: No cyanosis, clubbing, or pedal edema. NEUROLOGICAL: Gross neurological examination did not reveal any focal deficits. SKIN: No rashes. - Labs CBC & Chem 7: 02/15/22 08:36 02/16/22 08:22 Labs: Abnormal Lab Results - Last 24 Hours (Table) 02/15/22 02/15/22 Range/Units 08:36 08:36 MCHC 30.5 L (31.0-37.0) g/dL BUN 29 H (7-17) mg/dL Creatinine 1.43 H (0.52-1.04) mg/dL Assessment and Plan Assessment: Assessment and plan -Bradycardia secondary to Total Fernie, Beta Fernie and Antiarrhythmic Medication All of Which Is Being Held up Now and Patient Probably Will Be Started Back on Beta Fernie Once Her Heart Rate Gets Better. -Acute Renal Failure: Secondary to Excessive Diuresis Will Hold off on Bumex Probably Will Need to Start on a Low-Dose of Bumex upon Discharge -Proximal Atrial Fibrillation Presently Sinus Rhythm -Moderate aortic insufficiency and aortic stenosis -Chronic venous insufficiency and lymphedema bilateral lower extremities which is chronic presently doesn't have much of edema -Chronic kidney disease stage III, probably hypertensive nephrosclerosis DVT prophylaxis: On anticoagulation with Eliquis Time with Patient: Greater than 30
--- NOTE | 2022-02-23 12:48 | P.DS ---
Providers Date of admission: 02/14/22 05:43 Expected date of discharge: 02/16/22 Attending physician: Antonio Banda MD Consults: 02/14/22 05:43 Consult Physician Routine Consulting Provider: [facility] Consult Reason/Comments: bradycardia Do you want consulting provider notified?: Yes Primary care physician: [facility] Course: Discharge diagnosis -Bradycardia secondary to Beta Fernie and dehydration. resolved now -Acute Renal Failure: Secondary to Excessive Diuresis Will Hold off on Bumex. -Proximal Atrial Fibrillation Presently Sinus Rhythm -Moderate aortic insufficiency and aortic stenosis -Chronic venous insufficiency and lymphedema bilateral lower extremities which is chronic presently doesn't have much of edema -Chronic kidney disease stage III, probably hypertensive nephrosclerosis Hospital course Patient is a pleasant 76-year-old female came in with complaints of low heart rate. Patient was recently hospitalized for atrial fibrillation patient was discharged from [facility] metoprolol and Cardizem patient started feeling weak. Found to have low heart rate with heart rate going into 30s. Patient also has acute renal failure with creatinine going up to 1.8 baseline is around 1.3 patient had lymphedema for which patient is on Bumex. All his medications are being held at this time and patient is feeling much better today heart rate is in 40s 02/15/2022 Patient is currently resting in the bed. Awake alert and oriented x3. Bradycardia has resolved. Currently heart rate is in 70s. Cardizem and metoprolol is on hold. Losartan and Norvasc was added. Cardiology is on board. Laboratory data showed WBC 9.1 hemoglobin 12.1 platelets 255 Sodium 139 potassium 4.0 chloride 98 bicarb is 30 BUN 29 and creatinine 1.43. R enal function is improving. TSH level is within normal limits at 2.9. 9 2021 Patient is resting in bed. No complaints of chest pain or pressure. No headache or dizziness or lightheadedness. Renal function is much improved. Heart rate is maintained. Metoprolol and Cardizem will be held upon discharge. Prescription for Norvasc 10 losartan has been provided. Continue with the flecainide. Patient otherwise denied any cough or sputum production. No complaints of nausea or vomiting. No abdominal pain or diarrhea. Patient is being discharged home and follow with primary care physician PHYSICAL EXAMINATION: Patient is lying in the bed comfortably, no acute distress, awake alert and oriented.. HEENT: Normocephalic. Neck is supple. Pupils reactive. Nostrils clear. Oral cavity is moist. Neck reveals no JVD, carotid bruits, or thyromegaly. CHEST EXAMINATION: Trachea is central. Symmetrical expansion. Lung flood clear to auscultation and percussion. CARDIAC: Normal S1, S2 with no gallops. No murmurs ABDOMEN: Soft. Bowel sounds present. Nontender. No organomegaly. No abdominal bruits. Extremities: reveal no edema. No clubbing or cyanosis Neurologically awake, alert, oriented x3 with well-coordinated movements. No focal deficits noted Skin: No rash or skin lesions. Psychiatric: Coperative. Nonsuicidal, Musculoskeletal: No joint swelling or deformity. Normal range of motion. - Vital Signs Vital signs: Vital Signs Temp 97.9 F 02/16/22 08:10 Pulse 72 02/16/22 09:32 Resp 17 02/16/22 08:10 BP 161/73 02/16/22 08:10 Pulse Ox 95 02/16/22 08:10 FiO2 Intake & Output 02/15/22 02/16/22 02/16/22 18:59 06:59 18:59 Intake Total 180 180 Output Total 800 Balance 180 -800 180 Intake: Oral 180 180 Output: Urine 800 Other: Voiding Method Toilet Toilet - Labs CBC & Chem 7: 02/15/22 08:36 02/16/22 08:22 Patient Condition at Discharge: Stable Plan - Discharge Summary Discharge Rx Participant: No New Discharge Prescriptions: New Losartan [Cozaar] 25 mg PO DAILY #30 tab amLODIPine [Norvasc] 10 mg PO DAILY #30 tab Continue Atorvastatin [Lipitor] 10 mg PO HS Ipratropium-Albuterol Nebulize [Duoneb 0.5 mg-3 mg/3 ml Soln] 3 ml INHALATION RT-QID Montelukast [Singulair] 10 mg PO HS Apixaban [Eliquis] 5 mg PO BID Albuterol Sulfate [Ventolin HFA] 2 puff INHALATION RT-Q4H PRN PRN Reason: Shortness Of Breath Calcium Carbonate/Vitamin D3 [Calcium 600-Vit D3 5 Mcg (200 Iu)] 1 tab PO DAILY Flecainide Acetate [Tambocor] 100 mg PO BID Spironolactone [Aldactone] 50 mg PO DAILY #30 tab Magnesium Oxide [Magnesium] 500 mg PO DAILY Ferrous Sulfate [Iron (65 MG Elemental)] 325 mg PO DAILY polyethylene glycoL 3350 [Miralax] 17 gm PO DAILY #30 packet Discontinued Metoprolol Tartrate [Lopressor] 25 mg PO BID #30 tab Bumetanide [BUMEX] 2 mg PO AC-BID 30 Days #60 tablet Diltiazem Cd [Cardizem CD] 180 mg PO BID Discharge Medication List Atorvastatin [Lipitor] 10 mg PO HS 11/25/17 [History] Ipratropium-Albuterol Nebulize [Duoneb 0.5 mg-3 mg/3 ml Soln] 3 ml INHALATION RT-QID 11/25/17 [History] Montelukast [Singulair] 10 mg PO HS 11/25/17 [History] Apixaban [Eliquis] 5 mg PO BID 04/09/18 [History] Albuterol Sulfate [Ventolin HFA] 2 puff INHALATION RT-Q4H PRN 06/11/20 [History] Calcium Carbonate/Vitamin D3 [Calcium 600-Vit D3 5 Mcg (200 Iu)] 1 tab PO DAILY 06/11/20 [History] Ferrous Sulfate [Iron (65 MG Elemental)] 325 mg PO DAILY 02/09/22 [History] Flecainide Acetate [Tambocor] 100 mg PO BID 02/09/22 [History] Magnesium Oxide [Magnesium] 500 mg PO DAILY 02/09/22 [History] Spironolactone [Aldactone] 50 mg PO DAILY #30 tab 02/11/22 [Rx] polyethylene glycoL 3350 [Miralax] 17 gm PO DAILY #30 packet 02/12/22 [Rx] Losartan [Cozaar] 25 mg PO DAILY #30 tab 02/16/22 [Rx] amLODIPine [Norvasc] 10 mg PO DAILY #30 tab 02/16/22 [Rx] Follow up Appointment(s)/Referral(s): Cookie Guevara MD [Primary Care Provider] - 1-2 days Yasmani Torres MD [STAFF PHYSICIAN] - 1 Week Patient Instructions/Handouts: Bradycardia (GEN) Discharge Disposition: HOME SELF-CARE
== END 2022-02-16 16:56 | disposition home or self-care (01) ==
LOC: EC 03:42 → 3SCARD 05:43 → INTOOBSV 05:43 → 3SCARD 06:30 → UNDODISIN 02-16 16:56
PROVIDERS: ADMIT Internal Medicine; ATTEND Internal Medicine
DX: R00.1 Bradycardia, unspecified (principal); E86.0 Dehydration; T44.7X5A Adverse effect of beta-adrenoreceptor antagonists, initial encounter; T46.1X5A Adverse effect of calcium-channel blockers, initial encounter; N17.9 Acute kidney failure, unspecified; T50.1X5A Adverse effect of loop [high-ceiling] diuretics, initial encounter; I13.0 Hypertensive heart and chronic kidney disease with heart failure and stage 1 through stage 4 chronic kidney disease, or unspecified chronic kidney disease; I50.32 Chronic diastolic (congestive) heart failure; N18.30 Chronic kidney disease, stage 3 unspecified; I48.0 Paroxysmal atrial fibrillation; I08.0 Rheumatic disorders of both mitral and aortic valves; J44.9 Chronic obstructive pulmonary disease, unspecified; E78.5 Hyperlipidemia, unspecified; D72.829 Elevated white blood cell count, unspecified; I89.0 Lymphedema, not elsewhere classified; I87.2 Venous insufficiency (chronic) (peripheral); M10.9 Gout, unspecified; Z79.01 Long term (current) use of anticoagulants; Z79.899 Other long term (current) drug therapy; Z91.030 Bee allergy status; Z96.642 Presence of left artificial hip joint; Z87.891 Personal history of nicotine dependence; Z86.19 Personal history of other infectious and parasitic diseases; Z87.01 Personal history of pneumonia (recurrent); Z98.51 Tubal ligation status; Z90.49 Acquired absence of other specified parts of digestive tract; Z98.890 Other specified postprocedural states; Z80.0 Family history of malignant neoplasm of digestive organs
CPT/HCPCS: 96374; 99285; 36415; 94640 ×5; 94760 ×2; 93005; 83880; 80053; 80048 ×2; 84443; 83735; 84484; 85025 ×2; 85610; 85730; 71046; G0378 ×3; J0461

== ENCOUNTER → 2022-03-31 | Outpatient (CLI) | payer MEDICARE ==
--- NOTE | 2022-03-31 14:50 | MM ---
Reason for Exam: Follow-up at short interval from prior study. Last screening mammogram was performed 11 month(s) ago. Patient History: Menarche at age 11. First Full-Term at age 17. Postmenopausal. Risk Values: Lisa 5 year model risk: 1.2%. NCI Lifetime model risk: 2.2%. Prior Study Comparison: 04/14/2020 Bilateral MG screening mammo w CAD - 2, [facility]. 04/15/2021 Bilateral MG screening mammo w CAD - 2, [facility]. 04/22/2021 Right MG diagnostic mammo RT w CAD - 2, [facility]. Tissue Density: The breast tissue is heterogeneously dense. This may lower the sensitivity of mammography. Findings: Analyzed By CAD. There are benign-appearing vascular and rounded and linear calcifications redemonstrated. No new distortion or worrisome group of microcalcification in either breast. Overall Assessment: Incomplete: need additional imaging evaluation, BI-RAD 0 Management: Diagnostic Breast Ultrasound of the right breast. Targeted ultrasound right breast due to prior abnormality. Electronically signed and approved by: Ranjeet Torres M.D.
--- NOTE | 2022-03-31 15:10 | USB ---
Reason for Exam: Follow-up at short interval from prior study. Patient History: Menarche at age 11. First Full-Term at age 17. Postmenopausal. Risk Values: Lisa 5 year model risk: 1.2%. NCI Lifetime model risk: 2.2%. Technique: Method: Targeted. Prior Study Comparison: 04/14/2020 Bilateral MG screening mammo w [facility] - , [facility]. 04/15/2021 Bilateral MG screening mammo w CAD - 2, [facility]. 04/22/2021 Right MG diagnostic mammo RT w [facility] - , [facility]. Findings: The upper outer quadrant of the right breast, the axilla of the right breast and the retroareolar of the right breast were scanned. Targeted ultrasound right breast shows 4 x 3 x 4 mm oval lesion 9:00 position 3 cm distance from nipple that is too small to further characterize but grossly unchanged from prior outside ultrasound. Overall Assessment: Benign, BI-RAD 2 Management: Screening Mammogram of both breasts in 1 year. Return to routine follow-up. ??Results were given to the patient verbally at the time of exam. Electronically signed and approved by: Ranjeet Torres M.D.
--- NOTE | 2022-03-31 15:56 | BD ---
EXAMINATION TYPE: Axial Bone Density DATE OF EXAM: 03/31/2022 COMPARISON: NONE CLINICAL HISTORY: 76 year old Female. ICD-10 CODE: Z78.0 Asymptomatic menopausal stat Height: 68 Weight: 230 FRAX RISK QUESTIONS: Alcohol (3 or more units per day): no Family History (Parent hip fracture): no Glucocorticoids (More than 3mos): no (Ex: prednisone, prednisolone, methylprednisolone, dexamethasone, and hydrocortisone). History of Fracture in Adulthood: no Secondary Osteoporosis: 1. Type 1 Diabetes: no 2. Hyperthyroidism: no 3. Menopause before 45: no 4. Malnutrition: no 5. Chronic liver disease: no Rheumatoid Arthritis: no Current Tobacco Use: no RISK FACTORS HISTORY OF: Surgery to Spine/Hip(right/left)/Wrist (right/left): left hip When: 4 years ago Family History of Osteoporosis: no Active: yes Diet low in dairy products/other sources of calcium: no Postmenopausal woman: yes Lost more than 2 inches in height since high school: no MEDICATIONS: Additional History: EXAM MEASUREMENTS: Bone mineral densitometry was performed using the [employer] System. Bone mineral density as measured about the Lumbar spine is: ----- L1-L4(G/cm2): 1.234 T Score Values are as follows: ----- L1: -0.4 ----- L2: 0.2 ----- L3: 1.1 ----- L4: 1.2 ----- L1-L4: 0.5 Bone mineral density : baseline IMPRESSION: Normal (Values between +1 and -1 indicate normal bone mass). Consider repeating this study in 5 year s or sooner if there is some new clinical indication. NOTE: T-SCORE=SD OF THE YOUNG ADULT MEAN.
== END | disposition home or self-care (01) ==
LOC: RADMAMWWP 14:03
PROVIDERS: ATTEND Family Medicine
DX: R92.8 Other abnormal and inconclusive findings on diagnostic imaging of breast (principal); Z78.0 Asymptomatic menopausal state
CPT/HCPCS: 77080; 77066; 76642; G0279; 77062

== ENCOUNTER 2023-02-13 16:25 | Inpatient (IN) | payer MEDICARE ==
--- NOTE | 2023-02-13 16:59 | ED ---
SOB HPI - General Chief Complaint: Upper Respiratory Infection Stated Complaint: sob,cough,fever Time Seen by Provider: 02/13/23 16:34 Source: patient, RN notes reviewed Mode of arrival: ambulatory Limitations: no limitations - History of Present Illness Initial Comments: This is a 77-year-old female who presents to the emergency department for shortness of breath and coughing. Symptoms started 2-3 weeks ago. Feels like it has now moved down into her chest. She was given a prescription for Tessalon Perles, which she states were effective the first time she took them, but they've otherwise stopped working. She did try using a breathing treatment shortly before arrival, which was not very effective either. Additionally, states that she was recently on a course of antibiotics and steroids. She does report a history of COPD and CHF. Her is being evaluated here as well for similar symptoms, however his only started a couple of days ago and are not as severe. Denies any fevers, chills, sore throat, chest pain, palpitations, abdominal pain, nausea, vomiting, diarrhea, back pain, or headaches. MD Complaint: shortness of breath, cough Onset/Timin -: week(s) - Related Data Home Medications Medication Instructions Recorded Confirmed Atorvastatin [Lipitor] 10 mg PO HS 11/25/17 02/13/23 Ipratropium-Albuterol Nebulize 3 ml INHALATION RT-QID 11/25/17 02/13/23 [Duoneb 0.5 mg-3 mg/3 ml Soln] Montelukast [Singulair] 10 mg PO HS 11/25/17 02/13/23 Apixaban [Eliquis] 5 mg PO BID 04/09/18 02/13/23 Albuterol Sulfate [Ventolin HFA] 2 puff INHALATION RT-Q4H PRN 06/11/20 02/13/23 Flecainide Acetate [Tambocor] 100 mg PO BID 02/09/22 02/13/23 Benzonatate [Tessalon Perle] 200 mg PO TID 02/13/23 02/13/23 Furosemide [Lasix] 20 mg PO DAILY 02/13/23 02/13/23 Losartan [Cozaar] 50 mg PO DAILY 02/13/23 02/13/23 allopurinoL [Zyloprim] 300 mg PO DAILY 02/13/23 02/13/23 amLODIPine [Norvasc] 5 mg PO DAILY 02/13/23 02/13/23 Previous Rx's Medication Instructions Recorded Spironolactone [Aldactone] 50 mg PO DAILY #30 tab 02/11/22 Allergies Allergy/AdvReac Type Severity Reaction Status Date / Time bee venom protein (honey bee) Allergy Anaphylaxis Verified 02/13/23 19:28 Review of Systems ROS Statement: Those systems with pertinent positive or pertinent negative responses have been documented in the HPI. ROS Other: All systems not noted in ROS Statement are negative. Past Medical History Past Medical History: Atrial Fibrillation, Heart Failure, COPD, Hyperlipidemia, Pneumonia Additional Past Medical History / Comment(s): 2007 Valley fever, rheumatic fever as a child, gout L wrist. History of Any Multi-Drug Resistant Organisms: None Reported Past Surgical History: Appendectomy, Heart Catheterization, Joint Replacement, Orthopedic Surgery, Tonsillectomy, Tubal Ligation Additional Past Surgical History / Comment(s): HILDA, cardioversion, 2012 cardiac cath-normal, right knee arthroscopies, colonoscopy, L hip replaced cardiac ablation 08/02 Past Anesthesia/Blood Transfusion Reactions: No Reported Reaction Past Psychological History: No Psychological Hx Reported Smoking Status: Former smoker Past Alcohol Use History: None Reported Past Drug Use History: None Reported - Past Family History Father History Unknown: Yes Family Medical History: Cancer Additional Family Medical History / Comment(s): Father had colon cancer. Mother Family Medical History: No Reported History Additional Family Medical History / Comment(s): Mother was healthy and lived to be 93-94 yrs old. General Exam Limitations: no limitations General appearance: alert, in no apparent distress Head exam: Present: atraumatic, normocephalic, normal inspection Respiratory exam: Present: decreased breath sounds, prolonged expiratory Cardiovascular Exam: Present: regular rate, normal rhythm, normal heart sounds. Absent: systolic murmur, diastolic murmur, rubs, gallop, clicks Neurological exam: Present: alert, oriented X3, CN II-XII intact Psychiatric exam: Present: normal affect, normal mood Skin exam: Present: warm, dry, intact, normal color. Absent: rash Course Vital Signs 02/13/23 02/13/23 02/13/23 16:27 17:26 18:17 Temperature 98.4 F 97.8 F Pulse Rate 74 69 Respiratory 26 H 20 22 Rate Blood Pressure 190/63 129/59 O2 Sat by Pulse 91 L 95 Oximetry 02/13/23 02/13/23 02/13/23 18:58 19:02 19:07 Temperature 97.7 F Pulse Rate 71 68 75 Respiratory 20 Rate Blood Pressure 121/78 O2 Sat by Pulse 99 Oximetry Medical Decision Making - Medical Decision Making This is a 77-year-old female who presents to the emergency department for coughing and shortness of breath. Was pt. sent in by a medical professional or institution? @ -No Did you speak to anyone other than the patient for history? @ -No Did you review nursing and triage notes? @ -Yes, and I agree, it is accurate with regards to the patient's symptoms. Were old charts reviewed? @ -No Differential Diagnosis? @ -Differential Dyspnea: Coronary syndrome, arrhythmia, tamponade, asthma, COPD, pulmonary embolism, pneumonia, pneumothorax, pulmonary effusion, anaphylaxis, diabetic ketoacidosis, flailed chest, pulmonary contusion, diaphragmatic rupture, anemia, neuromuscular, this is not meant to be an all-inclusive list. EKG interpreted by me (3pts min.)? @ -EKG interpreted by me demonstrating the following: Sinus rhythm. Ventricular rate 80 beats per minute, NJ interval 174 ms, QRS duration 113 ms, QTC 436 ms. X-rays interpreted by me (1pt min.)? @ -Chest x-ray obtained, my interpretation identifies no localized co nsolidations or infiltrates. CT interpreted by me (1pt min.)? @ -Not obtained U/S interpreted by me (1pt. min.)? @ -Not obtained What testing was considered but not performed? (CT, X-rays, U/S, labs)? Why? @ -None What meds were considered but not given? Why? @ -None Did you discuss the management of the patient with other professionals? @ -Yes, Hang Hector with [facility] who accepts the patient for admission. Did you reconcile home meds? @ -Yes Was smoking cessation discussed for >3mins.? @ -No Was critical care preformed (if so, how long)? @ -No Were there social determinants of health that impacted care today? How? (Homelessness, low income, unemployed, alcoholism, drug addiction, transportation, low edu. Level, literacy, decrease access to med. care, penitentiary, rehab)? @ -No Was there de-escalation of care discussed even if they declined? (Discuss DNR or withdrawal of care, Hospice)? @ -No What co-morbidities impacted this encounter? (DM, HTN, Smoking, COPD, CAD, Cancer, CVA, Hep., AIDS, mental health diagnosis, sleep apnea, morbid obesity)? @ -COPD, CHF, atrial fibrillation Was patient admitted / discharged? @ -Admitted. Lab work obtained revealing a very minor decrease in kidney function, and was otherwise nonactionable. Chest x-ray obtained revealing COPD changes and otherwise no acute findings. She does continue to feel very short of breath following treatments, and also could not control her coughing. She has also been on steroids and antibiotics on an outpatient basis with no relief in symptoms. Given her comorbidities and failure of outpatient management, patient admitted to medicine for COPD exacerbation. Undiagnosed new problem with uncertain prognosis? @ -None Drug Therapy requiring intensive monitoring for toxicity (Heparin, Nitro, Insulin, Cardizem)? @ -None Were any procedures done? @ -None Diagnosis/symptom? @ -COPD exacerbation Acute, or Chronic, or Acute on Chronic? @ -Acute on chronic Uncomplicated (without systemic symptoms) or Complicated (systemic symptoms)? @ -Uncomplicated Side effects of treatment? @ -None Exacerbation, Progression, or Severe Exacerbation] @ -Exacerbation Poses a threat to life or bodily function? @ -Yes This case was discussed in detail with the attending ED physician, Dr. Meyer. Presentation, findings, and treatment plan discussed in detail as well. - Lab Data Result diagrams: 02/13/23 17:01 02/13/23 17:01 Lab Results 02/13/23 02/13/23 02/13/23 Range/Units 17:01 17:01 17:01 WBC 8.4 (3.8-10.6) k/uL RBC 4.15 (3.80-5.40) m/uL Hgb 12.1 (11.4-16.0) gm/dL Hct 36.9 (34.0-46.0) % MCV 88.9 (80.0-100.0) fL MCH 29.1 (25.0-35.0) pg MCHC 32.7 (31.0-37.0) g/dL RDW 13.6 (11.5-15.5) % Plt Count 201 (150-450) k/uL MPV 7.6 Neutrophils % 75 % Lymphocytes % 15 % Monocytes % 5 % Eosinophils % 3 % Basophils % 0 % Neutrophils # 6.3 (1.3-7.7) k/uL Lymphocytes # 1.3 (1.0-4.8) k/uL Monocytes # 0.4 (0-1.0) k/uL Eosinophils # 0.3 (0-0.7) k/uL Basophils # 0.0 (0-0.2) k/uL PT 10.3 (9.0-12.0) sec INR 1.0 (<1.2) APTT 24.3 (22.0-30.0) sec Sodium 133 L (137-145) mmol/L Potassium 4.7 (3.5-5.1) mmol/L Chloride 98 (98-107) mmol/L Carbon Dioxide 24 (22-30) mmol/L Anion Gap 11 mmol/L BUN 42 H (7-17) mg/dL Creatinine 1.41 H (0.52-1.04) mg/dL Est GFR (CKD-EPI)AfAm 41 (>60 ml/min/1.73 sqM) Est GFR (CKD-EPI)NonAf 36 (>60 ml/min/1.73 sqM) Glucose 86 (74-99) mg/dL Plasma Lactic Acid Deon (0.7-2.0) mmol/L Calcium 9.4 (8.4-10.2) mg/dL Total Bilirubin 0.7 (0.2-1.3) mg/dL AST 23 (14-36) U/L ALT 18 (4-34) U/L Alkaline Phosphatase 85 (38-126) U/L Troponin I (0.000-0.034) ng/mL NT-Pro-B Natriuret Pep 196 pg/mL Total Protein 6.5 (6.3-8.2) g/dL Albumin 4.0 (3.5-5.0) g/dL Influenza Type A (PCR) (Not Detectd) Influenza Type B (PCR) (Not Detectd) RSV (PCR) (Not Detectd) SARS-CoV-2 (PCR) (Not Detectd) 02/13/23 02/13/23 02/13/23 Range/Units 17:01 17:01 17:01 WBC (3.8-10.6) k/uL RBC (3.80-5.40) m/uL Hgb (11.4-16.0) gm/dL Hct (34.0-46.0) % MCV (80.0-100.0) fL MCH (25.0-35.0) pg MCHC (31.0-37.0) g/dL RDW (11.5-15.5) % Plt Count (150-450) k/uL MPV Neutrophils % % Lymphocytes % % Monocytes % % Eosinophils % % Basophils % % Neutrophils # (1.3-7.7) k/uL Lymphocytes # (1.0-4.8) k/uL Monocytes # (0-1.0) k/uL Eosinophils # (0-0.7) k/uL Basophils # (0-0.2) k/uL PT (9.0-12.0) sec INR (<1.2) APTT (22.0-30.0) sec Sodium (137-145) mmol/L Potassium (3.5-5.1) mmol/L Chloride (98-107) mmol/L Carbon Dioxide (22-30) mmol/L Anion Gap mmol/L BUN (7-17) mg/dL Creatinine (0.52-1.04) mg/dL Est GFR (CKD-EPI)AfAm (>60 ml/min/1.73 sqM) Est GFR (CKD-EPI)NonAf (>60 ml/min/1.73 sqM) Glucose (74-99) mg/dL Plasma Lactic Acid Deon 0.9 (0.7-2.0) mmol/L Calcium (8.4-10.2) mg/dL Total Bilirubin (0.2-1.3) mg/dL AST (14-36) U/L ALT (4-34) U/L Alkaline Phosphatase (38-126) U/L Troponin I <0.012 (0.000-0.034) ng/mL NT-Pro-B Natriuret Pep pg/mL Total Protein (6.3-8.2) g/dL Albumin (3.5-5.0) g/dL Influenza Type A (PCR) Not Detected (Not Detectd) Influenza Type B (PCR) Not Detected (Not Detectd) RSV (PCR) Not Detected (Not Detectd) SARS-CoV-2 (PCR) Not Detected (Not Detectd) - Radiology Data Radiology results: report reviewed, image reviewed Disposition Clinical Impression: COPD exacerbation Disposition: ADMITTED IP TO THIS HOSP
[2023-02-13 17:51] LABS: Basophils % (A) 0 %; Eosinophils # (A) 0.3 k/uL (0-0.7); Eosinophils % (A) 3 %; HCT 36.9 % (34.0-46.0); HGB 12.1 gm/dL (11.4-16.0); Lymphocytes # (A) 1.3 k/uL (1.0-4.8); Lymphocytes % (A) 15 %; MCH 29.1 pg (25.0-35.0); MCHC 32.7 g/dL (31.0-37.0); MCV 88.9 fL (80.0-100.0); Mean Platelet Volume 7.6; Monocytes # (A) 0.4 k/uL (0-1.0); Monocytes % (A) 5 %; Neutrophils # (A) 6.3 k/uL (1.3-7.7); Neutrophils % (A) 75 %; Platelet Count 201 k/uL (150-450); RBC 4.15 m/uL (3.80-5.40); RDW 13.6 % (11.5-15.5); WBC 8.4 k/uL (3.8-10.6)
[2023-02-13 18:04] LABS: ALT 18 U/L (4-34); AST 23 U/L (14-36); African American GFR (CKD) 41 (>60 ml/min/1.73 sqM); Alkaline Phosphatase 85 U/L (38-126); Anion Gap 11 mmol/L; Blood Urea Nitrogen 42 mg/dL (7-17); Calcium 9.4 mg/dL (8.4-10.2); Carbon Dioxide 24 mmol/L (22-30); Chloride 98 mmol/L (98-107); Glucose 86 mg/dL (74-99); Non-African American GFR(CKD) 36 (>60 ml/min/1.73 sqM); Sodium 133 mmol/L (137-145); Total Bilirubin 0.7 mg/dL (0.2-1.3); Total Protein 6.5 g/dL (6.3-8.2)
--- NOTE | 2023-02-13 18:07 | XR ---
EXAMINATION TYPE: XR chest 2V DATE OF EXAM: 02/13/2023 5:35 PM COMPARISON: Chest 02/14/2022 TECHNIQUE: XR chest 2V Frontal and lateral views of the chest. CLINICAL INDICATION:Female, 77 years old with history of difficulty breathing; FINDINGS: Lungs/Pleura: There is flattening of the diaphragm with increased lucency of the lungs. No evidence o f pneumothorax, pleural effusion or focal consolidation. Pulmonary vascularity: Unremarkable. Heart/mediastinum: Cardiomediastinal silhouette is enlarged and stable. Musculoskeletal: Degenerative changes of the shoulder joints. IMPRESSION: 1. No acute cardiopulmonary disease process. 2. COPD changes.
[2023-02-13 18:13] LABS: NT-Pro-B-Type Natriuretic Pept 196 pg/mL
[2023-02-13 18:14] LABS: Potassium 4.7 mmol/L (3.5-5.1)
[2023-02-13 18:29] LABS: Partial Thromboplastin Time 24.3 sec (22.0-30.0); Prothrombin Time 10.3 sec (9.0-12.0)
[2023-02-13] MEDS ORDERED: IPRATROPIUM-ALBUTEROL 3 ML NEB INHALATION STA (18:47)
[2023-02-13] MEDS ORDERED: NALOXONE 0.4 MG/ML 1 ML VIAL IV PRN (18:48)
[2023-02-13] MEDS ORDERED: HYDROcodone/APAP 5-325MG 1 EACH TAB PO PRN (18:48)
[2023-02-13] MEDS ORDERED: ONDANSETRON 4 MG/2 ML VIAL IVP PRN (18:48)
[2023-02-13] MEDS ORDERED: IPRATROPIUM-ALBUTEROL 3 ML NEB INHALATION PRN (18:50)
[2023-02-13] MEDS: ATORVASTATIN 10 MG TAB PO SCH (20:30)
[2023-02-13] MEDS: FLECAINIDE 50 MG TAB PO SCH (20:30)
[2023-02-13] MEDS: APIXABAN 5 MG TAB PO SCH (20:30)
[2023-02-13] MEDS: MONTELUKAST 10 MG TAB PO SCH (20:30)
[2023-02-13] MEDS: ACETAMINOPHEN TAB 325 MG TAB PO PRN (20:37)
[2023-02-13] MEDS: BENZONATATE 100 MG CAP PO SCH (21:16)
[2023-02-14] MEDS ORDERED: IPRATROPIUM-ALBUTEROL 3 ML NEB INHALATION PRN (02:15)
--- NOTE | 2023-02-14 02:40 | P.CNPUL ---
History of Present Illness Consult date: 02/14/23 Requesting physician: Jaky Chávez Reason for consult: dyspnea, cough Chief complaint: Shortness of breath and persistent nonproductive cough over the last 2-3 we History of present illness: I am seeing this patient in new consultation today 02/14/2023 in the emergency room after she presented yesterday afternoon complaining of persistent nonproductive cough associated exertional shortness of breath. Symptoms have been ongoing for the last 2-3 weeks. She was treated outpatient by her PCP Dr. Cookie Guevara with a course of antibiotics, Tessalon Perles, and oral steroids. This resulted in initial improvement in her symptoms, but her cough returned after tapering off the steroids. Patient is a 77-year-old white female with past medical history significant for moderate COPD with an FEV1 61% of predicted, Valley fever back in 2007 when visiting her son in [place], atrial fibrillation anticoagulated on Eliquis with previous cardiac ablations, coronary artery disease, heart failure, chronic kidney disease stage III, and is a former smoker. She does not routinely follow in the pulmonary office. Patient is currently sitting up in the bedside recliner, on room air, in no acute distress. She does have a persistent nonproductive cough. She states that her is currently in the emergency room with similar symptoms, but his symptoms are less severe. Denies any fever, chills, myalgias, hemoptysis. Also, denies any chest pain, heart palpitations, syncope. She does admit chronic lower extremity swelling, which may be worse than normal. Chest x-ray on arrival showed no acute cardiopulmonary process. CBC unremarkable without any leukocytosis. BMP was unremarkable except for a component of acute on chronic kidney disease with a creatinine of 1.41 and a BUN of 42. Troponin less than 0.012. NT proBNP low. ECG shows normal sinus rhythm with left axis deviation. No obvious acute ischemia. Negative for influenza, RSV, COVID-19. She is afebrile. She has been started on a combination of bronchodilators, Tessalon Perles and Mucinex DM, and prednisone burst taper. Patient is hemodynamically stable. Review of Systems REVIEW OF SYSTEMS: CONSTITUTIONAL: Denies any recent significant weight loss or weight gain. EYES: Denies change in vision. EARS, NOSE, MOUTH, THROAT: Denies headaches, denies sore throat. CARDIOVASCULAR: Denies chest pain, palpitations or syncopal episodes. RESPIRATORY: See HPI GASTROINTESTINAL: Denies change in appetite, abdominal pain, nausea and vomiting, or diarrhea GENITOURINARY: Denies hematuria, denies infections. MUSKULOSKELETAL: Denies pain, denies swelling. INTEGUMENTARY: Denies rash, denies eczema. NEUROLOGICAL: Denies recent memory loss, no recent seizure activity. PSYCHIATRIC: Denies anxiety, denies depression. HEMATOLOGIC/LYMPHATIC: Denies anemia, denies enlarged lymph node Past Medical History Past Medical History: Atrial Fibrillation, Heart Failure, COPD, Hyperlipidemia, Pneumonia Additional Past Medical History / Comment(s): 2007 Valley fever, rheumatic fever as a child, gout L wrist. History of Any Multi-Drug Resistant Organisms: None Reported Past Surgical History: Appendectomy, Heart Catheterization, Joint Replacement, Orthopedic Surgery, Tonsillectomy, Tubal Ligation Additional Past Surgical History / Comment(s): HILDA, cardioversion, 2012 cardiac cath-normal, right knee arthroscopies, colonoscopy, L hip replaced cardiac ablation 08/02 Past Anesthesia/Blood Transfusion Reactions: No Reported Reaction Past Psychological History: No Psychological Hx Reported Smoking Status: Former smoker Past Alcohol Use History: None Reported Past Drug Use History: None Reported - Past Family History Father History Unknown: Yes Family Medical History: Cancer Additional Family Medical History / Comment(s): Father had colon cancer. Mother Family Medical History: No Reported History Additional Family Medical History / Comment(s): Mother was healthy and lived to be 93-94 yrs old. Medications and Allergies Home Medications Medication Instructions Recorded Confirmed Type Atorvastatin [Lipitor] 10 mg PO HS 11/25/17 02/13/23 History Ipratropium-Albuterol Nebulize 3 ml INHALATION RT-QID 11/25/17 02/13/23 History [Duoneb 0.5 mg-3 mg/3 ml Soln] Montelukast [Singulair] 10 mg PO HS 11/25/17 02/13/23 History Apixaban [Eliquis] 5 mg PO BID 04/09/18 02/13/23 History Albuterol Sulfate [Ventolin HFA] 2 puff INHALATION RT-Q4H PRN 06/11/20 02/13/23 History Flecainide Acetate [Tambocor] 100 mg PO BID 02/09/22 02/13/23 History Spironolactone [Aldactone] 50 mg PO DAILY #30 tab 02/11/22 02/13/23 Rx Benzonatate [Tessalon Perle] 200 mg PO TID 02/13/23 02/13/23 History Furosemide [Lasix] 20 mg PO DAILY 02/13/23 02/13/23 History Losartan [Cozaar] 50 mg PO DAILY 02/13/23 02/13/23 History allopurinoL [Zyloprim] 300 mg PO DAILY 02/13/23 02/13/23 History amLODIPine [Norvasc] 5 mg PO DAILY 02/13/23 02/13/23 History Allergies Allergy/AdvReac Type Severity Reaction Status Date / Time bee venom protein (honey bee) Allergy Anaphylaxis Verified 02/13/23 19:28 Physical Exam Vitals: Vital Signs Temp Pulse Resp BP Pulse Ox 02/13/23 23:00 74 18 105/56 94 L 02/13/23 20:34 83 18 94 L 02/13/23 19:07 75 02/13/23 19:02 97.7 F 68 20 121/78 99 02/13/23 18:58 71 02/13/23 18:17 97.8 F 69 22 129/59 95 02/13/23 17:26 20 02/13/23 16:27 98.4 F 74 26 H 190/63 91 L Intake and Output 02/13/23 02/13/23 02/14/23 14:59 22:59 06:59 Other: Weight 113.398 kg GENERAL EXAM: Alert, 77-year-old white female appearing stated age , comfortable in no apparent distress. HEAD: Normocephalic and atraumatic EYES: Normal reaction of pupils, equal size. NOSE: Clear with pink turbinates. THROAT: No erythema or exudates. NECK: No masses, no JVD. CHEST: No chest wall deformity. LUNGS: Equal air entry with no crackles, wheeze, rhonchi or dullness. On room air. No conversational dyspnea or accessory muscle use.. There is persistent dry nonproductive cough. CVS: S1 and S2 normal with systolic ejection murmur grade 2, regular rhythm. No extra heart sounds ABDOMEN: No hepatosplenomegaly, active bowel sounds, no guarding or rigidity. SPINE: No scoliosis or deformity SKIN: Chronic venous stasis changes of the bilateral lower extremities CENTRAL NERVOUS SYSTEM: No focal deficits, tone is normal in all 4 extremities. EXTREMITIES: There is significant bilateral lower extremity pitting edema. No clubbing, or cyanosis. Peripheral pulses are intact. Results - Laboratory Findings CBC and BMP: 02/13/23 17:01 02/13/23 17:01 PT/INR, D-dimer PT 10.3 sec (9.0-12.0) 02/13/23 17:01 INR 1.0 (<1.2) 02/13/23 17:01 Abnormal lab findings: Abnormal Labs 02/13/23 17:01 Sodium 133 L BUN 42 H Creatinine 1.41 H - Diagnostic Findings Chest x-ray: image reviewed Assessment and Plan Assessment: Dyspnea, secondary to mild COPD exacerbation and suspected acute bronchitis. Chest x-ray on arrival shows no acute cardiopulmonary process. Negative for in fluenza, RSV, COVID-19. Moderate chronic obstructive pulmonary disease, with a baseline FEV1 61% of predicted Acute on chronic kidney disease, creatinine 1.41 History of atrial fibrillation, anticoagulated on Eliquis, with previous history of cardiac ablations. Currently in normal sinus rhythm Chronic kidney disease stage III Benign essential hypertension Hyperlipidemia History of diastolic congestive heart failure, stable. Most recent echocardiogram from 02/10/2022 showed a preserved left ventricular ejection fraction of 55-60%. Grade 1 diastolic dysfunction. There was mild to moderate aortic regurgitation, as well as, mild mitral and tricuspid regurgitation. Chronic lower extremity edema Remote ex-smoker Plan: Patient's medications, labs, chest x-ray reviewed On room air Start patient on combination of bronchodilators, antitussives, steroid burst taper. Cardiac medications of been resumed Patient is hemodynamically stable We will continue to follow I have personally seen and examined the patient, performed the documentation and the assessment and plan as written. Number of minutes spent on the visit:20 Time with Patient: Greater than 30
[2023-02-14] MEDS: ACETAMINOPHEN TAB 325 MG TAB PO PRN ×2 (05:10→21:20)
[2023-02-14] MEDS: IPRATROPIUM-ALBUTEROL 3 ML NEB INHALATION SCH ×4 (06:21→19:57)
[2023-02-14] MEDS: LOSARTAN 50 MG TAB PO SCH (08:52)
[2023-02-14] MEDS: allopurinoL 300 MG TAB PO SCH (08:53)
[2023-02-14] MEDS: APIXABAN 5 MG TAB PO SCH ×2 (08:53→20:19)
[2023-02-14] MEDS: FUROSEMIDE 20 MG TAB PO SCH (08:54)
[2023-02-14] MEDS: amLODIPine 5 MG TAB PO SCH (08:54)
[2023-02-14] MEDS: SPIRONOLACTONE 25 MG TAB PO SCH (08:55)
[2023-02-14] MEDS: FLECAINIDE 50 MG TAB PO SCH ×2 (08:55→20:18)
[2023-02-14] MEDS: BENZONATATE 100 MG CAP PO SCH ×3 (08:56→21:20)
[2023-02-14] MEDS ORDERED: predniSONE 20 MG TAB PO SCH (09:00)
--- NOTE | 2023-02-14 15:40 | P.HPIM ---
History of Present Illness H&P Date: 02/14/23 This is a pleasant 77-year-old female who presented to the emergency department with progressive shortness of breath and cough that had been ongoing for the last few weeks. Patient reports this is been getting progressively worse over the last 3 weeks. Patient had a period in between where she was okay for a few days and then started developing upper respiratory congestion with cough and bronchospasms. Patient follows with Dr. Guevara in the outpatient setting with a past medical history of atrial fibrillation, heart failure, COPD, hyperlipidemia, rheumatic fever as a child, former smoker and denies any other illicit drug use or alcohol use. Chest x-ray showed no acute cardiopulmonary disease or process with COPD changes. EKG shows sinus rhythm with a heart rate of 80 bpm. Patient was admitted for COPD exacerbation with acute bronchitis with pulmonary on consult. Patient reports she did have outpatient steroid course along with antibiotics a few weeks ago as patient is that later with outpatient treatment. Review Of Systems: Constitutional: No fever, no chills, no night sweats. No weight change. Reports of generalized weakness, fatigue or lethargy. No daytime sleepiness. EENT: No headache. No blurred vision or double vision, no loss of vision. No loss of Hearing, no ringing in the ears, no dizziness. No nasal drainage or congestion. No epistaxis. No sore throat. Lungs: Reports increasing shortness of breath, reports dry cough, no sputum production. No wheezing. Cardiovascular: Reports chest pain from coughing, no lower extremity edema. No palpitations. No paroxysmal nocturnal dyspnea. No orthopnea. No lightheadedness or dizziness. No syncopal episodes. Abdominal: No abdominal pain. No nausea, vomiting. No diarrhea. No constipation. No bloody or tarry stools.. No loss of appetite. Genitourinary: No dysuria, increased frequency, urgency. No urinary retention. Musculoskeletal: No myalgias. No muscle weakness, no gait dysfunction, no fr equent falls. No back pain. No neck pain. Integumentary: No wounds, no lesions. No rash or pruritus. No unusual bruising. No change in hair or nails. Neurologic: No aphasia. No facial droop. No change in mentation. No head injury. No headache. No paralysis. No paresthesia. Psychiatric: No depression. No anxiety. No mood swings. Endocrine: No abnormal blood sugars. No weight change. No excessive sweating or thirst. No cold intolerance. PHYSICAL EXAMINATION: GENERAL: The patient is alert and oriented x4, Well developed, well nourished. Obese HEENT: Pupils are round and equally reacting to light. EOMI. no scleral icterus. No conjunctival pallor. Normocephalic, atraumatic. No pharyngeal erythema. No thyromegaly. CARDIOVASCULAR: S1 and S2 muffled PULMONARY: diminished breath sounds bilaterally with scattered coarse rhonchi with bronchospasms and expiratory wheezing noted. ABDOMEN: soft. Nontender on exam. obese. non-distended, normoactive bowel sounds. No palpable organomegaly. MUSCULOSKELETAL: No joint swelling or deformity. EXTREMITIES: No cyanosis, clubbing, or pedal edema. NEUROLOGICAL: Gross neurological examination did not reveal any focal deficits. Diffuse weakness SKIN: No rashes. Assessment: Shortness of breath, likely secondary to COPD exacerbation with failure of outpatient treatment Acute hypoxic respiratory failure secondary to COPD exacerbation Obesity with BMI of 38.0 Acute bronchitis with bronchospasms Acute on chronic kidney disease with acute kidney injury, creatinine was 1.41 Heart failure history with diastolic dysfunction most recent EF was 55-60 Former smoker History of atrial fibrillation, currently rate controlled Hyperlipidemia history History of rheumatic fever as a child GI prophylaxis DVT prophylaxis Full code Plan: Recommend to continue with current medications and management with pulmonary following. Patient started on oral steroids along with DuoNeb breathing inhalational treatments Home medications reviewed and resumed as appropriate Covid, influenza, RSV testing were all negative Patient with acute kidney injury and will follow up on repeat labs in the a.m. Encouraged increased activity as tolerated Due to multiple complex medical issues, prognosis is guarded The impression and plan of care has been dictated by Yadira Pace, nurse practitioner as directed. Dr. Og MD I have performed a history and examination and MDM of this patient, discussed the same with the dictator, and agree with the dictator's assessment and plan as written ,documented as a scribe. Based on total visit time, I have performed more than 50% of the visit. Any additional findings or plans will be noted. 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 History of Any Multi-Drug Resistant Organisms: None Reported Past Surgical History: Appendectomy, Heart Catheterization, Joint Replacement, Orthopedic Surgery, Tonsillectomy, Tubal Ligation Additional Past Surgical History / Comment(s): HILDA, cardioversion, 2012 cardiac cath-normal, right knee arthroscopies, colonoscopy, L hip replaced cardiac ablation 08/02 Past Anesthesia/Blood Transfusion Reactions: No Reported Reaction Past Psychological History: No Psychological Hx Reported Smoking Status: Former smoker Past Alcohol Use History: None Reported Past Drug Use History: None Reported - Past Family History Father History Unknown: Yes Family Medical History: Cancer Additional Family Medical History / Comment(s): Father had colon cancer. Mother Family Medical History: No Reported History Additional Family Medical History / Comment(s): Mother was healthy and lived to be 93-94 yrs old. Medications and Allergies Home Medications Medication Instructions Recorded Confirmed Type Atorvastatin [Lipitor] 10 mg PO HS 11/25/17 02/13/23 History Ipratropium-Albuterol Nebulize 3 ml INHALATION RT-QID 11/25/17 02/13/23 History [Duoneb 0.5 mg-3 mg/3 ml Soln] Montelukast [Singulair] 10 mg PO HS 11/25/17 02/13/23 History Apixaban [Eliquis] 5 mg PO BID 04/09/18 02/13/23 History Albuterol Sulfate [Ventolin HFA] 2 puff INHALATION RT-Q4H PRN 06/11/20 02/13/23 History Flecainide Acetate [Tambocor] 100 mg PO BID 02/09/22 02/13/23 History Spironolactone [Aldactone] 50 mg PO DAILY #30 tab 02/11/22 02/13/23 Rx Benzonatate [Tessalon Perle] 200 mg PO TID 02/13/23 02/13/23 History Furosemide [Lasix] 20 mg PO DAILY 02/13/23 02/13/23 History Losartan [Cozaar] 50 mg PO DAILY 02/13/23 02/13/23 History allopurinoL [Zyloprim] 300 mg PO DAILY 02/13/23 02/13/23 History amLODIPine [Norvasc] 5 mg PO DAILY 02/13/23 02/13/23 History Allergies Allergy/AdvReac Type Severity Reaction Status Date / Time bee venom protein (honey bee) Allergy Anaphylaxis Verified 02/13/23 19:28 Physical Exam Vitals: Vital Signs Temp Pulse Resp BP Pulse Ox 02/14/23 11:59 63 02/14/23 11:48 64 22 128/58 95 02/14/23 11:47 60 02/14/23 09:00 56 L 16 134/40 98 02/14/23 08:59 97.3 F L 65 18 141/55 97 02/14/23 08:21 58 L 02/14/23 08:08 73 02/14/23 07:16 98.8 F 60 20 118/64 98 02/14/23 06:31 55 L 02/14/23 06:22 55 L 02/13/23 23:00 74 18 105/56 94 L 02/13/23 20:34 83 18 94 L 02/13/23 19:07 75 02/13/23 19:02 97.7 F 68 20 121/78 99 02/13/23 18:58 71 02/13/23 18:17 97.8 F 69 22 129/59 95 02/13/23 17:26 20 02/13/23 16:27 98.4 F 74 26 H 190/63 91 L Intake and Output 02/13/23 02/14/23 02/14/23 22:59 06:59 14:59 Other: Weight 113.398 kg Results CBC & Chem 7: 02/13/23 17:01 02/13/23 17:01 Labs: Abnormal Lab Results - Last 24 Hours (Table) 02/13/23 Range/Units 17:01 Sodium 133 L (137-145) mmol/L BUN 42 H (7-17) mg/dL Creatinine 1.41 H (0.52-1.04) mg/dL Thrombosis Risk Factor Assmnt - DVT/VTE Prophylaxis DVT/VTE Prophylaxis: Pharmacologic Prophylaxis ordered, Mechanical Prophylaxis ordered Assessment and Plan Time with Patient: Greater than 30
[2023-02-14] MEDS ORDERED: SYMBICORT 160-4.5 MCG INHALER INHALATION SCH (20:00)
[2023-02-14] MEDS: MONTELUKAST 10 MG TAB PO SCH (20:18)
[2023-02-14] MEDS: ATORVASTATIN 10 MG TAB PO SCH (20:19)
[2023-02-15] MEDS: guaiFENesin-DM 600/30MG 1 EACH TAB.ER.12H PO PRN (02:01)
[2023-02-15] MEDS: ACETAMINOPHEN TAB 325 MG TAB PO PRN ×2 (02:22→20:07)
[2023-02-15] MEDS: FORMOTEROL FUMARATE 20 MCG/2 ML NEBU INHALATION SCH ×2 (08:35→19:49)
[2023-02-15] MEDS: IPRATROPIUM-ALBUTEROL 3 ML NEB INHALATION SCH ×4 (08:35→19:48)
[2023-02-15] MEDS: BUDESONIDE 1 MG/2 ML NEBU INHALATION SCH ×2 (08:35→19:49)
[2023-02-15 09:06] LABS: BUN/Creat Ratio 22.67 Ratio (12.00-20.00); Blood Urea Nitrogen 40.8 mg/dL (9.0-27.0); Calcium 9.6 mg/dL (8.7-10.3); Carbon Dioxide 23.7 mmol/L (21.6-31.8); Chloride 96 mmol/L (96-109); Glucose 108 mg/dL (70-110); Magnesium 2.5 mg/dL (1.5-2.4); Potassium 4.6 mmol/L (3.5-5.5); Sodium 134 mmol/L (135-145)
[2023-02-15] MEDS: LOSARTAN 50 MG TAB PO SCH (09:19)
[2023-02-15] MEDS: SPIRONOLACTONE 25 MG TAB PO SCH (09:19)
[2023-02-15] MEDS: allopurinoL 300 MG TAB PO SCH (09:19)
[2023-02-15] MEDS: APIXABAN 5 MG TAB PO SCH ×2 (09:19→20:07)
[2023-02-15] MEDS: FUROSEMIDE 20 MG TAB PO SCH (09:20)
[2023-02-15] MEDS: amLODIPine 5 MG TAB PO SCH (09:20)
[2023-02-15] MEDS: BENZONATATE 100 MG CAP PO SCH ×3 (09:21→20:07)
[2023-02-15] MEDS: FLECAINIDE 50 MG TAB PO SCH ×2 (09:21→20:07)
[2023-02-15 09:41] LABS: Basophils # (A) 0.03 X 10*3/uL (0.00-0.10); Basophils % (A) 0.3 %; Eosinophils # (A) 0.04 X 10*3/uL (0.04-0.35); Eosinophils % (A) 0.4 %; HCT 35.5 % (37.2-46.3); HGB 11.5 d/dL (12.0-15.0); Lymphocytes # (A) 0.89 X 10*3/uL (0.90-5.00); Lymphocytes % (A) 8.1 %; MCH 28.9 pg (27.0-32.0); MCHC 32.4 d/dL (32.0-37.0); MCV 89.2 FL (80.0-97.0); Mean Platelet Volume 10.3 FL (9.5-12.2); Monocytes # (A) 0.63 X 10*3/uL (0.20-1.00); Monocytes % (A) 5.7 %; NRBC Per 100 WBC 0 X 10*3/uL (0.00-0.01); Neutrophils # (A) 9.33 X 10*3/uL (1.80-7.70); Neutrophils % (A) 84.8 %; Platelet Count 239 X 10*3/uL (140-440); RBC 3.98 X 10*6/uL (4.10-5.20); RDW 13.4 % (11.5-14.5)
--- NOTE | 2023-02-15 11:16 | P.PN ---
Subjective Progress Note Date: 02/15/23 I am seeing this patient in new consultation today 02/14/2023 in the emergency room after she presented yesterday afternoon complaining of persistent nonproductive cough associated exertional shortness of breath. Symptoms have been ongoing for the last 2-3 weeks. She was treated outpatient by her PCP Dr. Cookie Guevara with a course of antibiotics, Tessalon Perles, and oral steroids. This resulted in initial improvement in her symptoms, but her cough returned after tapering off the steroids. Patient is a 77-year-old white female with past medical history significant for moderate COPD with an FEV1 61% of predicted, Valley fever back in 2007 when visiting her son in [place], atrial fibrillation anticoagulated on Eliquis with previous cardiac ablations, coronary artery disease, heart failure, chronic kidney disease stage III, and is a former smoker. She does not routinely follow in the pulmonary office. Patient is currently sitting up in the bedside recliner, on room air, in no acute distress. She does have a persistent nonproductive cough. She states that her is currently in the emergency room with similar symptoms, but his symptoms are less severe. Denies any fever, chills, myalgias, hemoptysis. Also, denies any chest pain, heart palpitations, syncope. She does admit chronic lower extremity swelling, which may be worse than normal. Chest x-ray on arrival showed no ac [place] cardiopulmonary process. CBC unremarkable without any leukocytosis. BMP was unremarkable except for a component of acute on chronic kidney disease with a creatinine of 1.41 and a BUN of 42. Troponin less than 0.012. NT proBNP low. ECG shows normal sinus rhythm with left axis deviation. No obvious acute ischemia. Negative for influenza, RSV, COVID-19. She is afebrile. She has been started on a combination of bronchodilators, Tessalon Perles and Mucinex DM, and prednisone burst taper. Patient is hemodynamically stable. The patient is seen today 02/15/2023 in follow-up on the regular medical floor. She is currently sitting up at the bedside. Awake and alert in no acute distress. Maintaining good O2 saturations in the 90s on room air. Afebrile. Hemodynamically stable. She is still having ongoing issues with a cough and chest tightness and wheezing. Not much improved today compared to yesterday. White count 11.0. Hemoglobin 11.5. Sodium 134. Potassium 4.6. Bicarb 24. BUN 41. Creatinine 1.8. She remains on DuoNeb inhalations, Symbicort, IV Cymetra. Anticoagulated with Eliquis. Remains on oral diuretics. Objective - Vital Signs Vital signs: Vital Signs Temp 97.5 F L 02/15/23 07:00 Pulse 64 02/15/23 07:00 Resp 20 02/15/23 07:00 BP 142/74 02/15/23 07:00 Pulse Ox 94 L 02/15/23 07:00 FiO2 Intake & Output 02/14/23 02/15/23 02/15/23 18:59 06:59 18:59 Weight 113.398 kg Other: Voiding Method Toilet Diaper # Voids 2 - Exam GENERAL EXAM: Alert, pleasant 77-year-old female, on room air, fairly comf ortable in no apparent distress. HEAD: Normocephalic. EYES: Normal reaction of pupils, equal size. NOSE: Clear with pink turbinates. THROAT: No erythema or exudates. NECK: No masses, no JVD. CHEST: No chest wall deformity. LUNGS: Equal air entry with bilateral end expiratory wheeze, coarse rhonchi. CVS: S1 and S2 normal with no audible murmur, regular rhythm. ABDOMEN: No hepatosplenomegaly, normal bowel sounds, no guarding or rigidity. SPINE: No scoliosis or deformity SKIN: No rashes CENTRAL NERVOUS SYSTEM: No focal deficits, tone is normal in all 4 extremities. EXTREMITIES: There is no peripheral edema. No clubbing, no cyanosis. Peripheral pulses are intact. - Labs CBC & Chem 7: 02/15/23 03:50 02/15/23 03:50 Labs: Abnormal Lab Results - Last 24 Hours (Table) 02/15/23 02/15/23 Range/Units 03:50 03:50 WBC 11.00 H (4.50-10.00) X 10*3/uL RBC 3.98 L (4.10-5.20) X 10*6/uL Hgb 11.5 L (12.0-15.0) d/dL Hct 35.5 L (37.2-46.3) % Neutrophils # 9.33 H (1.80-7.70) X 10*3/uL Lymphocytes # 0.89 L (0.90-5.00) X 10*3/uL Sodium 134 L (135-145) mmol/L Anion Gap 14.30 H (4.00-12.00) mmol/L BUN 40.8 H (9.0-27.0) mg/dL Creatinine 1.8 H (0.6-1.5) mg/dL Est GFR (CKD-EPI) 28 L (>=60) BUN/Creatinine Ratio 22.67 H (12.00-20.00) Ratio Magnesium 2.5 H (1.5-2.4) mg/dL Assessment and Plan Assessment: Acute exacerbation of chronic obstructive pulmonary disease and suspected acute bronchitis. Chest x-ray on arrival shows no acute cardiopulmonary process. Negative for influenza, RSV, COVID-19. Moderate chronic obstructive pulmonary disease, with a baseline FEV1 61% of predicted Acute on chronic kidney disease, creatinine 1.8 History of atrial fibrillation, anticoagulated on Eliquis, with previous history of cardiac ablations. Currently in normal sinus rhythm Chronic kidney disease stage III Benign essential hypertension Hyperlipidemia History of diastolic congestive heart failure, stable. Most recent echocardiogram from 02/10/2022 showed a preserved left ventricular ejection fraction of 55-60%. Grade 1 diastolic dysfunction. There was mild to moderate aortic regurgitation, as well as, mild mitral and tricuspid regurgitation. Chronic lower extremity edema Remote ex-smoker Plan: The patient was seen and evaluated Labs and medications reviewed Discontinue Symbicort Add Pulmicort and Perforomist inhalations Continue DuoNeb inhalations, steroids Check a pro-calcitonin We will continue to follow I have personally seen and examined the patient, performed the documentation and the assessment and plan as written. Number of minutes spent on the visit: 10.
[2023-02-15] MEDS: methylPREDNISolone SOD SUCCI 125 MG/2 ML VIAL IV SCH ×3 (12:29→23:32)
--- NOTE | 2023-02-15 19:37 | PN ---
PROGRESS NOTE DATE OF SERVICE: 02/15/2023 SUBJECTIVE: This is a 77-year-old woman, who was admitted with shortness of breath and COPD acute exacerbation, is being closely monitored. No chest pain. No palpitation. No fever. OBJECTIVE: VITAL SIGNS: Pulse is 64, blood pressure 142/70, respirations 20. CHEST: Few scattered rhonchi and crackles. Expiratory wheezing. ABDOMEN: Soft. NERVOUS SYSTEM: Nonfocal. LABORATORY DATA: Reviewed. ASSESSMENT: 1. Chronic obstructive pulmonary disease acute exacerbation with acute hypoxic respiratory failure with failure of outpatient treatment. 2. Acute purulent tracheobronchitis. 3. [place]ryfa-rw-[place] kidney disease. 4. History of nicotine dependence. 5. History of atrial fibrillation. 6. Multiple medical issues. RECOMMENDATIONS: Recommend to continue current medications. Continue symptomatic treatment. Repeat labs. Otherwise, closely monitor. Further recommendations to follow. MMODL / IJN: [id number] /
[2023-02-15] MEDS: ATORVASTATIN 10 MG TAB PO SCH (20:07)
[2023-02-15] MEDS: MONTELUKAST 10 MG TAB PO SCH (20:07)
[2023-02-16] MEDS: methylPREDNISolone SOD SUCCI 125 MG/2 ML VIAL IV SCH ×3 (05:18→17:56)
[2023-02-16] MEDS: FORMOTEROL FUMARATE 20 MCG/2 ML NEBU INHALATION SCH ×2 (08:59→20:15)
[2023-02-16] MEDS: IPRATROPIUM-ALBUTEROL 3 ML NEB INHALATION SCH ×4 (08:59→20:15)
[2023-02-16] MEDS: BUDESONIDE 1 MG/2 ML NEBU INHALATION SCH ×2 (08:59→20:15)
[2023-02-16 09:16] LABS: BUN/Creat Ratio 27.81 Ratio (12.00-20.00); Blood Urea Nitrogen 44.5 mg/dL (9.0-27.0); Calcium 9.4 mg/dL (8.7-10.3); Carbon Dioxide 24.1 mmol/L (21.6-31.8); Chloride 98 mmol/L (96-109); Glucose 161 mg/dL (70-110); Potassium 4.5 mmol/L (3.5-5.5); Sodium 134 mmol/L (135-145)
[2023-02-16] MEDS: FUROSEMIDE 20 MG TAB PO SCH (09:16)
[2023-02-16] MEDS: allopurinoL 300 MG TAB PO SCH (09:17)
[2023-02-16] MEDS: amLODIPine 5 MG TAB PO SCH (09:17)
[2023-02-16] MEDS: SPIRONOLACTONE 25 MG TAB PO SCH (09:17)
[2023-02-16] MEDS: FLECAINIDE 50 MG TAB PO SCH ×2 (09:17→19:57)
[2023-02-16] MEDS: LOSARTAN 50 MG TAB PO SCH (09:17)
[2023-02-16] MEDS: APIXABAN 5 MG TAB PO SCH ×2 (09:17→19:56)
[2023-02-16] MEDS: BENZONATATE 100 MG CAP PO SCH ×3 (09:17→19:57)
[2023-02-16 11:17] LABS: Basophils # (A) 0 X 10*3/uL (0.00-0.10); Basophils % (A) 0 %; Eosinophils # (A) 0 X 10*3/uL (0.04-0.35); Eosinophils % (A) 0 %; HCT 35.6 % (37.2-46.3); HGB 11.1 d/dL (12.0-15.0); Lymphocytes % (A) 5.3 %; MCHC 31.2 d/dL (32.0-37.0); MCV 89.9 FL (80.0-97.0); Mean Platelet Volume 10.1 FL (9.5-12.2); Monocytes # (A) 0.08 X 10*3/uL (0.20-1.00); Monocytes % (A) 0.8 %; NRBC Per 100 WBC 0 X 10*3/uL (0.00-0.01); Neutrophils # (A) 8.87 X 10*3/uL (1.80-7.70); Neutrophils % (A) 93.3 %; Platelet Count 220 X 10*3/uL (140-440); RBC 3.96 X 10*6/uL (4.10-5.20); RDW 13.3 % (11.5-14.5); WBC 9.51 X 10*3/uL (4.50-10.00)
--- NOTE | 2023-02-16 11:25 | P.PN ---
Subjective Progress Note Date: 02/16/23 I am seeing this patient in new consultation today 02/14/2023 in the emergency room after she presented yesterday afternoon complaining of persistent nonproductive cough associated exertional shortness of breath. Symptoms have been ongoing for the last 2-3 weeks. She was treated outpatient by her PCP Dr. Cookie Guevara with a course of antibiotics, Tessalon Perles, and oral steroids. This resulted in initial improvement in her symptoms, but her cough returned after tapering off the steroids. Patient is a 77-year-old white female with past medical history significant for moderate COPD with an FEV1 61% of predicted, Valley fever back in 2007 when visiting her son in [place], atrial fibrillation anticoagulated on Eliquis with previous cardiac ablations, coronary artery disease, heart failure, chronic kidney disease stage III, and is a former smoker. She does not routinely follow in the pulmonary office. Patient is currently sitting up in the bedside recliner, on room air, in no acute distress. She does have a persistent nonproductive cough. She states that her is currently in the emergency room with similar symptoms, but his symptoms are less severe. Denies any fever, chills, myalgias, hemoptysis. Also, denies any chest pain, heart palpitations, syncope. She does admit chronic lower extremity swelling, which may be worse than normal. Chest x-ray on arrival showed no ac [place] cardiopulmonary process. CBC unremarkable without any leukocytosis. BMP was unremarkable except for a component of acute on chronic kidney disease with a creatinine of 1.41 and a BUN of 42. Troponin less than 0.012. NT proBNP low. ECG shows normal sinus rhythm with left axis deviation. No obvious acute ischemia. Negative for influenza, RSV, COVID-19. She is afebrile. She has been started on a combination of bronchodilators, Tessalon Perles and Mucinex DM, and prednisone burst taper. Patient is hemodynamically stable. The patient is seen today 02/15/2023 in follow-up on the regular medical floor. She is currently sitting up at the bedside. Awake and alert in no acute distress. Maintaining good O2 saturations in the 90s on room air. Afebrile. Hemodynamically stable. She is still having ongoing issues with a cough and chest tightness and wheezing. Not much improved today compared to yesterday. White count 11.0. Hemoglobin 11.5. Sodium 134. Potassium 4.6. Bicarb 24. BUN 41. Creatinine 1.8. She remains on DuoNeb inhalations, Symbicort, IV Cymetra. Anticoagulated with Eliquis. Remains on oral diuretics. The patient is seen today 02/16/2023 in follow-up on the regular medical floor. Currently awake and alert in no acute distress. Still with some dry non productive cough. Still some wheezing. Not feeling back to baseline yet. She is maintaining good O2 saturations in the 90s on room air. Sodium 134. Potassium 4.5. Bicarb 24. BUN 45. Creatinine 1.6. Glucose 161. Pro- calcitonin 0.20. She is continued on DuoNeb inhalations, Pulmicort and Per foromist inhalations, Solu-Medrol. Oral diuretics. Objective - Vital Signs Vital signs: Vital Signs Temp 98.3 F 02/16/23 02:39 Pulse 80 02/16/23 09:02 Resp 16 02/16/23 02:39 BP 109/63 02/16/23 02:39 Pulse Ox 94 L 02/16/23 09:02 FiO2 21 02/16/23 09:02 Intake & Output 02/15/23 02/16/23 02/16/23 18:59 06:59 18:59 Intake Total 240 Balance 240 Intake: Oral 240 Other: Voiding Method Toilet Diaper # Voids 1 3 - Exam GENERAL EXAM: Alert, 77-year-old female, on room air, comfortable in no apparent distress. HEAD: Normocephalic. EYES: Normal reaction of pupils, equal size. NOSE: Clear with pink turbinates. THROAT: No erythema or exudates. NECK: No masses, no JVD. CHEST: No chest wall deformity. LUNGS: Equal air entry with bilateral end expiratory wheeze, coarse rhonchi. CVS: S1 and S2 normal with no audible murmur, regular rhythm. ABDOMEN: No hepatosplenomegaly, normal bowel sounds, no guarding or rigidity. SPINE: No scoliosis or deformity SKIN: No rashes CENTRAL NERVOUS SYSTEM: No focal deficits, tone is normal in all 4 extremities. EXTREMITIES: There is no peripheral edema. No clubbing, no cyanosis. Peripheral pulses are intact. - Labs CBC & Chem 7: 02/16/23 05:10 02/16/23 05:10 Labs: Abnormal Lab Results - Last 24 Hours (Table) 02/15/23 02/16/23 Range/Units 03:50 05:10 Sodium 134 L (135-145) mmol/L BUN 44.5 H (9.0-27.0) mg/dL Creatinine 1.6 H (0.6-1.5) mg/dL Est GFR (CKD-EPI) 33 L (>=60) BUN/Creatinine Ratio 27.81 H (12.00-20.00) Ratio Glucose 161 H (70-110) mg/dL Procalcitonin 0.20 H (0.02-0.09) ng/mL Assessment and Plan Assessment: Acute exacerbation of chronic obstructive pulmonary disease and suspected acute bronchitis. Chest x-ray on arrival shows no acute cardiopulmonary process. Negative for influenza, RSV, COVID-19. Moderate chronic obstructive pulmonary disease, with a baseline FEV1 61% of predicted Acute on chronic kidney disease, creatinine 1.6 History of atrial fibrillation, anticoagulated on Eliquis, with previous history of cardiac ablations. Currently in normal sinus rhythm Chronic kidney disease stage III Benign essential hypertension Hyperlipidemia History of diastolic congestive heart failure, stable. Most recent echocardiogram from 02/10/2022 showed a preserved left ventricular ejection fraction of 55-60%. Grade 1 diastolic dysfunction. There was mild to moderate aortic regurgitation, as well as, mild mitral and tricuspid regurgitation. Chronic lower extremity edema Remote ex-smoker Plan: The patient was seen and evaluated Labs and medications reviewed Continue Pulmicort and Perforomist inhalations Continue DuoNeb inhalations, steroids Probable discharge in the a.m. We will continue to follow I have personally seen and examined the patient, performed the documentation and the assessment and plan as written. Number of minutes spent on the visit: 10.
--- NOTE | 2023-02-16 11:49 | PN ---
PROGRESS NOTE DATE OF SERVICE: 02/16/2023 SUBJECTIVE: This is a 77-year-old woman, who was admitted with COPD acute exacerbation OBJECTIVE: VITAL SIGNS: Pulse is 81, blood pressure n respirations 16. CHEST: A few scattered rhonchi and crackles. ABDOMEN: Soft. NERVOUS SYSTEM: Nonfocal. LABORATORY DATA: Reviewed. ASSESSMENT: 1. Chronic obstructive pulmonary disease acute exacerbation with acute hypoxic respiratory failure with failure of outpatient treatment. 2. Acute purulent tracheobronchitis. 3. Acute on chronic kidney disease. 4. History of nicotine dependence. 5. History of atrial fibrillation. 6. Multiple medical issues. RECOMMENDATIONS: Recommend to continue current medical management and symptomatic treatment with bronchodilators. Repeat chest x-ray. Closely follow up with Pulmonary. Further recommendations to follow. See orders for details. MMODL / IJN: [id number] / MTDD
--- NOTE | 2023-02-16 12:51 | XR ---
EXAMINATION TYPE: XR chest 1V portable DATE OF EXAM: 02/16/2023 COMPARISON: 02/13/2023 HISTORY: Shortness of breath TECHNIQUE: Single frontal view of the chest is obtained. FINDINGS: There is left basilar subsegmental consolidation with no evidence of pleural effusion or p neumothorax seen. The cardiac silhouette size is enlarged with no overt failure. Underlying emphysem atous changes. A right-sided severe shoulder arthropathy.. The osseous structures are intact. IMPRESSION: COPD and cardiomegaly with left basilar atelectasis favored over pneumonia.
[2023-02-16] MEDS: ACETAMINOPHEN TAB 325 MG TAB PO PRN (19:56)
[2023-02-16] MEDS: MONTELUKAST 10 MG TAB PO SCH (19:57)
[2023-02-16] MEDS: ATORVASTATIN 10 MG TAB PO SCH (19:57)
[2023-02-17] MEDS: methylPREDNISolone SOD SUCCI 125 MG/2 ML VIAL IV SCH ×2 (00:16→06:33)
[2023-02-17] MEDS: guaiFENesin-DM 600/30MG 1 EACH TAB.ER.12H PO PRN (00:23)
[2023-02-17 05:41] VITALS: TEMP 97.5
[2023-02-17 08:09] VITALS: BP 121/73; RESP 16
[2023-02-17] MEDS: BUDESONIDE 1 MG/2 ML NEBU INHALATION SCH (08:40)
[2023-02-17] MEDS: IPRATROPIUM-ALBUTEROL 3 ML NEB INHALATION SCH ×2 (08:40→12:09)
[2023-02-17] MEDS: FORMOTEROL FUMARATE 20 MCG/2 ML NEBU INHALATION SCH (08:40)
[2023-02-17] MEDS ORDERED: predniSONE 20 MG TAB PO SCH (09:00)
[2023-02-17] MEDS: LOSARTAN 50 MG TAB PO SCH (09:49)
[2023-02-17] MEDS: SPIRONOLACTONE 25 MG TAB PO SCH (09:49)
[2023-02-17] MEDS: allopurinoL 300 MG TAB PO SCH (09:49)
[2023-02-17] MEDS: amLODIPine 5 MG TAB PO SCH (09:49)
[2023-02-17] MEDS: APIXABAN 5 MG TAB PO SCH (09:49)
[2023-02-17] MEDS: FUROSEMIDE 20 MG TAB PO SCH (09:49)
[2023-02-17] MEDS: BENZONATATE 100 MG CAP PO SCH (09:53)
[2023-02-17] MEDS: FLECAINIDE 50 MG TAB PO SCH (09:53)
--- NOTE | 2023-02-17 11:35 | P.PN ---
Subjective Progress Note Date: 02/17/23 I am seeing this patient in new consultation today 02/14/2023 in the emergency room after she presented yesterday afternoon complaining of persistent nonproductive cough associated exertional shortness of breath. Symptoms have been ongoing for the last 2-3 weeks. She was treated outpatient by her PCP Dr. Cookie Guevara with a course of antibiotics, Tessalon Perles, and oral steroids. This resulted in initial improvement in her symptoms, but her cough returned after tapering off the steroids. Patient is a 77-year-old white female with past medical history significant for moderate COPD with an FEV1 61% of predicted, Valley fever back in 2007 when visiting her son in [place], atrial fibrillation anticoagulated on Eliquis with previous cardiac ablations, coronary artery disease, heart failure, chronic kidney disease stage III, and is a former smoker. She does not routinely follow in the pulmonary office. Patient is currently sitting up in the bedside recliner, on room air, in no acute distress. She does have a persistent nonproductive cough. She states that her is currently in the emergency room with similar symptoms, but his symptoms are less severe. Denies any fever, chills, myalgias, hemoptysis. Also, denies any chest pain, heart palpitations, syncope. She does admit chronic lower extremity swelling, which may be worse than normal. Chest x-ray on arrival showed no ac alutiiq cardiopulmonary process. CBC unremarkable without any leukocytosis. BMP was unremarkable except for a component of acute on chronic kidney disease with a creatinine of 1.41 and a BUN of 42. Troponin less than 0.012. NT proBNP low. ECG shows normal sinus rhythm with left axis deviation. No obvious acute ischemia. Negative for influenza, RSV, COVID-19. She is afebrile. She has been started on a combination of bronchodilators, Tessalon Perles and Mucinex DM, and prednisone burst taper. Patient is hemodynamically stable. The patient is seen today 02/15/2023 in follow-up on the regular medical floor. She is currently sitting up at the bedside. Awake and alert in no acute distress. Maintaining good O2 saturations in the 90s on room air. Afebrile. Hemodynamically stable. She is still having ongoing issues with a cough and chest tightness and wheezing. Not much improved today compared to yesterday. White count 11.0. Hemoglobin 11.5. Sodium 134. Potassium 4.6. Bicarb 24. BUN 41. Creatinine 1.8. She remains on DuoNeb inhalations, Symbicort, IV Cymetra. Anticoagulated with Eliquis. Remains on oral diuretics. The patient is seen today 02/16/2023 in follow-up on the regular medical floor. Currently awake and alert in no acute distress. Still with some dry non productive cough. Still some wheezing. Not feeling back to baseline yet. She is maintaining good O2 saturations in the 90s on room air. Sodium 134. Potassium 4.5. Bicarb 24. BUN 45. Creatinine 1.6. Glucose 161. Pro- calcitonin 0.20. She is continued on DuoNeb inhalations, Pulmicort and Per foromist inhalations, Solu-Medrol. Oral diuretics. The patient is seen today 02/17/2023 in follow-up on the regular medical floor. She is currently sitting up in bed. Awake and alert in no acute distress. Feeling quite a bit better. She is continued on DuoNeb inhalations, Pulmicort and Perforomist inhalations, Solu-Medrol. Eliquis for anticoagulation. Chest x-ray revealed COPD with cardiomegaly and left basilar atelectasis. No new labs today. Objective - Vital Signs Vital signs: Vital Signs Temp 97.5 F L 02/17/23 08:00 Pulse 74 02/17/23 09:05 Resp 16 02/17/23 08:00 BP 121/73 02/17/23 08:00 Pulse Ox 97 02/17/23 08:40 FiO2 21 02/16/23 09:02 Intake & Output 02/16/23 02/17/23 02/17/23 18:59 06:59 18:59 Intake Total 118 Balance 118 Intake: Oral 118 Other: Voiding Method Toilet Diaper # Voids 1 2 - Exam GENERAL EXAM: Alert, 77-year-old female, sitting up at the bedside, on room air, comfortable in no apparent distress. HEAD: Normocephalic. EYES: Normal reaction of pupils, equal size. NOSE: Clear with pink turbinates. THROAT: No erythema or exudates. NECK: No masses, no JVD. CHEST: No chest wall deformity. LUNGS: Equal air entry with bilateral end expiratory wheeze, coarse rhonchi. CVS: S1 and S2 normal with no audible murmur, regular rhythm. ABDOMEN: No hepatosplenomegaly, normal bowel sounds, no guarding or rigidity. SPINE: No scoliosis or deformity SKIN: No rashes CENTRAL NERVOUS SYSTEM: No focal deficits, tone is normal in all 4 extremities. EXTREMITIES: There is no peripheral edema. No clubbing, no cyanosis. Peripheral pulses are intact. - Labs CBC & Chem 7: 02/16/23 05:10 02/16/23 05:10 Assessment and Plan Assessment: Acute exacerbation of chronic obstructive pulmonary disease and suspected acute bronchitis. Chest x-ray on arrival shows no acute cardiopulmonary process. Negative for influenza, RSV, COVID-19. Moderate chronic obstructive pulmonary disease, with a baseline FEV1 61% of predicted Acute on chronic kidney disease, creatinine 1.6 History of atrial fibrillation, anticoagulated on Eliquis, with previous history of cardiac ablations. Currently in normal sinus rhythm Chronic kidney disease stage III Benign essential hypertension Hyperlipidemia History of diastolic congestive heart failure, stable. Most recent echocardiogram from 02/10/2022 showed a preserved left ventricular ejection fraction of 55-60%. Grade 1 diastolic dysfunction. There was mild to moderate aortic regurgitation, as well as, mild mitral and tricuspid regurgitation. Chronic lower extremity edema Remote ex-smoker Plan: The patient was seen and evaluated Chest x-ray, medications reviewed Cleared for discharge from the pulmonary standpoint Continue her home pulmonary medications Complete a prednisone taper Follow-up in the office in 1 week I have personally seen and examined the patient, performed the documentation and the assessment and plan as written. Number of minutes spent on the visit: 10.
[2023-02-17 12:20] VITALS: PULSE 74
--- NOTE | 2023-02-21 00:21 | P.DS ---
Providers Date of admission: 02/15/23 16:12 Expected date of discharge: 02/17/23 Attending physician: Dior Foley Consults: 02/13/23 18:48 Consult Physician Urgent Consulting Provider: Erik Penaloza Reason/Comments: COPD exacerbation Do you want consulting provider notified?: Yes Primary care physician: Cookie Guevara Hospital Course: Final diagnosis Shortness of breath, likely secondary to COPD exacerbation with failure of outpatient treatment Acute hypoxic respiratory failure secondary to COPD exacerbation Obesity with BMI of 38.0 Acute bronchitis with bronchospasms Acute on chronic kidney disease with acute kidney injury, creatinine was 1.41 Heart failure history with diastolic dysfunction most recent EF was 55-60 Former smoker History of atrial fibrillation, currently rate controlled Hyperlipidemia history History of rheumatic fever as a child GI prophylaxis DVT prophylaxis Full code Discharge disposition Patient is being discharged in a stable condition with guarded prognosis to home . Patient will follow-up with Dr. Guevara in the outpatient setting upon discharge. Patient is to continue with prednisone taper now patient follow-up with pulmonary as scheduled. Total time taken is greater than 35 minutes. Hospital course This is a 77-year-old female who was recently admitted with increased shortness of breath with cough and bronchospasms with outpatient failure of treatment. Patient admitted with COPD exacerbation with acute hypoxic respiratory failure. Pulmonary following closely and maintained on IV steroids along with breathing treatments showing some improvement. Patient has been weaned off O2 and will continue on current medications as mentioned below and close outpatient follow- up with pulmonary primary care provider. Patient has been cleared by consultations for discharge. Please refer to pulmonary notes for further HPI. Currently no reports of chest pain, shortness of breath, or palpitations. Patient is afebrile. No reports of nausea or vomiting and patient is tolerating diet. Patient will be discharged home today. Physical exam: Gen: This is a 77-year-old female who is awake, alert and oriented 3, well- developed, well-nourished, obese HEENT: Head is atraumatic, normocephalic. Pupils equal, round. Sclerae is anicteric. NECK: Supple. No JVD. No lymphadenopathy. No thyromegaly. LUNGS: Diminished breath sounds bilaterally with some scattered coarse rhonchi. No intercostal retractions. HEART: Regular rate and rhythm. No murmur. ABDOMEN: Soft. Obese. Bowel sounds are present. No masses. No tenderness. EXTREMITIES: No pedal edema. No calf tenderness. Generalized edema NEUROLOGICAL: Patient is awake, alert and oriented x3. Cranial nerves 2 through 12 are grossly intact. Please refer to medication reconciliation sheet for a list of medications. The impression and plan of care has been dictated by Yadira Pace, Nurse Practitioner as directed. Dr. Og MD I have performed a history and examination and MDM of this patient, discussed the same with the dictator, and agree with the dictator's assessment and plan as written ,documented as a scribe. Based on total visit time, I have performed more than 50% of the visit. Patient Condition at Discharge: Fair Plan - Discharge Summary New Discharge Prescriptions: New guaiFENesin-DM 600/30MG [Mucinex Dm] 1 each PO Q12HR PRN 10 Days #20 tab PRN Reason: Cough Acetaminophen Tab [Tylenol] 650 mg PO Q6HR PRN tab PRN Reason: Mild Pain Or Fever > 100.5 Ipratropium-Albuterol Nebulize [Duoneb 0.5 mg-3 mg/3 ml Soln] 3 ml INHALATION RT-Q4H PRN each PRN Reason: Shortness Of Breath Or Wheezing predniSONE 10 mg PO DIRECTED #30 tab Continue Atorvastatin [Lipitor] 10 mg PO HS Ipratropium-Albuterol Nebulize [Duoneb 0.5 mg-3 mg/3 ml Soln] 3 ml INHALATION RT-QID Montelukast [Singulair] 10 mg PO HS Apixaban [Eliquis] 5 mg PO BID Albuterol Sulfate [Ventolin HFA] 2 puff INHALATION RT-Q4H PRN PRN Reason: Shortness Of Breath Flecainide Acetate [Tambocor] 100 mg PO BID Spironolactone [Aldactone] 50 mg PO DAILY #30 tab allopurinoL [Zyloprim] 300 mg PO DAILY Losartan [Cozaar] 50 mg PO DAILY amLODIPine [Norvasc] 5 mg PO DAILY Benzonatate [Tessalon Perle] 200 mg PO TID Furosemide [Lasix] 20 mg PO DAILY Discharge Medication List Atorvastatin [Lipitor] 10 mg PO HS 11/25/17 [History] Ipratropium-Albuterol Nebulize [Duoneb 0.5 mg-3 mg/3 ml Soln] 3 ml INHALATION RT-QID 11/25/17 [History] Montelukast [Singulair] 10 mg PO HS 11/25/17 [History] Apixaban [Eliquis] 5 mg PO BID 04/09/18 [History] Albuterol Sulfate [Ventolin HFA] 2 puff INHALATION RT-Q4H PRN 06/11/20 [History] Flecainide Acetate [Tambocor] 100 mg PO BID 02/09/22 [History] Spironolactone [Aldactone] 50 mg PO DAILY #30 tab 02/11/22 [Rx] Benzonatate [Tessalon Perle] 200 mg PO TID 02/13/23 [History] Furosemide [Lasix] 20 mg PO DAILY 02/13/23 [History] Losartan [Cozaar] 50 mg PO DAILY 02/13/23 [History] allopurinoL [Zyloprim] 300 mg PO DAILY 02/13/23 [History] amLODIPine [Norvasc] 5 mg PO DAILY 02/13/23 [History] Acetaminophen Tab [Tylenol] 650 mg PO Q6HR PRN tab 02/17/23 [Rx] Ipratropium-Albuterol Nebulize [Duoneb 0.5 mg-3 mg/3 ml Soln] 3 ml INHALATION RT-Q4H PRN each 02/17/23 [Rx] guaiFENesin-DM 600/30MG [Mucinex Dm] 1 each PO Q12HR PRN 10 Days #20 tab 02/17/23 [Rx] predniSONE 10 mg PO DIRECTED #30 tab 02/17/23 [Rx] Follow up Appointment(s)/Referral(s): Cookie Guevara MD [Primary Care Provider] - 1-2 days Wesley Perry DO [Doctor of Osteopathic Medicine] - 03/10/23 9:45 am Patient Instructions/Handouts: COPD (Chronic Obstructive Pulmonary Disease) (DC) Activity/Diet/Wound Care/Special Instructions: Activity Limited until follow-up Follow-up with primary care provider on discharge Follow-up with pulmonary outpatient Continue taking medications as prescribed Discharge Disposition: HOME SELF-CARE
== END 2023-02-17 13:25 | disposition home or self-care (01) | DRG 190 ==
LOC: EC 16:25 → 6NMEDSUR 18:49 → OBSVTOIN 02-15 16:12 → 6NMEDSUR 02-16 03:37
PROVIDERS: ADMIT Hospitalist; ATTEND Hospitalist
DX: J44.0 Chronic obstructive pulmonary disease with (acute) lower respiratory infection (principal); J96.01 Acute respiratory failure with hypoxia; I13.0 Hypertensive heart and chronic kidney disease with heart failure and stage 1 through stage 4 chronic kidney disease, or unspecified chronic kidney disease; I50.32 Chronic diastolic (congestive) heart failure; N17.9 Acute kidney failure, unspecified; J44.1 Chronic obstructive pulmonary disease with (acute) exacerbation; Z20.822 Contact with and (suspected) exposure to COVID-19; E11.22 Type 2 diabetes mellitus with diabetic chronic kidney disease; E66.9 Obesity, unspecified; E78.5 Hyperlipidemia, unspecified; I25.10 Atherosclerotic heart disease of native coronary artery without angina pectoris; I35.1 Nonrheumatic aortic (valve) insufficiency; I48.91 Unspecified atrial fibrillation; J20.9 Acute bronchitis, unspecified; Z96.642 Presence of left artificial hip joint; N18.30 Chronic kidney disease, stage 3 unspecified; Z68.38 Body mass index [BMI] 38.0-38.9, adult; Z79.01 Long term (current) use of anticoagulants; Z79.899 Other long term (current) drug therapy; Z80.0 Family history of malignant neoplasm of digestive organs; Z86.19 Personal history of other infectious and parasitic diseases; Z87.891 Personal history of nicotine dependence
CPT/HCPCS: 36415; 71045; 71046; 80048; 80053; 83605; 83735; 83880; 84145; 84484; 85025; 85610; 85730; 87636; 93005; 94640; 94760; 99285

== ENCOUNTER 2024-10-15 14:52 | Inpatient (IN) | payer MEDICARE ==
[2024-10-15 15:26] LABS: Basophils # (A) 0.02 10*3/uL (0.00-0.10); Basophils % (A) 0.3 %; Eosinophils # (A) 0.09 10*3/uL (0.04-0.35); Eosinophils % (A) 1.1 %; HCT 22.9 % (37.2-46.3); Lymphocytes # (A) 0.94 10*3/uL (0.90-5.00); Lymphocytes % (A) 11.8 %; MCH 26.4 pg (27.0-32.0); MCHC 29.7 g/dL (32.0-37.0); MCV 88.8 fL (80.0-97.0); Mean Platelet Volume 10.1 fL (9.5-12.2); Monocytes # (A) 0.56 10*3/uL (0.20-1.00); Neutrophils # (A) 6.32 10*3/uL (1.80-7.70); Neutrophils % (A) 79.5 %; Platelet Count 208 10*3/uL (140-440); RBC 2.58 10*6/uL (4.10-5.20); RDW 16.1 % (11.5-14.5); WBC 7.95 10*3/uL (4.50-10.00)
[2024-10-15 15:33] LABS: HGB 6.8 g/dL (12.0-15.0)
--- NOTE | 2024-10-15 15:34 | XR ---
EXAMINATION TYPE: XR chest 2V DATE OF EXAM: 10/15/2024 3:31 PM COMPARISON: Multiple radiographs, with the most recent on 10/01/2024 TECHNIQUE: XR chest 2V Frontal and lateral views of the chest. CLINICAL INDICATION:Female, 79 years old with history of difficulty breathing; FINDINGS: Lungs/Pleura: Trace bilateral pleural effusions with associated atelectasis. No focal consolidation o r pneumothorax. Pulmonary vascularity: Mild pulmonary vascular congestion. Heart/mediastinum: Cardiomediastinal silhouette is enlarged and stable. Musculoskeletal: Multiple level degenerative disc disease changes seen throughout the spine. IMPRESSION: Cardiomegaly, pulmonary vascular congestion and trace bilateral pleural effusions. Correlate with BNP for congestive heart failure. [facility], , 10/15/2024 3:32 PM
[2024-10-15 15:39] LABS: INR 1.1 (<1.2); Prothrombin Time 11.6 sec (10.0-12.5)
--- NOTE | 2024-10-15 15:42 | ED ---
General Adult HPI - General Chief complaint: Shortness of Breath Stated complaint: SOB Time Seen by Provider: 10/15/24 15:00 Source: patient, EMS, RN notes reviewed, old records reviewed Mode of arrival: EMS - History of Present Illness Initial comments: This is an 79-year-old female who presents emergency department complaining of a few day history of shortness of breath. According to EMS she had a little bit of a wheeze they gave her a breathing treatment on the way and she felt considerably better. Patient denies any fever chills or cough. Patient states she has a history of COPD. Patient states she has a breathing machine at home but it did not seem to help today. Patient denies any history of congestive heart failure. Patient's pulse ox at home per EMS on room air was 93%. Patient has not had any home O2 - Related Data Home Medications Medication Instructions Recorded Confirmed Atorvastatin [Lipitor] 10 mg PO HS 11/25/17 02/13/23 Ipratropium-Albuterol Nebulize 3 ml INHALATION RT-QID 11/25/17 02/13/23 [Duoneb 0.5 mg-3 mg/3 ml Soln] Montelukast [Singulair] 10 mg PO HS 11/25/17 02/13/23 Apixaban [Eliquis] 5 mg PO BID 04/09/18 02/13/23 Albuterol Sulfate [Ventolin HFA] 2 puff INHALATION RT-Q4H PRN 06/11/20 02/13/23 Flecainide Acetate [Tambocor] 100 mg PO BID 02/09/22 02/13/23 Benzonatate [Tessalon Perle] 200 mg PO TID 02/13/23 02/13/23 Furosemide [Lasix] 20 mg PO DAILY 02/13/23 02/13/23 Losartan [Cozaar] 50 mg PO DAILY 02/13/23 02/13/23 allopurinoL [Zyloprim] 300 mg PO DAILY 02/13/23 02/13/23 amLODIPine [Norvasc] 5 mg PO DAILY 02/13/23 02/13/23 Previous Rx's Medication Instructions Recorded Spironolactone [Aldactone] 50 mg PO DAILY #30 tab 02/11/22 Acetaminophen Tab [Tylenol] 650 mg PO Q6HR PRN tab 02/17/23 Ipratropium-Albuterol Nebulize 3 ml INHALATION RT-Q4H PRN each 02/17/23 [Duoneb 0.5 mg-3 mg/3 ml Soln] guaiFENesin-DM 600/30MG [Mucinex 1 each PO Q12HR PRN 10 Days #20 tab 02/17/23 Dm] predniSONE 10 mg PO DIRECTED #30 tab 02/17/23 Allergies Allergy/AdvReac Type Severity Reaction Status Date / Time bee venom protein (honey bee) Allergy Anaphylaxis Verified 10/15/24 15:09 Review of Systems ROS Statement: Those systems with pertinent positive or pertinent negative responses have been documented in the HPI. ROS Other: All systems not noted in ROS Statement are negative. Past Medical History Past Medical History: Atrial Fibrillation, Heart Failure, COPD, Hyperlipidemia, Pneumonia Additional Past Medical History / Comment(s): 2007 Valley fever, rheumatic fever as a child, gout L wrist. History of Any Multi-Drug Resistant Organisms: None Reported Past Surgical History: Appendectomy, Heart Catheterization, Joint Replacement, Orthopedic Surgery, Tonsillectomy, Tubal Ligation Additional Past Surgical History / Comment(s): HILDA, cardioversion, 2013 cardiac cath-normal, right knee arthroscopies, colonoscopy, L hip replaced cardiac ablation 08/02 Past Anesthesia/Blood Transfusion Reactions: No Reported Reaction Past Psychological History: No Psychological Hx Reported Smoking Status: Former smoker Past Alcohol Use History: None Reported Past Drug Use History: None Reported - Past Family History Father History Unknown: Yes Family Medical History: Cancer Additional Family Medical History / Comment(s): Father had colon cancer. Mother Family Medical History: No Reported History Additional Family Medical History / Comment(s): Mother was healthy and lived to be 93-94 yrs old. General Exam - General Exam Comments Initial Comments: GENERAL: Patient is well-developed and well-nourished. Patient is nontoxic and well- hydrated and is in mild distress. ENT: Neck is soft and supple. No significant lymphadenopathy is noted. Oropharynx is clear. Moist mucous membranes. Neck has full range of motion without elici ting any pain. EYES: The sclera were anicteric and conjunctiva were pink and moist. Extraocular movements were intact and pupils were equal round and reactive to light. Eyelids were unremarkable. PULMONARY: Unlabored respirations. Good breath sounds bilaterally. No audible rales rhonchi or wheezing was noted. CARDIOVASCULAR: There is a regular rate and rhythm without any murmurs gallops or rubs. ABDOMEN: Soft and nontender with normal bowel sounds. SKIN: Skin is clear with no lesions or rashes and otherwise unremarkable. NEUROLOGIC: Patient is alert and oriented x3. Cranial nerves II through XII are grossly intact. Motor and sensory are also intact. Normal speech, volume and content. Symmetrical smile. MUSCULOSKELETAL: Normal extremities with adequate strength and full range of motion. 1+ edema bilaterally LYMPHATICS: No significant lymphadenopathy is noted PSYCHIATRIC: Normal psychiatric evaluation. Course Vital Signs 10/15/24 14:58 Temperature 98.2 F Pulse Rate 59 L Respiratory 20 Rate Blood Pressure 110/52 O2 Sat by Pulse 99 Oximetry Medical Decision Making - Medical Decision Making EKG is interpreted by myself. EKG shows junctional rhythm at 59 bpm QRS is 238 QT interval is 580 QTc is 586. Was pt. sent in by a medical professional or institution (, PA, FIELD REP, urgent care, hospital, or snf...) When possible be specific @ -No Did you speak to anyone other than the patient for history (EMS, parent, family, police, friend...)? What history was obtained from this source @ -No Did you review nursing and triage notes (agree or disagree)? Why? @ -I reviewed and agree with nursing and triage notes Were old charts reviewed (outside hosp., previous admission, EMS record, old EKG, old radiological studies, urgent care reports/EKG's, snf records)? Report findings @ -No old charts were reviewed Differential Diagnosis? @ -Differential Dyspnea: Coronary syndrome, arrhythmia, tamponade, asthma, COPD, pulmonary embolism, pneumonia, pneumothorax, pulmonary effusion, anaphylaxis, diabetic ketoacidosis, flailed chest, pulmonary contusion, diaphragmatic rupture, anemia, neuromuscular, this is not meant to be an all-inclusive list. EKG interpreted by me (3pts min.). @ -As above X-rays interpreted by me (1pt min.). @ -Chest x-ray shows mild pulmonary edema CT interpreted by me (1pt min.). @ -None done U/S interpreted by me (1pt. min.). @ -None done What testing was considered but not performed or refused? (CT, X-rays, U/S, labs)? Why? @ -None What meds were considered but not given or refused? Why? @ -None Did you discuss the management of the patient with other professionals (professionals i.e. , PA, FIELD REP, lab, RT, psych nurse, geriatric social work professor, shearing machine tender, teacher, chief nursing officer, shoe caser)? Give summary @ -I spoke with [facility] hospitalist who agreed to admit the patient admit the patient wrote admitting orders Was smoking cessation discussed for >3mins.? @ -No Was critical care preformed (if so, how long)? @ -35 minutes Were there social determinants of health that impacted care today? How? (Homelessness, low income, unemployed, alcoholism, drug addiction, transportation, low edu. Level, literacy, decrease access to med. care, custodial, rehab)? @ -No Was there de-escalation of care discussed even if they declined (Discuss DNR or withdrawal of care, Hospice)? DNR status @ -No What co-morbidities impacted this encounter? (DM, HTN, Smoking, COPD, CAD, Cancer, CVA, ARF, Chemo, Hep., AIDS, mental health diagnosis, sleep apnea, morbid obesity)? @ -None Was patient admitted / discharged? Hospital course, mention meds given and route, prescriptions, significant lab abnormalities, going to OR and other pertinent info. @ -Patient was anemic at 6.8 and got 1 unit of packed red blood cells patient also got Lasix for the pulmonary edema. Patient also will be seeing a shaft tender because the creatinine is elevated and has acute kidney injury. Undiagnosed new problem with uncertain prognosis? @ -No Drug Therapy requiring intensive monitoring for toxicity (Heparin, Nitro, Insulin, Cardizem)? @ -No Were any procedures done? @ -No Diagnosis/symptom? @ -Acute renal failure Acute, or Chronic, or Acute on Chronic? @ -Acute Uncomplicated (without systemic symptoms) or Complicated (systemic symptoms)? @ -Complicated Side effects of treatment? @ -No Exacerbation, Progression, or Severe Exacerbation? @ -No Poses a threat to life or bodily function? How? (Chest pain, USA, HI, pneumonia, PE, COPD, DKA, ARF, appy, cholecystitis, CVA, Diverticulitis, Homicidal, Suicidal, threat to staff... and all critical care pts) @ -Yes this can cause electrolyte abnormalities and lethal arrhythmias Diagnosis/symptom? @ -Anemia Acute, or Chronic, or Acute on Chronic? @ -Acute Uncomplicated (without systemic symptoms) or Complicated (systemic symptoms)? @ -Complicated Side effects of treatment? @ -None Exacerbation, Progression, or Severe Exacerbation] @ -No Poses a threat to life or bodily function? @ -Yes this can lead to hypoxia and endorgan dysfunction Diagnosis/symptom? @ -Pulmonary edema Acute, or Chronic, or Acute on Chronic? @ -Acute Uncomplicated (without systemic symptoms) or Complicated (systemic symptoms)? @ -Comp Side effects of treatment? @ -None Exacerbation, Progression, or Severe Exacerbation] @ -No Poses a threat to life or bodily function? @ -Yes this lead to hypoxia and endorgan dysfunction - Lab Data Result diagrams: 10/15/24 15:21 10/15/24 15:20 Lab Results 10/15/24 10/15/24 10/15/24 Range/Units 15:20 15:20 15:20 WBC (4.50-10.00) 10*3/uL RBC (4.10-5.20) 10*6/uL Hgb (12.0-15.0) g/dL Hct (37.2-46.3) % MCV (80.0-97.0) fL MCH (27.0-32.0) pg MCHC (32.0-37.0) g/dL Plt Count (140-440) 10*3/uL MPV (9.5-12.2) fL Immature Gran % (Auto) % Neutrophils % % Lymphocytes % % Monocytes % % Eosinophils % % Basophils % % Immature Gran # (0.00-0.04) 10*3/uL Neutrophils # (1.80-7.70) 10*3/uL Lymphocytes # (0.90-5.00) 10*3/uL Monocytes # (0.20-1.00) 10*3/uL Eosinophils # (0.04-0.35) 10*3/uL Basophils # (0.00-0.10) 10*3/uL PT 11.6 (10.0-12.5) sec INR 1.1 (<1.2) APTT 23.0 (22.0-30.0) sec Sodium 137 (137-145) mmol/L Potassium 4.8 (3.5-5.1) mmol/L Chloride 99 (98-107) mmol/L Carbon Dioxide 29 (22-30) mmol/L Anion Gap 9 mmol/L BUN 64 H (7-17) mg/dL Creatinine 3.62 H (0.52-1.04) mg/dL Est GFR (CKD-EPI)AfAm 13 (>60 ml/min/1.73 sqM) Est GFR (CKD-EPI)NonAf 11 (>60 ml/min/1.73 sqM) Glucose 93 (74-99) mg/dL Calcium 9.4 (8.4-10.2) mg/dL Magnesium 2.7 H (1.6-2.3) mg/dL Total Bilirubin 0.7 (0.2-1.3) mg/dL AST 21 (14-36) U/L ALT 14 (4-34) U/L Alkaline Phosphatase 99 (38-126) U/L Troponin I <0.012 (0.000-0.034) ng/mL NT-Pro-B Natriuret Pep 3260 pg/mL Total Protein 5.6 L (6.3-8.2) g/dL Albumin 3.7 (3.5-5.0) g/dL 10/15/24 Range/Units 15:21 WBC 7.95 (4.50-10.00) 10*3/uL RBC 2.58 L (4.10-5.20) 10*6/uL Hgb 6.8 L* (12.0-15.0) g/dL Hct 22.9 L (37.2-46.3) % MCV 88.8 (80.0-97.0) fL MCH 26.4 L (27.0-32.0) pg MCHC 29.7 L (32.0-37.0) g/dL Plt Count 208 (140-440) 10*3/uL MPV 10.1 (9.5-12.2) fL Immature Gran % (Auto) 0.3 % Neutrophils % 79.5 % Lymphocytes % 11.8 % Monocytes % 7.0 % Eosinophils % 1.1 % Basophils % 0.3 % Immature Gran # 0.02 (0.00-0.04) 10*3/uL Neutrophils # 6.32 (1.80-7.70) 10*3/uL Lymphocytes # 0.94 (0.90-5.00) 10*3/uL Monocytes # 0.56 (0.20-1.00) 10*3/uL Eosinophils # 0.09 (0.04-0.35) 10*3/uL Basophils # 0.02 (0.00-0.10) 10*3/uL PT (10.0-12.5) sec INR (<1.2) APTT (22.0-30.0) sec Sodium (137-145) mmol/L Potassium (3.5-5.1) mmol/L Chloride (98-107) mmol/L Carbon Dioxide (22-30) mmol/L Anion Gap mmol/L BUN (7-17) mg/dL Creatinine (0.52-1.04) mg/dL Est GFR (CKD-EPI)AfAm (>60 ml/min/1.73 sqM) Est GFR (CKD-EPI)NonAf (>60 ml/min/1.73 sqM) Glucose (74-99) mg/dL Calcium (8.4-10.2) mg/dL Magnesium (1.6-2.3) mg/dL Total Bilirubin (0.2-1.3) mg/dL AST (14-36) U/L ALT (4-34) U/L Alkaline Phosphatase (38-126) U/L Troponin I (0.000-0.034) ng/mL NT-Pro-B Natriuret Pep pg/mL Total Protein (6.3-8.2) g/dL Albumin (3.5-5.0) g/dL Disposition Clinical Impression: Junctional bradycardia, Anemia, Acute renal failure, Pulmonary edema Disposition: ADMITTED IP TO THIS HOSP Referrals: Cookie Guevara MD [Primary Care Provider] - 1-2 days Time of Disposition: 16:28
[2024-10-15 15:46] LABS: ALT 14 U/L (4-34); AST 21 U/L (14-36); African American GFR (CKD) 13 (>60 ml/min/1.73 sqM); Albumin 3.7 g/dL (3.5-5.0); Alkaline Phosphatase 99 U/L (38-126); Anion Gap 9 mmol/L; Blood Urea Nitrogen 64 mg/dL (7-17); Calcium 9.4 mg/dL (8.4-10.2); Carbon Dioxide 29 mmol/L (22-30); Chloride 99 mmol/L (98-107); Glucose 93 mg/dL (74-99); Magnesium 2.7 mg/dL (1.6-2.3); Non-African American GFR(CKD) 11 (>60 ml/min/1.73 sqM); Potassium 4.8 mmol/L (3.5-5.1); Sodium 137 mmol/L (137-145); Total Bilirubin 0.7 mg/dL (0.2-1.3); Total Protein 5.6 g/dL (6.3-8.2)
[2024-10-15] MEDS: methylPREDNISolone SOD SUCCI 125 MG/2 ML VIAL IV STA (15:49)
[2024-10-15 15:54] LABS: NT-Pro-B-Type Natriuretic Pept 3260 pg/mL
[2024-10-15] MEDS: FUROSEMIDE 10 MG/ML 4 ML VIAL IV STA (16:52)
[2024-10-15 21:33] LABS: Appearance,Urine Clear (Clear); Bacteria,Urine Rare /hpf; Bilirubin,Urine Negative (Negative); Blood,Urine Trace (Negative); Color,Urine Colorless; Glucose,Urine (UA) Negative (Negative); Ketones,Urine Negative (Negative); Leukocyte Esterase,Urine Negative (Negative); Mucus,Urine Rare /hpf; Nitrite,Urine Negative (Negative); PH, Urine 8.5 (5.0-8.0); Protein,Urine Negative (Negative); RBC,Urine 1 /hpf (0-5); Specific Gravity,Urine 1.009 (1.001-1.035); Urobilinogen,Urine <2.0 mg/dL (<2.0); WBC,Urine <1 /hpf (0-5)
--- NOTE | 2024-10-15 22:48 | US ---
EXAMINATION TYPE: US kidneys/renal and bladder DATE OF EXAM: 10/15/2024 COMPARISON: 04/20/18 CLINICAL INDICATION: Female, 79 years old with history of megan; megan TECHNIQUE: Grayscale imaging of the bilateral kidneys and urinary bladder: FINDINGS: EXAM MEASUREMENTS: Right Kidney: 9.1 x 5.9 x 5.4 cm Left Kidney: 8.8 x 5.5 x 4.2 cm Right Kidney: Simple cystic area seen mid to inferior pole measuring 2.3 x 2.1 x 1.7cm Left Kidney: Multiple cystic areas seen.Largest superior pole measuring 3.4 x 2.8 x 3.0cm Bladder: wnl Bilateral Jets seen: no There is no evidence for hydronephrosis at this point in time. No nephrolithiasis is seen. No anastasia s are identified. The urinary bladder is anechoic. IMPRESSION: 1. Bilateral renal cysts. [facility], Workstation: [facility], 10/15/2024 10:46 PM
[2024-10-15 23:11] LABS: Basophils # (A) 0.01 10*3/uL (0.00-0.10); Basophils % (A) 0.1 %; HCT 25.2 % (37.2-46.3); HGB 7.7 g/dL (12.0-15.0); Lymphocytes # (A) 0.16 10*3/uL (0.90-5.00); Lymphocytes % (A) 2.1 %; MCH 27.4 pg (27.0-32.0); MCHC 30.6 g/dL (32.0-37.0); MCV 89.7 fL (80.0-97.0); Mean Platelet Volume 10.5 fL (9.5-12.2); Monocytes # (A) 0.03 10*3/uL (0.20-1.00); Monocytes % (A) 0.4 %; Neutrophils % (A) 96.6 %; Platelet Count 215 10*3/uL (140-440); RBC 2.81 10*6/uL (4.10-5.20); RDW 16.3 % (11.5-14.5); WBC 7.56 10*3/uL (4.50-10.00)
[2024-10-15] MEDS: FUROSEMIDE 10 MG/ML 2 ML VIAL IV SCH (23:11)
[2024-10-16 08:10] LABS: African American GFR (CKD) 17 (>60 ml/min/1.73 sqM); Anion Gap 6 mmol/L; Blood Urea Nitrogen 62 mg/dL (7-17); Calcium 9.3 mg/dL (8.4-10.2); Carbon Dioxide 31 mmol/L (22-30); Chloride 99 mmol/L (98-107); Glucose 132 mg/dL (74-99); Magnesium 2.6 mg/dL (1.6-2.3); Non-African American GFR(CKD) 14 (>60 ml/min/1.73 sqM); Potassium 4.2 mmol/L (3.5-5.1); Sodium 136 mmol/L (137-145)
[2024-10-16] MEDS: FUROSEMIDE 10 MG/ML 4 ML VIAL IV SCH (09:29)
[2024-10-16] MEDS: ACETAMINOPHEN TAB 325 MG TAB PO PRN (09:29)
--- NOTE | 2024-10-16 10:04 | P.NPCON ---
History of Present Illness - Reason for Consult acute renal failure, chronic renal failure - History of Present Illness Reason for consultation: Acute kidney injury on chronic kidney disease History of present illness: Patient is 79-year-old female seen in renal consultation for acute kidney injury on chronic kidney disease. Patient has chronic kidney disease stage IIIb with baseline creatinine near 1.5 from August 2024. Creatinine this admission was 3.6 and is improved to 2.93. Patient came to the hospital due to shortness of breath progressively getting worse over the last few days. She is currently on nasal cannula. She denies any significant cough. No fever or chills. She denies history of diabetes or coronary artery disease. She was noted to be anemic with hemoglobin of 6.8 and did receive a unit of blood yesterday. Hemoglobin is improved. Patient denies any active bleeding. She denies use of nonsteroidals. She is currently on IV Lasix. Has been voiding. Nonoliguric. Chest x-ray suggestive of fluid overload. Vital signs are stable. General: No acute distress. HEENT: Head exam is unremarkable. On nasal cannula. LUNGS: No audible rhonchi or wheezes. HEART: Rate and Rhythm are regular. ABDOMEN: Nontender. EXTREMITITES: 1+ edema. Past Medical History Past Medical History: Atrial Fibrillation, Heart Failure, COPD, Hyperlipidemia, Pneumonia, Renal Disease Additional Past Medical History / Comment(s): 2008 Valley fever, rheumatic fever as a child, gout L wrist, states she has had problems with kidneys in the past but does not remember what History of Any Multi-Drug Resistant Organisms: None Reported Past Surgical History: Appendectomy, Heart Catheterization, Joint Replacement, Orthopedic Surgery, Tonsillectomy, Tubal Ligation Additional Past Surgical History / Comment(s): HILDA, cardioversion, 2012 cardiac cath-normal, right knee arthroscopies, colonoscopy, L hip replaced, cardiac ablation 08/02 Past Anesthesia/Blood Transfusion Reactions: No Reported Reaction Past Psychological History: No Psychological Hx Reported Additional Psychological History / Comment(s): Pt resides with her spouse. She has a nebulizer at home. Lately, she has been using a walker as needed for fatigue Smoking Status: Former smoker Past Alcohol Use History: None Reported Additional Past Alcohol Use History / Comment(s): Pt started smoking in 1960 and quit in 2010 Past Drug Use History: None Reported - Past Family History Father History Unknown: Yes Family Medical History: Cancer Additional Family Medical History / Comment(s): Father had colon cancer. Mother Family Medical History: No Reported History Additional Family Medical History / Comment(s): Mother was healthy and lived to be 93-94 yrs old. Medications and Allergies Home Medications Medication Instructions Recorded Confirmed Type Atorvastatin [Lipitor] 10 mg PO HS 11/25/17 10/15/24 History Montelukast [Singulair] 10 mg PO HS 11/25/17 10/15/24 History Apixaban [Eliquis] 5 mg PO BID 04/09/18 10/15/24 History Albuterol Sulfate [Ventolin HFA] 2 puff INHALATION RT-Q4H PRN 06/11/20 10/15/24 History Flecainide Acetate [Tambocor] 100 mg PO BID 02/09/22 10/15/24 History Spironolactone [Aldactone] 50 mg PO DAILY #30 tab 02/11/22 10/15/24 Rx Furosemide [Lasix] 20 mg PO BID 02/13/23 10/15/24 History allopurinoL [Zyloprim] 300 mg PO DAILY 02/13/23 10/15/24 History Calcium Carbonate/Vitamin D3 2 tab PO DAILY 10/15/24 10/15/24 History [Calcium 600-Vit D3 10 mcg (400 Iu)] Fluticasone Propion/Salmeterol 1 inhalation PO RT-BID 10/15/24 10/15/24 History [Advair 250-50 Diskus] Ipratropium-Albuterol Nebulize 3 ml INHALATION RT-QID PRN 10/15/24 10/15/24 H istory [Duoneb 0.5 mg-3 mg/3 ml Soln] Losartan [Cozaar] 25 mg PO DAILY 10/15/24 10/15/24 History Magnesium Oxide [Magnesium] 500 mg PO DAILY 10/15/24 10/15/24 History polyethylene glycoL 3350 [Miralax] 17 gm PO DAILY PRN 10/15/24 10/15/24 History Allergies Allergy/AdvReac Type Severity Reaction Status Date / Time bee venom protein (honey bee) Allergy Anaphylaxis Verified 10/15/24 17:17 Physical Exam Vitals: Vital Signs Temp Pulse Pulse Resp BP BP Pulse Ox 10/16/24 08:30 97.9 F 65 17 115/63 95 10/16/24 03:25 67 18 119/57 92 L 10/15/24 23:10 98.4 F 65 17 121/64 93 L 10/15/24 22:28 98.5 F 64 18 136/69 95 10/15/24 21:51 97.9 F 74 18 149/73 98 10/15/24 20:28 97.9 F 64 18 139/74 10/15/24 20:11 97.9 F 62 18 132/62 10/15/24 18:19 98.1 F 63 16 132/71 10/15/24 17:59 98.1 F 62 16 127/64 10/15/24 17:39 98.2 F 65 18 141/64 10/15/24 16:58 61 18 127/61 99 10/15/24 16:45 61 22 110/52 84 L 10/15/24 14:58 98.2 F 59 L 20 110/52 99 Intake and Output 10/15/24 10/16/24 10/16/24 22:59 06:59 14:59 Intake Total 360 10 128 Output Total 700 Balance 360 -690 128 Intake: IV 10 10 Invasive Line 1 10 10 Oral 118 Blood Product 310 Rc As-1 Unit 310 [id number] Other 50 Rc As-1 Unit 50 [id number] Output: Urine 700 Other: Voiding Method External Catheter Weight 107.048 kg 162742 kg Results - Lab Results Most recent lab results Calcium 9.3 mg/dL (8.4-10.2) 10/16/24 06:57 Magnesium 2.6 mg/dL (1.6-2.3) H 10/16/24 06:57 10/15/24 22:43 10/16/24 06:57 Assessment and Plan Plan: Assessment: 1. Acute kidney injury secondary to ATN secondary to acute blood loss anemia and cardiorenal syndrome. Creatinine 3.6 on admission and is 2.9 today. UA benign. No hydronephrosis noted on kidney ultrasound. Left kidney atrophic. 2. Chronic kidney disease stage IIIb with baseline creatinine near 1.5. 3. Acute hypoxic respiratory failure. 4. Volume overload. 5. Acute blood loss anemia status post blood transfusion. Plan: Change Lasix to 40 mg IV twice daily. Add 1500 cc fluid restriction. Avoid nephrotoxins. Continue to monitor renal function and urine output. Add Aranesp. Check iron studies. Thank you for the consultation. I will continue to follow the patient with you during her hospital stay.
[2024-10-16] MEDS ORDERED: ALBUTEROL NEBULIZED 2.5 MG/3 ML INHALATION PRN (11:22)
[2024-10-16] MEDS ORDERED: IPRATROPIUM-ALBUTEROL 3 ML NEB INHALATION PRN (11:22)
[2024-10-16] MEDS: CALCIUM CARB-VIT D 500 MG-5 MCG TAB PO SCH (12:39)
[2024-10-16] MEDS: SPIRONOLACTONE 25 MG TAB PO SCH (12:39)
[2024-10-16] MEDS: MAGNESIUM OXIDE 400 MG TAB PO SCH (12:39)
[2024-10-16] MEDS: FLECAINIDE 50 MG TAB PO SCH (12:39)
[2024-10-16] MEDS: allopurinoL 300 MG TAB PO SCH (12:40)
[2024-10-16] MEDS ORDERED: polyethylene glycoL 3350 17 GM POWD.PACK PO PRN (13:03)
--- NOTE | 2024-10-16 13:10 | P.HPIM ---
History of Present Illness 79-year-old female came with complaints of shortness of breath orthopnea paroxysmal nocturnal dyspnea does have history of congestive heart failure chronic diastolic function patient is found to be volume overloaded with chest x-ray findings of bilateral pleural effusions pulmonary edema. Patient has extensive bilateral lower extremity edema. Patient baseline creatinine is around 1.5 and her creatinine on admission was 3.62. Patient hemoglobin was also low without any evidence of acute GI bleed at this time patient hemoglobin was 6.8. Normocytic anemia patient was given blood transfusion after which it went up to 7.7. REVIEW OF SYSTEMS: All other systems are negative except those mentioned in the HPI PHYSICAL EXAMINATION: GENERAL: The patient is alert and oriented x3, not in any acute distress. Well developed, well nourished. HEENT: Pupils are round and equally reacting to light. EOMI. No scleral icterus. No conjunctival pallor. Normocephalic, atraumatic. No pharyngeal erythema. No thyromegaly. CARDIOVASCULAR: S1 and S2 present. No murmurs, rubs, or gallops. PULMONARY: Chest is clear to auscultation, no wheezing or crackles. ABDOMEN: Soft, nontender, nondistended, normoactive bowel sounds. No palpable organomegaly. MUSCULOSKELETAL: No joint swelling or deformity. EXTREMITIES: No cyanosis, clubbing, patient has bilateral lower extremity edema extensive NEUROLOGICAL: Gross neurological examination did not reveal any focal deficits. SKIN: No rashes. Assessment and plan -Congestive heart failure chronic diastolic function with acute exacerbation patient was started on IV Lasix will be continued - Acute renal failure secondary to ATN from blood loss anemia along with cardiorenal syndrome patient was started on IV Lasix creatinine improved of from 3.6-2.9 at this time kidney ultrasound showed renal cyst- -COPD with mild acute exacerbation patient was started on inhaled steroids and additional treatments - Acute hypoxic respiratory failure secondary to CHF exacerbation.along with COPD exacerbation - Anemia normocytic etiology of anemia is not clear no evidence of GI bleed patient received 1 unit of PRBC transfusion - Atrial fibrillation presently rate controlled continue with Eliquis beta- shukri - Hyperlipidemia - Patient has wheezing on exam DVT prophylaxis: On Eliquis Past Medical History Past Medical History: Atrial Fibrillation, Heart Failure, COPD, Hyperlipidemia, Pneumonia, Renal Disease Additional Past Medical History / Comment(s): 2008 [place] fever, rheumatic fever as a child, gout L wrist, states she has had problems with kidneys in the past but does not remember what History of Any Multi-Drug Resistant Organisms: None Reported Past Surgical History: Appendectomy, Heart Catheterization, Joint Replacement, Orthopedic Surgery, Tonsillectomy, Tubal Ligation Additional Past Surgical History / Comment(s): HILDA, cardioversion, 2012 cardiac cath-normal, right knee arthroscopies, colonoscopy, L hip replaced, cardiac ablation 08/02 Past Anesthesia/Blood Transfusion Reactions: No Reported Reaction Past Psychological History: No Psychological Hx Reported Additional Psychological History / Comment(s): Pt resides with her spouse. She has a nebulizer at home. Lately, she has been using a walker as needed for fatigue Smoking Status: Former smoker Past Alcohol Use History: None Reported Additional Past Alcohol Use History / Comment(s): Pt started smoking in 1960 and quit in 2010 Past Drug Use History: None Reported - Past Family History Father History Unknown: Yes Family Medical History: Cancer Additional Family Medical History / Comment(s): Father had colon cancer. Mother Family Medical History: No Reported History Additional Family Medical History / Comment(s): Mother was healthy and lived to be 93-94 yrs old. Medications and Allergies Home Medications Medication Instructions Recorded Confirmed Type Atorvastatin [Lipitor] 10 mg PO HS 11/25/17 10/15/24 History Montelukast [Singulair] 10 mg PO HS 11/25/17 10/15/24 History Apixaban [Eliquis] 5 mg PO BID 04/09/18 10/15/24 History Albuterol Sulfate [Ventolin HFA] 2 puff INHALATION RT-Q4H PRN 06/11/20 10/15/24 History Flecainide Acetate [Tambocor] 100 mg PO BID 02/09/22 10/15/24 History Spironolactone [Aldactone] 50 mg PO DAILY #30 tab 02/11/22 10/15/24 Rx Furosemide [Lasix] 20 mg PO BID 02/13/23 10/15/24 History allopurinoL [Zyloprim] 300 mg PO DAILY 02/13/23 10/15/24 History Calcium Carbonate/Vitamin D3 2 tab PO DAILY 10/15/24 10/15/24 History [Calcium 600-Vit D3 10 mcg (400 Iu)] Fluticasone Propion/Salmeterol 1 inhalation PO RT-BID 10/15/24 10/15/24 History [Advair 250-50 Diskus] Ipratropium-Albuterol Nebulize 3 ml INHALATION RT-QID PRN 10/15/24 10/15/24 History [Duoneb 0.5 mg-3 mg/3 ml Soln] Losartan [Cozaar] 25 mg PO DAILY 10/15/24 10/15/24 History Magnesium Oxide [Magnesium] 500 mg PO DAILY 10/15/24 10/15/24 History polyethylene glycoL 3350 [Miralax] 17 gm PO DAILY PRN 10/15/24 10/15/24 History Allergies Allergy/AdvReac Type Severity Reaction Status Date / Time bee venom protein (honey bee) Allergy Anaphylaxis Verified 10/15/24 17:17 Physical Exam Vitals: Vital Signs Temp Pulse Pulse Resp BP BP Pulse Ox 10/16/24 11:42 97.6 F 61 17 119/57 100 10/16/24 08:30 97.9 F 65 17 115/63 95 10/16/24 08:10 65 17 10/16/24 03:25 67 18 119/57 92 L 10/15/24 23:10 98.4 F 65 17 121/64 93 L 10/15/24 22:28 98.5 F 64 18 136/69 95 10/15/24 21:51 97.9 F 74 18 149/73 98 10/15/24 20:28 97.9 F 64 18 139/74 10/15/24 20:11 97.9 F 62 18 132/62 10/15/24 18:19 98.1 F 63 16 132/71 10/15/24 17:59 98.1 F 62 16 127/64 10/15/24 17:39 98.2 F 65 18 141/64 10/15/24 16:58 61 18 127/61 99 10/15/24 16:45 61 22 110/52 84 L 10/15/24 14:58 98.2 F 59 L 20 110/52 99 Intake and Output 10/15/24 10/16/24 10/16/24 22:59 06:59 14:59 Intake Total 360 10 128 Output Total 700 Balance 360 -690 128 Intake: IV 10 10 Invasive Line 1 10 10 Oral 118 Blood Product 310 Rc As-1 Unit 310 [id number] Other 50 Rc As-1 Unit 50 [id number] Output: Urine 700 Other: Voiding Method External Catheter External Catheter Weight 107.048 kg 508213 kg Results CBC & Chem 7: 10/15/24 22:43 10/16/24 06:57 Labs: Abnormal Lab Results - Last 24 Hours (Table) 10/15/24 10/15/24 10/15/24 Range/Units 15:20 15:21 15:45 RBC 2.58 L (4.10-5.20) 10*6/uL Hgb 6.8 L* (12.0-15.0) g/dL Hct 22.9 L (37.2-46.3) % MCH 26.4 L (27.0-32.0) pg MCHC 29.7 L (32.0-37.0) g/dL Immature Gran # (0.00-0.04) 10*3/uL Lymphocytes # (0.90-5.00) 10*3/uL Monocytes # (0.20-1.00) 10*3/uL Eosinophils # (0.04-0.35) 10*3/uL Sodium (137-145) mmol/L Carbon Dioxide (22-30) mmol/L BUN 64 H (7-17) mg/dL Creatinine 3.62 H (0.52-1.04) mg/dL Glucose (74-99) mg/dL Magnesium 2.7 H (1.6-2.3) mg/dL Total Protein 5.6 L (6.3-8.2) g/dL Urine pH (5.0-8.0) Urine Blood (Negative) Urine Bacteria (None) /hpf Urine Mucus (None) /hpf Crossmatch See Detail 10/15/24 10/15/24 10/16/24 Range/Units 20:34 22:43 06:57 RBC 2.81 L (4.10-5.20) 10*6/uL Hgb 7.7 L (12.0-15.0) g/dL Hct 25.2 L (37.2-46.3) % MCH (27.0-32.0) pg MCHC 30.6 L (32.0-37.0) g/dL Immature Gran # 0.06 H (0.00-0.04) 10*3/uL Lymphocytes # 0.16 L (0.90-5.00) 10*3/uL Monocytes # 0.03 L (0.20-1.00) 10*3/uL Eosinophils # 0.00 L (0.04-0.35) 10*3/uL Sodium 136 L (137-145) mmol/L Carbon Dioxide 31 H (22-30) mmol/L BUN 62 H (7-17) mg/dL Creatinine 2.93 H (0.52-1.04) mg/dL Glucose 132 H (74-99) mg/dL Magnesium 2.6 H (1.6-2.3) mg/dL Total Protein (6.3-8.2) g/dL Urine pH 8.5 H (5.0-8.0) Urine Blood Trace H (Negative) Urine Bacteria Rare H (None) /hpf Urine Mucus Rare H (None) /hpf Crossmatch Thrombosis Risk Factor Assmnt - Choose All That Apply Any of the Below Risk Factors Present?: Yes Each Factor Represents 1 point: Abnormal pulmonary function (COPD), Obesity (BMI >25) Other Risk Factors: Yes Each Risk Factor Represents 3 Points: Age 75 years or older Other congenital or acquired thrombophilia - If yes, enter type in comment: No Thrombosis Risk Factor Assessment Total Risk Factor Score: 5 Thrombosis Risk Factor Assessment Level: High Risk
[2024-10-16 14:22] LABS: HCT 23.7 % (37.2-46.3); HGB 7.3 g/dL (12.0-15.0); Lymphocytes # (A) 0.32 10*3/uL (0.90-5.00); Lymphocytes % (A) 5.9 %; MCH 27.1 pg (27.0-32.0); MCHC 30.8 g/dL (32.0-37.0); MCV 88.1 fL (80.0-97.0); Mean Platelet Volume 10.7 fL (9.5-12.2); Monocytes # (A) 0.04 10*3/uL (0.20-1.00); Monocytes % (A) 0.7 %; Neutrophils # (A) 5.05 10*3/uL (1.80-7.70); Neutrophils % (A) 92.5 %; Platelet Count 204 10*3/uL (140-440); RBC 2.69 10*6/uL (4.10-5.20); RDW 16.5 % (11.5-14.5); WBC 5.46 10*3/uL (4.50-10.00)
[2024-10-16 15:35] LABS: % Iron Saturation 17.33 (12.00-45.00); Ferritin 22.9 ng/mL (10.0-291.0)
[2024-10-16] MEDS: APIXABAN 2.5 MG TABLET PO SCH (15:58)
[2024-10-16] MEDS: DARBEPOETIN ALFA 40 MCG/0.4 ML SYRINGE SQ SCH (17:45)
[2024-10-16] MEDS: MONTELUKAST 10 MG TAB PO SCH (21:06)
[2024-10-16] MEDS: ATORVASTATIN 10 MG TAB PO SCH (21:06)
[2024-10-16] MEDS: SYMBICORT 80-4.5 MCG INHALER INHALATION SCH (21:27)
[2024-10-17 09:42] LABS: African American GFR (CKD) 23 (>60 ml/min/1.73 sqM); Anion Gap 6 mmol/L; Blood Urea Nitrogen 63 mg/dL (7-17); Calcium 9.4 mg/dL (8.4-10.2); Carbon Dioxide 29 mmol/L (22-30); Chloride 99 mmol/L (98-107); Glucose 98 mg/dL (74-99); Non-African American GFR(CKD) 20 (>60 ml/min/1.73 sqM); Sodium 134 mmol/L (137-145)
--- NOTE | 2024-10-17 10:09 | P.PN ---
Subjective Patient is seen in follow-up for acute kidney injury on chronic kidney disease. On IV Lasix. Oral intake fair. Nonoliguric. Vital signs are stable. General: No acute distress. HEENT: Head exam is unremarkable. On nasal cannula. LUNGS: Scattered wheezing. HEART: Rate and Rhythm are regular. ABDOMEN: Nontender. EXTREMITITES: 1+ edema. Objective - Vital Signs Vital signs: Vital Signs Temp 97.5 F L 10/17/24 08:50 Pulse 89 10/17/24 08:50 Resp 18 10/17/24 08:50 BP 109/59 10/17/24 08:50 Pulse Ox 97 10/17/24 09:17 FiO2 Intake & Output 10/16/24 10/17/24 10/17/24 18:59 06:59 18:59 Intake Total 1218 Output Total 200 550 500 Balance 1018 -550 -500 Weight 103.4 kg Intake: IV 20 Invasive Line 1 20 Oral 1198 Output: Urine 200 550 500 Other: Voiding Method External Catheter External Catheter External Catheter # Voids 2 1 - Labs CBC & Chem 7: 10/16/24 12:43 10/16/24 06:57 Labs: Abnormal Lab Results - Last 24 Hours (Table) 10/16/24 Range/Units 12:43 RBC 2.69 L (4.10-5.20) 10*6/uL Hgb 7.3 L (12.0-15.0) g/dL Hct 23.7 L (37.2-46.3) % MCHC 30.8 L (32.0-37.0) g/dL Immature Gran # 0.05 H (0.00-0.04) 10*3/uL Lymphocytes # 0.32 L (0.90-5.00) 10*3/uL Monocytes # 0.04 L (0.20-1.00) 10*3/uL Eosinophils # 0.00 L (0.04-0.35) 10*3/uL Assessment and Plan Plan: Assessment: 1. Acute kidney injury secondary to ATN secondary to acute blood loss anemia and cardiorenal syndrome. Creatinine 3.6 on admission -2.9 yesterday. UA benign. No hydronephrosis noted on kidney ultrasound. Left kidney atrophic. 2. Chronic kidney disease stage IIIb with baseline creatinine near 1.5. 3. Acute hypoxic respiratory failure. 4. Volume overload. On IV Lasix. 5. Acute blood loss anemia status post blood transfusion. On Aranesp. Plan: Maintain IV Lasix. Maintain 1500 cc fluid restriction. Avoid nephrotoxins. Continue to monitor renal function and urine output. IV iron x 1 dose today. Morning labs pending.
[2024-10-17 10:24] LABS: Magnesium 2.5 mg/dL (1.6-2.3); Potassium 4.3 mmol/L (3.5-5.1)
[2024-10-17] MEDS: SODIUM FERRIC GLUCONAT-SUCROSE 125 MG in SODIUM CHLORIDE 0.9% 100 ML IVPB ONE (11:04)
--- NOTE | 2024-10-17 17:01 | P.PN ---
Subjective Progress Note Date: 10/17/24 Hospital Course: 79-year-old female with past history of COPD, diastolic congestive heart failure, hypertension, A-fib on Eliquis presented to the ER complaining shortness of breath for a week or so. Her chest x-ray in the ER shows cardiomegaly with pulmonary vascular congestion. Her most recent echocardiogram was done in 2021 which shows ejection fraction of 50 to 55% with moderate aortic stenosis and pulmonary hypertension. Her lab work shows hemoglobin 6.8, hematocrit 25.2, MCV 89.7, sodium 136, potassium 4.2, BUN 62, creatinine 2.93, GFR 14,. NT proBNP 3260. Patient received 1 unit of packed RBC. Her hemoglobin improved to 7.7. Nephrology was consulted for ISMAEL on CKD. Patient currently receiving IV Lasix. 10/17/2024 Patient seen and examined at the bedside. No acute events overnight. Patient continue to feel short of breath. Currently on 2 L of oxygen via nasal cannula. Her lab work shows sodium 134, potassium 4.3, BUN 63, creatinine 2.23, magnesium 2.5, troponin I less than 0.012. Patient denies any active bleeding. Objective: Vital signs reviewed. General: non toxic, no distress, appears at stated age, obese Derm: no unusual rashes/lesions, warm Head: atraumatic, normocephalic, symmetric Eyes: EOMI, no lid lag, anicteric sclera, pupils equal round reactive to light ENT: Nose and ears atraumatic Neck: No cervical lymphadenopathy, trachea midline, supple Mouth: no lip lesion, mucus membranes moist Cardiovascular: S1S2 reg, no murmur, positive dorsalis pedis pulse bilateral, 2+ bilateral pitting edema Lungs: Mild crackles appreciated in lower lung bases, no rales noted. No use of accessory muscles Abdominal: soft, nontender to palpation, no guarding Ext: muscle strength 5 out of 5 in all 4 extremities grossly, no gross muscle atrophy, no contractures, Neuro: CN II-XI grossly intact, no gross focal neuro deficits Psych: Alert, oriented, appropriate affect Assessment and Plan: #Diastolic congestive heart failure exacerbation #Acute hypoxemic respiratory failure secondary to CHF exacerbation #ISMAEL on CKD likely due to cardiorenal syndrome, baseline creatinine is 1.5 #Hypermagnesemia #Anemia of the chronic disease in setting of CKD Strict I's and O's, daily weights, fluid restriction 2 L IV Lasix twice daily Order echocardiogram for cardiac structure assessment Resume Aldactone 50 mg p.o. daily, Lipitor 10 mg p.o. at bedtime Add Farxiga 5 mg p.o. once daily Order CBC, BMP and mag tomorrow a.m. Nephrology on board, note reviewed, IV iron x 1 dose Continue with Aranesp Transfusion if hemoglobin less than 7 Chronic conditions: Atrial fibrillation, rate controlled, on Eliquis Hyperlipidemia on Lipitor COPD/asthma on Singulair and Symbicort F: None E: [replete PRN] N: Regular diet A: Ambulatory at baseline DVT ppx: Eliquis Code Status: No code Anticipated discharge place: Pending clinical course Anticipated discharge date: Pending clinical course Dictation was produced using [employer] dictation software. Please excuse any grammatical, word or spelling errors. Dr. Sharma seen patient with resident, present during exam, and agreed with findings. Objective - Vital Signs Vital signs: Vital Signs Temp 97.5 F L 10/17/24 11:12 Pulse 61 10/17/24 14:00 Resp 17 10/17/24 14:00 BP 115/67 10/17/24 11:12 Pulse Ox 99 10/17/24 11:12 FiO2 Intake & Output 10/16/24 10/17/24 10/17/24 18:59 06:59 18:59 Intake Total 1218 Output Total 202 679 6768 Balance 1018 -550 -1200 Weight 103.4 kg Intake: IV 20 Invasive Line 1 20 Oral 1198 Output: Urine 045 [id number] 9897 Other: Voiding Method External Catheter External Catheter External Catheter # Voids 2 1 - Labs CBC & Chem 7: 10/17/24 16:10 10/17/24 08:01 Labs: Abnormal Lab Results - Last 24 Hours (Table) 10/17/24 Range/Units 08:01 Sodium 134 L (137-145) mmol/L BUN 63 H (7-17) mg/dL Creatinine 2.23 H (0.52-1.04) mg/dL Magnesium 2.5 H (1.6-2.3) mg/dL
[2024-10-17 17:33] LABS: Basophils # (A) 0.02 10*3/uL (0.00-0.10); Basophils % (A) 0.2 %; Eosinophils # (A) 0.03 10*3/uL (0.04-0.35); Eosinophils % (A) 0.2 %; HCT 26.7 % (37.2-46.3); Lymphocytes # (A) 1.15 10*3/uL (0.90-5.00); Lymphocytes % (A) 9.4 %; MCH 26.8 pg (27.0-32.0); MCV 89.3 fL (80.0-97.0); Mean Platelet Volume 10.4 fL (9.5-12.2); Monocytes # (A) 1.22 10*3/uL (0.20-1.00); Neutrophils # (A) 9.72 10*3/uL (1.80-7.70); Neutrophils % (A) 79.7 %; Platelet Count 191 10*3/uL (140-440); RBC 2.99 10*6/uL (4.10-5.20); RDW 16.5 % (11.5-14.5)
[2024-10-17] MEDS: DAPAGLIFLOZIN PROPANEDIOL 5 MG TABLET PO SCH (18:06)
[2024-10-18 07:16] LABS: Basophils # (A) 0.03 10*3/uL (0.00-0.10); Basophils % (A) 0.4 %; Eosinophils # (A) 0.06 10*3/uL (0.04-0.35); Eosinophils % (A) 0.8 %; HCT 24.8 % (37.2-46.3); HGB 7.4 g/dL (12.0-15.0); Lymphocytes # (A) 1.22 10*3/uL (0.90-5.00); Lymphocytes % (A) 15.9 %; MCH 26.4 pg (27.0-32.0); MCHC 29.8 g/dL (32.0-37.0); MCV 88.6 fL (80.0-97.0); Mean Platelet Volume 9.9 fL (9.5-12.2); Monocytes # (A) 0.82 10*3/uL (0.20-1.00); Monocytes % (A) 10.7 %; Neutrophils # (A) 5.53 10*3/uL (1.80-7.70); Neutrophils % (A) 71.8 %; Platelet Count 198 10*3/uL (140-440); RDW 15.9 % (11.5-14.5); WBC 7.69 10*3/uL (4.50-10.00)
[2024-10-18 07:31] LABS: African American GFR (CKD) 25 (>60 ml/min/1.73 sqM); Anion Gap 6 mmol/L; Blood Urea Nitrogen 59 mg/dL (7-17); Calcium 9.6 mg/dL (8.4-10.2); Carbon Dioxide 33 mmol/L (22-30); Chloride 96 mmol/L (98-107); Glucose 86 mg/dL (74-99); Magnesium 2.5 mg/dL (1.6-2.3); Non-African American GFR(CKD) 21 (>60 ml/min/1.73 sqM); Potassium 3.6 mmol/L (3.5-5.1); Sodium 135 mmol/L (137-145)
--- NOTE | 2024-10-18 10:12 | P.PN ---
Subjective Patient is seen in follow-up for acute kidney injury on chronic kidney disease. On IV Lasix. Oral intake fair. Nonoliguric. On room air. Vital signs are stable. General: No acute distress. HEENT: Head exam is unremarkable. LUNGS: Scattered wheezing. HEART: Rate and Rhythm are regular. ABDOMEN: Nontender. EXTREMITITES: Trace edema. Objective - Vital Signs Vital signs: Vital Signs Temp 97.6 F 10/18/24 08:27 Pulse 70 10/18/24 08:27 Resp 18 10/18/24 08:27 BP 126/85 10/18/24 08:27 Pulse Ox 94 L 10/18/24 08:54 FiO2 21 10/18/24 08:54 Intake & Output 10/17/24 10/18/24 10/18/24 18:59 06:59 18:59 Output Total 1200 650 Balance -1200 -650 Weight 102.8 kg Output: Urine 1200 650 Other: Voiding Method External Catheter External Catheter - Labs CBC & Chem 7: 10/18/24 06:44 10/18/24 06:44 Labs: Abnormal Lab Results - Last 24 Hours (Table) 10/17/24 10/17/24 10/18/24 Range/Units 08:01 16:10 06:44 WBC 12.20 H (4.50-10.00) 10*3/uL RBC 2.99 L 2.80 L (4.10-5.20) 10*6/uL Hgb 8.0 L 7.4 L (12.0-15.0) g/dL Hct 26.7 L 24.8 L (37.2-46.3) % MCH 26.8 L 26.4 L (27.0-32.0) pg MCHC 30.0 L 29.8 L (32.0-37.0) g/dL Immature Gran # 0.06 H (0.00-0.04) 10*3/uL Neutrophils # 9.72 H (1.80-7.70) 10*3/uL Monocytes # 1.22 H (0.20-1.00) 10*3/uL Eosinophils # 0.03 L (0.04-0.35) 10*3/uL Sodium 134 L (137-145) mmol/L Chloride (98-107) mmol/L Carbon Dioxide (22-30) mmol/L BUN 63 H (7-17) mg/dL Creatinine 2.23 H (0.52-1.04) mg/dL Magnesium 2.5 H (1.6-2.3) mg/dL 10/18/24 Range/Units 06:44 WBC (4.50-10.00) 10*3/uL RBC (4.10-5.20) 10*6/uL Hgb (12.0-15.0) g/dL Hct (37.2-46.3) % MCH (27.0-32.0) pg MCHC (32.0-37.0) g/dL Immature Gran # (0.00-0.04) 10*3/uL Neutrophils # (1.80-7.70) 10*3/uL Monocytes # (0.20-1.00) 10*3/uL Eosinophils # (0.04-0.35) 10*3/uL Sodium 135 L (137-145) mmol/L Chloride 96 L (98-107) mmol/L Carbon Dioxide 33 H (22-30) mmol/L BUN 59 H (7-17) mg/dL Creatinine 2.12 H (0.52-1.04) mg/dL Magnesium 2.5 H (1.6-2.3) mg/dL Assessment and Plan Plan: Assessment: 1. Acute kidney injury secondary to ATN secondary to acute blood loss anemia and cardiorenal syndrome. Creatinine 3.6 on admission - 2.12 today. UA benign. No hydronephrosis noted on kidney ultrasound. Left kidney atrophic. 2. Chronic kidney disease stage IIIb with baseline creatinine near 1.5. 3. Acute hypoxic respiratory failure. 4. Volume overload. On IV Lasix. 5. Acute blood loss anemia status post blood transfusion. On Aranesp. Also received a dose of IV iron this admission. Plan: Transition to oral Lasix 40 mg twice daily. Maintain SGLT2 inhibitor. Add maintenance potassium supplementation. Maintain 1500 cc fluid restriction. Avoid nephrotoxins. Continue to monitor renal function and urine output. Repeat BMP and magnesium level 2 to 3 days postdischarge. Follow-up outpatient in 1 week.
[2024-10-18] MEDS: POTASSIUM CHLORIDE ER 20 MEQ TAB.ER PO SCH (13:40)
[2024-10-18] MEDS: FUROSEMIDE 40 MG TAB PO SCH (15:23)
--- NOTE | 2024-10-18 16:10 | P.DS ---
Providers Date of admission: 10/15/24 16:43 Attending physician: Hetal Ram Consults: 10/15/24 16:39 Consult Physician Urgent Consulting Provider: Morteza Ta Consult Reason/Comments: Acute renal failure Do you want consulting provider notified?: Yes Primary care physician: Cookie Guevara [facility] Course: Discharge Diagnosis: #Diastolic congestive heart failure exacerbation, resolved #Acute hypoxemic respiratory failure secondary to CHF exacerbation, resolved #ISMAEL on CKD likely due to cardiorenal syndrome, baseline creatinine is 1.5 #Hypermagnesemia, resolved #Anemia of the chronic disease in setting of CKD #Atrial fibrillation, rate controlled, on Eliquis #Hyperlipidemia on Lipitor #COPD/asthma on Singulair and Symbicort Hospital Course: 79-year-old female with past history of COPD, diastolic congestive heart failure, hypertension, A-fib on Eliquis presented to the ER complaining shortness of breath for a week or so. Her chest x-ray in the ER shows cardiomegaly with pulmonary vascular congestion. Her most recent echocardiogram was done in 2021 which shows ejection fraction of 50 to 55% with moderate aortic stenosis and pulmonary hypertension. Her lab work shows hemoglobin 6.8, hematocrit 25.2, MCV 89.7, sodium 136, potassium 4.2, BUN 62, creatinine 2.93, GFR 14,. NT proBNP 3260. Patient received 1 unit of packed RBC. Her hemoglobin improved to 7.7. Nephrology was consulted for ISMAEL on CKD. Her creatinine level continue to improve and her hemoglobin is stable at 7.4. Patient denies any active bleeding, chest pain, shortness of breath, nausea, vo miting, diarrhea or constipation, numbness or tingling in upper or lower extremities. Patient is hemodynamically stable medically optimized for discharge. Patient to follow-up with PCP and nephrology post discharge. Patient to repeat BMP and magnesium 1 to 2 days postdischarge. SGLT2 has been added to her home medications. Losartan has been discontinued as her blood pressure is normal. Discharge disposition: Home Vital signs reviewed. Gen: in no apparent distress, resting comfortably in bed Eyes: PERRLA, EOMI, no scleral injection or icterus HENT: normocephalic, atraumatic, good hearing acuity, moist mucous membranes Neck: full range of motion Resp: CTAB, no rales, rhonchi, or wheezes CVS: normal S1 and S2, no murmurs, rubs or gallops, no edema GI: soft, NTTP, ND, no hepatosplenomegaly : no suprapubic tenderness, no CVAT, ang[place] catheter [is/not] present MSK: no clubbing, no cyanosis, no noted contractures of extremities Skin: no noted rashes, petechiae; temperature of skin is appropriate Neuro: moving all extremities without signs of weakness, CN II-XII intact Psych: cooperative, euthymic mood, insight and judgment intact Dictation was produced using [employer] dictation software. Please excuse any grammatical, word or spelling errors. Patient Condition at Discharge: Stable Plan - Discharge Summary Discharge Rx Participant: No New Discharge Prescriptions: New Dapagliflozin Propanediol [Farxiga] 5 mg PO DAILY #30 tab Continue Atorvastatin [Lipitor] 10 mg PO HS Montelukast [Singulair] 10 mg PO HS Apixaban [Eliquis] 5 mg PO BID Albuterol Sulfate [Ventolin HFA] 2 puff INHALATION RT-Q4H PRN PRN Reason: Shortness Of Breath Flecainide Acetate [Tambocor] 100 mg PO BID Spironolactone [Aldactone] 50 mg PO DAILY #30 tab allopurinoL [Zyloprim] 300 mg PO DAILY Ipratropium-Albuterol Nebulize [Duoneb 0.5 mg-3 mg/3 ml Soln] 3 ml INHALATION RT-QID PRN PRN Reason: Shortness Of Breath Or Wheezing Fluticasone Propion/Salmeterol [Advair 250-50 Diskus] 1 inhalation PO RT-BID Magnesium Oxide [Magnesium] 500 mg PO DAILY Furosemide [Lasix] 20 mg PO BID polyethylene glycoL 3350 [Miralax] 17 gm PO DAILY PRN PRN Reason: Constipation Calcium Carbonate/Vitamin D3 [Calcium 600-Vit D3 10 mcg (400 Iu)] 2 tab PO DAILY Discontinued Losartan [Cozaar] 25 mg PO DAILY Discharge Medication List Atorvastatin [Lipitor] 10 mg PO HS 11/25/17 [History] Montelukast [Singulair] 10 mg PO HS 11/25/17 [History] Apixaban [Eliquis] 5 mg PO BID 04/09/18 [History] Albuterol Sulfate [Ventolin HFA] 2 puff INHALATION RT-Q4H PRN 06/11/20 [History] Flecainide Acetate [Tambocor] 100 mg PO BID 02/09/22 [History] Spironolactone [Aldactone] 50 mg PO DAILY #30 tab 02/11/22 [Rx] Furosemide [Lasix] 20 mg PO BID 02/13/23 [History] allopurinoL [Zyloprim] 300 mg PO DAILY 02/13/23 [History] Calcium Carbonate/Vitamin D3 [Calcium 600-Vit D3 10 mcg (400 Iu)] 2 tab PO DAILY 10/15/24 [History] Fluticasone Propion/Salmeterol [Advair 250-50 Diskus] 1 inhalation PO RT-BID 10/15/24 [History] Ipratropium-Albuterol Nebulize [Duoneb 0.5 mg-3 mg/3 ml Soln] 3 ml INHALATION RT-QID PRN 10/15/24 [History] Magnesium Oxide [Magnesium] 500 mg PO DAILY 10/15/24 [History] polyethylene glycoL 3350 [Miralax] 17 gm PO DAILY PRN 10/15/24 [History] Dapagliflozin Propanediol [Farxiga] 5 mg PO DAILY #30 tab 10/18/24 [Rx] Follow up Appointment(s)/Referral(s): [facility], [NON-STAFF] - Cookie Guevara MD [Primary Care Provider] - 1-2 days Morteza Ta DO [STAFF PHYSICIAN] - 1 Week Ambulatory/Diagnostic Orders: Basic Metabolic Panel [LAB.AMB] Time Frame: 3 Days, Facility: [facility], Location: [place] [address] Magnesium [LAB.AMB] Time Frame: 3 Days, Facility: [facility], Location: Laboratory [place] [address] Patient Instructions/Handouts: Heart Failure (DC), Acute Kidney Injury (DC) Activity/Diet/Wound Care/Special Instructions: Please follow-up with your PCP and nephrology within 1 to 2 days. Please repeat your blood work in 1 to 2 days and follow-up with your PCP and nephrology for the results. I have discontinued your blood pressure (losartan 25 mg) medication since your blood pressure is under control. Discharge/Stand Alone Forms: Who Do I Call?, Help In The Home
[2024-10-18 16:18] VITALS: BP 100/54; PULSE 65; RESP 16; TEMP 97.8
== END 2024-10-18 17:00 | disposition home or self-care (01) | DRG 291 ==
LOC: EC 14:52 → 3SCARD 16:43
PROVIDERS: ADMIT Internal Medicine; ATTEND Internal Medicine
PROC: 30233N1 Transfusion of Nonautologous Red Blood Cells into Peripheral Vein, Percutaneous Approach (ICD-10-PCS; principal; 2024-10-15)
DX: I13.0 Hypertensive heart and chronic kidney disease with heart failure and stage 1 through stage 4 chronic kidney disease, or unspecified chronic kidney disease (principal); I50.33 Acute on chronic diastolic (congestive) heart failure; N17.0 Acute kidney failure with tubular necrosis; J96.01 Acute respiratory failure with hypoxia; D62 Acute posthemorrhagic anemia; D63.1 Anemia in chronic kidney disease; E83.41 Hypermagnesemia; J44.1 Chronic obstructive pulmonary disease with (acute) exacerbation; N18.32 Chronic kidney disease, stage 3b; I27.20 Pulmonary hypertension, unspecified; I35.0 Nonrheumatic aortic (valve) stenosis; I48.91 Unspecified atrial fibrillation; E78.5 Hyperlipidemia, unspecified; Z79.01 Long term (current) use of anticoagulants; N28.1 Cyst of kidney, acquired; Z79.899 Other long term (current) drug therapy; Z80.0 Family history of malignant neoplasm of digestive organs; Z86.19 Personal history of other infectious and parasitic diseases; Z87.891 Personal history of nicotine dependence; Z96.642 Presence of left artificial hip joint; Z91.030 Bee allergy status
CPT/HCPCS: 36415; 36430; 71046; 76770; 80048; 80053; 81001; 82728; 83540; 83550; 83735; 83880; 84484; 85025; 85610; 85730; 86850; 86900; 86901; 86920; 93005; 94640; 94760; 96374; 96375; 99291